=== PATIENT | male | born 1950 | race Caucasian/White ===

== ENCOUNTER 2019-10-11 08:28 | Outpatient (CLI) | payer MEDICARE, OTHER, SELFPAY ==
--- NOTE | 2019-10-11 09:09 | CT_ITS ---
WS: [id number] CT ABDOMEN PELVIS TECHNIQUE: Contrast-enhanced CT of the abdomen and pelvis with coronal and sagittal reformatted image s. CLINICAL INFORMATION: DIVERTICULITIS COMPARISON: 4018 DLP: 853.[address] scans at [facility] use at least one of these dose optimization techniques: automat ed exposure control; mA and/or kV adjustment per patient size (includes targeted exams where dose is matched to clinical indication); or iterative reconstruction. FINDINGS: Diverticulosis. Previously described mild diverticulitis has improved and essentially resolved with m ild residual thickening of the sigmoid colon. Inflammatory stranding has resolved. No abscess.. Howev er, there is a focal area of short segment narrowing involving the proximal sigmoid colon. Recommend further evaluation with colonoscopy. Tortuous sigmoid colon. Sigmoid and left colon constipation. Liver is normal in appearance. Small right hepatic cyst. Normal gallbladder. Small esophageal hiatal hernia. Lung bases are well aerated. Splenic granulomas. Adrenal glands are normal. 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 No hydronephrosis. Aortic calcification. Normal caliber abdominal ao rta. Prostate enlargement. IMPRESSION: 1. Previously described diverticulitis appears improved and essentially resolved. 2. Focal area of narrowing involving the proximal sigmoid colon. This is best seen on the coronal im aging. Recommend further evaluation with colonoscopy to exclude neoplasm. Tortuous sigmoid colon. 3. Mild constipation involving the left colon and sigmoid colon. 4. 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 No hydronephrosis. 5. Enlarged prostate. Recommend correlation PSA.
[2019-10-11] MEDS: iohexol 300 mg/mL 50 mL Btl IV (09:17)
[2019-10-11] MEDS: iohexol 300 mg/mL 100 mL Btl IV (10:55)
== END 2019-10-11 08:29 | disposition home or self-care (01) ==
PROVIDERS: Family Provider Family Medicine; PCP Family Medicine; Visit Provider Family Medicine
DX: K57.92 Diverticulitis of intestine, part unspecified, without perforation or abscess without bleeding (principal); K59.00 Constipation, unspecified; Q63.1 Lobulated, fused and horseshoe kidney; N40.0 Benign prostatic hyperplasia without lower urinary tract symptoms
CPT/HCPCS: 74177

== ENCOUNTER → 2020-07-02 15:50 | Outpatient (BNVA) | payer MEDICARE, OTHER, SELFPAY | PROVIDERS: Family Provider Family Medicine; PCP Family Medicine; Referring Provider Dermatology; Visit Provider Dermatology | DX: Z85.828 Personal history of other malignant neoplasm of skin (principal); L57.0 Actinic keratosis; L82.1 Other seborrheic keratosis; H02.829 Cysts of unspecified eye, unspecified eyelid; L57.8 Other skin changes due to chronic exposure to nonionizing radiation | CPT/HCPCS: 10040; 17004; 99203 ==

== ENCOUNTER 2020-08-14 13:05 | Emergency (ER) | payer MEDICARE, OTHER, SELFPAY ==
[2020-08-14 13:14] VITALS: BP 127/77; PULSE 83; RESP 18; TEMP 36.9; O2SAT 95; BMI 26.7
--- NOTE | 2020-08-14 13:56 | US_ITS ---
WS: [id number] ULTRASOUND ABDOMEN LIMITED CLINICAL INFORMATION: abd pain COMPARISON: None. FINDINGS: Liver Size: Hepatomegaly Craniocaudal length: 16.8 cm. Echogenicity: Coarse echogenicity Surface nodularity: None. Mass (size and location): None. Bile ducts Intrahepatic ducts: Normal. Common bile duct diameter: 0.3 cm. Gallbladder Gallbladder is contracted. Gallstones: None. Gallbladder sludge: None. Gallbladder wall thickening: None. Pericholecystic fluid: None. Sonographic Flowers sign: Absent. Pancreas Not well visualized Right kidney: Horseshoe kidneys Hydronephrosis: None. Size: 10.2 cm x 5.4 cm x 4.0 cm. Abdominal aorta and IVC Visualized portions are normal. Ascites: Moderate abdominal ascites US/US gall bladder [id number] IMPRESSION: 1. Moderate scattered abdominal ascites. 2. Hepatomegaly with diffuse fatty infiltration. 3. Horseshoe kidney. No hydronephrosis. 4. Gallbladder is contracted
--- NOTE | 2020-08-14 13:56 | CTR_ITS ---
PROCEDURE INFORMATION: Exam: CT Abdomen And Pelvis With Contrast Exam date and time: 08/14/2020 3:02 PM Age: 70 years old Clinical indication: Abdominal pain; Additional info: Abd pain TECHNIQUE: Imaging protocol: Computed tomography of the abdomen and pelvis with intravenous contrast. Radiation optimization: All CT scans at this facility use at least one of these dose optimization techniques: automated exposure control; mA and/or kV adjustment per patient size (includes targeted exams where dose is matched to clinical indication); or iterative reconstruction. Contrast material: OMNI 300; Contrast volume: 95 ml; Contrast route: INTRAVENOUS (IV); COMPARISON: CT abdomen pelvis w con* [id number] 10/11/2019 11:11 AM RADIATION DOSE METRICS: Total DLP (mGy-cm): 741.13 FINDINGS: Lungs: Minimal atelectasis at the left lung base. Pleural space: Small left pleural effusion. Liver: Calcified small punctate granulomatous changes in the liver and spleen. Gallbladder and bile ducts: Normal. No calcified stones. No ductal dilation. Pancreas: Normal. No ductal dilation. Spleen: Normal. No splenomegaly. Adrenal glands: Normal. No mass. Kidneys and ureters: Horseshoe kidneys. Stomach and bowel: Diverticulosis of the sigmoid colon. Small portion of the proximal sigmoid colon has colonic wall thickening with no pericolonic fat stranding (series 2, image 68). Appendix: No evidence of appendicitis. Intraperitoneal space: Moderate amount of ascites in the abdomen and pelvis. Vasculature: Unremarkable. No abdominal aortic aneurysm. Lymph nodes: Unremarkable. No enlarged lymph nodes. Urinary bladder: Unremarkable as visualized. Reproductive: Unremarkable as visualized. Bones/joints: Unremarkable. No acute fracture. Soft tissues: Unremarkable. CT/CT abdomen pelvis w con* [id number] IMPRESSION: 1. Interval development of moderate size ascites. 2. Small left pleural effusion with minimal atelectasis at left lung base. 3. 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 4. Diverticulosis of the sigmoid colon with no evidence for acute diverticulitis. 5. Small portion of the proximal sigmoid colon has colonic wall thickening with no pericolonic fat stranding. Nonemergent further evaluation with the colonoscopy is suggested for evaluation of any neoplastic lesion. Radiation Dose CTDIVOL = (mGy): DLP = 741.13 (mGy-cm)
[2020-08-14 14:05] LABS: Basophils # 0.1 10^3/uL (0.0-0.1); Basophils % 0.6 %; Eosinophils # 0.1 10^3/uL (0.0-0.8); Eosinophils % 1.1 %; Hematocrit 46.6 % (42.0-52.0); Hemoglobin 14.7 g/dL (11.7-16.6); Lymphocytes # 1.5 10^3/uL (0.8-4.8); Lymphocytes % 17.1 %; Mean Corpuscular HGB Conc 31.5 g/dL (30.0-36.0); Mean Corpuscular Hemoglobin 28.9 pg (28.0-34.0); Mean Corpuscular Volume 91.7 fL (80-94); Mean Platelet Volume 9.4 fL (7.4-10.4); Monocytes # 0.8 10^3/uL (0.2-0.9); Monocytes % 8.9 %; Neutrophils # 6.33 10^3/uL (1.8-7.7); Neutrophils % 71.4 %; Nucleated Red Blood Cells % 0 %; Platelet Count 467 10^3/cmm (130-400); Red Blood Count 5.08 10^6/uL (4.1-5.3); Red Cell Distribution Width 12.3 % (12.1-15.1); White Blood Count 8.9 10^3/uL (4.0-10.0)
[2020-08-14 14:22] VITALS: BP 128/76; PULSE 78; RESP 18; O2SAT 92
[2020-08-14] MEDS: morphine 4 mg/mL SDV 1 mL IVP (14:22)
[2020-08-14] MEDS: ondansetron 2 mg/ML SDV 2 mL 4 MG IVP (14:22)
[2020-08-14] MEDS: sodium chloride 0.9% 1,000 ML 125 ML IV (14:22)
[2020-08-14 14:24] LABS: Alanine Aminotransferase 15 U/L (0-41); Albumin Level 3.7 g/dL (3.5-5.2); Alkaline Phosphatase 122 IU/L (40-130); Anion Gap 14.8 (5-19); Aspartate Amino Transferase 15 U/L (0-40); Blood Urea Nitrogen 15 mg/dL (8-23); Calcium 9.7 mg/dL (8.5-10.5); Carbon Dioxide 29 mmol/L (22-29); Chloride 97 mmol/L (98-107); Globulin 3.2 g/dL (1.3-4.6); Glomerular Filtration Rate 83.7 mL/min (90-130); Glucose 145 mg/dL (65-115); Lipase 33 U/L (13-60); Osmolality Calculated 285 mOsm/kg (285-295); Potassium 4.8 mmol/L (3.5-5.1); Sodium 136 mmol/L (136-145); Total Bilirubin 0.3 mg/dL (0.15-1.2); Total Protein 6.9 g/dL (6.6-8.7)
[2020-08-14 14:45] LABS: Add Urine Microscopic? NO
[2020-08-14 15:04] LABS: Bilirubin Urine Neg (Negative); Blood Urine Neg (Negative); Glucose Urine UA 4+ (Normal); Ketones Urine Negative (Negative); Leukocyte Esterase Urine Negative (Negative); Nitrate Urine Negative (Negative); Protein Urine Neg (Negative); Urine Appearance Clear (CLEAR); Urine Color Yellow (Yellow); Urobilinogen Urine Norm (Negative)
--- NOTE | 2020-08-14 15:05 | W.ED.ABDPA2 ---
HPI - Abdominal Pain General: Chief Complaint: Abdominal Pain Stated Complaint: SEVERE ABD CRAMPS Time Seen by Provider: 08/14/20 13:51 Source: patient Mode of arrival: ambulatory Limitations: no limitations History of Present Illness: HPI narrative: 70-year-old male states been having abdominal pain over the last 2 months. He states the pain mainly is in his right upper quadrant seems to be worse with eating. States pain is sharp. Denies any vomiting or diarrhea. He states his pain currently is a 4 out of 10 he has had no fevers at home. Associated Symptoms: Reports nausea; Denies chills, dysuria and fever(s) Review of Systems Const: Denies: fever(s), chills, body aches or change in appetite Eyes: Denies: blurry vision or eye discomfort ENMT: Denies: throat pain or dental pain Card: Denies: chest pain Resp: Denies: dyspnea GI: Reports: abdominal pain and nausea : Denies: dysuria Musc: Denies: neck pain or back pain Skin/Breast: Denies: rash Neuro: Denies: headache(s) Psych: Denies: depression [place]/Lymph: Denies: easy bruising All/Imm: Denies: urticaria PFSH ED PFSH: Medical History History of nonmelanoma skin cancer Family History Father Cancer Social History Smoking and tobacco status: never smoked Alcohol intake: current Alcohol intake frequency: few times a week History of recent travel: Yes Physical Exam Const: COMMON NORMALS: no acute distress, patient oriented x3 and healthy appearing HENMT: COMMON NORMALS: normocephalic and atraumatic HEAD & SCALP: normocephalic and atraumatic Eye: COMMON NORMALS: Equal, round and reactive pupils present and EOMs intact bilaterally PUPIL: Yes Equal, round and reactive pupils present Neck/C-Spine: COMMON NORMALS: full ROM and supple Chest: COMMONS NORMALS: normal inspection of the chest and normal palpation of entire chest wall Resp: COMMON NORMALS: normal respiratory effort, No retractions, No use of accessory muscles and clear to auscultation bilaterally AUSCULTATION: clear to auscultation bilaterally Cardio: COMMON NORMALS: regular rate, regular rhythm and No murmurs present (Cardio) RATE: regular rate RHYTHM: regular rhythm GI: COMMON NORMALS: Normal to inspection, nondistended, normoactive bowel sounds present, Soft to palpation and no masses PALPATION: Yes Soft to palpation OTHER: diffuse mild tenderness Extremity: COMMON NORMALS: normal to inspection and full ROM Neuro: COMMON NORMALS: patient oriented x3, moves all extremities and no focal motor deficits Psych: COMMON NORMALS: mental status grossly normal, Normal thought process present and cooperative THOUGHT PROCESS: Normal thought process present Skin: COMMON NORMALS: no rashes or lesions noted and no wounds GENERAL SKIN EXAM: no rashes or lesions noted Course Vital Signs: Vital signs: Vital Signs Temperature 98.4 F 08/14/20 13:14 Pulse Rate 83 08/14/20 13:14 Respiratory Rate 18 08/14/20 14:22 Blood Pressure 127/77 08/14/20 13:14 Pulse Oximetry 95 08/14/20 13:14 MDM - Abdominal Pain MDM Narrative: Medical decision making narrative: Clark presents here with abdominal pain. Patient was found to have ascites. His blood work and work-up was otherwise negative. His pain here is been improved and his exam is benign. Will prescribe him pain meds and he is to follow-up his PCP along with Dr. Khan. Lab Data: Labs: Lab Results 08/14/20 08/14/20 08/14/20 Range/Units 13:37 13:37 13:37 WBC 8.9 (4.0-10.0) 10^3/ uL RBC 5.08 (4.1-5.3) 10^6/u L Hgb 14.7 (11.7-16.6) g/dL Hct 46.6 (42.0-52.0) % MCV 91.7 (80-94) fL MCH 28.9 (28.0-34.0) pg MCHC 31.5 (30.0-36.0) g/dL RDW 12.3 (12.1-15.1) % Plt Count 467 H (130-400) 10^3/c mm MPV 9.4 (7.4-10.4) fL Neut % (Auto) 71.4 % Lymph % (Auto) 17.1 % [place] % (Auto) 8.9 % Eos % (Auto) 1.1 % Baso % (Auto) 0.6 % Neut # (Auto) 6.33 (1.8-7.7) 10^3/u L Lymph # (Auto) 1.5 (0.8-4.8) 10^3/u L [place] # (Auto) 0.8 (0.2-0.9) 10^3/u L Eos # (Auto) 0.1 (0.0-0.8) 10^3/u L Baso # (Auto) 0.1 (0.0-0.1) 10^3/u L Nucleated RBC % (a uto) 0 % Nucleated RBCs # 0.0 /100WBC Sodium 136 (136-145) mmol/L Potassium 4.8 (3.5-5.1) mmol/L Chloride 97 L (98-107) mmol/L Carbon Dioxide 29 (22-29) mmol/L Anion Gap 14.8 (5-19) BUN 15 (8-23) mg/dL Creatinine 0.9 (0.7-1.2) mg/dL GFR Calculation 83.7 L (90-130) mL/min Glucose 145 H (65-115) mg/dL Calculated Osmolal ity 285 (285-295) mOsm/k g Calcium 9.7 (8.5-10.5) mg/dL Total Bilirubin 0.3 (0.15-1.2) mg/dL AST 15 (0-40) U/L ALT 15 (0-41) U/L Alkaline Phosphata se 122 (40-130) IU/L Total Protein 6.9 (6.6-8.7) g/dL Albumin 3.7 (3.5-5.2) g/dL Globulin 3.2 (1.3-4.6) g/dL Lipase 33 (13-60) U/L Urine Color Yellow (Yellow) Urine Appearance Clear (CLEAR) Urine pH 5.0 (5-7) Ur Specific Gravit y 1.010 (1.005-1.030) Urine Protein Neg (Negative) Urine Glucose (UA) 4+ H (Normal) Urine Ketones Negative (Negative) Urine Blood Neg (Negative) Urine Nitrate Negative (Negative) Urine Bilirubin Neg (Negative) Urine Urobilinogen Norm (Negative) mg/dL Ur Leukocyte Elvira ase Negative (Negative) Imaging Data ^: US: Radiologist's impression: [place] [address] Ultrasound Report Signed Patient: Clark Antony Unit #: [id number] : 1950 Age/Sex: 70 / M ADM Date: 08/14/20 Loc: ER Room/Bed: Attending Dr: Ordering Provider/Ordering MD: Cherelle Andrade MD Date of Service: 08/14/20 Procedure(s): US gall bladder [id number] Accession Number(s): [id number] Report Number: [id number] WS: [id number] ULTRASOUND ABDOMEN LIMITED CLINICAL INFORMATION: abd pain COMPARISON: None. FINDINGS: Liver Size: Hepatomegaly Craniocaudal length: 16.8 cm. Echogenicity: Coarse echogenicity Surface nodularity: None. Mass (size and location): None. Bile ducts Intrahepatic ducts: Normal. Common bile duct diameter: 0.3 cm. Gallbladder Gallbladder is contracted. Gallstones: None. Gallbladder sludge: None. Gallbladder wall thickening: None. Pericholecystic fluid: None. Sonographic Flowers sign: Absent. Pancreas Not well visualized Right kidney: Horseshoe kidneys Hydronephrosis: None. Size: 10.2 cm x 5.4 cm x 4.0 cm. Abdominal aorta and IVC Visualized portions are normal. Ascites: Moderate abdominal ascites US/US gall bladder [id number] IMPRESSION: 1. Moderate scattered abdominal ascites. 2. Hepatomegaly with diffuse fatty infiltration. 3. Horseshoe kidney. No hydronephrosis. 4. Gallbladder is contracted CT Abd/Pel: Radiologist's impression: [address] [address] [address] Scan Report Signed Patient: Clark Antony Unit #: [id number] : 1950 Age/Sex: 70 / M ADM Date: 08/14/20 Loc: ER Room/Bed: Attending Dr: Ordering Provider/Ordering MD: Cherelle Andrade MD Date of Service: 11/12/20 Procedure(s): CT abdomen pelvis w con* [id number] Accession Number(s): [id number] Report Number: [id number] PROCEDURE INFORMATION: Exam: CT Abdomen And Pelvis With Contrast Exam date and time: 08/14/2020 3:02 PM Age: 70 years old Clinical indication: Abdominal pain; Additional info: Abd pain TECHNIQUE: Imaging protocol: Computed tomography of the abdomen and pelvis with intravenous contrast. Radiation optimization: All CT scans at this facility use at least one of these dose optimization techniques: automated exposure control; mA and/or kV adjustment per patient size (includes targeted exams where dose is matched to clinical indication); or iterative reconstruction. Contrast material: OMNI 300; Contrast volume: 95 ml; Contrast route: INTRAVENOUS (IV); COMPARISON: CT abdomen pelvis w con* [id number] 10/11/2019 11:11 AM RADIATION DOSE METRICS: Total DLP (mGy-cm): 741.13 FINDINGS: Lungs: Minimal atelectasis at the left lung base. Pleural space: Small left pleural effusion. Liver: Calcified small punctate granulomatous changes in the liver and spleen. Gallbladder and bile ducts: Normal. No calcified stones. No ductal dilation. Pancreas: Normal. No ductal dilation. Spleen: Normal. No splenomegaly. Adrenal glands: Normal. No mass. Kidneys and ureters: Horseshoe kidneys. Stomach and bowel: Diverticulosis of the sigmoid colon. Small portion of the proximal sigmoid colon has colonic wall thickening with no pericolonic fat stranding (series 2, image 68). Appendix: No evidence of appendicitis. Intraperitoneal space: Moderate amount of ascites in the abdomen and pelvis. Vasculature: Unremarkable. No abdominal aortic aneurysm. Lymph nodes: Unremarkable. No enlarged lymph nodes. Urinary bladder: Unremarkable as visualized. Reproductive: Unremarkable as visualized. Bones/joints: Unremarkable. No acute fracture. Soft tissues: Unremarkable. CT/CT abdomen pelvis w con* [id number] IMPRESSION: 1. Interval development of moderate size ascites. 2. Small left pleural effusion with minimal atelectasis at left lung base. 3. 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 4. Diverticulosis of the sigmoid colon with no evidence for acute diverticulitis. 5. Small portion of the proximal sigmoid colon has colonic wall thickening with no pericolonic fat stranding. Nonemergent further evaluation with the colonoscopy is suggested for evaluation of any neoplastic lesion. Discharge Plan Discharge Patient Disposition: Home Clinical Impression: Abdominal pain Qualifiers: Abdominal location: generalized Qualified Code(s): R10.84 - Generalized abdominal pain Ascites Qualifiers: Ascites type: other type Qualified Code(s): R18.8 - Other ascites Condition: Stable Prescriptions: New Mcdonald 5-325 mg tablet 1 tab PO Q6H PRN (Reason: pain) Qty: 14 RF: 0 ondansetron 4 mg tablet,disintegrating 4 mg PO Q6H PRN (Reason: nausea and vomiting) Qty: 14 RF: 0 No Action esomeprazole magnesium [Nexium] 40 mg capsule,delayed release(DR/EC) 40 mg PO DAILY RF: 0 rosuvastatin [Crestor] 20 mg tablet 20 mg PO DAILY RF: 0 montelukast [Singulair] 10 mg tablet 10 mg PO DAILY RF: 0 lisinopril RF: 0 Discharge Orders: Discharge Order (Routine); Ordered 08/14/20 Ordered By: Cherelle Andrade Referrals: Serg Wise MD [Physician] - 1-3 days Felipe Ruth MD [Primary Care Provider] - 1-3 days Discharge Diet: Advance as tolerated Discharge Activity: Resume usual activity Patient Instructions: Abdominal Pain (ED) Coding Level of Care Code ED Chairman President [employer] Chief [employer] for [employer] Fwd Exam Comprehensive
[2020-08-14] MEDS: iohexol 300 mg/mL 100 mL Btl IV (15:13)
[2020-08-14 16:00] VITALS: BP 136/72; PULSE 78; RESP 16; O2SAT 94
[2020-08-14 17:36] VITALS: BP 104/64; PULSE 79; RESP 18; O2SAT 94
--- NOTE | 2020-08-15 09:04 | DCPLANNER ---
manager private had message to schedule a follow up appointment for patient with general surgery. manager private email Ger at [facility], gave patients information. Patients information will be printed and reviewed, clinic will call patient with appointment information.
--- NOTE | 2020-08-19 11:50 | DCPLANNER ---
Patient had a follow up appointment scheduled for 08.15.20 at [facility] - patient did attend appointment.
== END 2020-08-14 17:40 | disposition home or self-care (01) ==
PROVIDERS: Emergency Provider Emergency Medicine; PCP Family Medicine
DX: R10.84 Generalized abdominal pain (principal); R18.8 Other ascites
CPT/HCPCS: 12345; 74177; 76705; 80053; 81003; 83690; 85025; 96361; 96374; 96375; 99282; 99283; J2270; J2405; J7030; Q9967

== ENCOUNTER → 2020-08-18 12:34 | Day surgery (SDC) | payer MEDICARE, OTHER, SELFPAY ==
--- NOTE | 2020-08-18 12:55 | US_ITS ---
WS: [id number] ULTRASOUND-GUIDED THERAPEUTIC AND DIAGNOSTIC PARACENTESIS Procedure, risks, and complications have been explained to the patient. Consent is obtained. Utilizing aseptic technique and 1% buffered lidocaine, a small dermatome was made through which a 5 F rench Yueh catheter was inserted. Approximately 2300 ml of mild yellow peritoneal fluid was obtained without difficulty. No complications encountered. US/US paracentesis abd w [id number] IMPRESSION: Uncomplicated paracentesis yielding 2300 ml of peritoneal fluid. Paracentesis fluid collected and sent for analysis as requested.
[2020-08-18 15:43] LABS: Mononuclear #, Pertinoneal Fl 0.394 10^3/uL; Polynuclear # Cells, Perit 0.032 10^3/uL
[2020-08-18 15:55] LABS: Alkaline Phosphatase 59 IU/L (40-130)
[2020-08-18 15:56] LABS: Amylase Peritoneal Fluid 10 U/L (88-109); Cholesterol Body Fluid 94 mg/dL (0-200); Total Protein Peritoneal Fluid 4.4 g/dL; Triglycerides,Peritoneal Fluid 61 mg/dL; Uric Acid Body Fluid 4 mg/dL
[2020-08-18 17:36] LABS: Appearance, Peritoneal Fluid Hazy (Clear); Color, Peritoneal Fluid Pale Yellow (Pale Yellow)
[2020-08-18 17:41] LABS: WBC Peritoneal Fluid 426 /uL
[2020-08-18 17:42] LABS: RBC Pertioneal Fluid 5 10^3/uL
== END ==
PROVIDERS: PCP Family Medicine; Visit Provider Surgery
DX: R14.0 Abdominal distension (gaseous) (principal)
CPT/HCPCS: 49083; 80500; 82150; 82465; 82945; 83615; 83986; 84075; 84080; 84157; 84315; 84478; 84560; 87015; 87070; 87075; 87116; 87205; 87206; 87801; 88112; 88305; 89050

== ENCOUNTER 2020-08-21 08:16 | Outpatient (CLI) | payer MEDICARE, OTHER, SELFPAY ==
--- NOTE | 2020-08-21 08:22 | NM_ITS ---
WS: [id number] NUCLEAR MEDICINE HIDA SCAN WITH GALLBLADDER EJECTION FRACTION HISTORY: RUQ PAIN COMPARISON: None available. TECHNIQUE: The patient was intravenously injected with 7.2 mCi of TC99m Mebrofenin. Immediate imaging over the right upper quadrant was followed by 5 minute image and additional images for a total of 60 minutes. Normal uptake of radiotracer throughout the liver. Activity identified in the gallbladder at 15 minutes and minimally distended by 60 minutes. Activity in the proximal small bowel was seen by 30 minutes. Good washout of the radiotracer from the liver by 60 minutes. The patient then drank 8 ounces of Ensure Plus. Ejection fraction at 60 minutes was 93%. Normal GB ej ection fraction is 35-75%. Post fatty meal symptoms: None. NM/NM hepatobiliary w phar* [id number] IMPRESSION: 1. Normal HIDA scan. 2. Normal gallbladder ejection fraction.
== END 2020-08-21 08:17 | disposition home or self-care (01) ==
LOC: NM 08:19
PROVIDERS: PCP Family Medicine; Visit Provider Nurse Practitioner Family
DX: R10.11 Right upper quadrant pain (principal)
CPT/HCPCS: 78227; A9537

== ENCOUNTER 2020-08-26 16:06 | Outpatient (CLI) | payer MEDICARE, OTHER, SELFPAY ==
[2020-08-26 16:51] LABS: Basophils # 0.1 10^3/uL (0.0-0.1); Basophils % 0.5 %; Eosinophils # 0.1 10^3/uL (0.0-0.8); Eosinophils % 0.7 %; Hematocrit 45.4 % (42.0-52.0); Lymphocytes # 1.5 10^3/uL (0.8-4.8); Mean Corpuscular HGB Conc 30.8 g/dL (30.0-36.0); Mean Corpuscular Hemoglobin 28.3 pg (28.0-34.0); Mean Corpuscular Volume 91.7 fL (80-94); Mean Platelet Volume 9.5 fL (7.4-10.4); Monocytes # 0.9 10^3/uL (0.2-0.9); Monocytes % 9.1 %; Neutrophils # 7.35 10^3/uL (1.8-7.7); Neutrophils % 74.1 %; Nucleated Red Blood Cells % 0 %; Platelet Count 434 10^3/cmm (130-400); Red Blood Count 4.95 10^6/uL (4.1-5.3); Red Cell Distribution Width 12.8 % (12.1-15.1); White Blood Count 9.9 10^3/uL (4.0-10.0)
[2020-08-26 17:33] LABS: Carcinoembryonic Antigen 1.1 ng/mL (0.0-4.7)
[2020-08-26 17:44] LABS: Alanine Aminotransferase 13 U/L (0-41); Albumin Level 3.8 g/dL (3.5-5.2); Alkaline Phosphatase 114 IU/L (40-130); Anion Gap 17.4 (5-19); Aspartate Amino Transferase 16 U/L (0-40); Blood Urea Nitrogen 14 mg/dL (8-23); Calcium 8.8 mg/dL (8.5-10.5); Carbon Dioxide 24 mmol/L (22-29); Chloride 100 mmol/L (98-107); Globulin 2.9 g/dL (1.3-4.6); Glomerular Filtration Rate 74.1 mL/min (90-130); Glucose 141 mg/dL (65-115); Osmolality Calculated 287 mOsm/kg (285-295); Potassium 4.4 mmol/L (3.5-5.1); Sodium 137 mmol/L (136-145); Total Bilirubin 0.3 mg/dL (0.15-1.2); Total Protein 6.7 g/dL (6.6-8.7)
[2020-08-26 20:02] LABS: Cancer Antigen 19 9 4.85 U/mL (0-35)
== END 2020-08-26 16:07 | disposition home or self-care (01) ==
LOC: LAB 16:13
PROVIDERS: PCP Family Medicine; Visit Provider Surgery
DX: R18.8 Other ascites (principal)
CPT/HCPCS: 36415; 80053; 82378; 85025; 86301

== ENCOUNTER 2020-09-01 07:20 | Outpatient (CLI) | payer MEDICARE, OTHER, SELFPAY ==
--- NOTE | 2020-09-01 07:15 | US_ITS ---
WS: [id number] ULTRASOUND ABDOMEN LIMITED CLINICAL INFORMATION: R18.8 - Other ascites COMPARISON: None. FINDINGS: Liver Normal directional portal venous flow. Hepatic arteries are patent with normal flow. Size: Mild hepatomegaly Craniocaudal length: 17.5 cm. Echogenicity: Normal. Surface nodularity: None. Mass (size and location): None. Bile ducts Intrahepatic ducts: Normal. Common bile duct diameter: 0.4 cm. Gallbladder Normal. Gallstones: None. Gallbladder sludge: None. Gallbladder wall thickening: None. Pericholecystic fluid: None. Sonographic Flowers sign: Absent. Pancreas Not well visualized Right kidney: Horseshoe kidney configuration better seen on the recent CT. Hydronephrosis: None. Size: 12.2 cm x 4.7 cm x 6.0 cm. Abdominal aorta and IVC Visualized portions are normal. Ascites: Mild US/US abdomen limited [id number] IMPRESSION: 1. Mild hepatomegaly. 2. Normal portal vein flow. Normal hepatic arteries. 3. Normal common bile duct. Normal gallbladder. 4. No hydronephrosis in right kidney. 5. Mild ascites.
--- NOTE | 2020-09-01 07:45 | USCV_ITS ---
Enriquelauren Clark Age: 70 Gender: M : 1950 Exam Date: 09/01/2020 08:22 Ordering Phys: Andrew Cole MD Technologist: Karyn Falcon Exam Location: [facility] [place] Indication: ASITES BP: 115 / 70 HR: 78 Rhythm: Sinus Technical Quality: Very poor MEASUREMENTS (Male / Female) Normal Values 2D ECHO LV Diastolic Diameter PLAX 3.3 cm 4.2 - 5.9 / 3.9 - 5.3 cm LV Systolic Diameter PLAX 2.4 cm LV Chamber Size 3.6 cm IVS Diastolic Thickness 1.2 cm 0.6 - 1.0 / 0.6 - 0.9 cm IVS Systolic Thickness 1.6 cm LVPW Diastolic Thickness 1.2 cm 0.6 - 1.0 / 0.6 - 0.9 cm LVPW Systolic Thickness 1.6 cm RV Chamber Size 4.1 cm LVOT Diameter 2.1 cm LV Ejection Fraction 2D Teich 55.9 % LV Ejection Fraction MOD 2C 62.3 % LV Ejection Fraction 2C AL 61.8 % LA Diameter 2.8 cm LA Width 2.7 cm LA Height 3.3 cm RA Width 2.7 cm RA Height 3.1 cm Aorta at Sinotubular Diameter 3.2 cm M-MODE LV Diastolic Diameter MM 4.8 cm 4.2 - 5.9 / 3.9 - 5.3 cm LV Systolic Diameter MM 2.8 cm LV Ejection Fraction MM Teich 73.1 % IVS Diastolic Thickness MM 0.9 cm 0.6 - 1.0 / 0.6 - 0.9 cm IVS Systolic Thickness MM 1.3 cm LVPW Diastolic Thickness MM 1.2 cm 0.6 - 1.0 / 0.6 - 0.9 cm LVPW Systolic Thickness MM 1.7 cm RV Diastolic Diameter MM 1.6 cm Aortic Annulus Diameter 3.7 cm LA Ao Ratio MM 0.9 MV E Point Septal Separation 0.4 cm DOPPLER AV Peak Velocity 110.0 cm/s LVOT Peak Velocity 72.0 cm/s AV Area Cont Eq vti 2.8 cm squared AV Area Cont Eq pk 2.2 cm squared MV Area PHT 2.6 cm squared Mitral E to A Ratio 1.0 MV E' Velocity 35.5 cm/s Mitral E to MV E' Ratio 5.9 Mitral E to LV E' Lateral Ratio 5.4 Mitral E to LV E' Septal Ratio 6.5 TR Peak Velocity 169.1 cm/s TR Peak Gradient 11.4 mmHg TR Mean Velocity 128.1 cm/s TR Mean Gradient 7.4 mmHg TR Velocity Time Integral 38.9 cm TV Peak E Velocity 80.0 cm/s PV Peak Velocity 49.0 cm/s RV Acceleration Time 0.2 s RV Ejection Time 0.3 s RV AcT/ET 0.5 FINDINGS Left Ventricle Possibly normal LV size and ejection fraction. No gross wall motion normalities. Mild concentric left renal hypertrophy. Segmental wall motion analysis difficult because of the poor ultrasonic window Right Ventricle Normal right ventricular size and systolic function. Right Atrium Possibly of normal size possibly of normal size Left Atrium Possibly of normal size Mitral Valve Leaflets could not be visualized well Aortic Valve No gross abnormalities noted Tricuspid Valve No gross Pulmonic Valve Pulmonic valve not well visualized. Pericardium Trivial pericardial effusion. Aorta Normal aortic annulus size. CONCLUSIONS Possibly normal LV size and ejection fraction. No gross wall motion normalities. Mild concentric left renal hypertrophy. Segmental wall motion analysis difficult because of the poor ultrasonic window. Mitral valve leaflets could not visualize well. The study could not exclude any intracardiac masses or vegetations because of the poor ultrasonic window. Consider MYLENE if clinically indicated Trace of pericardial effusion Technically difficult study No previous studies available for comparison Dr Linda Paul MD [facility] (Electronically Signed) Final Date: 01 September 2020 15:49 S
== END 2020-09-01 07:21 | disposition home or self-care (01) ==
LOC: RAD 07:28
PROVIDERS: PCP Family Medicine; Visit Provider Surgery
DX: R18.8 Other ascites (principal); R16.0 Hepatomegaly, not elsewhere classified
CPT/HCPCS: 76705; 93306

== ENCOUNTER 2020-09-04 09:13 | Outpatient (CLI) | payer MEDICARE, OTHER, SELFPAY ==
--- NOTE | 2020-09-04 09:38 | CT_ITS ---
WS: [id number] CT scan of the chest with IV contrast, additional two-dimensional coronal and sagittal reconstruction was performed. 09/04/2020 Clinical Data: ASCITES, PERICARDIAL EFFUSION Comparison: None. DLP: 842.[address] scans at [facility] use at least one of these dose optimization techniques: automat ed exposure control; mA and/or kV adjustment per patient size (includes targeted exams where dose is matched to clinical indication); or iterative reconstruction. Findings: There is a moderate left pleural effusion with atelectasis of the left lower lobe. No right pleural e ffusion is seen. No nodules or masses are seen. No pneumonia or pneumothorax is present The heart size is normal with no pericardial effusion. There is coronary artery calcification. The pulmonary arterial system and t horacic aorta demonstrate no abnormalities or dilatations. There is no axillary or significant medias tinal adenopathy. The upper abdomen shows minimal left upper quadrant ascites. Visualized liver, gallbladder, pancreas and spleen show only splenic granulomas. The adrenal glands are normal. Abdominal aorta is not remark able. The bones of the thorax are normal. CT/CT chest w con* [id number] Impression: 1. Moderate left pleural effusion with atelectasis of the left lower lobe and a n obstructed left lower lobe bronchus could cause this finding. 2. Small amount of ascites in the left upper quadrant of the abdomen.
[2020-09-04] MEDS: iohexol 300 mg/mL 100 mL Btl IV (10:11)
== END 2020-09-04 09:14 | disposition home or self-care (01) ==
LOC: RADWPI 09:16
PROVIDERS: PCP Family Medicine; Visit Provider Family Medicine
DX: R18.8 Other ascites (principal); I31.3 Pericardial effusion (noninflammatory); J90 Pleural effusion, not elsewhere classified; J98.11 Atelectasis
CPT/HCPCS: 71260; Q9967

== ENCOUNTER → 2020-09-24 13:57 | Day surgery (SDC) | payer MEDICARE, OTHER, SELFPAY ==
[2020-09-24 14:09] VITALS: BP 110/70; PULSE 90; RESP 18; TEMP 36.4; O2SAT 94
[2020-09-24 14:14] VITALS: BMI 25.1
[2020-09-24 15:56] VITALS: BP 105/64; PULSE 77; RESP 18; TEMP 36.4; O2SAT 94
--- NOTE | 2020-09-24 15:58 | SUR.PREOP ---
patient instructed to leave gauze bandage on for 24h, not to soak puncture site in water for bathing until completely healed. instructed to place bandaid over site after gauze removed. pt verbalized understanding.
--- NOTE | 2020-09-24 16:39 | PM.PROC ---
Procedure Note: Date of procedure: 09/24/20 Pre-procedure diagnosis: Infection/malignancy Procedure: Pulmonary & Critical Care Medicine Procedure -left chest thoracentesis Procedure: Thoracentesis Indication: Pleural effusion Information Systems Security Developer(s): Angel Singleton MD Consent: Signed and placed in chart Anesthesia: 10 cc 1% lidocaine without epinephrine Description: Left pleural effusion was localized using ultrasound guidance and the site was marked accordingly. After chlorhexidine skin prep, area was draped in a sterile manner. 1% lidocaine was used for local anesthesia. Thoracentesis catheter was then inserted into the pleural space with aspiration of 740 cc of hemorrhagic appearing pleural fluid. Ultrasound guidance used: yes. Image saved to ultrasound machine yes EBL: 5-10 cc Complications: No LEFT PLEURAL EFFUSION POST THORACENTESIS Op report anesthesia: Local Performing Provider: Angel Singleton Estimated blood loss (mL): 10 Complications: None Pathology: other Condition: stable Disposition: same day (discharge) Coding Level of Care Code Acute Soft Metals Hand Engraver for Ama Gallagher
[2020-09-24 16:51] LABS: Body Fluid Polynuclear #Cells 0.059; Monocytes # Body Fluid 3.329
[2020-09-24 17:06] LABS: Apprearance, Body Fluid CLEAR; Body Fluid WBC 3388 /uL; Color, Body Fluid PALE YELLOW; PATH Referral YES
[2020-09-24 18:08] LABS: Albumin Body Fluid 3.4 g/dL; Amylase Body Fluid 13 U/L; Cholesterol Body Fluid 102 mg/dL (0-200); Fluid Alkaline Phos. 45 IU/L; LDH Body Fluid 227 U/L; Total Protein Pleural Fluid 5.1 g/dL; Triglycerides Body Fluid 48 mg/dL (0-150); Uric Acid Body Fluid 4 mg/dL
== END ==
PROVIDERS: PCP Family Medicine; Visit Provider Internal Medicine Pulmonary Disease
DX: J90 Pleural effusion, not elsewhere classified (principal)
CPT/HCPCS: 12345; 32555; 80500; 82042; 82150; 82465; 82945; 83615; 83986; 84075; 84157; 84315; 84478; 84560; 87015; 87070; 87075; 87102; 87116; 87205; 87206; 87801; 89050

== ENCOUNTER 2020-10-07 11:59 | Outpatient (CLI) | payer MEDICARE, OTHER, SELFPAY ==
--- NOTE | 2020-10-07 12:06 | XR_ITS ---
WS: [id number] CHEST 2 VIEWS HISTORY: left pleural effusion COMPARISON: 04/13/[address] 09/04/2020. Lungs: Slight elevation of the LEFT lung base with a small effusion. This effusion was described on a prior CT from 09/04/2020. Fusion appears smaller as compared to the prior CT. No lobar collapse. No p neumonia. Normal vasculature. Cardiac size: Normal. Mediastinum/Aorta: Mild atherosclerosis aorta. Bones: Normal. XR/XR chest 2V* 11550 IMPRESSION: 1. Small persistent LEFT pleural effusion has decreased in size since 0. 2. No pneumonia.
== END 2020-10-07 12:00 | disposition home or self-care (01) ==
PROVIDERS: PCP Family Medicine; Visit Provider Internal Medicine Pulmonary Disease
DX: J90 Pleural effusion, not elsewhere classified (principal)
CPT/HCPCS: 71046

== ENCOUNTER 2020-10-10 15:19 | Outpatient (CLI) | payer MEDICARE, OTHER, SELFPAY ==
[2020-10-10 16:59] LABS: C Reactive Protein 4.7 mg/L (0.0-4.9); Lactate Dehydrogenase 132 U/L (135-225)
[2020-10-13 13:12] LABS: Anti-Double Strand DNA AB 1 IU/mL; Jo-1 Antibody <1.0 NEG AI (<1.0 NEG); SM/RNP Antibodies <1.0 NEG AI (<1.0 NEG); SS-B/LA IGG <1.0 NEG AI (<1.0 NEG); Scleroderma Ab(Scl-70) Ab <1.0 NEG AI (<1.0 NEG); Ss-A/Ro Igg <1.0 NEG AI (<1.0 NEG)
[2020-10-13 15:13] LABS: KAPPA LIGHT CHAIN, FREE, SERUM 16.9 mg/L (3.3-19.4); KAPPA/LAMBDA LIGHT CHAINS FREE 1.31 (0.26-1.65); LAMBDA LIGHT CHAIN, FREE, SERU 12.9 mg/L (5.7-26.3)
== END 2020-10-10 15:20 | disposition home or self-care (01) ==
PROVIDERS: PCP Family Medicine; Visit Provider Internal Medicine Pulmonary Disease
DX: J90 Pleural effusion, not elsewhere classified (principal); R18.8 Other ascites
CPT/HCPCS: 36415; 83615; 83883; 84156; 86140; 86225; 86235; 86335

== ENCOUNTER 2020-10-27 09:54 | Outpatient (CLI) | payer MEDICARE, OTHER, SELFPAY ==
--- NOTE | 2020-10-27 10:15 | MR_ITS ---
WS: [id number] INDICATION: Lower abdominal pain TECHNIQUE: MR of the pelvis without and with gadolinium enhancement. COMPARISON: PET CT 1 16,, CT 08/14/2020 and 10/11/2019. FINDINGS: Some images degraded by motion artifact. No definite perianal or perirectal abnormalities t o correspond to the findings on the PET/CT. Mild circumferential wall thickening involving the distal sigmoid proximal to the rectum eccentric to the left. This is nonspecific and recommend further eval uation with sigmoidoscopy. Perirectal fat appears normal. No pelvic or inguinal lymphadenopathy. Normal bone marrow signal in th e pelvis bony structures and sacrum. Mild disc bulging lower lumbar spine L4-L5 and L5-S1. MR/MR pelvis wo/w con [id number] IMPRESSION: 1. No definite abnormalities corresponding to the right rectal focal uptake se en on the PET/CT. However the PET/CT findings remain suspicious for malignancy 2. Mild diffuse thickening and enhancement involving the distal sigmoid proxim al to the rectum is nonspecific and neoplasm is not excluded. This can be furth er evaluated with sigmoidoscopy. Although this did not demonstrate significant FDG uptake on the PET/CT 3. No pelvic or inguinal lymphadenopathy. 4. No other significant findings.
== END 2020-10-27 09:55 | disposition home or self-care (01) ==
LOC: RADSHAW 09:58
PROVIDERS: PCP Family Medicine; Visit Provider Surgery
DX: K62.89 Other specified diseases of anus and rectum (principal); R10.30 Lower abdominal pain, unspecified
CPT/HCPCS: 72197; A9577

== ENCOUNTER 2021-01-22 10:01 | Outpatient (CLI) | payer MEDICARE, OTHER, SELFPAY ==
--- NOTE | 2021-02-15 22:04 | ONC FU_ITS ---
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 (Diagnosed 01/15/[address] [facility] [address] Rena Gresham). History of Present Illness: Mr. Antony is a 70-year-old gentleman who started having lower abdominal pain in late 2018/early 2019. On October 11, [address] of the abdomen and pelvis with contrast. He was found to have diverticulosis although was improved compared to September 2019. There previously been reported mild residual thickening of the sigmoid colon but that had essentially resolved on the October 2019 result. The overall impression red previously described diverticulitis appears improved and essentially resolved. Focal area of narrowing involving the proximal sigmoid colon. This is best seen on the coronal imaging. Recommended further evaluation with colonoscopy to exclude neoplasm. Tortuous sigmoid colon. He did have enlarged prostate and recommended correlation PSA. 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 He did have EGD and colonoscopy per Dr Pelaez, both of which were unrevealing. Mr. Antony presented to [facility] emergency room in August 2020 with severe abdominal cramps and pain. At that point he was having pain in his right upper quadrant which was worse with eating. He did have ultrasound of the gallbladder which found the gallbladder contracted but no gallstones no sludge and no wall thickening. His bile ducts were normal. He did have hepatomegaly the craniocaudal length is 16.8 cm the pancreas was not well-visualized. The right kidney horseshoe kidneys without hydronephrosis. He did have a moderate amount of abdominal ascites. He had CT of the abdomen pelvis which compared to his previous reported interval development of moderate size ascites. Small left pleural effusion with minimal atelectasis at the left lung base. Diverticulosis of the sigmoid colon with no evidence of acute diverticulitis. Small portion of the proximal sigmoid colon has colonic wall thickening with no pericolonic fat stranding. Nonemergent further evaluation with colonoscopy is suggested for any evaluation of neoplasm. He was given pain medication and antiemetics. He was advised to follow-up with Dr. Ruth and Dr. Wise. Mr. Antony did see Dr. Cole on August 15, 2020. He was scheduled for ultrasound-guided paracentesis and a HIDA scan with ejection fraction. He was advised increase his Nexium to twice a day. He had 2300 mL of yellow peritoneal fluid removed with his paracentesis on 08/18/2020. The cytology was negative for malignancy. On August 21, 2020 he underwent HIDA scan which was reported as normal and reported an ejection fraction of 93%. He had follow-up abdominal ultrasound on September 01, 2020 which is reported mild ascites. He also underwent echocardiogram which was reported as a technically difficult study with a trace of pericardial effusion. Possibly normal LV size and ejection fraction. No gross wall motion abnormalities mild concentric left renal hypertrophy. Segmental wall motion analysis difficult because of the poor ultrasonic window. Mitral valve leaflets could not be visualized well . On 09/04/[address] with contrast which reported a moderate left pleural effusion with atelectasis in the left lower lobe. No right lower lobe pleural effusion was seen. There were no nodules or masses reported. No pneumonia or pneumothorax was present. The heart size was normal with no pericardial effusion. There is coronary artery calcification the pulmonary arterial system and thoracic aorta demonstrate no abnormalities or dilatations. There was no axillary or significant mediastinal adenopathy. The upper abdomen shows left upper quadrant ascites, visualized liver, gallbladder, pancreas and spleen only show splenic granulomas. The adrenal glands were normal and the abdominal aortic was not remarkable. The bones of the thorax were normal. Mr. Antony was evaluated by Dr. Singleton in pulmonology on 09/22/2020. Mr. Antony was having increased shortness of breath with exertion with left-sided chest tightness. Is also noted that time that his appetite had decreased and lost about 30 pounds in a month and was feeling more tired than normal. Dr. Singleton noted that Mr. Antony indicated he was going to see maintenance instructor in [place] on 09/23/2020. His labs including LFTs and tumor markers-CEA and CA 19-9 had all been normal. Bedside ultrasound at Dr. Pan's clinic indicated moderate pleural effusion. He was scheduled for thoracentesis on 09/24/2020 for outpatients. 740 mL of hemorrhagic appearing pleural fluid was noted from the left pleural effusion from 09/24/2020. The cytology was negative for malignancy. Follow-up chest x-ray on October reported small persistent left pleural effusion but had decreased in size since 09/04/2020. At that point a PET CT was ordered and obtained on October 18, 2020. It reported in the right perianal region a roughly 2 cm region of abnormal activity with an SUV of 12.0. Given the clinical history, this is a high probability of malignancy. Tiny scattered perirectal nodes are too small to characterize. Mesenteric edema and small amount of ascites is present; omental stranding is likely related to edema as well. There was no clear evidence for macroscopic metastatic disease . Follow-up pelvic MRI reported no perianal or perirectal abnormalities. Mild circumferential wall thickening involving the distal sigmoid. Mr. Antony presented to [facility] on 12/02/2020. He had follow-up MRI of abdomen pelvis which reported omental fatty stranding and small ascites. Focal signal wall thickening unclear if secondary due to under distention or carcinomatosis or sigmoid primary. On 12/05/2019, he also had a sigmoidoscopy with EUS which was negative for primary tumor. Paracentesis with removal of 1.3 L of fluid cytology positive for rare atypical cells, highly suspicious for adenocarcinoma. He then underwent omental biopsy on 12/24/2020 which reported metastatic moderately to poorly differentiated adenocarcinoma with signet ring cell features with fibrous tissue. He was seen back in [facility] on 01/15/2021 for discussion of the metastatic moderately to poorly differentiated adenocarcinoma with signet ring cell features with peritoneal carcinomatosis and malignant ascites. The provider note indicated they discussed the nature of the disease and palliative intent of treatment along with relative role of chemotherapy and cytoreductive surgery. He was to have further follow-up restaging scans and diagnostic laparoscopic to determine the extent of disease. Molecular profiling was obtained on 01/15/2021 per that note. Mr Antony had telemedicine visit with Dr Rena Gresham/[facility] and per Dr. Lira note, CT scan of the Chest/abdomen/pelvis from 01/15/2021 ([facility]) reported enlarging nonobstructed advanced circumferential mass, distal sigmoid colon and progressive advanced carcinomatosis in the abdomen and pelvis. Mr. Antony was not a candidate for CRS or HIPEC given grade and volume of disease as per GI surgery. It was recommended that he start palliative systemic chemotherapy with 4 cycles FOLFOX. Molecular profiling results were pending. After 4 cycles, we will plan to restage him. It was noted that he was counseled extensively regarding metastatic nature of disease and palliative intent of treatment along with relative role of chemotherapy and cytoreductive surgery . He is due for follow-up at [facility] in 2 months. Mr. nAtony presents today to establish care with [facility]. The current plan of care is 4 cycles of FOLFOX. Each cycle length is 14 days. He has abdominal pain and bloating after he eats. He states is no worse than what it has been. He has had weight loss of 20 to 30 pounds. He is having some intermittent nausea as well. He states otherwise he is doing well. He has had no fever or chills. He denies any night sweats. He denies any headaches, vision changes or episodes of confusion. His appetite is still poor overall but he is trying to eat. He denies any new pain. He denies any mouth sores sore throat or difficulty swallowing. He denies any new shortness of breath orthopnea. He denies any cough or hemoptysis. He has had no symptoms as such that he had with his thoracentesis. He denies any problematic ascites at this time. He states is nothing like it was before he had his paracentesis. He denies any lower extremity edema. He denies any urinary or bladder changes. He denies any bowel changes. He states he has occasional arthritis pain but nothing that is bothersome overall. His ECOG is 0. Past Medical History: Gastroesophageal reflux disease History of diverticulitis Hyperlipidemia Hypertension Type II diabetes Past Surgical History: Excision of skin cancer from the left cheek Hemorrhoidectomy CT directed omental biopsy in 2020 Sigmoidoscopy with EUS in 2020 EGD and colonoscopy in 2019 Allergies: No Known Allergies. Medications: Ativan 0.5 - 1 Tablet (of 1 mg) Oral q 4 hours Centrum Men 1 Tablet Oral daily Crestor 1 (40 mg) Tablet Oral daily Esomeprazole Magnesium 1 (40 mg) Capsule Delayed Release Oral daily Farxiga 1 (10 mg) Tablet Oral daily Lisinopril 1 (10 mg) Tablet Oral daily metFORMIN HCl 1 (1000 mg) Tablet Oral b.i.d. Prochlorperazine Maleate 1 (10 mg) Tablet Oral q 6 hours PRN Family History: Mr. Antony's mother is alive. Mr. Antony's father at age 83: brain cancer, and melanoma. Father with melanoma at age 83. Mother is still living at age 93. She has depression and she is in a intermediate. One brother also has depression. Another brother is in good health. Social History: Mr. Antony is . Mr. Antony quit smoking 34 years ago but had smoked 1.0 pack/day for 11 years. He drinks occasionally. He has history of smoking 1 pack of cigarettes daily for 10 to 12 years. He quit smoking in 1986. He has occasional alcohol use. Review Of Symptoms: <See Above> Vital Signs: Performed on Jan 22, 2021 15:45 Height - 68 in Weight - 168.2 lbs (HIGH) BSA - 1.90 sq.m BMI - 25.57 Temperature - 98.4 F Pulse - 83 /min Respiration - 17 /min BP - 112/67 mm(hg) O2 Sat - 93 % (LOW) Pain - 2,0 - Fully active, able to carry on all predisease activities without restrictions. (ECOG) Physical Examination: Constitutional Alert, oriented, no acute distress. Skin pink, warm and dry. Head Normocephalic; atraumatic. Eyes Conjunctivae and sclerae are clear and without icterus. Pupils are reactive and equal. Extremities No visible deformities, no cyanosis, clubbing or edema. Musculoskeletal No tenderness or swelling, normal range of motion without obvious weakness. Integumentary No rashes or lesions. Neurologic No sensory or motor deficits, normal cerebellar function, normal gait. Psychiatric Alert and oriented times three. Coherent speech. Verbalizes understanding of our discussions today. Impression: 1. 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 2. Type 2 diabetes 3. Diverticulitis 4. GERD 5. Hyperlipidemia 6. Hypertension 7. Squamous cell carcinoma in situ of skin???several places on arms excision on left cheek His last reported colonoscopy was October 2019. He had a MT sigmoidoscopy flex on 12/04/2020 [facility] he also had upper GI on October 2019. Plan/Problems Addressed at this Visit: 1. Metastatic malignant to poorly differentiated adenocarcinoma presumed of the appendix with signet ring cell features with peritoneal carcinomatosis and malignant ascites diagnosed at [facility] January 2021. Mr. Antony has been referred to [facility] for continuation of care initiation of palliative chemotherapy initially with 4 cycles of FOLFOX. He will need a venous access device and will be referred back to Dr. Cole for this. Mr Antony's case was discussed with Dr Hernandez prior to this new patient visit and in agreement with Mr Antony's recommended care from [facility], Mr Antony was seen today to establish care in order to expedite his care. 1. Today's visit included discussion in great details of planned treatment plan with FOLFOX. A. He is scheduled to see DR Cole on 01-23-2021 for discussion of venous access device placement. B. We will plan to see him the day of his port placement if it is early enough that we could start his chemotherapy. They are aware that his chemotherapy will take a minimum of 6 hours given that we give the oxaliplatin over 4 hours. C. He will need baseline labs and we will attempt to get these drawn with his port placement. This should include CBC, CMP, CEA, CA-125 and CA 19-9. It is noted that on his [facility] records from his 01/20/2021, it was reported that his CA-125 was elevated but I cannot find the actual report. His CBC CMP from [facility] on 01/15/2021 were unremarkable. It is noted that his molecular profile is pending as of the 01/20/2021 [facility] note. 2. Pre-existing nausea/nausea potential with chemotherapy: A. We will also make sure he has plenty of antiemetics on hand to include lorazepam and prochlorperazine. We have also discussed using trans-Derm Scopolamine patch for persistent nausea. B. Mr. Mrs. Antony were instructed to make sure and let us know if his nausea is not controlled so that we can adjust his plan of care. 3. Type 2 diabetes mellitus A. He is currently on Farxiga and Metformin which is somewhat concerning given FOLFOX has significant risk of diarrhea as well as does Metformin. He is advised will need to watch this closely. B. His hemoglobin A1c from [facility] on 01/15/2021 was reported at 7.1%. C. We will need to watch his glucose closely as we will plan to use steroid premeds for antiemesis and reaction prophylaxis. 4. Follow-up plan A. we will plan to see Mr. Antony back after his Port-A-Cath placement. B. We will plan to initiate his first cycle of FOLFOX chemotherapy at that time. C. Mr. Antony was instructed to contact us in the interim should questions or problems arise. Total time spent with Mr. Antony's care today included: Review of his records prior to his visit, extensive discussion of his plan of care with FOLFOX chemotherapy, side effect identification and management as well as answering questions and post visit documentation was 120 minutes. Signed By: Lamine Patterson-LELA LESLIE <<Signature on File>>
== END 2021-01-22 10:02 | disposition home or self-care (01) ==
PROVIDERS: PCP Family Medicine; Visit Provider Internal Medicine Hematology & Oncology
DX: C78.6 Secondary malignant neoplasm of retroperitoneum and peritoneum (principal); K21.9 Gastro-esophageal reflux disease without esophagitis; K57.92 Diverticulitis of intestine, part unspecified, without perforation or abscess without bleeding; E78.5 Hyperlipidemia, unspecified; I10 Essential (primary) hypertension; E11.9 Type 2 diabetes mellitus without complications; R18.8 Other ascites; Z79.899 Other long term (current) drug therapy
CPT/HCPCS: 99205

== ENCOUNTER → 2021-01-23 09:28 | Outpatient (BNVA) | payer MEDICARE, OTHER, SELFPAY | PROVIDERS: PCP Family Medicine; Visit Provider Surgery | DX: Z01.812 Encounter for preprocedural laboratory examination (principal); Z20.822 Contact with and (suspected) exposure to COVID-19 | CPT/HCPCS: 87635 ==

== ENCOUNTER 2021-01-28 05:50 | Day surgery (SDC) | payer MEDICARE, OTHER, SELFPAY ==
[2021-01-27 13:37] VITALS: BMI 25.0
--- NOTE | 2021-01-28 | SC_ITS ---
WS: [id number] Exam: C-arm FL for CVA [id number] Date/Time of Exam: 01/28/2021 12:00 AM Reason For Exam: Portacath placement A single AP intraoperative C-arm image of the upper chest is submitted for evaluation. A left subclavian port has been placed and appears to end in the lower one third of the SVC in good p osition. The lungs are clear and fully inflated as visualized. SC/C-arm FL for CVA [id number] IMPRESSION: 1. Left subclavian port placement appearing to end in the lower one third of th e SVC in satisfactory position.
--- NOTE | 2021-01-28 | SCC_ITS ---
Procedure Done: Placement of PowerPort in the left subclavian vein Fluoroscopic guidance and interpretation for placement of catheter 13.3 seconds of fluoroscopic guidance, for a cumulative dose of 3.19 mGy, was provided to Dr. Cole by the radiology department. C-arm images of the chest were saved for the patient's permanent record. [facility]
[2021-01-28 06:13] VITALS: BP 110/70; PULSE 89; RESP 16; TEMP 36.6; O2SAT 97
[2021-01-28 06:26] LABS: Glucose Point of Care 137 mg/dL (70-110)
--- NOTE | 2021-01-28 06:33 | ANES.PREANE2 ---
Pre-Anesthetic Assessment Pre-Anesthetic Assessment: Height/Weight: Height 1.73 m Weight 74.843 kg Temp Pulse Resp BP Pulse Ox 97.8 F 89 16 110/70 97 01/28/21 06:13 01/28/21 06:13 01/28/21 06:13 01/28/21 06:13 01/28/21 06:13 Preop Diagnosis: Metastatic adenocarcinoma Proposed Procedure: Operation Date: 01/28/21 07:10 Proposed Procedures p Portacath Placement 25630 K62.89(Not Applicable) - Andrew Cole MD Familial anesthetic complications: None Was Beta Elbert taken within 24 hours: N/A Was Clonidine taken within 24 hours: N/A Last intake: Intake Last Liquid Date 01/27/21 Last Liquid Time 22:30 Last Solid Date 01/27/21 Last Solid Time 18:00 Social: Social History: No alcohol and No tobacco Exam: Pre-Anes Outpt Exam: alert, oriented x 3, clear to auscultation bilaterally and regular rate & rhythm Airway: Cervical ROM: WNL MP: 3 Dentition: Other (missing teeth) Pulmonary: Comments: L pleural effusion, s/p drainage CV/HEM: Comments: Able to acheive > 4 METS without SOB or chest pain Hepatic: Comments: hx ascites GI: GI: GERD Anesthetic Plan: ASA status: 3 Anesthesia: MAC Risk of > 500 ml blood loss (7ml/kg in children): No PFSH Anesthesia PFSH: Medical History Diabetes GERD (gastroesophageal reflux disease) History of nonmelanoma skin cancer Hyperlipidemia Hypertension Metastatic adenocarcinoma Surgical History H/O circumcision H/O colonoscopy 2020 H/O esophagogastroduodenoscopy 2020 H/O hemorrhoidectomy Family History Father Cancer Grandmother CAD (coronary artery disease) Diabetes Denies family history of Anesthesia complication Bleeding disorder Social History Smoking and tobacco status: former smoker Quit status (tobacco): has quit using tobacco Year quit tobacco: 1986 [id number] Second hand smoke exposure: No Smoking risk assessment/counseling performed?: Yes Alcohol intake: current Alcohol intake frequency: few times a week Lives independently: Yes Household members: spouse Marital status: Current occupational status: retired History of recent travel: No Current gender identity: Male Data Anesthesia Other Labs: Laboratory Results - last 48 hr 01/28/21 06:23 POC Glucose 137 H Cardiac Studies: No Data to Display
[2021-01-28] MEDS: sodium chloride 0.9% 1,000 ML 30 ML IV (06:41)
--- NOTE | 2021-01-28 06:52 | W.PM.OPSUD ---
Surgery/Procedure H&P Update DATE OF PROCEDURE: January 28, 2021 DATE H&P PERFORMED: 01/23/21 H&P UPDATE INFORMATION: I have reviewed H&P completed within last 30 days, I have examined patient prior to procedure and No changes to prior documentation PREOP DIAGNOSIS: Metastatic adenocarcinoma PLANNED PROCEDURE: Operation Date: 01/28/21 07:10 Proposed Procedures p Portacath Placement 03084 K62.89(Not Applicable) - Andrew Cole MD
[2021-01-28 07:36] VITALS: BP 120/79; PULSE 79; RESP 17; TEMP 36.1; O2SAT 94
--- NOTE | 2021-01-28 07:36 | PM.OP ---
Operative Report Date of procedure: January 28, 2021 Pre-op Diagnosis: Metastatic adenocarcinoma Post-op diagnosis: same Procedure Done: Placement of PowerPort in the left subclavian vein Fluoroscopic guidance and interpretation for placement of catheter Pathology: none sent Surgeon: Andrew Cole Anesthesia: MAC and Local Condition: stable Disposition: PACU Procedure: The patient was taken to the Operating Room and the chest and neck bilaterally were prepped and draped in a sterile manner after the antibiotic had been administered and shoulder rolls had been placed. A total of 10 mL of 1% lidocaine with 0.5% Marcaine was infiltrated under the clavicle on the left side at the site of the planned entry into the subclavian vein. An introducer needle was then used to access the subclavian vein under the clavicle and after withdrawing blood syringe was removed and a guidewire passed under fluoroscopy into the superior vena cava. The site of the planned port was then marked on the chest and a 15 blade was used to make a 3 cm skin incision this was extended into the subcutaneous tissue using electrocautery and a subcutaneous pocket over the pectoralis fascia was created 2-0 Vicryl suture was used to suture the port to the pectoral fascia in the pocket on 3 sides. The catheter, after having been flushed with hep saline, was attached to the tunneler and a tunnel created between the port site and the subclavian vein entry site. Under fluoroscopy the dilator sheath was passed over the guidewire into the proximal superior vena cava. The inner dilator was removed and the sheath left behind and~ the catheter was introduced through the peel-away sheath with the tip in the superior vena cava. The peel-away sheath was removed. The proximal end of the catheter was cut to the right size and was attached to the port. Using a Garcia needle the port was accessed, it withdrew blood easily and flushed easily. A final 5cc of heparin was used to flush the PowerPort. The subcutaneous tissue was approximated using interrupted 3-0 Vicryl sutures and the skin at the introducer site and the port site was closed using subcuticular running 4-0 Monocryl sutures. Surgical glue was applied and the patient was stable throughout the procedure. Fluoroscopic guidance and interpretation was performed for introduction of the guidewire in the left subclavian vein, passage of dilator and placement of catheter tip in the distal superior vena cava.
[2021-01-28 07:40] VITALS: BP 124/80; PULSE 79; RESP 16; O2SAT 93
[2021-01-28] MEDS: lidocaine 1% INJ 20 mL SUBCUT (07:41)
[2021-01-28] MEDS: heparin, porcine 1,000 unit/mL INJ 10 mL 10000 UNIT IRRIGATION (07:41)
[2021-01-28 07:45] VITALS: BP 122/79; PULSE 77; RESP 16; TEMP 36.5; O2SAT 94
[2021-01-28 07:52] VITALS: BP 110/71; PULSE 75; RESP 16; TEMP 36.6; O2SAT 95
[2021-01-28 08:07] VITALS: BP 126/74; PULSE 71; RESP 15; TEMP 36.6; O2SAT 95
--- NOTE | 2021-01-28 13:15 | ANE.PACU2 ---
Inpatient post-anesthesia follow up: Airway intact: Yes Vital signs: Temperature 98 F Pulse Rate 71 Respiratory Rate 15 Blood Pressure 126/74 Pulse Oximetry 95 Oxygen Delivery Me thod Room Air Oxygen Flow Rate Fraction of Inspir ed Oxygen Hydration adequate: Yes Nausea and vomiting: No Pain level: 1 Mental status: Baseline
== END 2021-01-28 08:30 | disposition home or self-care (01) ==
PROVIDERS: PCP Family Medicine; Visit Provider Surgery
PROC: (CPT 36561; principal; 2021-01-28 07:00)
PROC: (CPT 36561; 2021-01-28 07:00)
DX: C79.9 Secondary malignant neoplasm of unspecified site (principal); E11.9 Type 2 diabetes mellitus without complications; Z79.84 Long term (current) use of oral hypoglycemic drugs; E78.5 Hyperlipidemia, unspecified; I10 Essential (primary) hypertension; Z87.891 Personal history of nicotine dependence; Z85.828 Personal history of other malignant neoplasm of skin
CPT/HCPCS: 36561; 36416; 77001; 82962; C1788; J0690; J1644; J2250; J3490; J7030

== ENCOUNTER 2021-01-30 05:42 | Outpatient (RCR) | payer MEDICARE, OTHER, SELFPAY ==
[2021-01-28 11:59] LABS: Basophils % 0.4 %; Eosinophils # 0.1 10^3/uL (0.0-0.8); Eosinophils % 0.7 %; Hematocrit 44.2 % (42.0-52.0); Hemoglobin 13.8 g/dL (11.7-16.6); Lymphocytes # 1.3 10^3/uL (0.8-4.8); Lymphocytes % 13.4 %; Mean Corpuscular HGB Conc 31.2 g/dL (30.0-36.0); Mean Corpuscular Hemoglobin 27.7 pg (28.0-34.0); Mean Corpuscular Volume 88.8 fL (80-94); Mean Platelet Volume 10.2 fL (7.4-10.4); Monocytes # 0.7 10^3/uL (0.2-0.9); Monocytes % 7.5 %; Neutrophils # 7.66 10^3/uL (1.8-7.7); Neutrophils % 77.5 %; Nucleated Red Blood Cells % 0 %; Platelet Count 337 10^3/cmm (130-400); Red Blood Count 4.98 10^6/uL (4.1-5.3); Red Cell Distribution Width 14.2 % (12.1-15.1); White Blood Count 9.9 10^3/uL (4.0-10.0)
[2021-01-28 12:25] LABS: Cancer Antigen 19 9 4.55 U/mL (0-35)
[2021-01-28 12:33] LABS: Alanine Aminotransferase 7 U/L (0-41); Albumin Level 3.9 g/dL (3.5-5.2); Alkaline Phosphatase 87 IU/L (40-130); Aspartate Amino Transferase 13 U/L (0-40); Blood Urea Nitrogen 14 mg/dL (8-23); Calcium 8.5 mg/dL (8.5-10.5); Carbon Dioxide 25 mmol/L (22-29); Chloride 98 mmol/L (98-107); Globulin 2.8 g/dL (1.3-4.6); Glomerular Filtration Rate 95.8 mL/min (90-130); Glucose 150 mg/dL (65-115); Osmolality Calculated 283 mOsm/kg (285-295); Sodium 135 mmol/L (136-145); Total Bilirubin 0.4 mg/dL (0.15-1.2); Total Protein 6.7 g/dL (6.6-8.7)
[2021-01-28] MEDS: famotidine 20 mg/2 mL INJ IVP (12:47)
[2021-01-28] MEDS: palonosetron 0.25 mg/5 mL SDV IVP (12:48)
[2021-01-28] MEDS: dextrose 5% 250 ML 300 ML IV (13:05)
--- NOTE | 2021-01-29 07:03 | ONC CON_ITS ---
Dr. Hernandez New Patient Note Patient: Clark Antony Unit #: [id number]: 1950 Dicatated By: Lazaro Hernandez M.D.Date of Visit: Jan 28, 2021 Onc MED New Patient/Consult Referring Physician: Dr. ADELINA BLOOD M.D. Chief Complaint: Peritoneal carcinomatosis. 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 He has been in good general health. He presented with complaints of abdominal pain and postprandial bloating, dating back to at least October 2019. His initial CT abdomen/pelvis, from 10/11/2019, showed a focal area of narrowing involving the proximal sigmoid colon. Findings of diverticulitis described on a previous study from September 2019 were noted to have resolved. EGD and colonoscopy were unrevealing. His symptoms continue to worsen. Repeat CT scans in August 2020 showed interval development of moderate-sized ascites and a small left pleural effusion. Wall thickening was again noted and a small portion of the proximal sigmoid colon. Paracentesis and subsequent left thoracentesis revealed cytology negative fluids. PET/CT on 10/18/2020 showed a 2 cm area of abnormal activity in the right perianal region, SUV 12.0, with high probability of malignancy. Tiny, scattered perirectal nodes were too small to characterize. There was evidence of mesenteric edema, a small amount of ascites, and a small left pleural effusion. Omental stranding was felt to be likely related to edema. Pelvic MRI on 10/27/2020 showed no definite abnormalities to correspond with the uptake in the right rectal area noted on the PET/CT. Mild diffuse thickening and enhancement involving the distal sigmoid colon proximal to the rectum was felt to be nonspecific, neoplasm not excluded. There was no pelvic or inguinal lymphadenopathy or other significant findings noted on that study. He was then seen at the [facility] Suspicion of cancer clinic on 12/02/2020. MRI of the abdomen/pelvis showed omental fatty stranding and small ascites. There was focal sigmoid wall thickening, but unclear whether secondary to under distention and carcinomatosis or sigmoid primary. Sigmoidoscopy with EUS was negative for primary tumor. Peritoneal fluid cytology on repeat paracentesis was positive for rare atypical cells, highly suspicious for adenocarcinoma. 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 Molecular profile analysis was ordered, but with results not reported. He was seen in GI medical oncology by Dr. Rena Gresham on 01/15/2021. 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 He underwent placement of Port-A-Cath venous access device earlier today, and he presents now for his first cycle of chemotherapy. He continues to complain of abdominal pain and postprandial bloating. He has some degree of early satiety, and he has had a weight loss of at least 20 pounds. He has just occasional, mild nausea. He is otherwise feeling fine. He still has pretty good energy/activity tolerance. ECOG score is 0. He does not have fever or night sweats. He has occasional shortness of breath and occasional dry cough. He does not complain of chest pain. Bowel and bladder function remain adequate. He has no significant joint or bone pain. He does not complain of headache. He has no focal neurologic symptoms. Past Medical History: His medical history includes gastroesophageal reflux disease, hyperlipidemia, hypertension, and type II diabetes. He has a history of diverticulitis. Past Surgical History: He underwent EGD and colonoscopy in 2019, sigmoidoscopy with EUS on 12/04/2020, and CT directed omental biopsy on 12/24/2020. His surgical/procedural history includes excision of skin cancer from the left cheek and a previous hemorrhoidectomy. Medications: Ativan 0.5 - 1 Tablet (of 1 mg) Oral q 4 hours, Centrum Men 1 Tablet Oral daily, Crestor 1 (40 mg) Tablet Oral daily, Esomeprazole Magnesium 1 (40 mg) Capsule Delayed Release Oral daily, Farxiga 1 (10 mg) Tablet Oral daily, Lisinopril 1 (10 mg) Tablet Oral daily, metFORMIN HCl 1 (1000 mg) Tablet Oral b.i.d., Prochlorperazine Maleate 1 (10 mg) Tablet Oral q 6 hours PRN Allergies: No Known Allergies. Social History: Mr. Antony is . He has history of smoking 1 pack of cigarettes daily for 10 to 12 years. He quit smoking in 1986. He has occasional alcohol use. Family History: Father with melanoma at age 83. Mother is still living at age 93. She has depression and she is in a mcc. One brother also has depression. Another brother is in good health. Review Of Symptoms: Constitutional - He still has good energy and he has normal activity. His appetite is not good, and he has early satiety. His weight is down at least 20 pounds. He does not have fever or night sweats. ECOG score is 0, Eyes - He has had a slight decline in his far vision, ENMT - No hearing loss or tinnitus. No sinus congestion/drainage. No mouth sores. No sore throat or difficulty swallowing, Hematologic/Lymphatic - He has easy bruising, Respiratory - He has occasional shortness of breath. He has occasional dry cough. No pleuritic pain or hemoptysis, Cardiovascular - No angina pain. No palpitations, Gastrointestinal - He has abdominal pain and postprandial bloating. He has occasional mild nausea. His acid reflux is adequately managed with Nexium. His bowels have been pretty regular. He has occasional diarrhea. He is currently not having blood in the stool or black stools, Genitourinary (M) - No dysuria or hematuria. No urinary frequency. No urgency or incontinence, Musculoskeletal - No significant joint or bone pain, Integumentary - No skin rash or other skin changes, Neurologic - No headache. He sometimes has dizziness with bending over. No numbness or tingling. No other focal neurologic symptoms, Psychiatric - He has some anxiety. No depression. No insomnia. Vital Signs: Performed on Jan 28, 2021 16:34: 0, 25.09, 1.88 sq.m, 68.00 in, 165 lbs, Performed on Jan 28, 2021 14:12: 94 % (LOW), 87 /min, 17 /min, 110/67 mm(hg), and 98.9 F (HIGH). Physical Examination: Constitutional - He looks pretty good generally, Eyes - Sclerae nonicteric. Conjunctivae clear, ENMT - No lesions noted in the oral cavity, Hematologic/Lymphatic - No cervical, clavicular, or axillary adenopathy, Respiratory - Lungs are clear with good air movement bilaterally, Cardiovascular - Heart rhythm is regular. There is no murmur, gallop, or rub noted, Abdomen - Mildly distended and firm. There is some tenderness in the right upper quadrant. Liver and spleen are not enlarged. There is no abdominal mass noted and there is no obvious ascites. There is no inguinal adenopathy, Extremities - No edema. Pedal pulses are palpable bilaterally, Integumentary - No rashes. No suspicious skin lesions noted, Neurologic - No focal neurologic deficits noted. Problem List: 1. 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 This is presumed to be from a primary adenocarcinoma of the appendix, though it does not appear that a primary lesion was actually identified. He has associated malignant ascites. 2. Hypertension. 3. Hyperlipidemia. 4. Type 2 diabetes. 5. GERD. 6. History of diverticulitis. 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 This is presumed to be from a primary adenocarcinoma of the appendix, though it does not appear that a primary lesion was actually identified. He has associated malignant ascites. The diagnosis was confirmed by CT directed biopsy of the omentum. Additional pathologic studies were requested at the time, with results not yet reported. He will now begin cycle 1 of modified FOLFOX chemotherapy. The bolus 5-FU will be omitted. I reviewed anticipated side effects with the chemotherapy which may include nausea/vomiting, alopecia, fatigue, diarrhea, mucositis, low blood counts, and neuropathy, among others. He will be scheduled for a 1-week interval follow-up visit and CBC. In the meantime, I will check on results of the next generation sequencing and other pathologic studies from [facility]. Signed By: Lazaro Hernandez M.D. <<Signature on File>>
[2021-01-30] MEDS: sodium chloride 0.9% 1,000 ML 999 ML IV (08:30)
[2021-01-30] MEDS: famotidine 20 mg/2 mL INJ IVP (08:30)
[2021-01-30] MEDS: LORazepam 2 mg/mL INJ 1 mL IV (08:31)
[2021-01-30] MEDS: fosaprepitant 150 MG in sodium chloride 0.9% 150 ML 300 MG IV (08:56)
== END 2021-01-30 23:59 | disposition home or self-care (01) ==
LOC: ONCMED 05:42
PROVIDERS: PCP Family Medicine; Visit Provider Internal Medicine Medical Oncology
DX: Z51.11 Encounter for antineoplastic chemotherapy (principal); C78.6 Secondary malignant neoplasm of retroperitoneum and peritoneum; K21.9 Gastro-esophageal reflux disease without esophagitis; E78.5 Hyperlipidemia, unspecified; I10 Essential (primary) hypertension; E11.9 Type 2 diabetes mellitus without complications; K57.92 Diverticulitis of intestine, part unspecified, without perforation or abscess without bleeding; R97.8 Other abnormal tumor markers; Z79.899 Other long term (current) drug therapy
CPT/HCPCS: 80053; 82378; 85025; 86301; 96361; 96365; 96367; 96368; 96375; 96413; 96415; 96416; 99215; J0640; J1100; J1453; J2060; J2469; J3490; J7030; J9190; J9263

== ENCOUNTER 2021-02-27 05:35 | Outpatient (RCR) | payer MEDICARE, OTHER, SELFPAY ==
[2021-02-04 09:51] LABS: Basophils % 0.4 %; Eosinophils # 0.2 10^3/uL (0.0-0.8); Eosinophils % 2.4 %; Hematocrit 43.4 % (42.0-52.0); Hemoglobin 13.8 g/dL (11.7-16.6); Lymphocytes # 1.6 10^3/uL (0.8-4.8); Lymphocytes % 20.6 %; Mean Corpuscular HGB Conc 31.8 g/dL (30.0-36.0); Mean Corpuscular Hemoglobin 27.9 pg (28.0-34.0); Mean Corpuscular Volume 87.7 fL (80-94); Mean Platelet Volume 9.6 fL (7.4-10.4); Monocytes # 0.3 10^3/uL (0.2-0.9); Neutrophils # 5.59 10^3/uL (1.8-7.7); Nucleated Red Blood Cells % 0 %; Platelet Count 290 10^3/cmm (130-400); Red Blood Count 4.95 10^6/uL (4.1-5.3); Red Cell Distribution Width 13.6 % (12.1-15.1); White Blood Count 7.8 10^3/uL (4.0-10.0)
[2021-02-11 08:49] LABS: Basophils % 0.3 %; Eosinophils # 0.1 10^3/uL (0.0-0.8); Eosinophils % 1.2 %; Hematocrit 42.8 % (42.0-52.0); Hemoglobin 13.3 g/dL (11.7-16.6); Lymphocytes # 1.6 10^3/uL (0.8-4.8); Mean Corpuscular HGB Conc 31.1 g/dL (30.0-36.0); Mean Corpuscular Hemoglobin 28.1 pg (28.0-34.0); Mean Corpuscular Volume 90.5 fL (80-94); Mean Platelet Volume 9.9 fL (7.4-10.4); Monocytes # 0.7 10^3/uL (0.2-0.9); Monocytes % 8.4 %; Neutrophils # 5.29 10^3/uL (1.8-7.7); Neutrophils % 68.6 %; Nucleated Red Blood Cells % 0 %; Platelet Count 300 10^3/cmm (130-400); Red Blood Count 4.73 10^6/uL (4.1-5.3); White Blood Count 7.7 10^3/uL (4.0-10.0)
[2021-02-11 09:14] LABS: Alanine Aminotransferase 10 U/L (0-41); Albumin Level 3.7 g/dL (3.5-5.2); Alkaline Phosphatase 108 IU/L (40-130); Anion Gap 13.2 (5-19); Aspartate Amino Transferase 15 U/L (0-40); Blood Urea Nitrogen 15 mg/dL (8-23); Calcium 8.6 mg/dL (8.5-10.5); Carbon Dioxide 27 mmol/L (22-29); Chloride 99 mmol/L (98-107); Globulin 2.9 g/dL (1.3-4.6); Glomerular Filtration Rate 83.7 mL/min (90-130); Glucose 175 mg/dL (65-115); Osmolality Calculated 285 mOsm/kg (285-295); Potassium 4.2 mmol/L (3.5-5.1); Sodium 135 mmol/L (136-145); Total Bilirubin 0.4 mg/dL (0.15-1.2); Total Protein 6.6 g/dL (6.6-8.7)
[2021-02-11 09:31] LABS: Slide Review Slide Review Perform
[2021-02-11] MEDS: famotidine 20 mg/2 mL INJ IVP (10:36)
[2021-02-11] MEDS: dextrose 5% 250 ML 45 ML IV (10:36)
[2021-02-11] MEDS: palonosetron 0.25 mg/5 mL SDV IVP (10:38)
[2021-02-11] MEDS: OLANZapine 10 mg TABLET 5 MG PO (10:40)
[2021-02-11] MEDS: fosaprepitant 150 MG in sodium chloride 0.9% 150 ML 300 MG IV (10:57)
[2021-02-13] MEDS: sodium chloride 0.9% 1,000 ML 999 ML IV (11:27)
--- NOTE | 2021-02-16 21:44 | ONC FU_ITS ---
[facility] Patient Note Patient: Clark Antony Unit #: [id number]: 1950 Dictated By: Lamine PattersonDate of Visit: February 04, 2021 Onc MED Follow-Up/Prog Note Chief Complaint: Peritoneal carcinomatosis. 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 He has been in good general health. He presented with complaints of abdominal pain and postprandial bloating, dating back to at least October 2019. His initial CT abdomen/pelvis, from 10/11/2019, showed a focal area of narrowing involving the proximal sigmoid colon. Findings of diverticulitis described on a previous study from September 2019 were noted to have resolved. EGD and colonoscopy were unrevealing. His symptoms continue to worsen. Repeat CT scans in August 2020 showed interval development of moderate-sized ascites and a small left pleural effusion. Wall thickening was again noted and a small portion of the proximal sigmoid colon. Paracentesis and subsequent left thoracentesis revealed cytology negative fluids. PET/CT on 10/18/2020 showed a 2 cm area of abnormal activity in the right perianal region, SUV 12.0, with high probability of malignancy. Tiny, scattered perirectal nodes were too small to characterize. There was evidence of mesenteric edema, a small amount of ascites, and a small left pleural effusion. Omental stranding was felt to be likely related to edema. Pelvic MRI on 10/27/2020 showed no definite abnormalities to correspond with the uptake in the right rectal area noted on the PET/CT. Mild diffuse thickening and enhancement involving the distal sigmoid colon proximal to the rectum was felt to be nonspecific, neoplasm not excluded. There was no pelvic or inguinal lymphadenopathy or other significant findings noted on that study. He was then seen at the [facility] Suspicion of cancer clinic on 12/02/2020. MRI of the abdomen/pelvis showed omental fatty stranding and small ascites. There was focal sigmoid wall thickening, but unclear whether secondary to under distention and carcinomatosis or sigmoid primary. Sigmoidoscopy with EUS was negative for primary tumor. Peritoneal fluid cytology on repeat paracentesis was positive for rare atypical cells, highly suspicious for adenocarcinoma. 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 Molecular profile analysis was ordered, but with results not reported. He was seen in GI medical oncology by Dr. Rena Gresham on 01/15/2021. 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 He underwent placement of Port-A-Cath venous access device and began his first cycle of chemotherapy on 01-28-2021 . Mr. Antony is here today for follow-up. This is day 8 of cycle 1 FOLFOX. He has had significant nausea, generalized weakness, emesis. He required supportive care on January 30, 2021 with antiemetics and hydration. He has continued to have some intermittent nausea over the weekend but states it is getting better. He has been utilizing Ativan for antiemetics and although it does not make him drowsy it is controlling his nausea well currently. His appetite is just generally starting to return although limited. He denies any fever or chills. He has had no mouth sores, sore throat or difficulty swallowing. He denies any diarrhea. Has had no constipation. 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 He did have some in the throat area as well. He states he is still having trouble eating and drinking. He states he did feel some better after the hydration. We have discussed utilizing ondansetron for the nausea now that is 3 to 5 days post chemotherapy. He does get Aloxi as a premed and therefore the ondansetron may be ineffective during the coverage of the Aloxi. We could also try Transderm scopolamine patch to see if this will help with his nausea. I have offered him hydration and he would like to do that tomorrow and Tuesday if needed. We will accommodate that. His current ECOG is 1. Past Medical History: Gastroesophageal reflux disease History of diverticulitis Hyperlipidemia Hypertension Type II diabetes Past Surgical History: Excision of skin cancer from the left cheek Hemorrhoidectomy Left subclavian vein PowerPort placement Dr. Cole in [address] directed omental biopsy in 2020 Sigmoidoscopy with EUS in 2020 EGD and colonoscopy in 2019 Allergies: No Known Allergies. Medications: Ativan 0.5 - 1 Tablet (of 1 mg) Oral q 4 hours Centrum Men 1 Tablet Oral daily Crestor 1 (40 mg) Tablet Oral daily Esomeprazole Magnesium 1 (40 mg) Capsule Delayed Release Oral daily Farxiga 1 (10 mg) Tablet Oral daily Lisinopril 1 (10 mg) Tablet Oral daily metFORMIN HCl 1 (1000 mg) Tablet Oral b.i.d. Prochlorperazine Maleate 1 (10 mg) Tablet Oral q 6 hours PRN Family History: Mr. Antony's mother is alive. Mr. Antony's father at age 83: brain cancer, and melanoma. Father with melanoma at age 83. Mother is still living at age 93. She has depression and she is in a jail. One brother also has depression. Another brother is in good health. Social History: Mr. Antony is . Mr. Antony quit smoking 34 years ago but had smoked 1.0 pack/day for 11 years. He drinks occasionally. He has history of smoking 1 pack of cigarettes daily for 10 to 12 years. He quit smoking in 1986. He has occasional alcohol use. Review Of Symptoms: <See Above> Vital Signs: Performed on February 04, 2021 11:25 Height - 68.00 in Weight - 162.0 lbs (LOW) BSA - 1.87 sq.m BMI - 24.63 Temperature - 97.9 F (LOW) Pulse - 76 /min Respiration - 19 /min BP - 100/65 mm(hg) O2 Sat - 95 % (LOW) Pain - 0,1 - No physically strenuous activity, but ambulatory and able to carry out light or sedentary work (e.g. office work, light house work). (ECOG) Physical Examination: Constitutional Alert, oriented, no acute distress. Skin pink, warm and dry. Head Normocephalic; atraumatic. Eyes Conjunctivae and sclerae are clear and without icterus. Pupils are reactive and equal. Respiratory Lungs are clear to auscultation without rhonchi or wheezing. Cardiovascular Regular rate and rhythm of heart without murmurs,clicks, gallops or rubs. Extremities No visible deformities, no cyanosis, clubbing or edema. Musculoskeletal No tenderness or swelling, normal range of motion without obvious weakness. Integumentary No rashes or lesions. Neurologic No sensory or motor deficits, normal cerebellar function, normal gait. Psychiatric Alert and oriented times three. Coherent speech. Verbalizes understanding of our discussions today. Laboratory:Test performed on February 11, 2021 08:15 Sodium 135 mmol/L Potassium 4.2 mmol/L Chloride 99 mmol/L CO2 27 mmol/L Anion Gap 13.2 BUN 15 mg/dL Creatinine 0.9 mg/dL Cr Clearance (Est) 83.6000 mL/min eGFR 83.7 mL/min Glucose 175 mg/dL Osmolality - Calculated 285 mOsm/kg Calcium 8.6 mg/dL Protein, Total 6.6 g/dL Albumin 3.7 g/dL Globulin 2.9 g/dL Bilirubin, Total 0.4 mg/dL ALT (SGPT) 10 U/L AST (SGOT) 15 U/L Alkaline Phosphatase 108 IU/L WBC 7.7 10 3/uL RBC 4.73 10 6/uL HGB 13.3 g/dL HCT 42.8 % MCV 90.5 fL MCH 28.1 pg MCHC 31.1 g/dL RDW 14.0 % Platelet Count 300 10 3/cmm MPV 9.9 fL Neutrophils 5.29 10 3/uL Lymphocytes 1.6 10 3/uL Monocytes 0.7 10 3/uL Eosinophils 0.1 10 3/uL Basophils 0.0 10 3/uL Neutrophil % 68.6 % Lymphocyte % 21.0 % Monocyte % 8.4 % Eosinophil % 1.2 % Basophils % 0.3 % NRBC % 0 % CBC Slide Review Slide Review Perform SLIDE REVIEW AGREES WITH AUTOMATED RESULTS ST Test performed on Jan 28, 2021 11:15 CA 19-9 4.55 U/mL CEA 1.0 ng/mL Impression: 1. 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 2. Type 2 diabetes 3. Diverticulitis 4. GERD 5. Hyperlipidemia 6. Hypertension 7. Squamous cell carcinoma in situ of skin???several places on arms excision on left cheek His last reported colonoscopy was October 2019. He had a [place] sigmoidoscopy flex on 12/04/[address] [facility] he also had upper GI on October 2019. Plan/Problems Addressed at this Visit: 1. Metastatic malignant to poorly differentiated adenocarcinoma presumed of the appendix with signet ring cell features with peritoneal carcinomatosis and malignant ascites diagnosed at [facility] January 2021. Mr. Antony has been referred to [facility] for continuation of care initiation of palliative chemotherapy initially with 4 cycles of FOLFOX. He had placement of Port-A-Cath per Dr. Cole on 01/28/2021. A. Proceed with current cycle of chemotherapy. This is cycle 1 day 8. He is treated every 2 weeks. He was treated last week. B. He will try ondansetron 4 mg 1 or 2 tablets every 6-8 hours as needed for nausea. He may continue with lorazepam as needed. He is advised he can also try as scopolamine patch which is every 72 hours. C. Today's labs reviewed in detail discussed with . Mrs. Antony and a copy was given to him. WBC 7.8, hemoglobin 13.8 platelets 290,000 ANC is 5590. 2. Type 2 diabetes mellitus A. He is currently on Farxiga and Metformin which is somewhat concerning given FOLFOX has significant risk of diarrhea as well as does Metformin. He is advised will need to watch this closely. B. His hemoglobin A1c from [facility] on 01/15/2021 was reported at 7.1%. C. We will need to watch his glucose closely as we will plan to use steroid premeds for antiemesis and reaction prophylaxis. His random glucose on 01/28/2021 was 150. 3. Follow-up plan A. we will plan to see Mr. Antony back in 1 week for consideration of cycle 2 FOLFOX. B. He will have supportive care with hydration and antiemetics as needed in the interim. C. Mr. Antony instructed to contact us in the interim should questions or problems arise. B. We will plan to initiate his first cycle of FOLFOX chemotherapy at that time. C. Mr. Antony was instructed to contact us in the interim should questions or problems arise. Total time spent with Mr. Antony's care today including answering questions, discussing chemotherapy plan, side effect identification and management as well as formulating plan for supportive care and justification of benefit of supportive care and tentativeplan for cycle 2, and including post visit documentation was 55 minutes. Signed By: Lamine Patterson-, [facility] Lazaro Hernandez MD <<Signature on File>>
[2021-02-18 14:24] LABS: Basophils % 0.6 %; Eosinophils # 0.1 10^3/uL (0.0-0.8); Eosinophils % 1.9 %; Hematocrit 41.3 % (42.0-52.0); Hemoglobin 13.1 g/dL (11.7-16.6); Lymphocytes # 1.9 10^3/uL (0.8-4.8); Mean Corpuscular HGB Conc 31.7 g/dL (30.0-36.0); Mean Corpuscular Hemoglobin 28.6 pg (28.0-34.0); Mean Corpuscular Volume 90.2 fL (80-94); Mean Platelet Volume 9.8 fL (7.4-10.4); Monocytes # 0.7 10^3/uL (0.2-0.9); Neutrophils # 3.39 10^3/uL (1.8-7.7); Nucleated Red Blood Cells % 0 %; Platelet Count 334 10^3/cmm (130-400); Red Blood Count 4.58 10^6/uL (4.1-5.3); Red Cell Distribution Width 14.1 % (12.1-15.1); White Blood Count 6.3 10^3/uL (4.0-10.0)
[2021-02-18 15:14] LABS: Alanine Aminotransferase 15 U/L (0-41); Albumin Level 3.7 g/dL (3.5-5.2); Alkaline Phosphatase 101 IU/L (40-130); Anion Gap 15.2 (5-19); Aspartate Amino Transferase 21 U/L (0-40); Blood Urea Nitrogen 18 mg/dL (8-23); Calcium 8.5 mg/dL (8.5-10.5); Carbon Dioxide 27 mmol/L (22-29); Chloride 99 mmol/L (98-107); Globulin 3.3 g/dL (1.3-4.6); Glomerular Filtration Rate 83.7 mL/min (90-130); Glucose 160 mg/dL (65-115); Osmolality Calculated 289 mOsm/kg (285-295); Potassium 4.2 mmol/L (3.5-5.1); Sodium 137 mmol/L (136-145); Total Bilirubin 0.2 mg/dL (0.15-1.2)
--- NOTE | 2021-02-24 10:12 | ONC FU_ITS ---
[facility] Patient Note Patient: Clark Antony Unit #: [id number]: 1950 Dictated By: Lamine PattersonDate of Visit: February 11, 2021 Onc MED Follow-Up/Prog Note Chief Complaint: Peritoneal carcinomatosis. 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 He has been in good general health. He presented with complaints of abdominal pain and postprandial bloating, dating back to at least October 2019. His initial CT abdomen/pelvis, from 10/11/2019, showed a focal area of narrowing involving the proximal sigmoid colon. Findings of diverticulitis described on a previous study from September 2019 were noted to have resolved. EGD and colonoscopy were unrevealing. His symptoms continue to worsen. Repeat CT scans in August 2020 showed interval development of moderate-sized ascites and a small left pleural effusion. Wall thickening was again noted and a small portion of the proximal sigmoid colon. Paracentesis and subsequent left thoracentesis revealed cytology negative fluids. PET/CT on 10/18/2020 showed a 2 cm area of abnormal activity in the right perianal region, SUV 12.0, with high probability of malignancy. Tiny, scattered perirectal nodes were too small to characterize. There was evidence of mesenteric edema, a small amount of ascites, and a small left pleural effusion. Omental stranding was felt to be likely related to edema. Pelvic MRI on 10/27/2020 showed no definite abnormalities to correspond with the uptake in the right rectal area noted on the PET/CT. Mild diffuse thickening and enhancement involving the distal sigmoid colon proximal to the rectum was felt to be nonspecific, neoplasm not excluded. There was no pelvic or inguinal lymphadenopathy or other significant findings noted on that study. He was then seen at the [facility] Suspicion of cancer clinic on 12/02/2020. MRI of the abdomen/pelvis showed omental fatty stranding and small ascites. There was focal sigmoid wall thickening, but unclear whether secondary to under distention and carcinomatosis or sigmoid primary. Sigmoidoscopy with EUS was negative for primary tumor. Peritoneal fluid cytology on repeat paracentesis was positive for rare atypical cells, highly suspicious for adenocarcinoma. 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 Molecular profile analysis was ordered, but with results not reported. He was seen in GI medical oncology by Dr. Rena Gresham on 01/15/2021. 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 He underwent placement of Port-A-Cath venous access device and began his first cycle of chemotherapy on 01-28-2021 . Mr. Antony is here today for follow-up. He is due for cycle 2-day 1 FOLFOX. He had difficulty tolerating cycle 1 due to significant nausea/vomiting, generalized weakness and poor oral intake. He did receive supportive care here in the clinic and recovered well. He states today he feels good. He has no concerns. He denies any fever or chills. He has had no mouth sores, sore throat or difficulty swallowing. He denies any shortness of breath orthopnea. He is had no chest pain or palpitations. He denies any nausea or vomiting. He states overall he feels good. He has been out doing some golfing and working in the yard some. He states he is eating and drinking well. 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 His ECOG is 0. Past Medical History: Gastroesophageal reflux disease History of diverticulitis Hyperlipidemia Hypertension Type II diabetes Past Surgical History: Excision of skin cancer from the left cheek Hemorrhoidectomy Left subclavian vein PowerPort placement Dr. Cole in [address] directed omental biopsy in 2020 Sigmoidoscopy with EUS in 2020 EGD and colonoscopy in 2019 Allergies: No Known Allergies. Medications: Ativan 0.5 - 1 Tablet (of 1 mg) Oral q 4 hours Centrum Men 1 Tablet Oral daily Crestor 1 (40 mg) Tablet Oral daily Esomeprazole Magnesium 1 (40 mg) Capsule Delayed Release Oral daily Farxiga 1 (10 mg) Tablet Oral daily Lisinopril 1 (10 mg) Tablet Oral daily metFORMIN HCl 1 (1000 mg) Tablet Oral b.i.d. Prochlorperazine Maleate 1 (10 mg) Tablet Oral q 6 hours PRN Family History: Mr. Antony's mother is alive. Mr. Antony's father at age 83: brain cancer, and melanoma. Father with melanoma at age 83. Mother is still living at age 93. She has depression and she is in a longterm. One brother also has depression. Another brother is in good health. Social History: Mr. Antony is . Mr. Antony quit smoking 34 years ago but had smoked 1.0 pack/day for 11 years. He drinks occasionally. He has history of smoking 1 pack of cigarettes daily for 10 to 12 years. He quit smoking in 1986. He has occasional alcohol use. Review Of Symptoms: <See Above> Vital Signs: Performed on February 11, 2021 15:07 Height - 68.00 in Temperature - 98.4 F Pulse - 77 /min Respiration - 18 /min BP - 101/61 mm(hg) O2 Sat - 95 % (LOW) Performed on February 11, 2021 09:15 Height - 68.00 in Weight - 160.2 lbs (LOW) BSA - 1.86 sq.m BMI - 24.36 Temperature - 97.9 F (LOW) Pulse - 98 /min Respiration - 18 /min BP - 107/65 mm(hg) O2 Sat - 96 % Pain - 0,0 - Fully active, able to carry on all predisease activities without restrictions. (ECOG) Physical Examination: Constitutional Alert, oriented, no acute distress. Skin pink, warm and dry. Head Normocephalic; atraumatic. Eyes Conjunctivae and sclerae are clear and without icterus. Pupils are reactive and equal. Respiratory Lungs are clear to auscultation without rhonchi or wheezing. Cardiovascular Regular rate and rhythm of heart without murmurs,clicks, gallops or rubs. Extremities No visible deformities, no cyanosis, clubbing or edema. Musculoskeletal No tenderness or swelling, normal range of motion without obvious weakness. Integumentary No rashes or lesions. Neurologic No sensory or motor deficits, normal cerebellar function, normal gait. Psychiatric Alert and oriented times three. Coherent speech. Verbalizes understanding of our discussions today. Laboratory:Test performed on February 11, 2021 08:15 Sodium 135 mmol/L Potassium 4.2 mmol/L Chloride 99 mmol/L CO2 27 mmol/L Anion Gap 13.2 BUN 15 mg/dL Creatinine 0.9 mg/dL Cr Clearance (Est) 83.6000 mL/min eGFR 83.7 mL/min Glucose 175 mg/dL Osmolality - Calculated 285 mOsm/kg Calcium 8.6 mg/dL Protein, Total 6.6 g/dL Albumin 3.7 g/dL Globulin 2.9 g/dL Bilirubin, Total 0.4 mg/dL ALT (SGPT) 10 U/L AST (SGOT) 15 U/L Alkaline Phosphatase 108 IU/L WBC 7.7 10 3/uL RBC 4.73 10 6/uL HGB 13.3 g/dL HCT 42.8 % MCV 90.5 fL MCH 28.1 pg MCHC 31.1 g/dL RDW 14.0 % Platelet Count 300 10 3/cmm MPV 9.9 fL Neutrophils 5.29 10 3/uL Lymphocytes 1.6 10 3/uL Monocytes 0.7 10 3/uL Eosinophils 0.1 10 3/uL Basophils 0.0 10 3/uL Neutrophil % 68.6 % Lymphocyte % 21.0 % Monocyte % 8.4 % Eosinophil % 1.2 % Basophils % 0.3 % NRBC % 0 % CBC Slide Review Slide Review Perform SLIDE REVIEW AGREES WITH AUTOMATED RESULTS ST Test performed on Jan 28, 2021 11:15 CA 19-9 4.55 U/mL CEA 1.0 ng/mL Impression: 1. 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 2. Type 2 diabetes 3. Diverticulitis 4. GERD 5. Hyperlipidemia 6. Hypertension 7. Squamous cell carcinoma in situ of skin???several places on arms excision on left cheek His last reported colonoscopy was October 2019. He had a [place] sigmoidoscopy flex on 12/04/2020 [facility] he also had upper GI on October 2019. Plan/Problems Addressed at this Visit: 1. Metastatic malignant to poorly differentiated adenocarcinoma presumed of the appendix with signet ring cell features with peritoneal carcinomatosis and malignant ascites diagnosed at [facility] January 2021. Mr. Antony has been referred to [facility] for continuation of care initiation of palliative chemotherapy initially with 4 cycles of FOLFOX. He had placement of Port-A-Cath per Dr. Cole on 01/28/2021. A. Proceed with cycle 2-day 1 FOLFOX. We will dose reduce his oxaliplatin by 20% due to poor tolerance (Significant nausea vomiting and generalized weakness) with cycle 1. B. We will also add Zyprexa 5 mg premed and then he can do 5 mg twice daily. He is advised he can do the Zyprexa for 2 to 3 days after the chemotherapy or he could take it daily if needed and he is not having sedation from it. C. We had discussed Marinol but we will start with the Zyprexa for now. D. He is reminded that he can do the ondansetron 4 mg 1 or 2 tablets every 6-8 hours as needed for nausea however he does get Aloxi on day 1 so the Zofran may not be effective for 3 to 4 days. We did discuss that he may continue with lorazepam as needed and he was also reminded that he may also try the scopolamine patch every 72 hours if needed. He does not have it currently, but that would be an option if he has further nausea vomiting. E. Today's labs reviewed in detail discussed with Mr. Mrs. Antony and a copy was given to him. WBC 7.7, hemoglobin 13.3, platelets 300,000, ANC is 5300. Potassium 4.2 random glucose 175 creatinine 0.9 LFTs are normal. It is noted that his CA 19-9 on January 28, 2021 was 4.5 and his CEA was 1.0. He did have a CA-125 at [facility] on 01/15/2021 that was reported at 94.5. But I did not find a reference range listed. His CA 19-9 on 01/15/2021 at [facility] was reported at 3.6 with reference range less than 35 being normal. His CEA also on 01/15/2021 from [facility] was reported at 0.9 with reference range less than 3.8. 2. Type 2 diabetes mellitus A. He is currently on Farxiga and Metformin which is somewhat concerning given FOLFOX has significant risk of diarrhea as well as does Metformin. He is advised will need to watch this closely. B. His hemoglobin A1c from [facility] on 01/15/2021 was reported at 7.1%. C. We will need to watch his glucose closely as we will plan to use steroid premeds for antiemesis and reaction prophylaxis. 3. Follow-up plan A. we will plan to see Mr. Antony back in 2 weeks for consideration of cycle 3 of 4 modified FOLFOX. B. He will have supportive care with hydration and antiemetics as needed in the interim. C. Mr. Antony instructed to contact us in the interim should questions or problems arise. Signed By: Lamine Patterson-, CNP Lazaro Hernandez MD <<Signature on File>>
[2021-02-25 09:36] LABS: Basophils % 0.5 %; Eosinophils # 0.1 10^3/uL (0.0-0.8); Eosinophils % 1.6 %; Hematocrit 41.3 % (42.0-52.0); Lymphocytes # 1.5 10^3/uL (0.8-4.8); Lymphocytes % 18.7 %; Mean Corpuscular HGB Conc 31.5 g/dL (30.0-36.0); Mean Corpuscular Hemoglobin 28.3 pg (28.0-34.0); Mean Platelet Volume 9.9 fL (7.4-10.4); Monocytes # 0.8 10^3/uL (0.2-0.9); Monocytes % 10.4 %; Neutrophils # 5.47 10^3/uL (1.8-7.7); Neutrophils % 67.6 %; Nucleated Red Blood Cells % 0 %; Platelet Count 204 10^3/cmm (130-400); Red Blood Count 4.59 10^6/uL (4.1-5.3); Red Cell Distribution Width 14.7 % (12.1-15.1); White Blood Count 8.1 10^3/uL (4.0-10.0)
[2021-02-25 10:14] LABS: Alanine Aminotransferase 21 U/L (0-41); Albumin Level 3.7 g/dL (3.5-5.2); Alkaline Phosphatase 94 IU/L (40-130); Aspartate Amino Transferase 26 U/L (0-40); Blood Urea Nitrogen 20 mg/dL (8-23); Calcium 8.7 mg/dL (8.5-10.5); Carbon Dioxide 27 mmol/L (22-29); Chloride 99 mmol/L (98-107); Globulin 3.1 g/dL (1.3-4.6); Glomerular Filtration Rate 95.8 mL/min (90-130); Glucose 145 mg/dL (65-115); Osmolality Calculated 285 mOsm/kg (285-295); Sodium 135 mmol/L (136-145); Total Bilirubin 0.2 mg/dL (0.15-1.2); Total Protein 6.8 g/dL (6.6-8.7)
[2021-02-25] MEDS: famotidine 20 mg/2 mL INJ IVP (12:09)
[2021-02-25] MEDS: dextrose 5% 250 ML 75 ML IV (12:09)
[2021-02-25] MEDS: fosaprepitant 150 MG in sodium chloride 0.9% 150 ML 300 MG IV (12:11)
[2021-02-25] MEDS: OLANZapine 10 mg TABLET 5 MG PO (12:11)
[2021-02-25] MEDS: palonosetron 0.25 mg/5 mL SDV IVP (12:54)
[2021-02-27] MEDS: sodium chloride 0.9% 1,000 ML 999 ML IV (10:43)
== END 2021-03-02 23:59 | disposition home or self-care (01) ==
LOC: ONCMED 05:35
PROVIDERS: Internal Medicine Hematology & Oncology; Nurse Practitioner; PCP Family Medicine; Visit Provider Internal Medicine Medical Oncology
DX: Z51.11 Encounter for antineoplastic chemotherapy (principal); C18.1 Malignant neoplasm of appendix; C78.6 Secondary malignant neoplasm of retroperitoneum and peritoneum; K21.9 Gastro-esophageal reflux disease without esophagitis; K57.92 Diverticulitis of intestine, part unspecified, without perforation or abscess without bleeding; E78.5 Hyperlipidemia, unspecified; I10 Essential (primary) hypertension; E11.9 Type 2 diabetes mellitus without complications; R97.8 Other abnormal tumor markers; Z85.828 Personal history of other malignant neoplasm of skin; Z79.899 Other long term (current) drug therapy
CPT/HCPCS: 36591; 80053; 85025; 86304; 96360; 96367; 96368; 96375; 96411; 96413; 96415; 96416; 96523; 99214; J0640; J1100; J1453; J2469; J3490; J7030; J9190; J9263

== ENCOUNTER 2021-03-25 05:57 | Outpatient (RCR) | payer MEDICARE, OTHER, SELFPAY ==
[2021-03-11 08:53] LABS: Basophils % 0.3 %; Eosinophils # 0.2 10^3/uL (0.0-0.8); Eosinophils % 1.7 %; Hemoglobin 12.9 g/dL (11.7-16.6); Lymphocytes # 1.6 10^3/uL (0.8-4.8); Lymphocytes % 17.9 %; Mean Corpuscular HGB Conc 31.5 g/dL (30.0-36.0); Mean Corpuscular Hemoglobin 28.4 pg (28.0-34.0); Mean Corpuscular Volume 90.1 fL (80-94); Mean Platelet Volume 10.2 fL (7.4-10.4); Monocytes # 0.8 10^3/uL (0.2-0.9); Monocytes % 9.3 %; Neutrophils # 6.25 10^3/uL (1.8-7.7); Neutrophils % 70.1 %; Nucleated Red Blood Cells % 0 %; Platelet Count 159 10^3/cmm (130-400); Red Blood Count 4.55 10^6/uL (4.1-5.3); Red Cell Distribution Width 15.9 % (12.1-15.1); White Blood Count 8.9 10^3/uL (4.0-10.0)
[2021-03-11 09:14] LABS: Alanine Aminotransferase 17 U/L (0-41); Albumin Level 3.8 g/dL (3.5-5.2); Alkaline Phosphatase 87 IU/L (40-130); Anion Gap 14.9 (5-19); Aspartate Amino Transferase 22 U/L (0-40); Blood Urea Nitrogen 20 mg/dL (8-23); Calcium 8.5 mg/dL (8.5-10.5); Carbon Dioxide 25 mmol/L (22-29); Chloride 103 mmol/L (98-107); Globulin 2.8 g/dL (1.3-4.6); Glomerular Filtration Rate 111.8 mL/min (90-130); Glucose 133 mg/dL (65-115); Osmolality Calculated 293 mOsm/kg (285-295); Potassium 3.9 mmol/L (3.5-5.1); Sodium 139 mmol/L (136-145); Total Bilirubin 0.4 mg/dL (0.15-1.2); Total Protein 6.6 g/dL (6.6-8.7)
[2021-03-11] MEDS: famotidine 20 mg/2 mL INJ IVP (11:07)
[2021-03-11] MEDS: dextrose 5% 250 ML 75 ML IV (11:07)
[2021-03-11] MEDS: OLANZapine 10 mg TABLET 5 MG PO (11:07)
[2021-03-11] MEDS: palonosetron 0.25 mg/5 mL SDV IVP (11:09)
[2021-03-11] MEDS: fosaprepitant 150 MG in sodium chloride 0.9% 150 ML 300 MG IV (11:41)
[2021-03-13] MEDS: sodium chloride 0.9% 1,000 ML 999 ML IV (11:20)
[2021-03-25 14:45] LABS: Basophils % 0.4 %; Eosinophils # 0.1 10^3/uL (0.0-0.8); Eosinophils % 1.2 %; Hematocrit 42.3 % (42.0-52.0); Hemoglobin 13.1 g/dL (11.7-16.6); Lymphocytes # 1.4 10^3/uL (0.8-4.8); Lymphocytes % 17.6 %; Mean Corpuscular Hemoglobin 28.4 pg (28.0-34.0); Mean Corpuscular Volume 91.6 fL (80-94); Mean Platelet Volume 10.4 fL (7.4-10.4); Monocytes # 0.7 10^3/uL (0.2-0.9); Monocytes % 8.6 %; Neutrophils # 5.77 10^3/uL (1.8-7.7); Neutrophils % 71.5 %; Nucleated Red Blood Cells % 0 %; Platelet Count 151 10^3/cmm (130-400); Red Blood Count 4.62 10^6/uL (4.1-5.3); Red Cell Distribution Width 16.3 % (12.1-15.1); White Blood Count 8.1 10^3/uL (4.0-10.0)
[2021-03-25 15:25] LABS: Alanine Aminotransferase 15 U/L (0-41); Albumin Level 3.9 g/dL (3.5-5.2); Alkaline Phosphatase 89 IU/L (40-130); Anion Gap 13.9 (5-19); Aspartate Amino Transferase 22 U/L (0-40); Blood Urea Nitrogen 15 mg/dL (8-23); CA 125 34.1 U/mL (0-35); Calcium 8.8 mg/dL (8.5-10.5); Cancer Antigen 19 9 8.11 U/mL (0-35); Carbon Dioxide 27 mmol/L (22-29); Chloride 101 mmol/L (98-107); Globulin 2.6 g/dL (1.3-4.6); Glomerular Filtration Rate 95.6 mL/min (90-130); Glucose 220 mg/dL (65-115); Osmolality Calculated 294 mOsm/kg (285-295); Potassium 3.9 mmol/L (3.5-5.1); Sodium 138 mmol/L (136-145); Total Bilirubin 0.3 mg/dL (0.15-1.2); Total Protein 6.5 g/dL (6.6-8.7)
--- NOTE | 2021-03-28 14:06 | ONC FU_ITS ---
[facility] Patient Note Patient: Clark Antony Unit #: [id number]: [id number] Dictated By: Lamine PattersonDate of Visit: Mar 11, 2021 Onc MED Follow-Up/Prog Note Chief Complaint: Peritoneal carcinomatosis. 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 He has been in good general health. He presented with complaints of abdominal pain and postprandial bloating, dating back to at least October 2019. His initial CT abdomen/pelvis, from 10/11/2019, showed a focal area of narrowing involving the proximal sigmoid colon. Findings of diverticulitis described on a previous study from September 2019 were noted to have resolved. EGD and colonoscopy were unrevealing. His symptoms continue to worsen. Repeat CT scans in August 2020 showed interval development of moderate-sized ascites and a small left pleural effusion. Wall thickening was again noted and a small portion of the proximal sigmoid colon. Paracentesis and subsequent left thoracentesis revealed cytology negative fluids. PET/CT on 10/18/2020 showed a 2 cm area of abnormal activity in the right perianal region, SUV 12.0, with high probability of malignancy. Tiny, scattered perirectal nodes were too small to characterize. There was evidence of mesenteric edema, a small amount of ascites, and a small left pleural effusion. Omental stranding was felt to be likely related to edema. Pelvic MRI on 10/27/2020 showed no definite abnormalities to correspond with the uptake in the right rectal area noted on the PET/CT. Mild diffuse thickening and enhancement involving the distal sigmoid colon proximal to the rectum was felt to be nonspecific, neoplasm not excluded. There was no pelvic or inguinal lymphadenopathy or other significant findings noted on that study. He was then seen at the [facility] cancer clinic on 12/02/2020. MRI of the abdomen/pelvis showed omental fatty stranding and small ascites. There was focal sigmoid wall thickening, but unclear whether secondary to under distention and carcinomatosis or sigmoid primary. Sigmoidoscopy with EUS was negative for primary tumor. Peritoneal fluid cytology on repeat paracentesis was positive for rare atypical cells, highly suspicious for adenocarcinoma. 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 Molecular profile analysis was ordered, but with results not reported. He was seen in GI medical oncology by Dr. Rena Gresham on 01/15/2021. 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 He underwent placement of Port-A-Cath venous access device and began his first cycle of chemotherapy on 01-28-2021 . Mr. Antony's Guardant 360 results from February 25, 2021 reported tumor mutational burden was not evaluable MSI???high was not detected there was not detected alteration of ARID1A [id number] @ 0.1% which was reported as a variant of unknown significance. Mr. Antony is here today for follow-up. He is due for cycle 4-day 1 FOLFOX. He had difficulty tolerating cycle 1 due to significant nausea/vomiting, generalized weakness and poor oral intake. He did receive supportive care here in the clinic and recovered well. With cycle 2 he had dose reduction of the fluorouracil and oxaliplatin plus olanzapine was added to premeds. He received post treatment hydration as well when his pump was removed and since then he states he is felt great . He has had no recurrent side effects such as he did with cycle 1. He states today he feels good. He has no concerns. He denies any fever or chills. He has had no mouth sores, sore throat or difficulty swallowing. He denies any shortness of breath orthopnea. He is had no chest pain or palpitations. He denies any nausea or vomiting. He states overall he feels good. He has been out doing some golfing and working in the yard some. He states he is eating and drinking well. 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 The cold-induced neuropathy is resolved at present. His ECOG is 0. Past Medical History: Gastroesophageal reflux disease History of diverticulitis Hyperlipidemia Hypertension Type II diabetes Past Surgical History: Excision of skin cancer from the left cheek Hemorrhoidectomy Left subclavian vein PowerPort placement Dr. Cole in [address] directed omental biopsy in 2020 Sigmoidoscopy with EUS in 2020 EGD and colonoscopy in 2019 Allergies: No Known Allergies. Medications: Ativan 0.5 - 1 Tablet (of 1 mg) Oral q 4 hours Centrum Men 1 Tablet Oral daily Crestor 1 (40 mg) Tablet Oral daily Esomeprazole Magnesium 1 (40 mg) Capsule Delayed Release Oral daily Farxiga 1 (10 mg) Tablet Oral daily metFORMIN HCl 1 (1000 mg) Tablet Oral b.i.d. Prochlorperazine Maleate 1 (10 mg) Tablet Oral q 6 hours PRN Family History: Mr. Antony's mother is alive. Mr. Antony's father at age 83: brain cancer, and melanoma. Father with melanoma at age 83. Mother is still living at age 93. She has depression and she is in a half-way. One brother also has depression. Another brother is in good health. Social History: Mr. Antony is . Mr. Antony quit smoking 34 years ago but had smoked 1.0 pack/day for 11 years. He drinks occasionally. He has history of smoking 1 pack of cigarettes daily for 10 to 12 years. He quit smoking in 1986. He has occasional alcohol use. Review Of Symptoms: <See Above> Vital Signs: Performed on Mar 11, 2021 09:48 Height - 68.00 in Weight - 166.4 lbs (HIGH) BSA - 1.89 sq.m BMI - 25.30 Temperature - 96.7 F (LOW) Pulse - 91 /min Respiration - 18 /min BP - 146/76 mm(hg) (HIGH) O2 Sat - 96 % Pain - 0,0 - Fully active, able to carry on all predisease activities without restrictions. (ECOG) Physical Examination: Constitutional Alert, oriented, no acute distress. Skin pink, warm and dry. Head Normocephalic; atraumatic. Eyes Conjunctivae and sclerae are clear and without icterus. Pupils are reactive and equal. Respiratory Lungs are clear to auscultation without rhonchi or wheezing. Cardiovascular Regular rate and rhythm of heart without murmurs,clicks, gallops or rubs. Chest Left chest wall venous access device placement site is unremarkable. Extremities No visible deformities, no cyanosis, clubbing or edema. Musculoskeletal No tenderness or swelling, normal range of motion without obvious weakness. Integumentary No rashes or lesions. Neurologic No sensory or motor deficits, normal cerebellar function, normal gait. Psychiatric Alert and oriented times three. Coherent speech. Verbalizes understanding of our discussions today. Laboratory:Test performed on Mar 11, 2021 08:20 Sodium 139 mmol/L Potassium 3.9 mmol/L Chloride 103 mmol/L CO2 25 mmol/L Anion Gap 14.9 BUN 20 mg/dL Creatinine 0.7 mg/dL Cr Clearance (Est) 107.4800 mL/min eGFR 111.8 mL/min Glucose 133 mg/dL Osmolality - Calculated 293 mOsm/kg Calcium 8.5 mg/dL Protein, Total 6.6 g/dL Albumin 3.8 g/dL Globulin 2.8 g/dL Bilirubin, Total 0.4 mg/dL ALT (SGPT) 17 U/L AST (SGOT) 22 U/L Alkaline Phosphatase 87 IU/L WBC 8.9 10 3/uL RBC 4.55 10 6/uL HGB 12.9 g/dL HCT 41.0 % MCV 90.1 fL MCH 28.4 pg MCHC 31.5 g/dL RDW 15.9 % Platelet Count 159 10 3/cmm MPV 10.2 fL Neutrophils 6.25 10 3/uL Lymphocytes 1.6 10 3/uL Monocytes 0.8 10 3/uL Eosinophils 0.2 10 3/uL Basophils 0.0 10 3/uL Neutrophil % 70.1 % Lymphocyte % 17.9 % Monocyte % 9.3 % Eosinophil % 1.7 % Basophils % 0.3 % NRBC % 0 % Test performed on February 11, 2021 08:15 CBC Slide Review Slide Review Perform SLIDE REVIEW AGREES WITH AUTOMATED RESULTS ST Test performed on Jan 28, 2021 11:15 CA 19-9 4.55 U/mL CEA 1.0 ng/mL Impression: 1. 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 2. Type 2 diabetes 3. Diverticulitis 4. GERD 5. Hyperlipidemia 6. Hypertension 7. Squamous cell carcinoma in situ of skin???several places on arms excision on left cheek His last reported colonoscopy was October 2019. He had a [place] sigmoidoscopy flex on 12/04/2020 [facility] he also had upper GI on October 2019. Plan/Problems Addressed at this Visit: 1. Metastatic malignant to poorly differentiated adenocarcinoma presumed of the appendix with signet ring cell features with peritoneal carcinomatosis and malignant ascites diagnosed at [facility] January 2021. Mr. Antony has been referred to [facility] for continuation of care initiation of palliative chemotherapy initially with 4 cycles of FOLFOX. He had placement of Port-A-Cath per Dr. Cole on 01/28/2021. Mr. Antony's Guardant 360 results from February 25, 2021 reported tumor mutational burden was not evaluable MSI???high was not detected there was not detected alteration of ARID1A [id number] @ 0.1% which was reported as a variant of unknown significance. A. Proceed with cycle 4-day 1 FOLFOX. We will dose reduce his oxaliplatin by 20% due to poor tolerance (Significant nausea vomiting and generalized weakness) with cycle 1. B. Wel also added Zyprexa 5 mg premed and then he can do 5 mg twice daily at home. He is advised he can do the Zyprexa for 2 to 3 days after the chemotherapy or he could take it daily if needed and he is not having sedation from it. C. We had discussed Marinol but the Zyprexa is working well for him now.. D. Today's labs reviewed in detail discussed with . Mrs. Antony and a copy was given to him. WBC 8.9, hemoglobin 12.9, platelets 1 59,000 ANC is 6250. Potassium 3.9 creatinine 0.7 LFTs are normal. He did have a CA-125 on February 25, 2021 which was reported at 47.0 with reference range of 0-35. t is noted that his CA 19-9 on January 28, 2021 was 4.5 and his CEA was 1.0. He did have a CA-125 at [facility] on 01/15/2021 that was reported at 94.5. But I did not find a reference range listed. His CA 19-9 on 01/15/2021 at [facility] was reported at 3.6 with reference range less than 35 being normal. His CEA also on 01/15/2021 from [facility] was reported at 0.9 with reference range less than 3.8. 2. Type 2 diabetes mellitus A. He is currently on Farxiga and Metformin which is somewhat concerning given FOLFOX has significant risk of diarrhea as well as does Metformin. He is advised will need to watch this closely. Thus far has not had any problems. B. His hemoglobin A1c from [facility] on 01/15/2021 was reported at 7.1%. C. We will need to watch his glucose closely as we will plan to use steroid premeds for antiemesis and reaction prophylaxis. 3. Follow-up plan A. we will plan to see Mr. Antony back in 2 weeks for CBC, CMP for follow-up cycle 4 FOLFOX. He is due at [facility] for follow-up there in the next couple of weeks and will report to us after that visit. B. He will have supportive care with hydration and antiemetics as needed in the interim. C. Mr. Antony instructed to contact us in the interim should questions or problems arise. Signed By: Lamine Patterson-, AOCNP Lazaro Hernandez MD <<Signature on File>>
== END 2021-04-01 23:59 | disposition home or self-care (01) ==
LOC: ONCMED 05:57
PROVIDERS: Nurse Practitioner; PCP Family Medicine; Visit Provider Internal Medicine Medical Oncology
DX: Z51.11 Encounter for antineoplastic chemotherapy (principal); C78.6 Secondary malignant neoplasm of retroperitoneum and peritoneum; C18.1 Malignant neoplasm of appendix; K21.9 Gastro-esophageal reflux disease without esophagitis; E78.5 Hyperlipidemia, unspecified; I10 Essential (primary) hypertension; E11.9 Type 2 diabetes mellitus without complications; K57.92 Diverticulitis of intestine, part unspecified, without perforation or abscess without bleeding; R97.8 Other abnormal tumor markers; Z85.828 Personal history of other malignant neoplasm of skin; Z79.899 Other long term (current) drug therapy
CPT/HCPCS: 36415; 36591; 80053; 85025; 86301; 86304; 96360; 96367; 96368; 96375; 96413; 96415; 96416; 99214; J0640; J1100; J1453; J2469; J3490; J7030; J9190; J9263

== ENCOUNTER 2021-04-24 05:46 | Outpatient (RCR) | payer MEDICARE, OTHER, SELFPAY ==
[2021-04-08 09:55] LABS: Basophils # 0.1 10^3/uL (0.0-0.1); Basophils % 0.5 %; Eosinophils # 0.1 10^3/uL (0.0-0.8); Eosinophils % 0.7 %; Hematocrit 45.3 % (42.0-52.0); Hemoglobin 13.9 g/dL (11.7-16.6); Lymphocytes # 1.5 10^3/uL (0.8-4.8); Lymphocytes % 13.9 %; Mean Corpuscular HGB Conc 30.7 g/dL (30.0-36.0); Mean Corpuscular Hemoglobin 28.5 pg (28.0-34.0); Mean Corpuscular Volume 92.8 fL (80-94); Mean Platelet Volume 9.9 fL (7.4-10.4); Monocytes # 0.9 10^3/uL (0.2-0.9); Monocytes % 7.7 %; Neutrophils # 8.35 10^3/uL (1.8-7.7); Neutrophils % 76.3 %; Nucleated Red Blood Cells % 0 %; Platelet Count 310 10^3/cmm (130-400); Red Blood Count 4.88 10^6/uL (4.1-5.3); Red Cell Distribution Width 16.4 % (12.1-15.1)
[2021-04-08 10:22] LABS: Alanine Aminotransferase 11 U/L (0-41); Alkaline Phosphatase 101 IU/L (40-130); Anion Gap 17.3 (5-19); Aspartate Amino Transferase 18 U/L (0-40); Blood Urea Nitrogen 16 mg/dL (8-23); Calcium 8.8 mg/dL (8.5-10.5); Carbon Dioxide 27 mmol/L (22-29); Chloride 99 mmol/L (98-107); Globulin 2.9 g/dL (1.3-4.6); Glomerular Filtration Rate 95.6 mL/min (90-130); Glucose 177 mg/dL (65-115); Osmolality Calculated 294 mOsm/kg (285-295); Potassium 4.3 mmol/L (3.5-5.1); Sodium 139 mmol/L (136-145); Total Bilirubin 0.5 mg/dL (0.15-1.2); Total Protein 6.9 g/dL (6.6-8.7)
[2021-04-08] MEDS: famotidine 20 mg/2 mL INJ IVP (11:51)
[2021-04-08] MEDS: dextrose 5% 250 ML 75 ML IV (11:51)
[2021-04-08] MEDS: OLANZapine 5 mg TABLET PO (11:51)
[2021-04-08] MEDS: palonosetron 0.25 mg/5 mL SDV IVP (11:53)
[2021-04-08] MEDS: fosaprepitant 150 MG in sodium chloride 0.9% 150 ML 300 MG IV (12:18)
[2021-04-08 13:55] LABS: Add Urine Microscopic? NO; Urine Appearance Clear (CLEAR); Urine Color Yellow (Yellow); pH Urine 8 (5-7)
[2021-04-08 13:56] LABS: Bilirubin Urine Neg (Negative); Blood Urine Neg (Negative); Glucose Urine UA 4+ (Normal); Ketones Urine Negative (Negative); Leukocyte Esterase Urine Negative (Negative); Nitrate Urine Negative (Negative); Protein Urine Neg (Negative); Sulfosalicylic Acid Urine Negative (Negative); Urobilinogen Urine Norm (Negative)
[2021-04-08 13:57] LABS: Charge for UA Resulting for Rev
--- NOTE | 2021-04-08 19:18 | ONC FU_ITS ---
Dr. Hernandez Patient Follow-Up Note Patient: Clark Antony Unit #: [id number]: 1950 Dicatated By: Lazaro Hernandez M.D.Date of Visit:Apr 08, 2021 Onc Med Follow-up/Prog Note Chief Complaint: Peritoneal carcinomatosis. 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 He has been in good general health. He presented with complaints of abdominal pain and postprandial bloating, dating back to at least October 2019. His initial CT abdomen/pelvis, from 10/11/2019, showed a focal area of narrowing involving the proximal sigmoid colon. Findings of diverticulitis described on a previous study from September 2019 were noted to have resolved. EGD and colonoscopy were unrevealing. His symptoms continue to worsen. Repeat CT scans in August 2020 showed interval development of moderate-sized ascites and a small left pleural effusion. Wall thickening was again noted and a small portion of the proximal sigmoid colon. Paracentesis and subsequent left thoracentesis revealed cytology negative fluids. PET/CT on 10/18/2020 showed a 2 cm area of abnormal activity in the right perianal region, SUV 12.0, with high probability of malignancy. Tiny, scattered perirectal nodes were too small to characterize. There was evidence of mesenteric edema, a small amount of ascites, and a small left pleural effusion. Omental stranding was felt to be likely related to edema. Pelvic MRI on 10/27/2020 showed no definite abnormalities to correspond with the uptake in the right rectal area noted on the PET/CT. Mild diffuse thickening and enhancement involving the distal sigmoid colon proximal to the rectum was felt to be nonspecific, neoplasm not excluded. There was no pelvic or inguinal lymphadenopathy or other significant findings noted on that study. He was then seen at the [facility] Suspicion of cancer clinic on 12/02/2020. MRI of the abdomen/pelvis showed omental fatty stranding and small ascites. There was focal sigmoid wall thickening, but unclear whether secondary to under distention and carcinomatosis or sigmoid primary. Sigmoidoscopy with EUS was negative for primary tumor. Peritoneal fluid cytology on repeat paracentesis was positive for rare atypical cells, highly suspicious for adenocarcinoma. 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 Molecular profile analysis was ordered, but with results not reported. He was seen in GI medical oncology by Dr. Rena Gresham on 01/15/2021. 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 His baseline tumor markers included elevated CA-125 at 94.5 U/mL. CEA and CA 19-9 levels were normal. His other medical illnesses include hypertension, hyperlipidemia, type II diabetes, and GERD. He has a history of diverticulitis. He has a history of smoking 1 pack of cigarettes daily for 10 to 12 years, but he quit smoking in 1986. INTERIM HISTORY: He began cycle 1 of modified FOLFOX chemotherapy on 01/28/2021. It was complicated by severe nausea/vomiting and generalized weakness. He had mild neuropathy. He required IV hydration and IV antiemetics for the nausea/vomiting, and he also had prolonged anorexia. He eventually did recover and he was able to continue with cycle 2 on 02/11/2021. Due to the severity of his side effects, he was given a level 1 dose reduction in oxaliplatin and a 20% reduction in the 5-FU dosage. With the modifications, he tolerated the treatment much better, and he was able to continue with cycle 3 on 02/25/2021 and with cycle 4 on 03/21/2021. As of 03/25/2021 his CA-125 level had decreased to 34.1 U/mL. He then had a follow-up visit with Dr. Gresham at [facility] [place]. As he did to be showing some response to the chemotherapy, it was recommended that he continue treatment, but with an increase in the oxaliplatin to the full dosage and with addition of Avastin to the regimen. He is seen now for a follow-up visit. He has been feeling pretty good generally. He does have some fatigue, he is doing some work around the house. His appetite had been improving, though in the last few days it has again been down a little. He has gained some weight over the past 2 months. He has not had fever or night sweats. He has not had any mouth sores, but he has had some cold sensitivity in the mouth and throat. He has had just a slight cough. He does not complain of shortness of breath or chest pain. He has had some nausea, but not bad. His acid reflux is adequately managed with Nexium. He has had some mild constipation following his chemotherapy treatments. He has had no diarrhea. He has no complaints. He has no significant joint or bone pain. He does not complain of headache or dizziness. His neuropathy is bad right after treatment, but it then gradually resolves. Medications: Ativan 0.5 - 1 Tablet (of 1 mg) Oral q 4 hours, Centrum Men 1 Tablet Oral daily, Crestor 1 (40 mg) Tablet Oral daily, Esomeprazole Magnesium 1 (40 mg) Capsule Delayed Release Oral daily, Farxiga 1 (10 mg) Tablet Oral daily, metFORMIN HCl 1 (1000 mg) Tablet Oral b.i.d., Prochlorperazine Maleate 1 (10 mg) Tablet Oral q 6 hours PRN Allergies: No Known Allergies. Vital Signs: Performed on Apr 08, 2021 11:15 Height - 68.00 in Weight - 168.6 lbs (HIGH) BSA - 1.90 sq.m BMI - 25.64 Temperature - 97.3 F (LOW) Pulse - 94 /min Respiration - 18 /min BP - 139/81 mm(hg) O2 Sat - 94 % (LOW) Pain - 1 Fatigue - 4 Physical Examination: Constitutional - He looks pretty good generally, Eyes - Sclerae nonicteric. Conjunctivae clear, ENMT - No lesions noted in the oral cavity, Hematologic/Lymphatic - No cervical, clavicular, or axillary adenopathy, Respiratory - Lungs are clear with good air movement bilaterally, Cardiovascular - Heart rhythm is regular. There is no murmur, gallop, or rub noted, Abdomen - Slightly distended and still firm. Liver and spleen are not enlarged. There is no abdominal mass noted and there is no obvious ascites. There is no inguinal adenopathy, Extremities - No edema, Neurologic - No focal neurologic deficits noted. Lab/Imaging: Test performed on Apr 08, 2021 09:37 Sodium 139 mmol/L Potassium 4.3 mmol/L Chloride 99 mmol/L CO2 27 mmol/L Anion Gap 17.3 BUN 16 mg/dL Creatinine 0.8 mg/dL Cr Clearance (Est) 92.7200 mL/min eGFR 95.6 mL/min Glucose 177 mg/dL Osmolality - Calculated 294 mOsm/kg Calcium 8.8 mg/dL Protein, Total 6.9 g/dL Albumin 4.0 g/dL Globulin 2.9 g/dL Bilirubin, Total 0.5 mg/dL ALT (SGPT) 11 U/L AST (SGOT) 18 U/L Alkaline Phosphatase 101 IU/L WBC 11.0 10 3/uL RBC 4.88 10 6/uL HGB 13.9 g/dL HCT 45.3 % MCV 92.8 fL MCH 28.5 pg MCHC 30.7 g/dL RDW 16.4 % Platelet Count 310 10 3/cmm MPV 9.9 fL Neutrophils 8.35 10 3/uL Lymphocytes 1.5 10 3/uL Monocytes 0.9 10 3/uL Eosinophils 0.1 10 3/uL Basophils 0.1 10 3/uL Neutrophil % 76.3 % Lymphocyte % 13.9 % Monocyte % 7.7 % Eosinophil % 0.7 % Basophils % 0.5 % NRBC % 0 % Test performed on Mar 25, 2021 14:24 CA 19-9 8.11 U/mL CA-125 34.1 U/mL Problem List: 1. 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 This is presumed to be from a primary adenocarcinoma of the appendix, though it does not appear that a primary lesion was actually identified. He had associated malignant ascites. 2. Hypertension. 3. Hyperlipidemia. 4. Type 2 diabetes. 5. GERD. 6. History of diverticulitis. 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 This was presumed to be from a primary adenocarcinoma of the appendix, though it does not appear that a primary lesion was actually identified. He had associated malignant ascites. The diagnosis was confirmed by CT directed biopsy of the omentum. He was recommended to begin palliative chemotherapy with a modified FOLFOX regimen. He began cycle 1 on 01/28/2021. It was complicated by weakness, severe nausea/vomiting, and prolonged anorexia. He required IV hydration and IV antiemetics, but he did recover. He was able to proceed with cycle 2 on 02/11/2021 at that point he did have a dose reduction in the oxaliplatin and the 5-FU infusion. He has since then been tolerating the chemotherapy well. He has now completed 4 cycles of treatment. He does appear to be showing some evidence of response, including a significant decline in the CA-125 level. He will proceed now with his 5th cycle of chemotherapy with oxaliplatin will escalated back to the full dosage. He also will have Avastin added to the regimen. He will be scheduled for a follow-up visit in 2 weeks. Signed By: Lazaro Hernandez M.D. <<Signature on File>>
[2021-04-10] MEDS: sodium chloride 0.9% 1,000 ML 999 ML IV (11:25)
[2021-04-22 08:38] LABS: Basophils % 0.1 %; Eosinophils # 0.2 10^3/uL (0.0-0.8); Eosinophils % 2.7 %; Hematocrit 41.8 % (42.0-52.0); Hemoglobin 13.2 g/dL (11.7-16.6); Lymphocytes # 1.8 10^3/uL (0.8-4.8); Mean Corpuscular HGB Conc 31.6 g/dL (30.0-36.0); Mean Corpuscular Hemoglobin 28.8 pg (28.0-34.0); Mean Corpuscular Volume 91.1 fL (80-94); Mean Platelet Volume 10.3 fL (7.4-10.4); Monocytes # 0.7 10^3/uL (0.2-0.9); Monocytes % 9.9 %; Neutrophils # 4.11 10^3/uL (1.8-7.7); Neutrophils % 60.9 %; Nucleated Red Blood Cells % 0 %; Platelet Count 190 10^3/cmm (130-400); Red Blood Count 4.59 10^6/uL (4.1-5.3); Red Cell Distribution Width 15.9 % (12.1-15.1); White Blood Count 6.8 10^3/uL (4.0-10.0)
[2021-04-22 09:25] LABS: Alanine Aminotransferase 15 U/L (0-41); Alkaline Phosphatase 93 IU/L (40-130); Anion Gap 16.1 (5-19); Aspartate Amino Transferase 22 U/L (0-40); Blood Urea Nitrogen 19 mg/dL (8-23); CA 125 74.9 U/mL (0-35); Calcium 8.6 mg/dL (8.5-10.5); Carbon Dioxide 26 mmol/L (22-29); Chloride 100 mmol/L (98-107); Globulin 2.6 g/dL (1.3-4.6); Glomerular Filtration Rate 111.5 mL/min (90-130); Glucose 105 mg/dL (65-115); Osmolality Calculated 289 mOsm/kg (285-295); Potassium 4.1 mmol/L (3.5-5.1); Sodium 138 mmol/L (136-145); Total Bilirubin 0.2 mg/dL (0.15-1.2); Total Protein 6.6 g/dL (6.6-8.7)
[2021-04-22 09:51] LABS: Carcinoembryonic Antigen 1.6 ng/mL (0.0-4.7)
[2021-04-22] MEDS: dextrose 5% 250 ML 75 ML IV (10:20)
[2021-04-22] MEDS: OLANZapine 5 mg TABLET PO (10:20)
[2021-04-22] MEDS: famotidine 20 mg/2 mL INJ IVP (10:20)
[2021-04-22] MEDS: palonosetron 0.25 mg/5 mL SDV IV (10:26)
[2021-04-22] MEDS: fosaprepitant 150 MG in sodium chloride 0.9% 150 ML 300 MG IV (10:45)
[2021-04-22 10:46] LABS: Add Urine Microscopic? NO; Charge for UA Resulting for Rev
[2021-04-22 10:53] LABS: Bilirubin Urine Neg (Negative); Blood Urine Neg (Negative); Glucose Urine UA 4+ (Normal); Ketones Urine Negative (Negative); Leukocyte Esterase Urine Negative (Negative); Nitrate Urine Negative (Negative); Protein Urine Neg (Negative); Specific Gravity, Urine 1.015 (1.005-1.030); Urine Appearance Clear (CLEAR); Urine Color Yellow (Yellow); Urobilinogen Urine Norm (Negative); pH Urine 5 (5-7)
--- NOTE | 2021-04-22 18:37 | ONC FU_ITS ---
Dr. Hernandez Patient Follow-Up Note Patient: Clark Antony Unit #: [id number]: 1950 Dicatated By: Lazaro Hernandez M.D.Date of Visit:Apr 22, 2021 Onc Med Follow-up/Prog Note Chief Complaint: Peritoneal carcinomatosis. 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 He has been in good general health. He presented with complaints of abdominal pain and postprandial bloating, dating back to at least October 2019. His initial CT abdomen/pelvis, from 10/11/2019, showed a focal area of narrowing involving the proximal sigmoid colon. Findings of diverticulitis described on a previous study from September 2019 were noted to have resolved. EGD and colonoscopy were unrevealing. His symptoms continue to worsen. Repeat CT scans in August 2020 showed interval development of moderate-sized ascites and a small left pleural effusion. Wall thickening was again noted and a small portion of the proximal sigmoid colon. Paracentesis and subsequent left thoracentesis revealed cytology negative fluids. PET/CT on 10/18/2020 showed a 2 cm area of abnormal activity in the right perianal region, SUV 12.0, with high probability of malignancy. Tiny, scattered perirectal nodes were too small to characterize. There was evidence of mesenteric edema, a small amount of ascites, and a small left pleural effusion. Omental stranding was felt to be likely related to edema. Pelvic MRI on 10/27/2020 showed no definite abnormalities to correspond with the uptake in the right rectal area noted on the PET/CT. Mild diffuse thickening and enhancement involving the distal sigmoid colon proximal to the rectum was felt to be nonspecific, neoplasm not excluded. There was no pelvic or inguinal lymphadenopathy or other significant findings noted on that study. He was then seen at the [facility] on 12/02/2020. MRI of the abdomen/pelvis showed omental fatty stranding and small ascites. There was focal sigmoid wall thickening, but unclear whether secondary to under distention and carcinomatosis or sigmoid primary. Sigmoidoscopy with EUS was negative for primary tumor. Peritoneal fluid cytology on repeat paracentesis was positive for rare atypical cells, highly suspicious for adenocarcinoma. 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 Molecular profile analysis was ordered, but with results not reported. He was seen in GI medical oncology by Dr. Rena Gresham on 01/15/2021. 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 His baseline tumor markers included elevated CA-125 at 94.5 U/mL. CEA and CA 19-9 levels were normal. His other medical illnesses include hypertension, hyperlipidemia, type II diabetes, and GERD. He has a history of diverticulitis. He has a history of smoking 1 pack of cigarettes daily for 10 to 12 years, but he quit smoking in 1986. INTERIM HISTORY: He began cycle 1 of modified FOLFOX chemotherapy on 01/28/2021. It was complicated by severe nausea/vomiting and generalized weakness. He had mild neuropathy. He required IV hydration and IV antiemetics for the nausea/vomiting, and he also had prolonged anorexia. He eventually did recover and he was able to continue with cycle 2 on 02/11/2021. Due to the severity of his side effects, he was given a level 1 dose reduction in oxaliplatin and a 20% reduction in the 5-FU dosage. With the modifications, he tolerated the treatment much better, and he was able to continue with cycle 3 on 02/25/2021 and with cycle 4 on 03/21/2021. As of 03/25/2021 his CA-125 level had decreased to 34.1 U/mL. He then had a follow-up visit with Dr. Gresham at [facility] [place]. As he did to be showing some response to the chemotherapy, it was recommended that he continue treatment. He then returned here on 04/08/2021 and proceeded with his 5th cycle of chemotherapy with the oxaliplatin increased back up to the full dosage and with addition of Avastin to the regimen. He is seen for a follow-up visit. He says he did feel pretty tired for a few days after his treatment, but his energy then bounced back. His ECOG score is 1. His appetite is the same. He has had just mild nausea. He has not had fever or night sweats. He says his neuropathy was really bad for 2 or 3 days, but it then gradually subsided. At this point he still has some cold sensitivity in his hands and feet. He feels that it is very minor. He has sinus drainage, which is chronic. He has not had mouth sores, but he does have a bad taste in his mouth. He has had a hacking cough for 6 weeks. He is not had much benefit using [id number] Flonase and Mucinex. He does not complain of shortness of breath or chest pain. His acid reflux is adequately managed with Nexium. He is prone to having constipation, which he manages with Dulcolax. He occasionally has a little bit of diarrhea. He still has some mild generalized abdominal discomfort. He has no complaints. He has no significant joint or bone pain. He does not complain of headache and he has not been having any dizziness or balance issues. Medications: Ativan 0.5 - 1 Tablet (of 1 mg) Oral q 4 hours, Centrum Men 1 Tablet Oral daily, Crestor 1 (40 mg) Tablet Oral daily, Esomeprazole Magnesium 1 (40 mg) Capsule Delayed Release Oral daily, Farxiga 1 (10 mg) Tablet Oral daily, metFORMIN HCl 1 (1000 mg) Tablet Oral b.i.d., Prochlorperazine Maleate 1 (10 mg) Tablet Oral q 6 hours PRN Allergies: No Known Allergies. Vital Signs: Performed on Apr 22, 2021 09:35 Height - 68.00 in Weight - 164.8 lbs (LOW) BSA - 1.88 sq.m BMI - 25.06 Temperature - 97.7 F (LOW) Pulse - 92 /min Respiration - 18 /min BP - 122/71 mm(hg) O2 Sat - 96 % Pain - 0 Fatigue - 7 Physical Examination: Constitutional - He looks pretty good generally, Eyes - Sclerae nonicteric. Conjunctivae clear, ENMT - No lesions noted in the oral cavity, Hematologic/Lymphatic - No cervical, clavicular, or axillary adenopathy, Respiratory - Lungs are clear with good air movement bilaterally, Cardiovascular - Heart rhythm is regular. There is no murmur, gallop, or rub noted, Abdomen - Abdomen is not distended now and it feels less firm. Liver and spleen are not enlarged. There is no abdominal mass noted and there is no obvious ascites. There is no inguinal adenopathy, Extremities - No edema, Neurologic - No focal neurologic deficits noted. Lab/Imaging: Test performed on Apr 22, 2021 08:18 Sodium 138 mmol/L Potassium 4.1 mmol/L Chloride 100 mmol/L CO2 26 mmol/L Anion Gap 16.1 BUN 19 mg/dL Creatinine 0.7 mg/dL Cr Clearance (Est) 105.9700 mL/min eGFR 111.5 mL/min Glucose 105 mg/dL Osmolality - Calculated 289 mOsm/kg Calcium 8.6 mg/dL Protein, Total 6.6 g/dL Albumin 4.0 g/dL Globulin 2.6 g/dL Bilirubin, Total 0.2 mg/dL ALT (SGPT) 15 U/L AST (SGOT) 22 U/L Alkaline Phosphatase 93 IU/L Ua Color Yellow WBC 6.8 10 3/uL Ua Appearance Clear RBC 4.59 10 6/uL Ua Glucose 4+ HGB 13.2 g/dL Ua Bilirubin Neg HCT 41.8 % Ua Ketones Negative MCV 91.1 fL Ua Specific [place] 1.015 MCH 28.8 pg Ua Blood Neg MCHC 31.6 g/dL Ua pH 5 RDW 15.9 % Ua Protein Neg Platelet Count 190 10 3/cmm MPV 10.3 fL Neutrophils 4.11 10 3/uL Ua Nitrites Negative Lymphocytes 1.8 10 3/uL Ua Leukocyte Esterase Negative Monocytes 0.7 10 3/uL Eosinophils 0.2 10 3/uL Basophils 0.0 10 3/uL Neutrophil % 60.9 % Lymphocyte % 26.0 % Monocyte % 9.9 % Eosinophil % 2.7 % Basophils % 0.1 % NRBC % 0 % CA 19-9 8.60 U/mL CA-125 74.9 U/mL CEA 1.6 ng/mL Problem List: 1. 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 This is presumed to be from a primary adenocarcinoma of the appendix, though it does not appear that a primary lesion was actually identified. He had associated malignant ascites. 2. Hypertension. 3. Hyperlipidemia. 4. Type 2 diabetes. 5. GERD. 6. History of diverticulitis. 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 This was presumed to be from a primary adenocarcinoma of the appendix, though it does not appear that a primary lesion was actually identified. He had associated malignant ascites. The diagnosis was confirmed by CT directed biopsy of the omentum. He was recommended to begin palliative chemotherapy with a modified FOLFOX regimen. He began cycle 1 on 01/28/2021. It was complicated by weakness, severe nausea/vomiting, and prolonged anorexia. He required IV hydration and IV antiemetics, but he did recover. He was able to proceed with cycle 2 on 02/11/2021 at that point he did have a dose reduction in the oxaliplatin and the 5-FU infusion. He had subsequently tolerated the chemotherapy well. He returned to [facility] after completing 4 cycles of treatment. On evaluation there, he did appear to have evidence of response, including a significant decline in his CA-125 level. On 04/08/2021 he continued with his 5th cycle of treatment with the oxaliplatin increase to the full dosage and with addition of Avastin to the regimen. With that treatment, he has had a little more fatigue and there was some increase in his neuropathy. However, thus far he continues to tolerate treatment with acceptable toxicity. There has been an increase in his CA-125 level. As yet, the significance is uncertain. He will proceed now with his 6th cycle of treatment. Dosages will remain the same. There will be a slight delay with his next cycle to accommodate a planned vacation. I will repeat a CA-125 level with that visit. Signed By: Lazaro Hernandez M.D. <<Signature on File>>
[2021-04-24] MEDS: sodium chloride 0.9% 1,000 ML 999 ML IV (10:42)
== END 2021-05-02 23:59 | disposition home or self-care (01) ==
LOC: ONCMED 05:46
PROVIDERS: Internal Medicine Medical Oncology; PCP Family Medicine; Visit Provider Internal Medicine Hematology & Oncology
DX: Z51.11 Encounter for antineoplastic chemotherapy (principal); C18.1 Malignant neoplasm of appendix; C78.6 Secondary malignant neoplasm of retroperitoneum and peritoneum; R18.0 Malignant ascites; I10 Essential (primary) hypertension; E78.5 Hyperlipidemia, unspecified; E11.9 Type 2 diabetes mellitus without complications; K21.9 Gastro-esophageal reflux disease without esophagitis; R97.8 Other abnormal tumor markers; Z87.19 Personal history of other diseases of the digestive system; Z79.899 Other long term (current) drug therapy
CPT/HCPCS: 36415; 80053; 81003; 82378; 85025; 86301; 86304; 96360; 96367; 96368; 96375; 96413; 96415; 96416; 96417; 99214; 99215; J0640; J1100; J1453; J2469; J3490; J7030; J9035; J9190; J9263

== ENCOUNTER 2021-06-01 05:32 | Outpatient (RCR) | payer MEDICARE, OTHER, SELFPAY ==
[2021-05-11 08:56] LABS: Basophils % 0.3 %; Eosinophils # 0.1 10^3/uL (0.0-0.8); Eosinophils % 1.7 %; Hematocrit 43.7 % (42.0-52.0); Hemoglobin 13.9 g/dL (11.7-16.6); Lymphocytes # 1.5 10^3/uL (0.8-4.8); Lymphocytes % 41.9 %; Mean Corpuscular HGB Conc 31.8 g/dL (30.0-36.0); Mean Corpuscular Hemoglobin 28.9 pg (28.0-34.0); Mean Corpuscular Volume 90.9 fL (80-94); Mean Platelet Volume 9.9 fL (7.4-10.4); Monocytes # 1.1 10^3/uL (0.2-0.9); Monocytes % 30.7 %; Neutrophils % 24.8 %; Nucleated Red Blood Cells % 0 %; Platelet Count 222 10^3/cmm (130-400); Red Blood Count 4.81 10^6/uL (4.1-5.3); Red Cell Distribution Width 16.1 % (12.1-15.1); White Blood Count 3.6 10^3/uL (4.0-10.0)
[2021-05-11 09:18] LABS: Neutrophils # 0.89 10^3/uL (1.8-7.7)
[2021-05-11 09:27] LABS: Alanine Aminotransferase 11 U/L (0-41); Alkaline Phosphatase 94 IU/L (40-130); Aspartate Amino Transferase 25 U/L (0-40); Blood Urea Nitrogen 17 mg/dL (8-23); CA 125 50.3 U/mL (0-35); Calcium 8.7 mg/dL (8.5-10.5); Carbon Dioxide 26 mmol/L (22-29); Chloride 99 mmol/L (98-107); Glomerular Filtration Rate 83.4 mL/min (90-130); Glucose 112 mg/dL (65-115); Total Bilirubin 0.5 mg/dL (0.15-1.2)
[2021-05-11 09:46] LABS: Anion Gap 17.2 (5-19); Osmolality Calculated 288 mOsm/kg (285-295); Potassium 4.2 mmol/L (3.5-5.1); Sodium 138 mmol/L (136-145)
--- NOTE | 2021-05-11 19:44 | ONC FU_ITS ---
Dr. Hernandez Patient Follow-Up Note Patient: Clark Antony Unit #: [id number]: [id number] Dicatated By: Lazaro Hernandez M.D.Date of Visit:May 11, 2021 Onc Med Follow-up/Prog Note Chief Complaint: Peritoneal carcinomatosis. 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 He has been in good general health. He presented with complaints of abdominal pain and postprandial bloating, dating back to at least October 2019. His initial CT abdomen/pelvis, from 10/11/2019, showed a focal area of narrowing involving the proximal sigmoid colon. Findings of diverticulitis described on a previous study from September 2019 were noted to have resolved. EGD and colonoscopy were unrevealing. His symptoms continue to worsen. Repeat CT scans in August 2020 showed interval development of moderate-sized ascites and a small left pleural effusion. Wall thickening was again noted and a small portion of the proximal sigmoid colon. Paracentesis and subsequent left thoracentesis revealed cytology negative fluids. PET/CT on 10/18/2020 showed a 2 cm area of abnormal activity in the right perianal region, SUV 12.0, with high probability of malignancy. Tiny, scattered perirectal nodes were too small to characterize. There was evidence of mesenteric edema, a small amount of ascites, and a small left pleural effusion. Omental stranding was felt to be likely related to edema. Pelvic MRI on 10/27/2020 showed no definite abnormalities to correspond with the uptake in the right rectal area noted on the PET/CT. Mild diffuse thickening and enhancement involving the distal sigmoid colon proximal to the rectum was felt to be nonspecific, neoplasm not excluded. There was no pelvic or inguinal lymphadenopathy or other significant findings noted on that study. He was then seen at the [facility] on 12/02/2020. MRI of the abdomen/pelvis showed omental fatty stranding and small ascites. There was focal sigmoid wall thickening, but unclear whether secondary to under distention and carcinomatosis or sigmoid primary. Sigmoidoscopy with EUS was negative for primary tumor. Peritoneal fluid cytology on repeat paracentesis was positive for rare atypical cells, highly suspicious for adenocarcinoma. 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 Molecular profile analysis was ordered, but with results not reported. He was seen in GI medical oncology by Dr. Rena Gresham on 01/15/2021. 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 His baseline tumor markers included elevated CA-125 at 94.5 U/mL. CEA and CA 19-9 levels were normal. His other medical illnesses include hypertension, hyperlipidemia, type II diabetes, and GERD. He has a history of diverticulitis. He has a history of smoking 1 pack of cigarettes daily for 10 to 12 years, but he quit smoking in 1986. INTERIM HISTORY: He began cycle 1 of modified FOLFOX chemotherapy on 01/28/2021. It was complicated by severe nausea/vomiting and generalized weakness. He had mild neuropathy. He required IV hydration and IV antiemetics for the nausea/vomiting, and he also had prolonged anorexia. He eventually did recover and he was able to continue with cycle 2 on 02/11/2021. Due to the severity of his side effects, he was given a level 1 dose reduction in oxaliplatin and a 20% reduction in the 5-FU dosage. With the modifications, he tolerated the treatment much better, and he was able to continue with cycle 3 on 02/25/2021 and with cycle 4 on 03/21/2021. As of 03/25/2021 his CA-125 level had decreased to 34.1 U/mL. He then had a follow-up visit with Dr. Gresham at [facility] [place]. As he did to be showing some response to the chemotherapy, it was recommended that he continue treatment. He then returned here on 04/08/2021 and proceeded with his 5th cycle of chemotherapy with the oxaliplatin increased back up to the full dosage and with addition of Avastin to the regimen. He tolerated it with acceptable toxicity, and he continued with cycle 6 on 04/22/2021. At that time there was a significant increase in the CA-125 level to 74.9 U/mL. He is seen for a follow-up visit. He has been feeling a little more tired, but his energy is not bad. He is still doing light work. His ECOG score is 1. His appetite is not real good. His weight is down a couple of pounds. He does not have fever or night sweats. He has had a little hoarseness, but he has not had sore mouth or throat. He has a little bit of cough. He does not complain of shortness of breath or chest pain. He has had just mild nausea. Bowel function is somewhat variable, but okay. He has no complaints. He has no significant joint or bone pain. He does not complain of headache or dizziness. His neuropathy is pretty bad for 2 or 3 days after treatment, but it gradually subsides thereafter. Medications: Ativan 0.5 - 1 Tablet (of 1 mg) Oral q 4 hours, Centrum Men 1 Tablet Oral daily, Crestor 1 (40 mg) Tablet Oral daily, Esomeprazole Magnesium 1 (40 mg) Capsule Delayed Release Oral daily, Farxiga 1 (10 mg) Tablet Oral daily, metFORMIN HCl 1 (1000 mg) Tablet Oral b.i.d., Prochlorperazine Maleate 1 (10 mg) Tablet Oral q 6 hours PRN Allergies: No Known Allergies. Vital Signs: Performed on May 11, 2021 10:20 Height - 68.00 in Weight - 162.6 lbs (LOW) BSA - 1.87 sq.m BMI - 24.72 Temperature - 97.6 F (LOW) Pulse - 102 /min (HIGH) Respiration - 18 /min BP - 142/91 mm(hg) (HIGH) O2 Sat - 96 % Pain - 0 Fatigue - 5 Physical Examination: Constitutional - He looks pretty good generally, Eyes - Sclerae nonicteric. Conjunctivae clear, ENMT - No lesions noted in the oral cavity, Hematologic/Lymphatic - No cervical, clavicular, or axillary adenopathy, Respiratory - Lungs are clear with good air movement bilaterally, Cardiovascular - Heart rhythm is regular. There is no murmur, gallop, or rub noted, Abdomen - Abdomen still feels somewhat firm, but not overtly distended. Liver and spleen are not enlarged. There is no abdominal mass noted and there is no obvious ascites. There is no inguinal adenopathy, Extremities - No edema, Neurologic - No focal neurologic deficits noted. Lab/Imaging: Test performed on May 11, 2021 08:40 Sodium 138 mmol/L Potassium 4.2 mmol/L Chloride 99 mmol/L CO2 26 mmol/L Anion Gap 17.2 BUN 17 mg/dL Creatinine 0.9 mg/dL Cr Clearance (Est) 82.4200 mL/min eGFR 83.4 mL/min Glucose 112 mg/dL Osmolality - Calculated 288 mOsm/kg Calcium 8.7 mg/dL Protein, Total 7.0 g/dL Albumin 4.0 g/dL Globulin 3.0 g/dL Bilirubin, Total 0.5 mg/dL ALT (SGPT) 11 U/L AST (SGOT) 25 U/L Alkaline Phosphatase 94 IU/L WBC 3.6 10 3/uL RBC 4.81 10 6/uL HGB 13.9 g/dL HCT 43.7 % MCV 90.9 fL MCH 28.9 pg MCHC 31.8 g/dL RDW 16.1 % Platelet Count 222 10 3/cmm MPV 9.9 fL Neutrophils 0.89 10 3/uL Lymphocytes 1.5 10 3/uL Monocytes 1.1 10 3/uL Eosinophils 0.1 10 3/uL Basophils 0.0 10 3/uL Neutrophil % 24.8 % Lymphocyte % 41.9 % Monocyte % 30.7 % Eosinophil % 1.7 % Basophils % 0.3 % NRBC % 0 % CA-125 50.3 U/mL Problem List: 1. 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 This is presumed to be from a primary adenocarcinoma of the appendix, though it does not appear that a primary lesion was actually identified. He had associated malignant ascites. 2. Hypertension. 3. Hyperlipidemia. 4. Type 2 diabetes. 5. GERD. 6. History of diverticulitis. 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 This was presumed to be from a primary adenocarcinoma of the appendix, though it does not appear that a primary lesion was actually identified. He had associated malignant ascites. The diagnosis was confirmed by CT directed biopsy of the omentum. He was recommended to begin palliative chemotherapy with a modified FOLFOX regimen. He began cycle 1 on 01/28/2021. It was complicated by weakness, severe nausea/vomiting, and prolonged anorexia. He required IV hydration and IV antiemetics, but he did recover. He was able to proceed with cycle 2 on 02/11/2021 at that point he did have a dose reduction in the oxaliplatin and the 5-FU infusion. He had subsequently tolerated the chemotherapy well. He returned to [facility] after completing 4 cycles of treatment. On evaluation there, he did appear to have evidence of response, including a significant decline in his CA-125 level. On 04/08/2021 he continued with his 5th cycle of treatment with the oxaliplatin increased to the full dosage and with addition of Avastin to the regimen. With that treatment, he had a little more fatigue and there was some increase in his neuropathy. He continued with cycle 6 on . At this point he continues to complain of fatigue and he has grade 2 neuropathy. Thus far those side effects remain tolerable. He also now has become neutropenic. There has been some fluctuation in the CA-125 levels, but not a consistent increase to suggest disease progression. With the decrease in his neutrophil count, he will be given Neupogen daily for 2 days. If he responds adequately, he will proceed then with his 7th cycle of treatment. He is due for follow-up at [facility] on 06/03/2021. Signed By: Lazaro Hernandez M.D. <<Signature on File>>
[2021-05-13 09:24] LABS: Hematocrit 47.4 % (42.0-52.0); Hemoglobin 14.7 g/dL (11.7-16.6); Mean Corpuscular Hemoglobin 28.9 pg (28.0-34.0); Mean Corpuscular Volume 93.1 fL (80-94); Mean Platelet Volume 10.1 fL (7.4-10.4); Platelet Count 266 10^3/cmm (130-400); Red Blood Count 5.09 10^6/uL (4.1-5.3); Red Cell Distribution Width 17.1 % (12.1-15.1); White Blood Count 16.1 10^3/uL (4.0-10.0)
[2021-05-13 10:44] LABS: Slide Review Slide Review Perform
[2021-05-13 10:45] LABS: Absolute Eosinophils 0.1 10^3/cmm (0.0-0.7); Absolute Segmented Neutrophil 5.5 10/cmm (1.6-7.1); Band Neutrophils Absolute 7.4 10^3/cmm (0.0-1.2); Eosinophils 1 %; Lymphocytes 15 %; Monocytes Absolute 0.6 10^3/cmm (0.1-0.6); Segmented Neutrophils 34 %; Total Cells Counted 100 (0-100)
[2021-05-13 10:46] LABS: Absolute Neutrophil 12.9 10^3/cmm (1.4-6.5); Lymphocytes Absolute 2.4 10^3/cmm (1.2-3.4); Platelet Estimate Normal (Normal)
[2021-05-13] MEDS: palonosetron 0.25 mg/5 mL SDV IVP (11:20)
[2021-05-13] MEDS: dextrose 5% 250 ML 75 ML IV (11:20)
[2021-05-13] MEDS: famotidine 20 mg/2 mL INJ IVP (11:35)
[2021-05-13] MEDS: OLANZapine 5 mg TABLET PO (11:35)
[2021-05-13] MEDS: fosaprepitant 150 MG in sodium chloride 0.9% 150 ML 300 MG IV (11:38)
[2021-05-15] MEDS: sodium chloride 0.9% 1,000 ML 999 ML IV (11:30)
[2021-05-26 13:28] LABS: Basophils # 0.2 10^3/uL (0.0-0.1); Basophils % 0.9 %; Eosinophils # 0.1 10^3/uL (0.0-0.8); Eosinophils % 0.7 %; Hematocrit 44.2 % (42.0-52.0); Lymphocytes % 11.8 %; Mean Corpuscular HGB Conc 31.7 g/dL (30.0-36.0); Mean Corpuscular Hemoglobin 29.2 pg (28.0-34.0); Mean Corpuscular Volume 92.3 fl (80-94); Mean Platelet Volume 10.7 fL (7.4-10.4); Monocytes # 1.5 10^3/uL (0.2-0.9); Monocytes % 8.9 %; Neutrophils # 12.28 10^3/uL (1.8-7.7); Neutrophils % 73.6 %; Nucleated Red Blood Cells % 0 %; Platelet Count 156 10^3/cmm (130-400); Red Blood Count 4.79 10^6/uL (4.1-5.3); Red Cell Distribution Width 16.7 % (12.1-15.1); White Blood Count 16.7 10^3/uL (4.0-10.0)
[2021-05-26 13:57] LABS: Alanine Aminotransferase 19 U/L (0-41); Albumin Level 4.1 g/dL (3.5-5.2); Alkaline Phosphatase 150 IU/L (40-130); Anion Gap 16.3 (5-19); Aspartate Amino Transferase 40 U/L (0-40); Blood Urea Nitrogen 15 mg/dL (8-23); CA 125 68.8 U/mL (0-35); Calcium 8.8 mg/dL (8.5-10.5); Carbon Dioxide 26 mmol/L (22-29); Chloride 97 mmol/L (98-107); Glomerular Filtration Rate 83.4 mL/min (90-130); Glucose 138 mg/dL (65-115); Osmolality Calculated 283 mOsm/kg (285-295); Potassium 4.3 mmol/L (3.5-5.1); Sodium 135 mmol/L (136-145); Total Bilirubin 0.2 mg/dL (0.15-1.2); Total Protein 7.1 g/dL (6.6-8.7)
[2021-05-27] MEDS: sodium chloride 0.9% 250 ML 75 ML IV (09:55)
[2021-05-27] MEDS: famotidine 20 mg/2 mL INJ IVP (09:55)
[2021-05-27] MEDS: dextrose 5% 250 ML 75 ML IV (10:00)
[2021-05-27] MEDS: palonosetron 0.25 mg/5 mL SDV IVP (10:00)
[2021-05-27] MEDS: OLANZapine 5 mg TABLET PO ×2 (10:20→16:57)
[2021-05-27] MEDS: fosaprepitant 150 MG in sodium chloride 0.9% 150 ML 300 MG IV (10:23)
--- NOTE | 2021-05-27 13:43 | ONC FU_ITS ---
Dr. Hernandez Patient Follow-Up Note Patient: Clark Antony Unit #: [id number]: 1950 Dicatated By: Lazaro Hernandez M.D.Date of Visit:May 27, 2021 Onc Med Follow-up/Prog Note Chief Complaint: Peritoneal carcinomatosis. 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 He had presented with complaints of abdominal pain and postprandial bloating, dating back to at least October 2019. His initial CT abdomen/pelvis, from 10/11/2019, showed a focal area of narrowing involving the proximal sigmoid colon. Findings of diverticulitis described on a previous study from September 2019 were noted to have resolved. EGD and colonoscopy were unrevealing. His symptoms continue to worsen. Repeat CT scans in August 2020 showed interval development of moderate-sized ascites and a small left pleural effusion. Wall thickening was again noted and a small portion of the proximal sigmoid colon. Paracentesis and subsequent left thoracentesis revealed cytology negative fluids. PET/CT on 10/18/2020 showed a 2 cm area of abnormal activity in the right perianal region, SUV 12.0, with high probability of malignancy. Tiny, scattered perirectal nodes were too small to characterize. There was evidence of mesenteric edema, a small amount of ascites, and a small left pleural effusion. Omental stranding was felt to be likely related to edema. Pelvic MRI on 10/27/2020 showed no definite abnormalities to correspond with the uptake in the right rectal area noted on the PET/CT. Mild diffuse thickening and enhancement involving the distal sigmoid colon proximal to the rectum was felt to be nonspecific, neoplasm not excluded. There was no pelvic or inguinal lymphadenopathy or other significant findings noted on that study. He was then seen at the [facility] on 12/02/2020. MRI of the abdomen/pelvis showed omental fatty stranding and small ascites. There was focal sigmoid wall thickening, but unclear whether secondary to under distention and carcinomatosis or sigmoid primary. Sigmoidoscopy with EUS was negative for primary tumor. Peritoneal fluid cytology on repeat paracentesis was positive for rare atypical cells, highly suspicious for adenocarcinoma. 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 Molecular profile analysis was ordered, but with results not reported. He was seen in GI medical oncology by Dr. Rena Gresham on 01/15/2021. 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 His baseline tumor markers included elevated CA-125 at 94.5 U/mL. CEA and CA 19-9 levels were normal. His other medical illnesses include hypertension, hyperlipidemia, type II diabetes, and GERD. He has a history of diverticulitis. He has a history of smoking 1 pack of cigarettes daily for 10 to 12 years, but he quit smoking in 1986. INTERIM HISTORY: He began cycle 1 of modified FOLFOX chemotherapy on 01/28/2021. It was complicated by severe nausea/vomiting and generalized weakness. He had mild neuropathy. He required IV hydration and IV antiemetics for the nausea/vomiting, and he also had prolonged anorexia. He eventually did recover and he was able to continue with cycle 2 on 02/11/2021. Due to the severity of his side effects, he was given a level 1 dose reduction in oxaliplatin and a 20% reduction in the 5-FU dosage. With the modifications, he tolerated the treatment much better, and he was able to continue with cycle 3 on 02/25/2021 and with cycle 4 on 03/21/2021. As of 03/25/2021 his CA-125 level had decreased to 34.1 U/mL. He then had a follow-up visit with Dr. Gresham at [facility]. As he did to be showing some response to the chemotherapy, it was recommended that he continue treatment. He then returned here on 04/08/2021 and proceeded with his 5th cycle of chemotherapy with the oxaliplatin increased back up to the full dosage and with addition of Avastin to the regimen. He tolerated it with acceptable toxicity, and he continued with cycle 6 on 04/22/2021. At that time there was a significant increase in the CA-125 level to 74.9 U/mL. However, with this cycle 7 treatment it was back down to 50.3 U/mL. He is seen for a follow-up visit. He has still been feeling pretty decent, though he has been feeling more tired and reports having less energy. He is still doing light work. ECOG score is 1. He says he is not really hungry. He is eating about one half what he used to. He does not have fever or night sweats. He complains that his nose runs. Is not have sore mouth or throat. He has just occasional cough. He does not complain of shortness of breath or chest pain. He does have mild nausea, mainly during the second week of his cycle. He still has some abdominal cramping. His bowel function is variable. He does have some loose stools, and he occasionally has diarrhea. Bladder function has been okay. He has no significant joint or bone pain. He does not complain of headache. Has had some slight dizziness. His neuropathy is not too bad. It does get worse for 4 to 5 days after treatment, particularly in the fingers. It is completely resolved now. Medications: Ativan 0.5 - 1 Tablet (of 1 mg) Oral q 4 hours, Centrum Men 1 Tablet Oral daily, Crestor 1 (40 mg) Tablet Oral daily, Esomeprazole Magnesium 1 (40 mg) Capsule Delayed Release Oral daily, Farxiga 1 (10 mg) Tablet Oral daily, metFORMIN HCl 1 (1000 mg) Tablet Oral b.i.d., Prochlorperazine Maleate 1 (10 mg) Tablet Oral q 6 hours PRN Allergies: No Known Allergies. Vital Signs: Performed on May 27, 2021 09:16 Height - 68.00 in Weight - 159.6 lbs (LOW) BSA - 1.86 sq.m BMI - 24.27 Temperature - 97.8 F (LOW) Pulse - 118 /min (HIGH) Respiration - 17 /min BP - 134/81 mm(hg) O2 Sat - 96 % Pain - 2 Physical Examination: Constitutional - He looks pretty good generally, Eyes - Sclerae nonicteric. Conjunctivae clear, ENMT - No lesions noted in the oral cavity, Hematologic/Lymphatic - No cervical, clavicular, or axillary adenopathy, Respiratory - Lungs are clear with good air movement bilaterally, Cardiovascular - Heart rhythm is regular. There is a mild tachycardia. There is no murmur, gallop, or rub noted, Abdomen - Abdomen is not distended, but it does feel firm. Liver and spleen are not enlarged. There is no abdominal mass noted and there is no obvious ascites. There is no inguinal adenopathy, Extremities - No edema, Neurologic - No focal neurologic deficits noted. Lab/Imaging: Test performed on May 13, 2021 09:04 WBC 16.1 10 3/uL Manual Segs % 34 % Manual Bands % 46.0 % RBC 5.09 10 6/uL HGB 14.7 g/dL Manual Lymphs % 15 % Atypical Lymphs % 0.0 % HCT 47.4 % MCV 93.1 fL Total Cells Counted 100 Manual Monos % 4.0 % MCH 28.9 pg Manual Eos % 1 % MCHC 31.0 g/dL Manual Basos % 0.0 % RDW 17.1 % Platelet Count 266 10 3/cmm MPV 10.1 fL CBC Slide Review Slide Review Perform Platelet Estimate Normal Manual Segs Abs 5.5 10/cmm Manual Bands Abs 7.4 10 3/cmm Manual Neutrophils Abs 12.9 10 3/cmm Manual Lymphocytes Abs 2.4 10 3/cmm Manual Monocytes Abs 0.6 10 3/cmm Manual Eosinophils Abs 0.1 10 3/cmm Manual Basophils Abs 0.0 10 3/cmm Test performed on May 11, 2021 08:40 Sodium 138 mmol/L Potassium 4.2 mmol/L Chloride 99 mmol/L CO2 26 mmol/L Anion Gap 17.2 BUN 17 mg/dL Creatinine 0.9 mg/dL Cr Clearance (Est) 82.4200 mL/min eGFR 83.4 mL/min Glucose 112 mg/dL Osmolality - Calculated 288 mOsm/kg Calcium 8.7 mg/dL Protein, Total 7.0 g/dL Albumin 4.0 g/dL Globulin 3.0 g/dL Bilirubin, Total 0.5 mg/dL ALT (SGPT) 11 U/L AST (SGOT) 25 U/L Alkaline Phosphatase 94 IU/L Neutrophils 0.89 10 3/uL Lymphocytes 1.5 10 3/uL Monocytes 1.1 10 3/uL Eosinophils 0.1 10 3/uL Basophils 0.0 10 3/uL Neutrophil % 24.8 % Lymphocyte % 41.9 % Monocyte % 30.7 % Eosinophil % 1.7 % Basophils % 0.3 % NRBC % 0 % CA-125 50.3 U/mL Problem List: 1. 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 This is presumed to be from a primary adenocarcinoma of the appendix, though it does not appear that a primary lesion was actually identified. He had associated malignant ascites. 2. Hypertension. 3. Hyperlipidemia. 4. Type 2 diabetes. 5. GERD. 6. History of diverticulitis. 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 This was presumed to be from a primary adenocarcinoma of the appendix, though it does not appear that a primary lesion was actually identified. He had associated malignant ascites. The diagnosis was confirmed by CT directed biopsy of the omentum. He was recommended to begin palliative chemotherapy with a modified FOLFOX regimen. He began cycle 1 on 01/28/2021. It was complicated by weakness, severe nausea/vomiting, and prolonged anorexia. He required IV hydration and IV antiemetics, but he did recover. He was able to proceed with cycle 2 on 02/11/2021 at that point he did have a dose reduction in the oxaliplatin and the 5-FU infusion. He had subsequently tolerated the chemotherapy well. He returned to [facility] after completing 4 cycles of treatment. On evaluation there, he did appear to have evidence of response, including a significant decline in his CA-125 level. On 04/08/2021 he continued with his 5th cycle of treatment with the oxaliplatin increased to the full dosage and with addition of Avastin to the regimen. With that treatment, he had a little more fatigue and there was some increase in his neuropathy. He continued with cycle 6 on 04/22/2021 and with cycle 7 on 05/13/2021. During this time there his CA-125 level has fluctuated up and down, but it is staying within the range of 50-70 U/mL. He is having some mild nausea and he is having a little more fatigue. His neuropathy is about the same. Overall, he continues to tolerate treatment with acceptable toxicity. It is unclear to what extent he may be benefiting with the chemotherapy. He will continue now with cycle 8 of modified FOLFOX with Avastin. The dosages will remain the same. I will have him come in on Tuesday for hydration and IV antiemetics. He is due for follow-up at [facility] next week. Signed By: Lazaro Hernandez M.D. <<Signature on File>>
[2021-06-01] MEDS: ondansetron 2 mg/ML SDV 2 mL 8 MG IVP (09:58)
[2021-06-01] MEDS: sodium chloride 0.9% 1,000 ML 999 ML IV (10:00)
== END 2021-06-02 23:59 | disposition home or self-care (01) ==
LOC: ONCMED 05:32
PROVIDERS: PCP Family Medicine; Visit Provider Internal Medicine Medical Oncology
DX: Z51.11 Encounter for antineoplastic chemotherapy (principal); C18.1 Malignant neoplasm of appendix; R18.0 Malignant ascites; I10 Essential (primary) hypertension; E78.5 Hyperlipidemia, unspecified; E11.9 Type 2 diabetes mellitus without complications; K21.9 Gastro-esophageal reflux disease without esophagitis; K57.92 Diverticulitis of intestine, part unspecified, without perforation or abscess without bleeding; R97.8 Other abnormal tumor markers; Z79.899 Other long term (current) drug therapy
CPT/HCPCS: 36591; 80053; 85007; 85025; 86304; 96360; 96361; 96365; 96367; 96368; 96372; 96375; 96413; 96415; 96416; 96417; 96523; 99214; J0640; J1100; J1442; J1453; J2405; J2469; J2505; J3490; J7030; J7050; J9035; J9190; J9263

== ENCOUNTER 2021-07-01 06:33 | Outpatient (RCR) | payer MEDICARE, OTHER, SELFPAY ==
[2021-06-10 11:02] LABS: Basophils % 0.4 %; Eosinophils % 0.3 %; Hematocrit 42.8 % (42.0-52.0); Hemoglobin 13.5 g/dL (11.7-16.6); Lymphocytes # 1.1 10^3/uL (0.8-4.8); Lymphocytes % 10.8 %; Mean Corpuscular HGB Conc 31.5 g/dL (30.0-36.0); Mean Corpuscular Hemoglobin 28.8 pg (28.0-34.0); Mean Corpuscular Volume 91.5 fl (80-94); Mean Platelet Volume 10.6 fL (7.4-10.4); Monocytes % 10.3 %; Neutrophils # 7.72 10^3/uL (1.8-7.7); Neutrophils % 77.5 %; Nucleated Red Blood Cells % 0 %; Platelet Count 175 10^3/cmm (130-400); Red Blood Count 4.68 10^6/uL (4.1-5.3); Red Cell Distribution Width 16.9 % (12.1-15.1)
[2021-06-10 11:09] LABS: Alanine Aminotransferase 14 U/L (0-41); Albumin Level 3.8 g/dL (3.5-5.2); Alkaline Phosphatase 115 IU/L (40-130); Anion Gap 17.7 (5-19); Aspartate Amino Transferase 41 U/L (0-40); Blood Urea Nitrogen 13 mg/dL (8-23); Calcium 8.9 mg/dL (8.5-10.5); Carbon Dioxide 24 mmol/L (22-29); Chloride 98 mmol/L (98-107); Globulin 3.2 g/dL (1.3-4.6); Glomerular Filtration Rate 95.6 mL/min (90-130); Glucose 175 mg/dL (65-115); Osmolality Calculated 286 mOsm/kg (285-295); Potassium 3.7 mmol/L (3.5-5.1); Sodium 136 mmol/L (136-145); Total Bilirubin 0.4 mg/dL (0.15-1.2)
[2021-06-10] MEDS: dextrose 5% 250 ML 75 ML IV (12:05)
[2021-06-10] MEDS: palonosetron 0.25 mg/5 mL SDV IV (12:05)
[2021-06-10] MEDS: OLANZapine 5 mg TABLET PO (13:00)
[2021-06-10 14:01] LABS: CA 125 56.7 U/mL (0-35)
--- NOTE | 2021-06-10 14:10 | ONC FU_ITS ---
Dr. Hernandez Patient Follow-Up Note Patient: Clark Antony Unit #: [id number]: 1950 Dicatated By: Lazaro Hernandez M.D.Date of Visit:Jun 10, 2021 Onc Med Follow-up/Prog Note Chief Complaint: Peritoneal carcinomatosis. 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 He had presented with complaints of abdominal pain and postprandial bloating, dating back to at least October 2019. His initial CT abdomen/pelvis, from 10/11/2019, showed a focal area of narrowing involving the proximal sigmoid colon. Findings of diverticulitis described on a previous study from September 2019 were noted to have resolved. EGD and colonoscopy were unrevealing. His symptoms continue to worsen. Repeat CT scans in August 2020 showed interval development of moderate-sized ascites and a small left pleural effusion. Wall thickening was again noted and a small portion of the proximal sigmoid colon. Paracentesis and subsequent left thoracentesis revealed cytology negative fluids. PET/CT on 10/18/2020 showed a 2 cm area of abnormal activity in the right perianal region, SUV 12.0, with high probability of malignancy. Tiny, scattered perirectal nodes were too small to characterize. There was evidence of mesenteric edema, a small amount of ascites, and a small left pleural effusion. Omental stranding was felt to be likely related to edema. Pelvic MRI on 10/27/2020 showed no definite abnormalities to correspond with the uptake in the right rectal area noted on the PET/CT. Mild diffuse thickening and enhancement involving the distal sigmoid colon proximal to the rectum was felt to be nonspecific, neoplasm not excluded. There was no pelvic or inguinal lymphadenopathy or other significant findings noted on that study. He was then seen at the [facility] on 12/02/2020. MRI of the abdomen/pelvis showed omental fatty stranding and small ascites. There was focal sigmoid wall thickening, but unclear whether secondary to under distention and carcinomatosis or sigmoid primary. Sigmoidoscopy with EUS was negative for primary tumor. Peritoneal fluid cytology on repeat paracentesis was positive for rare atypical cells, highly suspicious for adenocarcinoma. 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 Molecular profile analysis was ordered, but with results not reported. He was seen in GI medical oncology by Dr. Rena Gresham on 01/15/2021. 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 His baseline tumor markers included elevated CA-125 at 94.5 U/mL. CEA and CA 19-9 levels were normal. His other medical illnesses include hypertension, hyperlipidemia, type II diabetes, and GERD. He has a history of diverticulitis. He has a history of smoking 1 pack of cigarettes daily for 10 to 12 years, but he quit smoking in 1986. INTERIM HISTORY: He began cycle 1 of modified FOLFOX chemotherapy on 01/28/2021. It was complicated by severe nausea/vomiting and generalized weakness. He had mild neuropathy. He required IV hydration and IV antiemetics for the nausea/vomiting, and he also had prolonged anorexia. He eventually did recover and he was able to continue with cycle 2 on 02/11/2021. Due to the severity of his side effects, he was given a level 1 dose reduction in oxaliplatin and a 20% reduction in the 5-FU dosage. With the modifications, he tolerated the treatment much better, and he was able to continue with cycle 3 on 02/25/2021 and with cycle 4 on 03/21/2021. As of 03/25/2021 his CA-125 level had decreased to 34.1 U/mL. He then had a follow-up visit with Dr. Gresham at [facility]. As he did to be showing some response to the chemotherapy, it was recommended that he continue treatment. He then returned here on 04/08/2021 and proceeded with his 5th cycle of chemotherapy with the oxaliplatin increased back up to the full dosage and with addition of Avastin to the regimen. He tolerated it with acceptable toxicity, and he then continued treatment at 2-week intervals. He began his 8th cycle on 05/27/2021. Duirng that time there were some fluctations in the CA-125 levels, but overall it had increased. Following cycle 8 he had follow-up again at [facility] with Dr. Gresham. His evaluation there did show evidence of disease progression, and it was recommended that he change treatment to a FOLFIRI chemotherapy regimen with a modified dosages of irinotecan and infusional 5-FU, and with omission of the 5-FU bolus and leucovorin. In addition, as there was very limited specimen available on his initial tissue biopsy, it was recommended that he have next generation sequencing obtained by liquid biopsy. He is seen now for a follow-up visit. He has been feeling pretty good. His energy is about the same. He has fatigue and he does have to rest, but he is doing light work. ECOG score is 1. Appetite is just so-so. He does not have fever or night sweats. He has not had sore mouth or throat. He has no shortness of breath, cough, or chest pain. He had some nausea this morning. His acid reflux is adequately managed with Nexium. His bowels fluctuate between loose stools and constipation, but they are mostly soft. He does have some mild abdominal discomfort, which appears to be associated with her recurring ascites. Bladder function has been okay. He has no significant joint or bone pain. Has just occasional headache. He does not complain of dizziness. He has just mild residual neuropathy in his fingertips. Medications: Ativan 0.5 - 1 Tablet (of 1 mg) Oral q 4 hours, Centrum Men 1 Tablet Oral daily, Crestor 1 (40 mg) Tablet Oral daily, Esomeprazole Magnesium 1 (40 mg) Capsule Delayed Release Oral daily, Farxiga 1 (10 mg) Tablet Oral daily, metFORMIN HCl 1 (1000 mg) Tablet Oral b.i.d., Prochlorperazine Maleate 1 (10 mg) Tablet Oral q 6 hours PRN Allergies: No Known Allergies. Vital Signs: Performed on Jun 10, 2021 11:40 Height - 68.00 in Weight - 161 lbs (HIGH) BSA - 1.86 sq.m BMI - 24.48 Temperature - 97.5 F (LOW) Pulse - 108 /min (HIGH) Respiration - 18 /min BP - 152/79 mm(hg) (HIGH) O2 Sat - 97 % Pain - 0 Fatigue - 5 Physical Examination: Constitutional - He looks pretty good generally, Eyes - Sclerae nonicteric. Conjunctivae clear, ENMT - No lesions noted in the oral cavity, Hematologic/Lymphatic - No cervical, clavicular, or axillary adenopathy, Respiratory - Lungs are clear with good air movement bilaterally, Cardiovascular - Heart rhythm is regular. There is no murmur, gallop, or rub noted, Abdomen - Abdomen is mildly distended and firm. There may be some ascites. Liver and spleen are not enlarged. There is no abdominal mass noted. There is no inguinal adenopathy, Extremities - No edema, Neurologic - No focal neurologic deficits noted. Lab/Imaging: Test performed on Jun 10, 2021 11:50 CA-125 56.7 U/mL Test performed on Jun 10, 2021 10:14 Sodium 136 mmol/L Potassium 3.7 mmol/L Chloride 98 mmol/L CO2 24 mmol/L Anion Gap 17.7 BUN 13 mg/dL Creatinine 0.8 mg/dL Cr Clearance (Est) 88.75 mL/min eGFR 95.6 mL/min Glucose 175 mg/dL Osmolality - Calculated 286 mOsm/kg Calcium 8.9 mg/dL Protein, Total 7.0 g/dL Albumin 3.8 g/dL Globulin 3.2 g/dL Bilirubin, Total 0.4 mg/dL ALT (SGPT) 14 U/L AST (SGOT) 41 U/L Alkaline Phosphatase 115 IU/L WBC 10.0 10 3/uL RBC 4.68 10 6/uL HGB 13.5 g/dL HCT 42.8 % MCV 91.5 fl MCH 28.8 pg MCHC 31.5 g/dL RDW 16.9 % Platelet Count 175 10 3/cmm MPV 10.6 fL Neutrophils 7.72 10 3/uL Lymphocytes 1.1 10 3/uL Monocytes 1.0 10 3/uL Eosinophils 0.0 10 3/uL Basophils 0.0 10 3/uL Neutrophil % 77.5 % Lymphocyte % 10.8 % Monocyte % 10.3 % Eosinophil % 0.3 % Basophils % 0.4 % NRBC % 0 % Problem List: 1. 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 This is presumed to be from a primary adenocarcinoma of the appendix, though it does not appear that a primary lesion was actually identified. He had associated malignant ascites. 2. Hypertension. 3. Hyperlipidemia. 4. Type 2 diabetes. 5. GERD. 6. History of diverticulitis. 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 This was presumed to be from a primary adenocarcinoma of the appendix, though it does not appear that a primary lesion was actually identified. He had associated malignant ascites. The diagnosis was confirmed by CT directed biopsy of the omentum. He was recommended to begin palliative chemotherapy with a modified FOLFOX regimen. He began cycle 1 on 01/28/2021. It was complicated by weakness, severe nausea/vomiting, and prolonged anorexia. He required IV hydration and IV antiemetics, but he did recover. He was able to proceed with cycle 2 on 02/11/2021 at that point he did have a dose reduction in the oxaliplatin and the 5-FU infusion. He had subsequently tolerated the chemotherapy well. He returned to [facility] after completing 4 cycles of treatment. On evaluation there, he did appear to have evidence of response, including a significant decline in his CA-125 level. On 04/08/2021 he continued with his 5th cycle of treatment with the oxaliplatin increased to the full dosage and with addition of Avastin to the regimen. He was unable to continue treatment at 2-week intervals. He began cycle 8 on 05/27/2021. During that time his CA-125 levels had fluctuated somewhat, but overall there was an increase. He had recent follow-up again at [facility] and his evaluation there did show evidence of disease progression. He has been recommended now to proceed to second line treatment with a FOLFIRI chemotherapy regimen. It will be initiated with the irinotecan dosage at 150 mg/m??? and with the 5-FU infusion dosed at 2000 mg. The 5-FU bolus and the leucovorin will be omitted. He will be given plan hydration on Tuesday and again on Tuesday. He will be scheduled for a follow-up visit in 2 weeks. In the meantime, I also will request a next generation sequencing study by liquid biopsy. Signed By: Lazrao Hernandez M.D. <<Signature on File>>
[2021-06-15] MEDS: ondansetron 2 mg/ML SDV 2 mL 8 MG IV (15:15)
[2021-06-15] MEDS: sodium chloride 0.9% 1,000 ML 999 ML IV (15:35)
[2021-06-17 15:41] LABS: Basophils % 0.8 %; Eosinophils # 0.1 10^3/uL (0.0-0.8); Hematocrit 39.6 % (42.0-52.0); Hemoglobin 12.4 g/dL (11.7-16.6); Lymphocytes # 1.1 10^3/uL (0.8-4.8); Lymphocytes % 22.4 %; Mean Corpuscular HGB Conc 31.3 g/dL (30.0-36.0); Mean Corpuscular Hemoglobin 29.2 pg (28.0-34.0); Mean Corpuscular Volume 93.2 fl (80-94); Mean Platelet Volume 10.3 fL (7.4-10.4); Monocytes # 0.3 10^3/uL (0.2-0.9); Monocytes % 5.9 %; Neutrophils # 3.35 10^3/uL (1.8-7.7); Neutrophils % 68.5 %; Nucleated Red Blood Cells % 0 %; Platelet Count 228 10^3/cmm (130-400); Red Blood Count 4.25 10^6/uL (4.1-5.3); Red Cell Distribution Width 16.1 % (12.1-15.1); White Blood Count 4.9 10^3/uL (4.0-10.0)
[2021-06-24 08:40] LABS: Basophils % 0.5 %; Eosinophils # 0.2 10^3/uL (0.0-0.8); Eosinophils % 2.7 %; Hematocrit 39.6 % (42.0-52.0); Hemoglobin 12.6 g/dL (11.7-16.6); Lymphocytes # 1.5 10^3/uL (0.8-4.8); Lymphocytes % 25.2 %; Mean Corpuscular HGB Conc 31.8 g/dL (30.0-36.0); Mean Corpuscular Hemoglobin 29.6 pg (28.0-34.0); Monocytes # 0.7 10^3/uL (0.2-0.9); Monocytes % 11.6 %; Neutrophils # 3.49 10^3/uL (1.8-7.7); Neutrophils % 59.8 %; Nucleated Red Blood Cells % 0 %; Platelet Count 150 10^3/cmm (130-400); Red Blood Count 4.26 10^6/uL (4.1-5.3); Red Cell Distribution Width 16.6 % (12.1-15.1); White Blood Count 5.8 10^3/uL (4.0-10.0)
[2021-06-24 09:20] LABS: Alanine Aminotransferase 17 U/L (0-41); Albumin Level 3.5 g/dL (3.5-5.2); Alkaline Phosphatase 96 IU/L (40-130); Anion Gap 12.7 (5-19); Aspartate Amino Transferase 43 U/L (0-40); Blood Urea Nitrogen 13 mg/dL (8-23); CA 125 69.1 U/mL (0-35); Carbon Dioxide 28 mmol/L (22-29); Chloride 101 mmol/L (98-107); Glomerular Filtration Rate 95.6 mL/min (90-130); Glucose 104 mg/dL (65-115); Osmolality Calculated 286 mOsm/kg (285-295); Potassium 3.7 mmol/L (3.5-5.1); Sodium 138 mmol/L (136-145); Total Bilirubin 0.4 mg/dL (0.15-1.2); Total Protein 6.5 g/dL (6.6-8.7)
[2021-06-24] MEDS: famotidine 20 mg/2 mL INJ IVP (10:48)
[2021-06-24] MEDS: OLANZapine 5 mg TABLET PO (10:48)
[2021-06-24] MEDS: dextrose 5% 250 ML 75 ML IV (10:48)
[2021-06-24] MEDS: palonosetron 0.25 mg/5 mL SDV IV (10:50)
[2021-06-24] MEDS: fosaprepitant 150 MG in sodium chloride 0.9% 150 ML 300 MG IV (11:09)
--- NOTE | 2021-06-24 18:15 | ONC FU_ITS ---
Dr. Hernandez Patient Follow-Up Note Patient: Clark Antony Unit #: [id number]: 1950 Dicatated By: Lazaro Hernandez M.D.Date of Visit:Jun 24, 2021 Onc Med Follow-up/Prog Note Chief Complaint: Peritoneal carcinomatosis. 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 He had presented with complaints of abdominal pain and postprandial bloating, dating back to at least October 2019. His initial CT abdomen/pelvis, from 10/11/2019, showed a focal area of narrowing involving the proximal sigmoid colon. Findings of diverticulitis described on a previous study from September 2019 were noted to have resolved. EGD and colonoscopy were unrevealing. His symptoms continue to worsen. Repeat CT scans in August 2020 showed interval development of moderate-sized ascites and a small left pleural effusion. Wall thickening was again noted and a small portion of the proximal sigmoid colon. Paracentesis and subsequent left thoracentesis revealed cytology negative fluids. PET/CT on 10/18/2020 showed a 2 cm area of abnormal activity in the right perianal region, SUV 12.0, with high probability of malignancy. Tiny, scattered perirectal nodes were too small to characterize. There was evidence of mesenteric edema, a small amount of ascites, and a small left pleural effusion. Omental stranding was felt to be likely related to edema. Pelvic MRI on 10/27/2020 showed no definite abnormalities to correspond with the uptake in the right rectal area noted on the PET/CT. Mild diffuse thickening and enhancement involving the distal sigmoid colon proximal to the rectum was felt to be nonspecific, neoplasm not excluded. There was no pelvic or inguinal lymphadenopathy or other significant findings noted on that study. He was then seen at the [facility] on 12/02/2020. MRI of the abdomen/pelvis showed omental fatty stranding and small ascites. There was focal sigmoid wall thickening, but unclear whether secondary to under distention and carcinomatosis or sigmoid primary. Sigmoidoscopy with EUS was negative for primary tumor. Peritoneal fluid cytology on repeat paracentesis was positive for rare atypical cells, highly suspicious for adenocarcinoma. 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 Molecular profile analysis was ordered, but with results not reported. He was seen in GI medical oncology by Dr. Rena Gresham on 01/15/2021. 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 His baseline tumor markers included elevated CA-125 at 94.5 U/mL. CEA and CA 19-9 levels were normal. His other medical illnesses include hypertension, hyperlipidemia, type II diabetes, and GERD. He has a history of diverticulitis. He has a history of smoking 1 pack of cigarettes daily for 10 to 12 years, but he quit smoking in 1986. INTERIM HISTORY: He began cycle 1 of modified FOLFOX chemotherapy on 01/28/2021. It was complicated by severe nausea/vomiting and generalized weakness. He had mild neuropathy. He required IV hydration and IV antiemetics for the nausea/vomiting, and he also had prolonged anorexia. He eventually did recover and he was able to continue with cycle 2 on 02/11/2021. Due to the severity of his side effects, he was given a level 1 dose reduction in oxaliplatin and a 20% reduction in the 5-FU dosage. With the modifications, he tolerated the treatment much better, and he was able to continue with cycle 3 on 02/25/2021 and with cycle 4 on 03/21/2021. As of 03/25/2021 his CA-125 level had decreased to 34.1 U/mL. He then had a follow-up visit with Dr. Gresham at [facility]. As he did to be showing some response to the chemotherapy, it was recommended that he continue treatment. He then returned here on 04/08/2021 and proceeded with his 5th cycle of chemotherapy with the oxaliplatin increased back up to the full dosage and with addition of Avastin to the regimen. He tolerated it with acceptable toxicity, and he then continued treatment at 2-week intervals. He began his 8th cycle on 05/27/2021. Duirng that time there were some fluctations in the CA-125 levels, but overall it had increased. Following cycle 8 he had follow-up again at [facility] with Dr. Gresham. His evaluation there did show evidence of disease progression, and it was recommended that he change treatment to a FOLFIRI chemotherapy regimen with a modified dosages of irinotecan and infusional 5-FU, and with omission of the 5-FU bolus and leucovorin. In addition, as there was very limited specimen available on his initial tissue biopsy, it was recommended that he have next generation sequencing obtained by liquid biopsy. On 06/10/2021 he began cycle 1 of FOLFIRI chemotherapy. It was administered at reduced dosages of the 5-FU infusion and irinotecan and without a 5-FU bolus. He is seen for a follow-up visit. He tolerated his initial cycle of FOLFIRI with no acute toxicities. His main complaint is that he experienced several bad headaches behind his right eye, but those all occurred within the past week or so. He had only very mild nausea, and he had no diarrhea. His energy is not bad. ECOG score is 1. His appetite is still not real good, but he is eating. He does not have fever or night sweats. He has had no mouth sores. He has just occasional cough. He does not complain of shortness of breath or chest pain. His acid reflux is adequately managed. He continues to have some mild abdominal discomfort, mainly postprandial bloating. He has no complaints. He has no significant joint or bone pain. He has a little bit of numbness in his toes. Medications: Ativan 0.5 - 1 Tablet (of 1 mg) Oral q 4 hours, Centrum Men 1 Tablet Oral daily, cleansing time(supplement) 1 Dose(s) Granules daily, Crestor 1 (40 mg) Tablet Oral daily, Esomeprazole Magnesium 1 (40 mg) Capsule Delayed Release Oral daily, Farxiga 1 (10 mg) Tablet Oral daily, metFORMIN HCl 1 (1000 mg) Tablet Oral b.i.d., Prochlorperazine Maleate 1 (10 mg) Tablet Oral q 6 hours PRN Allergies: No Known Allergies. Vital Signs: Performed on Jun 24, 2021 10:19 Height - 68.00 in Weight - 165.2 lbs (HIGH) BSA - 1.88 sq.m BMI - 25.12 Temperature - 97.6 F (LOW) Pulse - 101 /min (HIGH) Respiration - 18 /min BP - 145/80 mm(hg) (HIGH) O2 Sat - 96 % Pain - 1 Fatigue - 4 Physical Examination: Constitutional - He looks pretty good generally, Eyes - Sclerae nonicteric. Conjunctivae clear, ENMT - No lesions noted in the oral cavity, Hematologic/Lymphatic - No cervical, clavicular, or axillary adenopathy, Respiratory - Lungs are clear with good air movement bilaterally, Cardiovascular - Heart rhythm is regular. There is no murmur, gallop, or rub noted, Abdomen - Firm but not distended. Liver and spleen are not enlarged. There is no abdominal mass noted. There is no inguinal adenopathy, Extremities - No edema, Integumentary - There are couple of actinic lesions on the posterior scalp area, Neurologic - No focal neurologic deficits noted. Lab/Imaging: Test performed on Jun 24, 2021 08:15 Sodium 138 mmol/L Potassium 3.7 mmol/L Chloride 101 mmol/L CO2 28 mmol/L Anion Gap 12.7 BUN 13 mg/dL Creatinine 0.8 mg/dL Cr Clearance (Est) 88.7500 mL/min eGFR 95.6 mL/min Glucose 104 mg/dL Osmolality - Calculated 286 mOsm/kg Calcium 9.0 mg/dL Protein, Total 6.5 g/dL Albumin 3.5 g/dL Globulin 3.0 g/dL Bilirubin, Total 0.4 mg/dL ALT (SGPT) 17 U/L AST (SGOT) 43 U/L Alkaline Phosphatase 96 IU/L WBC 5.8 10 3/uL RBC 4.26 10 6/uL HGB 12.6 g/dL HCT 39.6 % MCV 93.0 fl MCH 29.6 pg MCHC 31.8 g/dL RDW 16.6 % Platelet Count 150 10 3/cmm MPV 10.0 fL Neutrophils 3.49 10 3/uL Lymphocytes 1.5 10 3/uL Monocytes 0.7 10 3/uL Eosinophils 0.2 10 3/uL Basophils 0.0 10 3/uL Neutrophil % 59.8 % Lymphocyte % 25.2 % Monocyte % 11.6 % Eosinophil % 2.7 % Basophils % 0.5 % NRBC % 0 % CA-125 69.1 U/mL Problem List: 1. 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 This is presumed to be from a primary adenocarcinoma of the appendix, though it does not appear that a primary lesion was actually identified. He had associated malignant ascites. 2. Hypertension. 3. Hyperlipidemia. 4. Type 2 diabetes. 5. GERD. 6. History of diverticulitis. 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 This was presumed to be from a primary adenocarcinoma of the appendix, though it does not appear that a primary lesion was actually identified. He had associated malignant ascites. The diagnosis was confirmed by CT directed biopsy of the omentum. He was recommended to begin palliative chemotherapy with a modified FOLFOX regimen. He began cycle 1 on 01/28/2021. It was complicated by weakness, severe nausea/vomiting, and prolonged anorexia. He required IV hydration and IV antiemetics, but he did recover. He was able to proceed with cycle 2 on 02/11/2021 at that point he did have a dose reduction in the oxaliplatin and the 5-FU infusion. He had subsequently tolerated the chemotherapy well. He returned to [facility] after completing 4 cycles of treatment. On evaluation there, he did appear to have evidence of response, including a significant decline in his CA-125 level. On 04/08/2021 he continued with his 5th cycle of treatment with the oxaliplatin increased to the full dosage and with addition of Avastin to the regimen. He was unable to continue treatment at 2-week intervals. He began cycle 8 on 05/27/2021. During that time his CA-125 levels had fluctuated somewhat, but overall there was an increase. He then had follow-up again at [facility] and his evaluation there did show evidence of disease progression. Per recommendations, he then returned here and he began further treatment with a FOLFIRI chemotherapy regimen. His 1st cycle was administered with reduced dosages of the 5-FU infusion and the irinotecan and with no 5-FU bolus. He tolerated it with just very mild side effects. He will proceed now with cycle 2 of FOLFIRI. The irinotecan dosage will be escalated from 150 to 165 mg/m???. He will have a repeat CBC in 1 week and a follow-up visit in 2 weeks. Signed By: Lazaro Hernandez M.D. <<Signature on File>>
[2021-07-01] MEDS: ondansetron 2 mg/ML SDV 2 mL 8 MG IV (14:15)
[2021-07-01] MEDS: sodium chloride 0.9% 1,000 ML 999 ML IV (14:15)
[2021-07-01 14:37] LABS: Basophils % 0.5 %; Eosinophils # 0.1 10^3/uL (0.0-0.8); Eosinophils % 3.3 %; Hematocrit 39.8 % (42.0-52.0); Hemoglobin 12.8 g/dL (11.7-16.6); Lymphocytes # 0.8 10^3/uL (0.8-4.8); Lymphocytes % 21.7 %; Mean Corpuscular HGB Conc 32.2 g/dL (30.0-36.0); Mean Corpuscular Volume 93.2 fl (80-94); Mean Platelet Volume 10.2 fL (7.4-10.4); Monocytes # 0.2 10^3/uL (0.2-0.9); Monocytes % 6.6 %; Neutrophils # 2.45 10^3/uL (1.8-7.7); Neutrophils % 67.4 %; Nucleated Red Blood Cells % 0 %; Platelet Count 118 10^3/cmm (130-400); Red Blood Count 4.27 10^6/uL (4.1-5.3); Red Cell Distribution Width 16.3 % (12.1-15.1); White Blood Count 3.6 10^3/uL (4.0-10.0)
== END 2021-07-02 23:59 | disposition home or self-care (01) ==
LOC: ONCMED 06:33
PROVIDERS: PCP Family Medicine; Visit Provider Internal Medicine Medical Oncology
DX: Z51.11 Encounter for antineoplastic chemotherapy (principal); C48.8 Malignant neoplasm of overlapping sites of retroperitoneum and peritoneum; R18.0 Malignant ascites; I10 Essential (primary) hypertension; E78.5 Hyperlipidemia, unspecified; E11.9 Type 2 diabetes mellitus without complications; K21.9 Gastro-esophageal reflux disease without esophagitis; K57.92 Diverticulitis of intestine, part unspecified, without perforation or abscess without bleeding; Z79.899 Other long term (current) drug therapy
CPT/HCPCS: 36591; 80053; 85025; 86304; 96361; 96365; 96367; 96375; 96413; 96415; 96416; 96523; 99215; J0461; J1100; J1453; J2405; J2469; J3490; J7030; J9190; J9206

== ENCOUNTER 2021-07-29 06:14 | Outpatient (RCR) | payer MEDICARE, OTHER, SELFPAY ==
[2021-07-08 10:45] LABS: Basophils % 0.5 %; Eosinophils # 0.1 10^3/uL (0.0-0.8); Eosinophils % 3.2 %; Hemoglobin 13.3 g/dL (11.7-16.6); Lymphocytes # 1.2 10^3/uL (0.8-4.8); Lymphocytes % 29.8 %; Mean Corpuscular HGB Conc 31.7 g/dL (30.0-36.0); Mean Corpuscular Hemoglobin 29.9 pg (28.0-34.0); Mean Corpuscular Volume 94.4 fl (80-94); Monocytes # 0.5 10^3/uL (0.2-0.9); Neutrophils # 2.23 10^3/uL (1.8-7.7); Neutrophils % 54.3 %; Nucleated Red Blood Cells % 0 %; Platelet Count 199 10^3/cmm (130-400); Red Blood Count 4.45 10^6/uL (4.1-5.3); White Blood Count 4.1 10^3/uL (4.0-10.0)
[2021-07-08 11:16] LABS: Alanine Aminotransferase 15 U/L (0-41); Albumin Level 3.6 g/dL (3.5-5.2); Alkaline Phosphatase 96 IU/L (40-130); Anion Gap 15.6 (5-19); Aspartate Amino Transferase 41 U/L (0-40); Blood Urea Nitrogen 12 mg/dL (8-23); Calcium 8.9 mg/dL (8.5-10.5); Carbon Dioxide 25 mmol/L (22-29); Chloride 101 mmol/L (98-107); Globulin 3.4 g/dL (1.3-4.6); Glomerular Filtration Rate 83.4 mL/min (90-130); Glucose 172 mg/dL (65-115); Osmolality Calculated 290 mOsm/kg (285-295); Potassium 3.6 mmol/L (3.5-5.1); Sodium 138 mmol/L (136-145); Total Bilirubin 0.5 mg/dL (0.15-1.2)
[2021-07-08] MEDS: dextrose 5% 250 ML 75 ML IV (11:45)
[2021-07-08] MEDS: palonosetron 0.25 mg/5 mL SDV IVP (11:45)
[2021-07-08] MEDS: famotidine 20 mg/2 mL INJ IVP (11:46)
[2021-07-08] MEDS: fosaprepitant 150 MG in sodium chloride 0.9% 150 ML 300 MG IV (11:50)
[2021-07-08] MEDS: OLANZapine 5 mg TABLET PO (11:50)
[2021-07-15 08:53] LABS: Basophils % 0.6 %; Eosinophils % 1.2 %; Hematocrit 40.1 % (42.0-52.0); Hemoglobin 12.5 g/dL (11.7-16.6); Lymphocytes # 1.4 10^3/uL (0.8-4.8); Mean Corpuscular HGB Conc 31.2 g/dL (30.0-36.0); Mean Platelet Volume 9.5 fL (7.4-10.4); Monocytes # 0.3 10^3/uL (0.2-0.9); Monocytes % 7.6 %; Neutrophils # 1.54 10^3/uL (1.8-7.7); Nucleated Red Blood Cells % 0 %; Platelet Count 209 10^3/cmm (130-400); Red Blood Count 4.31 10^6/uL (4.1-5.3); Red Cell Distribution Width 16.7 % (12.1-15.1); White Blood Count 3.3 10^3/uL (4.0-10.0)
[2021-07-22 09:21] LABS: Basophils % 0.6 %; Eosinophils # 0.1 10^3/uL (0.0-0.8); Eosinophils % 2.2 %; Hematocrit 41.2 % (42.0-52.0); Hemoglobin 12.8 g/dL (11.7-16.6); Lymphocytes # 1.5 10^3/uL (0.8-4.8); Lymphocytes % 41.9 %; Mean Corpuscular HGB Conc 31.1 g/dL (30.0-36.0); Mean Corpuscular Hemoglobin 29.1 pg (28.0-34.0); Mean Corpuscular Volume 93.6 fl (80-94); Mean Platelet Volume 9.6 fL (7.4-10.4); Monocytes # 0.5 10^3/uL (0.2-0.9); Monocytes % 14.2 %; Neutrophils # 1.46 10^3/uL (1.8-7.7); Neutrophils % 40.8 %; Nucleated Red Blood Cells % 0 %; Platelet Count 192 10^3/cmm (130-400); Red Cell Distribution Width 17.4 % (12.1-15.1); White Blood Count 3.6 10^3/uL (4.0-10.0)
[2021-07-22 10:17] LABS: Alanine Aminotransferase 17 U/L (0-41); Albumin Level 3.7 g/dL (3.5-5.2); Alkaline Phosphatase 99 IU/L (40-130); Anion Gap 13.8 (5-19); Aspartate Amino Transferase 43 U/L (0-40); Blood Urea Nitrogen 11 mg/dL (8-23); Calcium 8.7 mg/dL (8.5-10.5); Carbon Dioxide 27 mmol/L (22-29); Chloride 100 mmol/L (98-107); Glomerular Filtration Rate 111.5 mL/min (90-130); Glucose 109 mg/dL (65-115); Osmolality Calculated 284 mOsm/kg (285-295); Potassium 3.8 mmol/L (3.5-5.1); Sodium 137 mmol/L (136-145); Total Bilirubin 0.4 mg/dL (0.15-1.2); Total Protein 6.7 g/dL (6.6-8.7)
[2021-07-22] MEDS: palonosetron 0.25 mg/5 mL SDV IVP (12:15)
[2021-07-22] MEDS: dextrose 5% 250 ML 75 ML IV (12:15)
[2021-07-22] MEDS: famotidine 20 mg/2 mL INJ IVP (12:16)
[2021-07-22] MEDS: OLANZapine 5 mg TABLET PO (12:21)
[2021-07-22] MEDS: fosaprepitant 150 MG in sodium chloride 0.9% 150 ML 300 MG IV (12:40)
[2021-07-22 12:56] LABS: CA 125 58.4 U/mL (0-35)
[2021-07-29 15:36] LABS: Hematocrit 42.8 % (42.0-52.0); Hemoglobin 13.3 g/dL (11.7-16.6); Mean Corpuscular HGB Conc 31.1 g/dL (30.0-36.0); Mean Corpuscular Hemoglobin 29.6 pg (28.0-34.0); Mean Corpuscular Volume 95.3 fl (80-94); Mean Platelet Volume 10.2 fL (7.4-10.4); Platelet Count 232 10^3/cmm (130-400); Red Blood Count 4.49 10^6/uL (4.1-5.3); Red Cell Distribution Width 17.7 % (12.1-15.1); White Blood Count 21.2 10^3/uL (4.0-10.0)
[2021-07-29 15:46] LABS: Alanine Aminotransferase 20 U/L (0-41); Albumin Level 3.9 g/dL (3.5-5.2); Alkaline Phosphatase 191 IU/L (40-130); Anion Gap 17.9 (5-19); Aspartate Amino Transferase 49 U/L (0-40); Blood Urea Nitrogen 11 mg/dL (8-23); Calcium 9.1 mg/dL (8.5-10.5); Carbon Dioxide 28 mmol/L (22-29); Chloride 98 mmol/L (98-107); Globulin 3.3 g/dL (1.3-4.6); Glomerular Filtration Rate 95.6 mL/min (90-130); Glucose 141 mg/dL (65-115); Osmolality Calculated 292 mOsm/kg (285-295); Potassium 3.9 mmol/L (3.5-5.1); Sodium 140 mmol/L (136-145); Total Bilirubin 0.3 mg/dL (0.15-1.2); Total Protein 7.2 g/dL (6.6-8.7)
[2021-07-29 16:59] LABS: Absolute Segmented Neutrophil 14.4 10/cmm (1.6-7.1); Band Neutrophils Absolute 3.2 10^3/cmm (0.0-1.2); Lymphocytes 11 %; Monocytes Absolute 0.8 10^3/cmm (0.1-0.6); Segmented Neutrophils 68 %; Total Cells Counted 100 (0-100)
[2021-07-29 17:00] LABS: Absolute Neutrophil 17.6 10^3/cmm (1.4-6.5); Giant Platelets Trace; Lymphocytes Absolute 2.5 10^3/cmm (1.2-3.4); Platelet Estimate Normal (Normal)
[2021-07-29 17:01] LABS: Anisocytosis Trace; Ovalocytes Trace; Tear Drop Cells Trace
--- NOTE | 2021-08-06 22:15 | ONC FU_ITS ---
[facility] Patient Note Patient: Clark Antony Unit #: [id number]: 1950 Dictated By: Lamine PattersonDate of Visit: Jul 22, 2021 Onc MED Follow-Up/Prog Note Chief Complaint: Peritoneal carcinomatosis. 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 He had presented with complaints of abdominal pain and postprandial bloating, dating back to at least October 2019. His initial CT abdomen/pelvis, from 10/11/2019, showed a focal area of narrowing involving the proximal sigmoid colon. Findings of diverticulitis described on a previous study from September 2019 were noted to have resolved. EGD and colonoscopy were unrevealing. His symptoms continue to worsen. Repeat CT scans in August 2020 showed interval development of moderate-sized ascites and a small left pleural effusion. Wall thickening was again noted and a small portion of the proximal sigmoid colon. Paracentesis and subsequent left thoracentesis revealed cytology negative fluids. PET/CT on 10/18/2020 showed a 2 cm area of abnormal activity in the right perianal region, SUV 12.0, with high probability of malignancy. Tiny, scattered perirectal nodes were too small to characterize. There was evidence of mesenteric edema, a small amount of ascites, and a small left pleural effusion. Omental stranding was felt to be likely related to edema. Pelvic MRI on 10/27/2020 showed no definite abnormalities to correspond with the uptake in the right rectal area noted on the PET/CT. Mild diffuse thickening and enhancement involving the distal sigmoid colon proximal to the rectum was felt to be nonspecific, neoplasm not excluded. There was no pelvic or inguinal lymphadenopathy or other significant findings noted on that study. He was then seen at the [facility] on 12/02/2020. MRI of the abdomen/pelvis showed omental fatty stranding and small ascites. There was focal sigmoid wall thickening, but unclear whether secondary to under distention and carcinomatosis or sigmoid primary. Sigmoidoscopy with EUS was negative for primary tumor. Peritoneal fluid cytology on repeat paracentesis was positive for rare atypical cells, highly suspicious for adenocarcinoma. 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 Molecular profile analysis was ordered, but with results not reported. He was seen in GI medical oncology by Dr. Rena Gresham on 01/15/2021. 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 His baseline tumor markers included elevated CA-125 at 94.5 U/mL. CEA and CA 19-9 levels were normal. His other medical illnesses include hypertension, hyperlipidemia, type II diabetes, and GERD. He has a history of diverticulitis. He has a history of smoking 1 pack of cigarettes daily for 10 to 12 years, but he quit smoking in 1986. INTERIM HISTORY: He began cycle 1 of modified FOLFOX chemotherapy on 01/28/2021. It was complicated by severe nausea/vomiting and generalized weakness. He had mild neuropathy. He required IV hydration and IV antiemetics for the nausea/vomiting, and he also had prolonged anorexia. He eventually did recover and he was able to continue with cycle 2 on 02/11/2021. Due to the severity of his side effects, he was given a level 1 dose reduction in oxaliplatin and a 20% reduction in the 5-FU dosage. With the modifications, he tolerated the treatment much better, and he was able to continue with cycle 3 on 02/25/2021 and with cycle 4 on 03/21/2021. As of 03/25/2021 his CA-125 level had decreased to 34.1 U/mL. He then had a follow-up visit with Dr. Gresham at [facility]. As he did to be showing some response to the chemotherapy, it was recommended that he continue treatment. He then returned here on 04/08/2021 and proceeded with his 5th cycle of chemotherapy with the oxaliplatin increased back up to the full dosage and with addition of Avastin to the regimen. He tolerated it with acceptable toxicity, and he then continued treatment at 2-week intervals. He began his 8th cycle on 05/27/2021. Duirng that time there were some fluctations in the CA-125 levels, but overall it had increased. Following cycle 8 he had follow-up again at [facility] with Dr. Gresham. His evaluation there did show evidence of disease progression, and it was recommended that he change treatment to a FOLFIRI chemotherapy regimen with a modified dosages of irinotecan and infusional 5-FU, and with omission of the 5-FU bolus and leucovorin. In addition, as there was very limited specimen available on his initial tissue biopsy, it was recommended that he have next generation sequencing obtained by liquid biopsy. On 06/10/2021 he began cycle 1 of FOLFIRI chemotherapy. It was administered at reduced dosages of the 5-FU infusion and irinotecan and without a 5-FU bolus. Mr Antony was seen in followup by Dr Hernandez on June 24, 2021. He was tolerating treatment well at that time. His appetite was not great but he stated that he was eating. He had had some treatment associated diarrhea but nothing that he felt was significant at that time. He was able to pursue his second cycle of treatment on June 24, 2021 and then again on July 08, 2021. He did receive supportive care with hydration and antiemetics on July 01, 2021 but no documentation of supportive care since that time. He did have mild neutropenia with an ANC of 1540 on day 8 after cycle 3. Mr. Antony is here today for follow-up and consideration of cycle 4 chemotherapy. He has no new concerns today. He has had some intermittent constipation with diarrhea but states overall it is manageable. His appetite continues to be somewhat on the poor side but he is eating. His weight is stable for him at 162. It has ranged from 161-165 pounds since June 10, 2021. He denies any nausea or vomiting. He continues to have some slight neuropathy but states it is unchanged and no worse. He denies any nausea or vomiting. He denies any headaches or vision changes. He denies mouth sores, sore throat or difficulty swallowing. He is remaining active. He has been playing golf. He does tire easily but recovers well with rest. His ECOG is 0. Past Medical History: Gastroesophageal reflux disease History of diverticulitis Hyperlipidemia Hypertension Type II diabetes Past Surgical History: Excision of skin cancer from the left cheek Hemorrhoidectomy Left subclavian vein PowerPort placement Dr. Cole in [address] directed omental biopsy in 2020 Sigmoidoscopy with EUS in 2020 Covid vaccine #2 in 2020 Covid vaccine #1 in 2020 EGD and colonoscopy in 2019 Allergies: No Known Allergies. Medications: Ativan 0.5 - 1 Tablet (of 1 mg) Oral q 4 hours Centrum Men 1 Tablet Oral daily cleansing time(supplement) 1 Dose(s) Granules daily Crestor 1 (40 mg) Tablet Oral daily Esomeprazole Magnesium 1 (40 mg) Capsule Delayed Release Oral daily Farxiga 1 (10 mg) Tablet Oral daily metFORMIN HCl 1 (1000 mg) Tablet Oral b.i.d. Prochlorperazine Maleate 1 (10 mg) Tablet Oral q 6 hours PRN Family History: Mr. Antony's mother is alive. Mr. Antony's father at age 83: brain cancer, and melanoma. Father with melanoma at age 83. Mother is still living at age 93. She has depression and she is in a jail. One brother also has depression. Another brother is in good health. Social History: Mr. Antony is . Mr. Antony quit smoking 34 years ago but had smoked 1.0 pack/day for 11 years. He drinks occasionally. He has history of smoking 1 pack of cigarettes daily for 10 to 12 years. He quit smoking in 1986. He has occasional alcohol use. Review Of Symptoms: <See Above> Vital Signs: Performed on Jul 22, 2021 11:30 Height - 68.00 in Weight - 162 lbs (LOW) BSA - 1.87 sq.m BMI - 24.63 Temperature - 98.3 F (LOW) Pulse - 90 /min Respiration - 18 /min BP - 121/73 mm(hg) O2 Sat - 94 % (LOW) Pain - 0 Fatigue - 3,0 - Fully active, able to carry on all predisease activities without restrictions. (ECOG) Physical Examination: Constitutional Alert, oriented, no acute distress. Skin pink, warm and dry. Head Normocephalic; atraumatic. Eyes Conjunctivae and sclerae are clear and without icterus. Pupils are reactive and equal. ENMT No oral exudates, ulcers, masses, thrush or mucositis. Oropharynx clear. Tongue normal. Respiratory Lungs are clear to auscultation without rhonchi or wheezing. Cardiovascular Regular rate and rhythm of heart without murmurs,clicks, gallops or rubs. Chest Left chest wall venous access device placement site is unremarkable. Extremities No visible deformities, no cyanosis, clubbing or edema. Musculoskeletal No tenderness or swelling, normal range of motion without obvious weakness. Integumentary No rashes or lesions. Neurologic No sensory or motor deficits, normal cerebellar function, normal gait. Psychiatric Alert and oriented times three. Coherent speech. Verbalizes understanding of our discussions today. Laboratory:Test performed on Aug 05, 2021 11:15 Sodium 141 mmol/L Potassium 3.8 mmol/L Chloride 104 mmol/L CO2 27 mmol/L Anion Gap 13.8 BUN 13 mg/dL Creatinine 0.7 mg/dL Cr Clearance (Est) 101.4300 mL/min eGFR 111.5 mL/min Glucose 175 mg/dL Osmolality - Calculated 296 mOsm/kg Calcium 8.6 mg/dL Protein, Total 6.7 g/dL Albumin 3.6 g/dL Globulin 3.1 g/dL Bilirubin, Total 0.3 mg/dL ALT (SGPT) 12 U/L AST (SGOT) 39 U/L Alkaline Phosphatase 140 IU/L WBC 13.8 10 3/uL RBC 4.50 10 6/uL HGB 13.3 g/dL HCT 42.8 % MCV 95.1 fl MCH 29.6 pg MCHC 31.1 g/dL RDW 18.0 % Platelet Count 225 10 3/cmm MPV 10.1 fL Neutrophils 11.17 10 3/uL Lymphocytes 1.6 10 3/uL Monocytes 0.7 10 3/uL Eosinophils 0.1 10 3/uL Basophils 0.1 10 3/uL Neutrophil % 80.9 % Lymphocyte % 11.6 % Monocyte % 5.2 % Eosinophil % 0.4 % Basophils % 0.5 % NRBC % 0 % Test performed on Jul 22, 2021 09:10 CA-125 58.4 U/mL Test performed on May 13, 2021 09:04 Manual Segs % 34 % Manual Bands % 46.0 % Manual Lymphs % 15 % Atypical Lymphs % 0.0 % Total Cells Counted 100 Manual Monos % 4.0 % Manual Eos % 1 % Manual Basos % 0.0 % CBC Slide Review Slide Review Perform Platelet Estimate Normal Manual Segs Abs 5.5 10/cmm Manual Bands Abs 7.4 10 3/cmm Manual Neutrophils Abs 12.9 10 3/cmm Manual Lymphocytes Abs 2.4 10 3/cmm Manual Monocytes Abs 0.6 10 3/cmm Manual Eosinophils Abs 0.1 10 3/cmm Manual Basophils Abs 0.0 10 3/cmm Test performed on Apr 22, 2021 08:18 Ua Color Yellow Ua Appearance Clear Ua Glucose 4+ Ua Bilirubin Neg Ua Ketones Negative Ua Specific [place] 1.015 Ua Blood Neg Ua pH 5 Ua Protein Neg Ua Nitrites Negative Ua Leukocyte Esterase Negative CA 19-9 8.60 U/mL CEA 1.6 ng/mL Test performed on Apr 08, 2021 12:40 Ua Protein, Sulfosal Acid Negative Impression: 1. 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 This is presumed to be from a primary adenocarcinoma of the appendix, though it does not appear that a primary lesion was actually identified. He had associated malignant ascites. 2. Hypertension. 3. Hyperlipidemia. 4. Type 2 diabetes. 5. GERD. 6. History of diverticulitis. Plan/Problems Addressed at this Visit: 1. 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 This was presumed to be from a primary adenocarcinoma of the appendix, though it does not appear that a primary lesion was actually identified. He had associated malignant ascites. The diagnosis was confirmed by CT directed biopsy of the omentum. He was recommended to begin palliative chemotherapy with a modified FOLFOX regimen. He began cycle 1 on 01/28/2021. It was complicated by weakness, severe nausea/vomiting, and prolonged anorexia. He required IV hydration and IV antiemetics, but he did recover. He was able to proceed with cycle 2 on 02/11/2021 at that point he did have a dose reduction in the oxaliplatin and the 5-FU infusion. He had subsequently tolerated the chemotherapy well. He returned to [facility] after completing 4 cycles of treatment. On evaluation there, he did appear to have evidence of response, including a significant decline in his CA-125 level. On 04/08/2021 he continued with his 5th cycle of treatment with the oxaliplatin increased to the full dosage and with addition of Avastin to the regimen. He was unable to continue treatment at 2-week intervals. He began cycle 8 on 05/27/2021. During that time his CA-125 levels had fluctuated somewhat, but overall there was an increase. He then had follow-up again at [facility] and his evaluation there did show evidence of disease progression. Per recommendations, he then returned here and he began further treatment with a FOLFIRI chemotherapy regimen. His 1st cycle was administered with reduced dosages of the 5-FU infusion and the irinotecan and with no 5-FU bolus. He tolerated it with just very mild side effects. The irinotecan dosage was escalated from 150 to 165 mg/m??? with cycle 2. A. Proceed with cycle 4 FOLFIRI. His dosing will remain the same as cycle 3. B. He will receive supportive care with growth factors/Neulasta on pro due to chemoinduced neutropenia. His ANC today is 1460. His ANC with cycle 1 day 1 FOLFIRI was 7720. C. Today's labs reviewed in detail discussed with Mr. Mrs. Antony and a copy was given to them. WBC 3.6, hemoglobin 12.8, platelets 192,000, ANC is 1460. Potassium 3.8 random glucose 109 creatinine 0.7 and LFTs are normal with exception of AST which is 43 with a high and being reported at 40. His last CA-125 was 69.1. This was on June 24, 2021. His result from today is pending at the time of visit. D. We will plan for weekly CBC CMP due to the neutropenia. E. We will have him follow-up in 2 weeks with CBC CMP at which time he will repeat his CA-125. F. Mr Antony was instructed to call us in the interim if questions or problems arise. Signed By: Lamine Patterson-, AOCHEYENNEP Lazaro Hernandez MD <<Signature on File>>
== END 2021-08-02 23:59 | disposition home or self-care (01) ==
LOC: ONCMED 06:14
PROVIDERS: Internal Medicine Medical Oncology; Nurse Practitioner; PCP Family Medicine; Visit Provider Internal Medicine Hematology & Oncology
DX: Z51.11 Encounter for antineoplastic chemotherapy (principal); C18.1 Malignant neoplasm of appendix; C78.6 Secondary malignant neoplasm of retroperitoneum and peritoneum; R18.0 Malignant ascites; R97.1 Elevated cancer antigen 125 [CA 125]; Z79.899 Other long term (current) drug therapy
CPT/HCPCS: 36591; 80053; 85007; 85025; 86304; 96367; 96375; 96377; 96413; 96415; 96416; 96523; 99215; J0461; J1100; J1453; J2469; J3490; J9190; J9206

== ENCOUNTER 2021-08-26 06:36 | Outpatient (RCR) | payer MEDICARE, OTHER, SELFPAY ==
[2021-08-05 11:26] LABS: Basophils # 0.1 10^3/uL (0.0-0.1); Basophils % 0.5 %; Eosinophils # 0.1 10^3/uL (0.0-0.8); Eosinophils % 0.4 %; Hematocrit 42.8 % (42.0-52.0); Hemoglobin 13.3 g/dL (11.7-16.6); Lymphocytes # 1.6 10^3/uL (0.8-4.8); Lymphocytes % 11.6 %; Mean Corpuscular HGB Conc 31.1 g/dL (30.0-36.0); Mean Corpuscular Hemoglobin 29.6 pg (28.0-34.0); Mean Corpuscular Volume 95.1 fl (80-94); Mean Platelet Volume 10.1 fL (7.4-10.4); Monocytes # 0.7 10^3/uL (0.2-0.9); Monocytes % 5.2 %; Neutrophils # 11.17 10^3/uL (1.8-7.7); Neutrophils % 80.9 %; Nucleated Red Blood Cells % 0 %; Platelet Count 225 10^3/cmm (130-400); White Blood Count 13.8 10^3/uL (4.0-10.0)
[2021-08-05 11:44] LABS: Alanine Aminotransferase 12 U/L (0-41); Albumin Level 3.6 g/dL (3.5-5.2); Alkaline Phosphatase 140 IU/L (40-130); Anion Gap 13.8 (5-19); Aspartate Amino Transferase 39 U/L (0-40); Blood Urea Nitrogen 13 mg/dL (8-23); Calcium 8.6 mg/dL (8.5-10.5); Carbon Dioxide 27 mmol/L (22-29); Chloride 104 mmol/L (98-107); Globulin 3.1 g/dL (1.3-4.6); Glomerular Filtration Rate 111.5 mL/min (90-130); Glucose 175 mg/dL (65-115); Osmolality Calculated 296 mOsm/kg (285-295); Potassium 3.8 mmol/L (3.5-5.1); Sodium 141 mmol/L (136-145); Total Bilirubin 0.3 mg/dL (0.15-1.2); Total Protein 6.7 g/dL (6.6-8.7)
[2021-08-05] MEDS: OLANZapine 5 mg TABLET PO (12:32)
[2021-08-05] MEDS: dextrose 5% 250 ML 75 ML IV (12:32)
[2021-08-05] MEDS: famotidine 20 mg/2 mL INJ IVP (12:32)
[2021-08-05] MEDS: fosaprepitant 150 MG in sodium chloride 0.9% 150 ML 300 MG IV (12:41)
[2021-08-05] MEDS: palonosetron 0.25 mg/5 mL SDV IVP (13:05)
[2021-08-07] MEDS: pegfilgrastim-bmez 6 mg/0.6 mL SYR SUBCUT (11:50)
[2021-08-19 10:26] LABS: Basophils # 0.1 10^3/uL (0.0-0.1); Basophils % 0.5 %; Eosinophils # 0.3 10^3/uL (0.0-0.8); Eosinophils % 1.6 %; Hematocrit 40.9 % (42.0-52.0); Hemoglobin 12.8 g/dL (11.7-16.6); Lymphocytes # 1.9 10^3/uL (0.8-4.8); Lymphocytes % 10.1 %; Mean Corpuscular HGB Conc 31.3 g/dL (30.0-36.0); Mean Corpuscular Hemoglobin 29.7 pg (28.0-34.0); Mean Corpuscular Volume 94.9 fl (80-94); Mean Platelet Volume 9.7 fL (7.4-10.4); Monocytes # 0.9 10^3/uL (0.2-0.9); Monocytes % 4.4 %; Neutrophils % 81.1 %; Nucleated Red Blood Cells % 0 %; Platelet Count 277 10^3/cmm (130-400); Red Blood Count 4.31 10^6/uL (4.1-5.3); Red Cell Distribution Width 17.9 % (12.1-15.1); White Blood Count 19.1 10^3/uL (4.0-10.0)
[2021-08-19 10:44] LABS: Alanine Aminotransferase 17 U/L (0-41); Albumin Level 3.7 g/dL (3.5-5.2); Alkaline Phosphatase 168 IU/L (40-130); Anion Gap 18.4 (5-19); Aspartate Amino Transferase 48 U/L (0-40); Blood Urea Nitrogen 11 mg/dL (8-23); Calcium 8.2 mg/dL (8.5-10.5); Carbon Dioxide 24 mmol/L (22-29); Chloride 101 mmol/L (98-107); Globulin 2.9 g/dL (1.3-4.6); Glomerular Filtration Rate 111.5 mL/min (90-130); Glucose 187 mg/dL (65-115); Osmolality Calculated 294 mOsm/kg (285-295); Potassium 3.4 mmol/L (3.5-5.1); Sodium 140 mmol/L (136-145); Total Bilirubin 0.4 mg/dL (0.15-1.2); Total Protein 6.6 g/dL (6.6-8.7)
[2021-08-19 11:58] LABS: Chol HDL Ratio 3.61 mg/dL (1.0-5.00); Cholesterol 130 mg/dL (0-200); HDL Cholesterol 36 mg/dL (60-100); Homocysteine 10.18; LDL Cholesterol Calculated 54 mg/dL (50-129); Thyroid Stimulating Hormone 1.94 uIU/mL (0.27-4.20); Triglycerides 200 mg/dL (0-150); Vitamin B12 987 pg/mL (232-1245)
[2021-08-19 15:47] LABS: Estmated Average Glucose 146; Hemoglobin A1C 6.7 % (4.0-6.0)
[2021-08-19 16:02] LABS: Free T4 Free Thyroxine 1.32 ng/dL (0.82-1.77)
[2021-08-20 00:18] LABS: Folate Level > 20.0 ng/mL (4.5-32.2)
[2021-08-21] MEDS: ondansetron 2 mg/ML SDV 2 mL 8 MG IVP (12:07)
[2021-08-21] MEDS: sodium chloride 0.9% 1,000 ML 999 ML IV (12:07)
[2021-08-21 12:45] LABS: Basophils # 0.1 10^3/uL (0.0-0.1); Basophils % 0.5 %; Eosinophils # 0.1 10^3/uL (0.0-0.8); Eosinophils % 0.4 %; Hematocrit 43.2 % (42.0-52.0); Lymphocytes # 1.9 10^3/uL (0.8-4.8); Lymphocytes % 6.4 %; Mean Corpuscular HGB Conc 32.4 g/dL (30.0-36.0); Mean Corpuscular Hemoglobin 30.6 pg (28.0-34.0); Mean Corpuscular Volume 94.3 fl (80-94); Monocytes # 1.3 10^3/uL (0.2-0.9); Monocytes % 4.3 %; Nucleated Red Blood Cells % 0 %; Platelet Count 334 10^3/cmm (130-400); Red Blood Count 4.58 10^6/uL (4.1-5.3); Red Cell Distribution Width 18.3 % (12.1-15.1); White Blood Count 29.9 10^3/uL (4.0-10.0)
[2021-08-21] MEDS: famotidine 20 mg/2 mL INJ IVP (13:00)
[2021-08-21 13:23] LABS: Alanine Aminotransferase 16 U/L (0-41); Albumin Level 3.5 g/dL (3.5-5.2); Alkaline Phosphatase 149 IU/L (40-130); Aspartate Amino Transferase 45 U/L (0-40); Blood Urea Nitrogen 13 mg/dL (8-23); Calcium 8.6 mg/dL (8.5-10.5); Cancer Antigen 19 9 12.58 U/mL (0-35); Carbon Dioxide 23 mmol/L (22-29); Chloride 98 mmol/L (98-107); Globulin 2.9 g/dL (1.3-4.6); Glomerular Filtration Rate 95.6 mL/min (90-130); Glucose 215 mg/dL (65-115); Osmolality Calculated 289 mOsm/kg (285-295); Sodium 136 mmol/L (136-145); Total Bilirubin 0.4 mg/dL (0.15-1.2); Total Protein 6.4 g/dL (6.6-8.7)
[2021-08-21 13:25] LABS: Anion Gap 19.3 (5-19); Potassium 4.3 mmol/L (3.5-5.1)
[2021-08-21 13:34] LABS: Carcinoembryonic Antigen 2.6 ng/mL (0.0-4.7)
--- NOTE | 2021-08-21 14:02 | CT_ITS ---
WS: [id number] Exam: CT abdomen pelvis w con* [id number] Date/Time of Exam: 08/21/2021 2:02 PM Reason For Exam: MALIGNANT NEOPLASM OF THE APPENDIX DLP: 1062.[address] scans at [facility] use at least one of these dose optimization techniques: automated e xposure control; mA and/or kV adjustment per patient size (includes targeted exams where dose is matc hed to clinical indication); or iterative reconstruction. CT scan of the abdomen and pelvis with contrast. Compared to outside exam performed 01/15/2021. Moderate size left basal pleural effusion is noted with compressive atelectasis of the left lower lob e. Visualized lung parenchyma is otherwise clear. Subcentimeter cysts seen in the posterior aspect of the right hepatic lobe. The liver is otherwise unremarkable. Hiatal hernia is noted. The stomach is otherwise unremarkable. The spleen is not enlarged. The spleen contains several calcified granulomas. The pancreas is unremarkable. No calcified stones in the gallbladder. The abdominal aorta is normal in caliber. The portal vein and IVC are patent. Normal adrenal glands. Horseshoe kidney noted. No reymundo al obstruction. Moderate amount of ascites in the lower abdomen showing modest increase since last . There is moderate gaseous dilatation of several small bowel loops in the lower abdomen. Early o r incomplete small bowel obstruction not excluded. Colonic diverticulosis. No sign of acute diverticu litis. No free air seen. Moderate amount of ascites in the pelvis. There is stranding and some nodula rity in the mesentery of the lower abdomen and pelvis which might represent metastatic seeding. Urina ry bladder is intact. Mild prostatomegaly. Moderate amount of stool in the colon. The appendix is dif ficult to localize but no findings that would suggest acute appendicitis. No destructive bone lesions . No significant hernia. CT/CT abdomen pelvis w con* [id number] IMPRESSION: 1. Several moderately dilated small bowel loops in the lower abdomen and pelvis . Early or incomplete small bowel obstruction not excluded. 2. Mildly increased abdominal and pelvic ascites since prior study. 3. Colonic diverticulosis but no sign of acute diverticulitis. 4. Left basal pleural effusion which is a change since prior study. 5. Stranding and nodularity noted within the mesentery which might represent ca rcinomatosis.
[2021-08-21] MEDS: iodixanol 320 mg/mL 100mL Btl IV (15:50)
[2021-08-21] MEDS: iohexol 300 mg/mL 50 mL Btl PO (15:50)
--- NOTE | 2021-08-23 20:52 | ONC FU_ITS ---
[facility] Patient Note Patient: Clark Antony Unit #: [id number]: [id number] Dictated By: Lamine PattersonDate of Visit: Aug 19, 2021 Onc MED Follow-Up/Prog Note Chief Complaint: Peritoneal carcinomatosis. 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 He had presented with complaints of abdominal pain and postprandial bloating, dating back to at least October 2019. His initial CT abdomen/pelvis, from 10/11/2019, showed a focal area of narrowing involving the proximal sigmoid colon. Findings of diverticulitis described on a previous study from September 2019 were noted to have resolved. EGD and colonoscopy were unrevealing. His symptoms continue to worsen. Repeat CT scans in August 2020 showed interval development of moderate-sized ascites and a small left pleural effusion. Wall thickening was again noted and a small portion of the proximal sigmoid colon. Paracentesis and subsequent left thoracentesis revealed cytology negative fluids. PET/CT on 10/18/2020 showed a 2 cm area of abnormal activity in the right perianal region, SUV 12.0, with high probability of malignancy. Tiny, scattered perirectal nodes were too small to characterize. There was evidence of mesenteric edema, a small amount of ascites, and a small left pleural effusion. Omental stranding was felt to be likely related to edema. Pelvic MRI on 10/27/2020 showed no definite abnormalities to correspond with the uptake in the right rectal area noted on the PET/CT. Mild diffuse thickening and enhancement involving the distal sigmoid colon proximal to the rectum was felt to be nonspecific, neoplasm not excluded. There was no pelvic or inguinal lymphadenopathy or other significant findings noted on that study. He was then seen at the [facility] on 12/02/2020. MRI of the abdomen/pelvis showed omental fatty stranding and small ascites. There was focal sigmoid wall thickening, but unclear whether secondary to under distention and carcinomatosis or sigmoid primary. Sigmoidoscopy with EUS was negative for primary tumor. Peritoneal fluid cytology on repeat paracentesis was positive for rare atypical cells, highly suspicious for adenocarcinoma. 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 Molecular profile analysis was ordered, but with results not reported. He was seen in GI medical oncology by Dr. Rena Gresham on 01/15/2021. 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 His baseline tumor markers included elevated CA-125 at 94.5 U/mL. CEA and CA 19-9 levels were normal. His other medical illnesses include hypertension, hyperlipidemia, type II diabetes, and GERD. He has a history of diverticulitis. He has a history of smoking 1 pack of cigarettes daily for 10 to 12 years, but he quit smoking in 1986. INTERIM HISTORY: He began cycle 1 of modified FOLFOX chemotherapy on 01/28/2021. It was complicated by severe nausea/vomiting and generalized weakness. He had mild neuropathy. He required IV hydration and IV antiemetics for the nausea/vomiting, and he also had prolonged anorexia. He eventually did recover and he was able to continue with cycle 2 on 02/11/2021. Due to the severity of his side effects, he was given a level 1 dose reduction in oxaliplatin and a 20% reduction in the 5-FU dosage. With the modifications, he tolerated the treatment much better, and he was able to continue with cycle 3 on 02/25/2021 and with cycle 4 on 03/21/2021. As of 03/25/2021 his CA-125 level had decreased to 34.1 U/mL. He then had a follow-up visit with Dr. Gresham at [facility]. As he did to be showing some response to the chemotherapy, it was recommended that he continue treatment. He then returned here on 04/08/2021 and proceeded with his 5th cycle of chemotherapy with the oxaliplatin increased back up to the full dosage and with addition of Avastin to the regimen. He tolerated it with acceptable toxicity, and he then continued treatment at 2-week intervals. He began his 8th cycle on 05/27/2021. Duirng that time there were some fluctations in the CA-125 levels, but overall it had increased. Following cycle 8 he had follow-up again at [facility] with Dr. Gresham. His evaluation there did show evidence of disease progression, and it was recommended that he change treatment to a FOLFIRI chemotherapy regimen with a modified dosages of irinotecan and infusional 5-FU, and with omission of the 5-FU bolus and leucovorin. In addition, as there was very limited specimen available on his initial tissue biopsy, it was recommended that he have next generation sequencing obtained by liquid biopsy. On 06/10/2021 he began cycle 1 of FOLFIRI chemotherapy. It was administered at reduced dosages of the 5-FU infusion and irinotecan and without a 5-FU bolus. Mr Antony was seen in followup by Dr Hernandez on June 24, 2021. He was tolerating treatment well at that time. His appetite was not great but he stated that he was eating. He had had some treatment associated diarrhea but nothing that he felt was significant at that time. He was able to pursue his second cycle of treatment on June 24, 2021 and then again on July 08, 2021. He did receive supportive care with hydration and antiemetics on July 01, 2021 but no documentation of supportive care since that time. He did have mild neutropenia with an ANC of 1540 on day 8 after cycle 3. Mr. Antony is here today for follow-up and consideration of cycle 6 chemotherapy. His main concern today is that his just tested positive for Covid. He actually states that he got a message from her while he was waiting in the exam room for visit and she reported that she tested positive for COVID-19. He states she is not feeling well and that she has a cough, body aches and this feels rough in general. However he states he feels good. He has had no cough, fever, chills, body aches, shortness of breath, runny nose or any bowel changes. He states that his family is wanting him to quarantine away from his however we discussed that he is already exposed and that she was more contagious over the last few days then today most likely and he was exposed at that time. He of course may quarantine if he wishes away from her but there is no medical reason to pursue that at this time. He has had some intermittent constipation with diarrhea but states overall it is manageable. His appetite continues to be somewhat on the poor side but he is eating. His weight is down some for him today at 157.2. It has ranged from 161-165 pounds since June 10, 2021. He denies any nausea or vomiting. He continues to have some slight neuropathy but states it is unchanged and no worse. He denies any nausea or vomiting. He denies any headaches or vision changes. He denies mouth sores, sore throat or difficulty swallowing. He is remaining active. He has been playing golf. He does tire easily but recovers well with rest. His ECOG is 0. Past Medical History: Gastroesophageal reflux disease History of diverticulitis Hyperlipidemia Hypertension Type II diabetes Past Surgical History: Excision of skin cancer from the left cheek Hemorrhoidectomy Left subclavian vein PowerPort placement Dr. Cole in [address] directed omental biopsy in 2020 Sigmoidoscopy with EUS in 2020 Covid vaccine #2 in 2020 Covid vaccine #1 in 2020 EGD and colonoscopy in 2019 Allergies: No Known Allergies. Medications: Ativan 0.5 - 1 Tablet (of 1 mg) Oral q 4 hours Centrum Men 1 Tablet Oral daily cleansing time(supplement) 1 Dose(s) Granules daily Crestor 1 (40 mg) Tablet Oral daily Esomeprazole Magnesium 1 (40 mg) Capsule Delayed Release Oral daily Farxiga 1 (10 mg) Tablet Oral daily metFORMIN HCl 1 (1000 mg) Tablet Oral b.i.d. Prochlorperazine Maleate 1 (10 mg) Tablet Oral q 6 hours PRN Family History: Mr. Antony's mother is alive. Mr. Antony's father at age 83: brain cancer, and melanoma. Father with melanoma at age 83. Mother is still living at age 93. She has depression and she is in a assisted. One brother also has depression. Another brother is in good health. Social History: Mr. Antony is . Mr. Antony quit smoking 34 years ago but had smoked 1.0 pack/day for 11 years. He drinks occasionally. He has history of smoking 1 pack of cigarettes daily for 10 to 12 years. He quit smoking in 1986. He has occasional alcohol use. Review Of Symptoms: <See Above> Vital Signs: Performed on Aug 19, 2021 11:37 Height - 68.00 in Weight - 157.2 lbs (LOW) BSA - 1.85 sq.m BMI - 23.90 Temperature - 98.5 F Pulse - 89 /min Respiration - 18 /min BP - 117/71 mm(hg) O2 Sat - 98 % Pain - 0 Fatigue - 6,0 - Fully active, able to carry on all predisease activities without restrictions. (ECOG) Physical Examination: Constitutional Alert, oriented, no acute distress. Skin pink, warm and dry. Head Normocephalic; atraumatic. Eyes Conjunctivae and sclerae are clear and without icterus. Pupils are reactive and equal. Chest Left chest wall venous access device placement site is unremarkable. Extremities No visible deformities, no cyanosis, clubbing or edema. Musculoskeletal No tenderness or swelling, normal range of motion without obvious weakness. Integumentary No rashes or lesions. Neurologic No sensory or motor deficits, normal cerebellar function, normal gait. Psychiatric Alert and oriented times three. Coherent speech. Verbalizes understanding of our discussions today. Laboratory:Test performed on Aug 19, 2021 10:15 Sodium 140 mmol/L Potassium 3.4 mmol/L Chloride 101 mmol/L CO2 24 mmol/L Anion Gap 18.4 BUN 11 mg/dL Creatinine 0.7 mg/dL Cr Clearance (Est) 101.4300 mL/min eGFR 111.5 mL/min Glucose 187 mg/dL Osmolality - Calculated 294 mOsm/kg Calcium 8.2 mg/dL Protein, Total 6.6 g/dL Albumin 3.7 g/dL Globulin 2.9 g/dL Bilirubin, Total 0.4 mg/dL ALT (SGPT) 17 U/L AST (SGOT) 48 U/L Alkaline Phosphatase 168 IU/L WBC 19.1 10 3/uL RBC 4.31 10 6/uL HGB 12.8 g/dL HCT 40.9 % MCV 94.9 fl MCH 29.7 pg MCHC 31.3 g/dL RDW 17.9 % Platelet Count 277 10 3/cmm MPV 9.7 fL Neutrophils 15.50 10 3/uL Lymphocytes 1.9 10 3/uL Monocytes 0.9 10 3/uL Eosinophils 0.3 10 3/uL Basophils 0.1 10 3/uL Neutrophil % 81.1 % Lymphocyte % 10.1 % Monocyte % 4.4 % Eosinophil % 1.6 % Basophils % 0.5 % NRBC % 0 % Test performed on Jul 22, 2021 09:10 CA-125 58.4 U/mL Test performed on May 13, 2021 09:04 Manual Segs % 34 % Manual Bands % 46.0 % Manual Lymphs % 15 % Atypical Lymphs % 0.0 % Total Cells Counted 100 Manual Monos % 4.0 % Manual Eos % 1 % Manual Basos % 0.0 % CBC Slide Review Slide Review Perform Platelet Estimate Normal Manual Segs Abs 5.5 10/cmm Manual Bands Abs 7.4 10 3/cmm Manual Neutrophils Abs 12.9 10 3/cmm Manual Lymphocytes Abs 2.4 10 3/cmm Manual Monocytes Abs 0.6 10 3/cmm Manual Eosinophils Abs 0.1 10 3/cmm Manual Basophils Abs 0.0 10 3/cmm Test performed on Apr 22, 2021 08:18 Ua Color Yellow Ua Appearance Clear Ua Glucose 4+ Ua Bilirubin Neg Ua Ketones Negative Ua Specific [place] 1.015 Ua Blood Neg Ua pH 5 Ua Protein Neg Ua Nitrites Negative Ua Leukocyte Esterase Negative CA 19-9 8.60 U/mL CEA 1.6 ng/mL Test performed on Apr 08, 2021 12:40 Ua Protein, Sulfosal Acid Negative Impression: 1. 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 This is presumed to be from a primary adenocarcinoma of the appendix, though it does not appear that a primary lesion was actually identified. He had associated malignant ascites. 2. Hypertension. 3. Hyperlipidemia. 4. Type 2 diabetes. 5. GERD. 6. History of diverticulitis. Plan/Problems Addressed at this Visit: 1. 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 This was presumed to be from a primary adenocarcinoma of the appendix, though it does not appear that a primary lesion was actually identified. He had associated malignant ascites. The diagnosis was confirmed by CT directed biopsy of the omentum. He was recommended to begin palliative chemotherapy with a modified FOLFOX regimen. He began cycle 1 on 01/28/2021. It was complicated by weakness, severe nausea/vomiting, and prolonged anorexia. He required IV hydration and IV antiemetics, but he did recover. He was able to proceed with cycle 2 on 02/11/2021 at that point he did have a dose reduction in the oxaliplatin and the 5-FU infusion. He had subsequently tolerated the chemotherapy well. He returned to [facility] after completing 4 cycles of treatment. On evaluation there, he did appear to have evidence of response, including a significant decline in his CA-125 level. On 04/08/2021 he continued with his 5th cycle of treatment with the oxaliplatin increased to the full dosage and with addition of Avastin to the regimen. He was unable to continue treatment at 2-week intervals. He began cycle 8 on 05/27/2021. During that time his CA-125 levels had fluctuated somewhat, but overall there was an increase. He then had follow-up again at [facility] and his evaluation there did show evidence of disease progression. Per recommendations, he then returned here and he began further treatment with a FOLFIRI chemotherapy regimen. His 1st cycle was administered with reduced dosages of the 5-FU infusion and the irinotecan and with no 5-FU bolus. He tolerated it with just very mild side effects. The irinotecan dosage was escalated from 150 to 165 mg/m??? with cycle 2. A. We will plan to delay cycle 6 FOLFIRI due to his recent exposure to COVID-19 (his tested positive this morning). He is asymptomatic thus far. B. He is advised to contact us or his primary care should he have symptoms and feel that he needs tested in the event that he could pursue Covid antibody administration. C. Today's labs reviewed in detail and discussed with Mr. Antony and a copy was given to him. WBC is 19.1, (he received Neulasta on 08/07/2021) hemoglobin 12.8, platelets 277,000, ANC is 15,500. Potassium 3.4 random glucose 187, creatinine 0.7 his AST is 48 which is within normal range for him his ALT is normal at 17 and his alk phos is 168. D. We will plan to reassess him in 1 week unless he develops symptoms of COVID-19 or test positive in the interim. I have asked for a CBC and CMP at that time as well. E. Mr Antony was instructed to call us in the interim if questions or problems arise. F. He does report that he has had the Covid vaccine as well as the booster. Signed By: Lmaine Patterson-, [facility] Lazaro Hernandez MD <<Signature on File>>
[2021-08-24 08:50] LABS: Basophils # 0.1 10^3/uL (0.0-0.1); Basophils % 0.5 %; Eosinophils # 0.1 10^3/uL (0.0-0.8); Eosinophils % 0.8 %; Hematocrit 40.3 % (42.0-52.0); Hemoglobin 12.9 g/dL (11.7-16.6); Lymphocytes # 2.1 10^3/uL (0.8-4.8); Lymphocytes % 12.4 %; Mean Corpuscular Hemoglobin 29.9 pg (28.0-34.0); Mean Corpuscular Volume 93.5 fl (80-94); Mean Platelet Volume 9.9 fL (7.4-10.4); Monocytes # 1.1 10^3/uL (0.2-0.9); Monocytes % 6.7 %; Neutrophils # 12.92 10^3/uL (1.8-7.7); Neutrophils % 77.6 %; Nucleated Red Blood Cells % 0 %; Platelet Count 290 10^3/cmm (130-400); Red Blood Count 4.31 10^6/uL (4.1-5.3); Red Cell Distribution Width 17.8 % (12.1-15.1); White Blood Count 16.6 10^3/uL (4.0-10.0)
[2021-08-24 09:12] LABS: Alanine Aminotransferase 14 U/L (0-41); Albumin Level 3.7 g/dL (3.5-5.2); Alkaline Phosphatase 131 IU/L (40-130); Anion Gap 15.6 (5-19); Aspartate Amino Transferase 39 U/L (0-40); Blood Urea Nitrogen 12 mg/dL (8-23); Calcium 8.4 mg/dL (8.5-10.5); Carbon Dioxide 27 mmol/L (22-29); Chloride 98 mmol/L (98-107); Globulin 3.2 g/dL (1.3-4.6); Glomerular Filtration Rate 95.6 mL/min (90-130); Glucose 116 mg/dL (65-115); Osmolality Calculated 285 mOsm/kg (285-295); Potassium 3.6 mmol/L (3.5-5.1); Sodium 137 mmol/L (136-145); Total Bilirubin 0.4 mg/dL (0.15-1.2); Total Protein 6.9 g/dL (6.6-8.7)
[2021-08-24] MEDS: dextrose 5% 250 ML 75 ML IV (10:59)
[2021-08-24] MEDS: famotidine 20 mg/2 mL INJ IVP (10:59)
[2021-08-24] MEDS: fosaprepitant 150 MG in sodium chloride 0.9% 150 ML 300 MG IV (11:00)
[2021-08-24] MEDS: OLANZapine 5 mg TABLET PO (11:26)
[2021-08-24] MEDS: palonosetron 0.25 mg/5 mL SDV IV (11:28)
[2021-08-24 12:51] LABS: CA 125 51.1 U/mL (0-35)
--- NOTE | 2021-08-25 06:51 | ONC FU_ITS ---
Dr. Hernandez Patient Follow-Up Note Patient: Clark Antony Unit #: [id number]: 1950 Dicatated By: Lazaro Hernandez M.D.Date of Visit:Aug 24, 2021 Onc Med Follow-up/Prog Note Chief Complaint: Peritoneal carcinomatosis. 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 He had presented with complaints of abdominal pain and postprandial bloating, dating back to at least October 2019. His initial CT abdomen/pelvis, from 10/11/2019, showed a focal area of narrowing involving the proximal sigmoid colon. Findings of diverticulitis described on a previous study from September 2019 were noted to have resolved. EGD and colonoscopy were unrevealing. His symptoms continue to worsen. Repeat CT scans in August 2020 showed interval development of moderate-sized ascites and a small left pleural effusion. Wall thickening was again noted and a small portion of the proximal sigmoid colon. Paracentesis and subsequent left thoracentesis revealed cytology negative fluids. PET/CT on 10/18/2020 showed a 2 cm area of abnormal activity in the right perianal region, SUV 12.0, with high probability of malignancy. Tiny, scattered perirectal nodes were too small to characterize. There was evidence of mesenteric edema, a small amount of ascites, and a small left pleural effusion. Omental stranding was felt to be likely related to edema. Pelvic MRI on 10/27/2020 showed no definite abnormalities to correspond with the uptake in the right rectal area noted on the PET/CT. Mild diffuse thickening and enhancement involving the distal sigmoid colon proximal to the rectum was felt to be nonspecific, neoplasm not excluded. There was no pelvic or inguinal lymphadenopathy or other significant findings noted on that study. He was then seen at the [facility] on 12/02/2020. MRI of the abdomen/pelvis showed omental fatty stranding and small ascites. There was focal sigmoid wall thickening, but unclear whether secondary to under distention and carcinomatosis or sigmoid primary. Sigmoidoscopy with EUS was negative for primary tumor. Peritoneal fluid cytology on repeat paracentesis was positive for rare atypical cells, highly suspicious for adenocarcinoma. 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 Molecular profile analysis was ordered, but with results not reported. He was seen in GI medical oncology by Dr. Rena Gresham on 01/15/2021. 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 His baseline tumor markers included elevated CA-125 at 94.5 U/mL. CEA and CA 19-9 levels were normal. His other medical illnesses include hypertension, hyperlipidemia, type II diabetes, and GERD. He has a history of diverticulitis. He has a history of smoking 1 pack of cigarettes daily for 10 to 12 years, but he quit smoking in 1986. INTERIM HISTORY: He began cycle 1 of modified FOLFOX chemotherapy on 01/28/2021. It was complicated by severe nausea/vomiting and generalized weakness. He had mild neuropathy. He required IV hydration and IV antiemetics for the nausea/vomiting, and he also had prolonged anorexia. He eventually did recover and he was able to continue with cycle 2 on 02/11/2021. Due to the severity of his side effects, he was given a level 1 dose reduction in oxaliplatin and a 20% reduction in the 5-FU dosage. With the modifications, he tolerated the treatment much better, and he was able to continue with cycle 3 on 02/25/2021 and with cycle 4 on 03/21/2021. As of 03/25/2021 his CA-125 level had decreased to 34.1 U/mL. He then had a follow-up visit with Dr. Gresham at [facility]. As he did to be showing some response to the chemotherapy, it was recommended that he continue treatment. He then returned here on 04/08/2021 and proceeded with his 5th cycle of chemotherapy with the oxaliplatin increased back up to the full dosage and with addition of Avastin to the regimen. He tolerated it with acceptable toxicity, and he then continued treatment at 2-week intervals. He began his 8th cycle on 05/27/2021. Duirng that time there were some fluctations in the CA-125 levels, but overall it had increased. Following cycle 8 he had follow-up again at [facility] with Dr. Gresham. His evaluation there did show evidence of disease progression, and it was recommended that he change treatment to a FOLFIRI chemotherapy regimen with a modified dosages of irinotecan and infusional 5-FU, and with omission of the 5-FU bolus and leucovorin. In addition, as there was very limited specimen available on his initial tissue biopsy, it was recommended that he have next generation sequencing obtained by liquid biopsy. On 06/10/2021 he began cycle 1 of FOLFIRI chemotherapy. It was administered at reduced dosages of the 5-FU infusion and irinotecan and without a 5-FU bolus. He tolerated it with minimal toxicity. He continued with cycle 2 on 06/24/2021 with irinotecan dosage increased to 165 mg/m???. With cycle 4 on 07/22/2021 he required addition of Neulasta for neutropenia. He was otherwise tolerating treatment well, and he continued with cycle 5 on 08/05/2021. He had then come in last week with complaints of persistent nausea along with some discomfort in the lower abdominal area. He was given IV hydration and IV antiemetics. By the time he got home he was feeling better. In the meantime, his CT abdomen/pelvis on 08/21/2021 showed several moderately dilated small bowel loops in the lower abdomen and pelvis with early or incomplete small bowel obstruction not excluded. Stranding and nodularity in the mesentery of the lower abdomen and pelvis was felt to possibly reflect carcinomatosis. A moderate size left basal pleural effusion with compressive atelectasis of the left lower lobe was noted to have increased from the prior study. Also noted was mild increase in abdominal and pelvic ascites. He is seen for a scheduled follow-up visit. Since his hydration on Tuesday has been feeling better generally, though he also has increased his ondansetron dosage to 8 mg. He does report that he has been having diarrhea, which can be up to 4-5 stools per day. However, he has not been taking Imodium due to concerns that it may cause constipation. His energy is about the same. He does get around and do things, but he wears out. ECOG score is 1. His appetite is not very good. His weight is down close to 10 pounds. He does not have fever or night sweats. He has not had sore mouth or throat. He has just minor cough. He does not complain of shortness of breath or chest pain. Bladder function remains adequate. He has no significant joint or bone pain. He has just occasional headache and he occasionally has orthostatic lightheadedness. 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 Medications: Ativan 0.5 - 1 Tablet (of 1 mg) Oral q 4 hours, Centrum Men 1 Tablet Oral daily, cleansing time(supplement) 1 Dose(s) Granules daily, Crestor 1 (40 mg) Tablet Oral daily, Esomeprazole Magnesium 1 (40 mg) Capsule Delayed Release Oral daily, Farxiga 1 (10 mg) Tablet Oral daily, metFORMIN HCl 1 (1000 mg) Tablet Oral b.i.d., Prochlorperazine Maleate 1 (10 mg) Tablet Oral q 6 hours PRN Allergies: No Known Allergies. Vital Signs: Performed on Aug 24, 2021 11:28 Height - 68.00 in Weight - 156.4 lbs (LOW) BSA - 1.84 sq.m BMI - 23.78 Temperature - 98.3 F (LOW) Pulse - 99 /min Respiration - 18 /min BP - 105/69 mm(hg) O2 Sat - 93 % (LOW) Pain - 2 Fatigue - 5 Physical Examination: Constitutional - He appears somewhat weak generally, Eyes - Sclerae nonicteric. Conjunctivae clear, ENMT - No lesions noted in the oral cavity, Hematologic/Lymphatic - No cervical, clavicular, or axillary adenopathy, Respiratory - Lungs sound clear, Cardiovascular - Heart rhythm is regular. There is no murmur, gallop, or rub noted, Abdomen - Firm but not distended. Liver and spleen are not enlarged. There is no abdominal mass noted. There is no inguinal adenopathy, Extremities - No edema, Neurologic - No focal neurologic deficits noted. Lab/Imaging: Test performed on Aug 24, 2021 11:00 CA-125 51.1 U/mL Test performed on Aug 24, 2021 08:20 Sodium 137 mmol/L Potassium 3.6 mmol/L Chloride 98 mmol/L CO2 27 mmol/L Anion Gap 15.6 BUN 12 mg/dL Creatinine 0.8 mg/dL Cr Clearance (Est) 88.7500 mL/min eGFR 95.6 mL/min Glucose 116 mg/dL Osmolality - Calculated 285 mOsm/kg Calcium 8.4 mg/dL Protein, Total 6.9 g/dL Albumin 3.7 g/dL Globulin 3.2 g/dL Bilirubin, Total 0.4 mg/dL ALT (SGPT) 14 U/L AST (SGOT) 39 U/L Alkaline Phosphatase 131 IU/L WBC 16.6 10 3/uL RBC 4.31 10 6/uL HGB 12.9 g/dL HCT 40.3 % MCV 93.5 fl MCH 29.9 pg MCHC 32.0 g/dL RDW 17.8 % Platelet Count 290 10 3/cmm MPV 9.9 fL Neutrophils 12.92 10 3/uL Lymphocytes 2.1 10 3/uL Monocytes 1.1 10 3/uL Eosinophils 0.1 10 3/uL Basophils 0.1 10 3/uL Neutrophil % 77.6 % Lymphocyte % 12.4 % Monocyte % 6.7 % Eosinophil % 0.8 % Basophils % 0.5 % NRBC % 0 % Test performed on Aug 21, 2021 12:09 CA 19-9 12.58 U/mL CEA 2.6 ng/mL Problem List: 1. 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 This is presumed to be from a primary adenocarcinoma of the appendix, though it does not appear that a primary lesion was actually identified. He had associated malignant ascites. 2. Hypertension. 3. Hyperlipidemia. 4. Type 2 diabetes. 5. GERD. 6. History of diverticulitis. 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 This was presumed to be from a primary adenocarcinoma of the appendix, though it does not appear that a primary lesion was actually identified. He had associated malignant ascites. The diagnosis was confirmed by CT directed biopsy of the omentum. He was recommended to begin palliative chemotherapy with a modified FOLFOX regimen. He began cycle 1 on 01/28/2021. It was complicated by weakness, severe nausea/vomiting, and prolonged anorexia. He required IV hydration and IV antiemetics, but he did recover. He was able to proceed with cycle 2 on 02/11/2021 at that point he did have a dose reduction in the oxaliplatin and the 5-FU infusion. He had subsequently tolerated the chemotherapy well. He returned to [facility] after completing 4 cycles of treatment. On evaluation there, he did appear to have evidence of response, including a significant decline in his CA-125 level. On 04/08/2021 he continued with his 5th cycle of treatment with the oxaliplatin increased to the full dosage and with addition of Avastin to the regimen. He was unable to continue treatment at 2-week intervals. He began cycle 8 on 05/27/2021. During that time his CA-125 levels had fluctuated somewhat, but overall there was an increase. He then had follow-up again at [facility] and his evaluation there did show evidence of disease progression. Per recommendations, he then returned here and he began further treatment with a FOLFIRI chemotherapy regimen. His 1st cycle was administered with reduced dosages of the 5-FU infusion and the irinotecan and with no 5-FU bolus. He tolerated it with just very mild side effects and with cycle 2 the irinotecan dosage was escalated from 150 to 165 mg/m???. With cycle 4 Neulasta was added for neutropenia. He completed his 5th cycle of treatment on 08/05/2021. He has been having some diarrhea, but he otherwise seems to be tolerating the treatment well. There has been some gradual decline in his clinical status and on his repeat CT abdomen/pelvis last week there were findings suggesting mild disease progression, including an increase in left pleural effusion and mild increased abdominal/pelvic ascites. That study also showed some dilated small bowel loops suggesting possible early or partial small bowel obstruction. At this point he will proceed with cycle 6 of FOLFIRI chemotherapy. The dosages remain the same, and he also will continue Neulasta prophylactically. He is due for follow-up at [facility] in September. Signed By: Lazaro Hernandez M.D. <<Signature on File>>
[2021-08-26] MEDS: sodium chloride 0.9% 1,000 ML 999 ML IV (13:00)
[2021-08-26 15:37] LABS: Methylmalonic Acid 201 nmol/L (87-318)
== END 2021-09-01 23:59 | disposition home or self-care (01) ==
LOC: ONCMED 06:36
PROVIDERS: Internal Medicine Medical Oncology; Nurse Practitioner; PCP Family Medicine; Visit Provider Internal Medicine Hematology & Oncology
DX: Z51.11 Encounter for antineoplastic chemotherapy (principal); C18.1 Malignant neoplasm of appendix; C78.6 Secondary malignant neoplasm of retroperitoneum and peritoneum; R18.0 Malignant ascites; I10 Essential (primary) hypertension; E78.5 Hyperlipidemia, unspecified; E11.9 Type 2 diabetes mellitus without complications; K21.9 Gastro-esophageal reflux disease without esophagitis; R97.8 Other abnormal tumor markers; Z87.19 Personal history of other diseases of the digestive system; Z79.899 Other long term (current) drug therapy
CPT/HCPCS: 36591; 74177; 80053; 80061; 82378; 82607; 82746; 83036; 83090; 83921; 84439; 84443; 85025; 86301; 86304; 96360; 96361; 96365; 96367; 96372; 96375; 96413; 96415; 96416; 96523; 99214; 99215; J0461; J1100; J1453; J2405; J2469; J3490; J7030; J9190; J9206; Q5120; Q9967

== ENCOUNTER 2021-09-24 06:28 | Outpatient (RCR) | payer MEDICARE, OTHER, SELFPAY ==
[2021-09-09] MEDS: palonosetron 0.25 mg/5 mL SDV IV (11:10)
[2021-09-09] MEDS: dextrose 5% 250 ML 75 ML IV (11:10)
[2021-09-09] MEDS: famotidine 20 mg/2 mL INJ IVP (11:11)
[2021-09-09] MEDS: fosaprepitant 150 MG in sodium chloride 0.9% 150 ML 300 MG IV (11:15)
[2021-09-09] MEDS: OLANZapine 5 mg TABLET PO (11:15)
[2021-09-11] MEDS: sodium chloride 0.9% 500 ML 999 ML IV (10:15)
[2021-09-22 11:31] LABS: Basophils % 0.1 %; Eosinophils # 0.1 10^3/uL (0.0-0.8); Eosinophils % 0.8 %; Hematocrit 41.2 % (42.0-52.0); Hemoglobin 13.1 g/dL (11.7-16.6); Lymphocytes # 1.3 10^3/uL (0.8-4.8); Lymphocytes % 17.2 %; Mean Corpuscular HGB Conc 31.8 g/dL (30.0-36.0); Mean Corpuscular Hemoglobin 30.1 pg (28.0-34.0); Mean Corpuscular Volume 94.7 fl (80-94); Mean Platelet Volume 9.7 fL (7.4-10.4); Monocytes # 0.7 10^3/uL (0.2-0.9); Monocytes % 8.8 %; Neutrophils # 5.37 10^3/uL (1.8-7.7); Neutrophils % 72.7 %; Nucleated Red Blood Cells % 0 %; Platelet Count 259 10^3/cmm (130-400); Red Blood Count 4.35 10^6/uL (4.1-5.3); Red Cell Distribution Width 16.4 % (12.1-15.1); White Blood Count 7.4 10^3/uL (4.0-10.0)
[2021-09-22 11:53] LABS: Alanine Aminotransferase 14 U/L (0-41); Alkaline Phosphatase 102 IU/L (40-130); Anion Gap 19.3 (5-19); Aspartate Amino Transferase 41 U/L (0-40); Blood Urea Nitrogen 15 mg/dL (8-23); Calcium 8.8 mg/dL (8.5-10.5); Carbon Dioxide 23 mmol/L (22-29); Chloride 100 mmol/L (98-107); Globulin 2.8 g/dL (1.3-4.6); Glomerular Filtration Rate 95.6 mL/min (90-130); Glucose 199 mg/dL (65-115); Osmolality Calculated 292 mOsm/kg (285-295); Potassium 4.3 mmol/L (3.5-5.1); Sodium 138 mmol/L (136-145); Total Bilirubin 0.4 mg/dL (0.15-1.2); Total Protein 6.8 g/dL (6.6-8.7)
[2021-09-22] MEDS: dextrose 5% 250 ML 75 ML IV (12:05)
[2021-09-22] MEDS: palonosetron 0.25 mg/5 mL SDV IV (12:05)
[2021-09-22] MEDS: famotidine 20 mg/2 mL INJ IVP (12:06)
[2021-09-22] MEDS: OLANZapine 5 mg TABLET PO (12:08)
[2021-09-22] MEDS: fosaprepitant 150 MG in sodium chloride 0.9% 150 ML 300 MG IV (12:25)
[2021-09-24] MEDS: sodium chloride 0.9% 500 ML 999 ML IV (12:46)
[2021-09-24] MEDS: pegfilgrastim-bmez 6 mg/0.6 mL SYR SUBCUT (13:22)
== END 2021-10-02 23:59 | disposition home or self-care (01) ==
LOC: ONCMED 06:28
PROVIDERS: PCP Family Medicine; Visit Provider Internal Medicine Hematology & Oncology
DX: Z51.11 Encounter for antineoplastic chemotherapy (principal); C18.1 Malignant neoplasm of appendix; C78.6 Secondary malignant neoplasm of retroperitoneum and peritoneum; E11.9 Type 2 diabetes mellitus without complications
CPT/HCPCS: 80053; 85025; 96360; 96367; 96368; 96372; 96375; 96413; 96415; 96416; J0461; J1100; J1453; J2469; J3490; J7040; J9190; J9206; Q5120

== ENCOUNTER 2021-10-23 06:38 | Outpatient (RCR) | payer MEDICARE, OTHER, SELFPAY ==
[2021-10-07 09:53] LABS: Basophils # 0.1 10^3/uL (0.0-0.1); Basophils % 0.3 %; Eosinophils # 0.1 10^3/uL (0.0-0.8); Eosinophils % 0.5 %; Hemoglobin 13.1 g/dL (11.7-16.6); Lymphocytes % 11.2 %; Mean Corpuscular HGB Conc 31.2 g/dL (30.0-36.0); Mean Corpuscular Hemoglobin 30.3 pg (28.0-34.0); Mean Corpuscular Volume 97.2 fl (80-94); Mean Platelet Volume 9.8 fL (7.4-10.4); Monocytes # 0.9 10^3/uL (0.2-0.9); Monocytes % 5.1 %; Neutrophils # 14.11 10^3/uL (1.8-7.7); Neutrophils % 81.4 %; Nucleated Red Blood Cells % 0 %; Platelet Count 208 10^3/cmm (130-400); Red Blood Count 4.32 10^6/uL (4.1-5.3); Red Cell Distribution Width 16.8 % (12.1-15.1); White Blood Count 17.3 10^3/uL (4.0-10.0)
[2021-10-07 10:20] LABS: Alanine Aminotransferase 13 U/L (0-41); Albumin Level 3.9 g/dL (3.5-5.2); Alkaline Phosphatase 125 IU/L (40-130); Anion Gap 19.9 (5-19); Aspartate Amino Transferase 38 U/L (0-40); Blood Urea Nitrogen 13 mg/dL (8-23); CA 125 44.8 U/mL (0-35); Calcium 8.6 mg/dL (8.5-10.5); Carbon Dioxide 22 mmol/L (22-29); Chloride 99 mmol/L (98-107); Glomerular Filtration Rate 95.6 mL/min (90-130); Glucose 176 mg/dL (65-115); Osmolality Calculated 288 mOsm/kg (285-295); Potassium 3.9 mmol/L (3.5-5.1); Sodium 137 mmol/L (136-145); Total Bilirubin 0.3 mg/dL (0.15-1.2); Total Protein 6.9 g/dL (6.6-8.7)
[2021-10-07] MEDS: dextrose 5% 250 ML 75 ML IV (12:05)
[2021-10-07] MEDS: palonosetron 0.25 mg/5 mL SDV IV (12:05)
[2021-10-07] MEDS: famotidine 20 mg/2 mL INJ IVP (12:06)
[2021-10-07] MEDS: OLANZapine 5 mg TABLET PO (12:10)
[2021-10-07] MEDS: fosaprepitant 150 MG in sodium chloride 0.9% 150 ML 300 MG IV (12:20)
--- NOTE | 2021-10-07 19:42 | ONC FU_ITS ---
Dr. Hernandez Patient Follow-Up Note Patient: Clark Antony Unit #: [id number]: 1950 Dicatated By: Lazaro Hernandez M.D.Date of Visit:Oct 07, 2021 Onc Med Follow-up/Prog Note Chief Complaint: Peritoneal carcinomatosis. 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 He had presented with complaints of abdominal pain and postprandial bloating, dating back to at least October 2019. His initial CT abdomen/pelvis, from 10/11/2019, showed a focal area of narrowing involving the proximal sigmoid colon. Findings of diverticulitis described on a previous study from September 2019 were noted to have resolved. EGD and colonoscopy were unrevealing. His symptoms continue to worsen. Repeat CT scans in August 2020 showed interval development of moderate-sized ascites and a small left pleural effusion. Wall thickening was again noted and a small portion of the proximal sigmoid colon. Paracentesis and subsequent left thoracentesis revealed cytology negative fluids. PET/CT on 10/18/2020 showed a 2 cm area of abnormal activity in the right perianal region, SUV 12.0, with high probability of malignancy. Tiny, scattered perirectal nodes were too small to characterize. There was evidence of mesenteric edema, a small amount of ascites, and a small left pleural effusion. Omental stranding was felt to be likely related to edema. Pelvic MRI on 10/27/2020 showed no definite abnormalities to correspond with the uptake in the right rectal area noted on the PET/CT. Mild diffuse thickening and enhancement involving the distal sigmoid colon proximal to the rectum was felt to be nonspecific, neoplasm not excluded. There was no pelvic or inguinal lymphadenopathy or other significant findings noted on that study. He was then seen at the [facility] on 12/02/2020. MRI of the abdomen/pelvis showed omental fatty stranding and small ascites. There was focal sigmoid wall thickening, but unclear whether secondary to under distention and carcinomatosis or sigmoid primary. Sigmoidoscopy with EUS was negative for primary tumor. Peritoneal fluid cytology on repeat paracentesis was positive for rare atypical cells, highly suspicious for adenocarcinoma. 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 Molecular profile analysis was ordered, but with results not reported. He was seen in GI medical oncology by Dr. Rena Gresham on 01/15/2021. 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 His baseline tumor markers included elevated CA-125 at 94.5 U/mL. CEA and CA 19-9 levels were normal. His other medical illnesses include hypertension, hyperlipidemia, type II diabetes, and GERD. He has a history of diverticulitis. He has a history of smoking 1 pack of cigarettes daily for 10 to 12 years, but he quit smoking in 1986. INTERIM HISTORY: He began cycle 1 of modified FOLFOX chemotherapy on 01/28/2021. It was complicated by severe nausea/vomiting and generalized weakness. He had mild neuropathy. He required IV hydration and IV antiemetics for the nausea/vomiting, and he also had prolonged anorexia. He eventually did recover and he was able to continue with cycle 2 on 02/11/2021. Due to the severity of his side effects, he was given a level 1 dose reduction in oxaliplatin and a 20% reduction in the 5-FU dosage. With the modifications, he tolerated the treatment much better, and he was able to continue with cycle 3 on 02/25/2021 and with cycle 4 on 03/21/2021. As of 03/25/2021 his CA-125 level had decreased to 34.1 U/mL. He then had a follow-up visit with Dr. Gresham at [facility]. As he did to be showing some response to the chemotherapy, it was recommended that he continue treatment. He then returned here on 04/08/2021 and proceeded with his 5th cycle of chemotherapy with the oxaliplatin increased back up to the full dosage and with addition of Avastin to the regimen. He tolerated it with acceptable toxicity, and he then continued treatment at 2-week intervals. He began his 8th cycle on 05/27/2021. Duirng that time there were some fluctations in the CA-125 levels, but overall it had increased. Following cycle 8 he had follow-up again at [facility] with Dr. Gresham. His evaluation there did show evidence of disease progression, and it was recommended that he change treatment to a FOLFIRI chemotherapy regimen with a modified dosages of irinotecan and infusional 5-FU, and with omission of the 5-FU bolus and leucovorin. In addition, as there was very limited specimen available on his initial tissue biopsy, it was recommended that he have next generation sequencing obtained by liquid biopsy. On 06/10/2021 he began cycle 1 of FOLFIRI chemotherapy. It was administered at reduced dosages of the 5-FU infusion and irinotecan and without a 5-FU bolus. He tolerated it with minimal toxicity. He continued with cycle 2 on 06/24/2021 with irinotecan dosage increased to 165 mg/m???. With cycle 4 on 07/22/2021 he required addition of Neulasta for neutropenia. He was otherwise tolerating treatment well, and he continued with cycle 5 on 08/05/2021. He had then presented with complaints of persistent nausea along with some discomfort in the lower abdominal area. He was given IV hydration and IV antiemetics. By the time he got home he was feeling better. In the meantime, his CT abdomen/pelvis on 08/21/2021 showed several moderately dilated small bowel loops in the lower abdomen and pelvis with early or incomplete small bowel obstruction not excluded. Stranding and nodularity in the mesentery of the lower abdomen and pelvis was felt to possibly reflect carcinomatosis. A moderate size left basal pleural effusion with compressive atelectasis of the left lower lobe was noted to have increased from the prior study. Also noted was mild increase in abdominal and pelvic ascites. He improved with symptomatic management. He then continued with FOLFIRI cycle 6 on 08/24/2021 and with cycle 7 on 09/09/2021. He had follow-up that [facility] on 09/07/2021. His CT abdomen/pelvis showed stable carcinomatosis compared to the 06/03/2021 study. With those findings, he was recommended to continue his same treatment. He began cycle 8 of FOLFIRI chemotherapy on 09/22/2021. He is seen for a scheduled follow-up visit. He has been feeling pretty good generally. He has limited activity, but is energy is not any worse. He is still able to do light work. ECOG score is 1. His appetite is still not good, but it is slightly better now than it had been. His weight is stable. He has no fever or night sweats. He has noticed some mild irritation in his lower lip. He has otherwise not had sore mouth or throat. He does not complain of cough, and he has not been having shortness of breath or chest pain. He has just a little nausea. He continues to have some acid reflux. His bowels are pretty loose, but he is prone to having constipation with Imodium. He has just very minor abdominal discomfort. Bladder function has been okay. He has no significant joint or bone pain. He does not complain of headache. He has occasional orthostatic lightheadedness. 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 Medications: Ativan 0.5 - 1 Tablet (of 1 mg) Oral q 4 hours, Centrum Men 1 Tablet Oral daily, cleansing time(supplement) 1 Dose(s) Granules daily, Crestor 1 (40 mg) Tablet Oral daily, Esomeprazole Magnesium 1 (40 mg) Capsule Delayed Release Oral daily, Farxiga 1 (10 mg) Tablet Oral daily, metFORMIN HCl 1 (1000 mg) Tablet Oral b.i.d., Prochlorperazine Maleate 1 (10 mg) Tablet Oral q 6 hours PRN Allergies: No Known Allergies. Vital Signs: Performed on Oct 07, 2021 11:20 Height - 68.00 in Weight - 156.6 lbs (HIGH) BSA - 1.84 sq.m BMI - 23.81 Temperature - 98.8 F Pulse - 87 /min Respiration - 16 /min BP - 120/77 mm(hg) O2 Sat - 95 % (LOW) Pain - 0 Fatigue - 0 Physical Examination: Constitutional - He appears somewhat frail generally, Eyes - Sclerae nonicteric. Conjunctivae clear, ENMT - No lesions noted in the oral cavity, Hematologic/Lymphatic - No cervical, clavicular, or axillary adenopathy, Respiratory - Lungs sound clear, Cardiovascular - Heart rhythm is regular. There is no murmur, gallop, or rub noted, Abdomen - Abdomen feels a little softer. Liver and spleen are not enlarged. There is no abdominal mass noted and there is no obvious ascites. There is no inguinal adenopathy, Extremities - No edema, Neurologic - No focal neurologic deficits noted. Lab/Imaging: Test performed on Oct 07, 2021 09:45 Sodium 137 mmol/L Potassium 3.9 mmol/L Chloride 99 mmol/L CO2 22 mmol/L Anion Gap 19.9 BUN 13 mg/dL Creatinine 0.8 mg/dL Cr Clearance (Est) 88.7500 mL/min eGFR 95.6 mL/min Glucose 176 mg/dL Osmolality - Calculated 288 mOsm/kg Calcium 8.6 mg/dL Protein, Total 6.9 g/dL Albumin 3.9 g/dL Globulin 3.0 g/dL Bilirubin, Total 0.3 mg/dL ALT (SGPT) 13 U/L AST (SGOT) 38 U/L Alkaline Phosphatase 125 IU/L WBC 17.3 10 3/uL RBC 4.32 10 6/uL HGB 13.1 g/dL HCT 42.0 % MCV 97.2 fl MCH 30.3 pg MCHC 31.2 g/dL RDW 16.8 % Platelet Count 208 10 3/cmm MPV 9.8 fL Neutrophils 14.11 10 3/uL Lymphocytes 2.0 10 3/uL Monocytes 0.9 10 3/uL Eosinophils 0.1 10 3/uL Basophils 0.1 10 3/uL Neutrophil % 81.4 % Lymphocyte % 11.2 % Monocyte % 5.1 % Eosinophil % 0.5 % Basophils % 0.3 % NRBC % 0 % CA-125 44.8 U/mL Problem List: 1. 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 This is presumed to be from a primary adenocarcinoma of the appendix, though it does not appear that a primary lesion was actually identified. He had associated malignant ascites. 2. Hypertension. 3. Hyperlipidemia. 4. Type 2 diabetes. 5. GERD. 6. History of diverticulitis. 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 This was presumed to be from a primary adenocarcinoma of the appendix, though it does not appear that a primary lesion was actually identified. He had associated malignant ascites. The diagnosis was confirmed by CT directed biopsy of the omentum. He was recommended to begin palliative chemotherapy with a modified FOLFOX regimen. He began cycle 1 on 01/28/2021. It was complicated by weakness, severe nausea/vomiting, and prolonged anorexia. He required IV hydration and IV antiemetics, but he did recover. He was able to proceed with cycle 2 on 02/11/2021 at that point he did have a dose reduction in the oxaliplatin and the 5-FU infusion. He had subsequently tolerated the chemotherapy well. He returned to [facility] after completing 4 cycles of treatment. On evaluation there, he did appear to have evidence of response, including a significant decline in his CA-125 level. On 04/08/2021 he continued with his 5th cycle of treatment with the oxaliplatin increased to the full dosage and with addition of Avastin to the regimen. He was unable to continue treatment at 2-week intervals. He began cycle 8 on 05/27/2021. During that time his CA-125 levels had fluctuated somewhat, but overall there was an increase. He then had follow-up again at [facility] and his evaluation there did show evidence of disease progression. Per recommendations, he then returned here and he began further treatment with a FOLFIRI chemotherapy regimen. His 1st cycle was administered with reduced dosages of the 5-FU infusion and the irinotecan and with no 5-FU bolus. He tolerated it with just very mild side effects and with cycle 2 the irinotecan dosage was escalated from 150 to 165 mg/m???. With cycle 4 Neulasta was added for neutropenia. He completed his 5th cycle of treatment on 08/05/2021. He has been having some diarrhea, but he otherwise seems to be tolerating the treatment well. There has been some gradual decline in his clinical status and on his repeat CT abdomen/pelvis last week there were findings suggesting mild disease progression, including an increase in left pleural effusion and mild increased abdominal/pelvic ascites. That study also showed some dilated small bowel loops suggesting possible early or partial small bowel obstruction. However, he improved with symptomatic management and was able to continue chemotherapy at 2-week intervals. He had follow-up at [facility] on 09/07/2021. His CT scans there showed stable findings compared to the June 2021 study, and he was recommended to continue his same treatment. He proceeded with cycle 8 of FOLFIRI chemotherapy on 09/22/2021. Overall, he continues to tolerate the chemotherapy with acceptable toxicity. He does appear to be showing some clinical benefit, and he will proceed now with his ninth cycle of treatment. The dosages will remain the same. He returns in 2 weeks. Signed By: Lazaro Hernandez M.D. <<Signature on File>>
[2021-10-21 11:30] LABS: Basophils % 0.2 %; Eosinophils # 0.1 10^3/uL (0.0-0.8); Eosinophils % 0.8 %; Hemoglobin 12.6 g/dL (11.7-16.6); Lymphocytes # 1.2 10^3/uL (0.8-4.8); Mean Corpuscular HGB Conc 31.5 g/dL (30.0-36.0); Mean Corpuscular Hemoglobin 30.2 pg (28.0-34.0); Mean Corpuscular Volume 95.9 fl (80-94); Mean Platelet Volume 9.7 fL (7.4-10.4); Monocytes # 0.6 10^3/uL (0.2-0.9); Monocytes % 6.6 %; Nucleated Red Blood Cells % 0 %; Platelet Count 302 10^3/cmm (130-400); Red Blood Count 4.17 10^6/uL (4.1-5.3); Red Cell Distribution Width 16.3 % (12.1-15.1); White Blood Count 8.3 10^3/uL (4.0-10.0)
[2021-10-21 11:57] LABS: Alanine Aminotransferase 13 U/L (0-41); Albumin Level 4.1 g/dL (3.5-5.2); Alkaline Phosphatase 99 IU/L (40-130); Aspartate Amino Transferase 33 U/L (0-40); Blood Urea Nitrogen 19 mg/dL (8-23); Calcium 8.7 mg/dL (8.5-10.5); Carbon Dioxide 24 mmol/L (22-29); Chloride 98 mmol/L (98-107); Globulin 2.4 g/dL (1.3-4.6); Glomerular Filtration Rate 95.6 mL/min (90-130); Glucose 191 mg/dL (65-115); Osmolality Calculated 287 mOsm/kg (285-295); Sodium 135 mmol/L (136-145); Total Bilirubin 0.4 mg/dL (0.15-1.2); Total Protein 6.5 g/dL (6.6-8.7)
[2021-10-21] MEDS: famotidine 20 mg/2 mL INJ IVP (13:24)
[2021-10-21] MEDS: palonosetron 0.25 mg/5 mL SDV IV (13:25)
[2021-10-21] MEDS: dextrose 5% 250 ML 75 ML IV (13:25)
[2021-10-21] MEDS: fosaprepitant 150 MG in sodium chloride 0.9% 150 ML 300 MG IV (13:26)
[2021-10-21] MEDS: OLANZapine 5 mg TABLET PO (14:25)
[2021-10-23] MEDS: sodium chloride 0.9% 500 ML 999 ML IV (11:20)
[2021-10-23] MEDS: pegfilgrastim-bmez 6 mg/0.6 mL SYR SUBCUT (11:36)
== END 2021-11-02 23:59 | disposition home or self-care (01) ==
LOC: ONCMED 06:38
PROVIDERS: Internal Medicine Medical Oncology; Nurse Practitioner Family; PCP Family Medicine; Visit Provider Internal Medicine Hematology & Oncology
DX: Z51.11 Encounter for antineoplastic chemotherapy (principal); C18.1 Malignant neoplasm of appendix; C78.6 Secondary malignant neoplasm of retroperitoneum and peritoneum; R18.0 Malignant ascites; E11.9 Type 2 diabetes mellitus without complications; I10 Essential (primary) hypertension; E78.5 Hyperlipidemia, unspecified; K21.9 Gastro-esophageal reflux disease without esophagitis; Z87.19 Personal history of other diseases of the digestive system; Z79.899 Other long term (current) drug therapy; Z79.4 Long term (current) use of insulin
CPT/HCPCS: 80053; 85025; 86304; 96360; 96367; 96372; 96375; 96413; 96415; 96416; 96523; 99215; J0461; J1100; J1453; J2469; J3490; J7040; J9190; J9206; Q5120

== ENCOUNTER 2021-11-20 06:46 | Outpatient (RCR) | payer MEDICARE, OTHER, SELFPAY ==
[2021-11-04 07:48] LABS: Basophils # 0.1 10^3/uL (0.0-0.1); Basophils % 0.6 %; Eosinophils # 0.1 10^3/uL (0.0-0.8); Eosinophils % 0.7 %; Hemoglobin 13.2 g/dL (11.7-16.6); Lymphocytes # 2.7 10^3/uL (0.8-4.8); Lymphocytes % 13.5 %; Mean Corpuscular HGB Conc 31.4 g/dL (30.0-36.0); Mean Corpuscular Hemoglobin 30.1 pg (28.0-34.0); Mean Corpuscular Volume 95.9 fl (80-94); Mean Platelet Volume 9.7 fL (7.4-10.4); Monocytes # 1.1 10^3/uL (0.2-0.9); Monocytes % 5.4 %; Neutrophils % 76.3 %; Nucleated Red Blood Cells % 0 %; Platelet Count 241 10^3/cmm (130-400); Red Blood Count 4.38 10^6/uL (4.1-5.3); Red Cell Distribution Width 16.5 % (12.1-15.1); White Blood Count 19.8 10^3/uL (4.0-10.0)
[2021-11-04 08:18] LABS: Alanine Aminotransferase 14 U/L (0-41); Albumin Level 4.1 g/dL (3.5-5.2); Alkaline Phosphatase 234 IU/L (40-130); Anion Gap 18.1 (5-19); Aspartate Amino Transferase 40 U/L (0-40); Blood Urea Nitrogen 12 mg/dL (8-23); Calcium 9.4 mg/dL (8.5-10.5); Carbon Dioxide 23 mmol/L (22-29); Chloride 101 mmol/L (98-107); Glomerular Filtration Rate 111.5 mL/min (90-130); Glucose 133 mg/dL (65-115); Osmolality Calculated 288 mOsm/kg (285-295); Potassium 4.1 mmol/L (3.5-5.1); Sodium 138 mmol/L (136-145); Total Bilirubin 0.3 mg/dL (0.15-1.2); Total Protein 7.1 g/dL (6.6-8.7)
--- NOTE | 2021-11-04 09:03 | ONC FU_ITS ---
Dr. Hernandez Patient Follow-Up Note Patient: Clark Antony Unit #: [id number]: 1950 Dicatated By: Lazaro Hernandez M.D.Date of Visit:Nov 04, 2021 Onc Med Follow-up/Prog Note Chief Complaint: Peritoneal carcinomatosis. 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 He had presented with complaints of abdominal pain and postprandial bloating, dating back to at least October 2019. His initial CT abdomen/pelvis, from 10/11/2019, showed a focal area of narrowing involving the proximal sigmoid colon. Findings of diverticulitis described on a previous study from September 2019 were noted to have resolved. EGD and colonoscopy were unrevealing. His symptoms continue to worsen. Repeat CT scans in August 2020 showed interval development of moderate-sized ascites and a small left pleural effusion. Wall thickening was again noted and a small portion of the proximal sigmoid colon. Paracentesis and subsequent left thoracentesis revealed cytology negative fluids. PET/CT on 10/18/2020 showed a 2 cm area of abnormal activity in the right perianal region, SUV 12.0, with high probability of malignancy. Tiny, scattered perirectal nodes were too small to characterize. There was evidence of mesenteric edema, a small amount of ascites, and a small left pleural effusion. Omental stranding was felt to be likely related to edema. Pelvic MRI on 10/27/2020 showed no definite abnormalities to correspond with the uptake in the right rectal area noted on the PET/CT. Mild diffuse thickening and enhancement involving the distal sigmoid colon proximal to the rectum was felt to be nonspecific, neoplasm not excluded. There was no pelvic or inguinal lymphadenopathy or other significant findings noted on that study. He was then seen at the [facility] on 12/02/2020. MRI of the abdomen/pelvis showed omental fatty stranding and small ascites. There was focal sigmoid wall thickening, but unclear whether secondary to under distention and carcinomatosis or sigmoid primary. Sigmoidoscopy with EUS was negative for primary tumor. Peritoneal fluid cytology on repeat paracentesis was positive for rare atypical cells, highly suspicious for adenocarcinoma. 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 Molecular profile analysis was ordered, but with results not reported. He was seen in GI medical oncology by Dr. Rena Gresham on 01/15/2021. 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 His baseline tumor markers included elevated CA-125 at 94.5 U/mL. CEA and CA 19-9 levels were normal. His other medical illnesses include hypertension, hyperlipidemia, type II diabetes, and GERD. He has a history of diverticulitis. He has a history of smoking 1 pack of cigarettes daily for 10 to 12 years, but he quit smoking in 1986. INTERIM HISTORY: He began cycle 1 of modified FOLFOX chemotherapy on 01/28/2021. It was complicated by severe nausea/vomiting and generalized weakness. He had mild neuropathy. He required IV hydration and IV antiemetics for the nausea/vomiting, and he also had prolonged anorexia. He eventually did recover and he was able to continue with cycle 2 on 02/11/2021. Due to the severity of his side effects, he was given a level 1 dose reduction in oxaliplatin and a 20% reduction in the 5-FU dosage. With the modifications, he tolerated the treatment much better, and he was able to continue with cycle 3 on 02/25/2021 and with cycle 4 on 03/21/2021. As of 03/25/2021 his CA-125 level had decreased to 34.1 U/mL. He then had a follow-up visit with Dr. Gresham at [facility] [place]. As he did to be showing some response to the chemotherapy, it was recommended that he continue treatment. He then returned here on 04/08/2021 and proceeded with his 5th cycle of chemotherapy with the oxaliplatin increased back up to the full dosage and with addition of Avastin to the regimen. He tolerated it with acceptable toxicity, and he then continued treatment at 2-week intervals. He began his 8th cycle on 05/27/2021. Duirng that time there were some fluctations in the CA-125 levels, but overall it had increased. Following cycle 8 he had follow-up again at [facility] with Dr. Gresham. His evaluation there did show evidence of disease progression, and it was recommended that he change treatment to a FOLFIRI chemotherapy regimen with a modified dosages of irinotecan and infusional 5-FU, and with omission of the 5-FU bolus and leucovorin. In addition, as there was very limited specimen available on his initial tissue biopsy, it was recommended that he have next generation sequencing obtained by liquid biopsy. On 06/10/2021 he began cycle 1 of FOLFIRI chemotherapy. It was administered at reduced dosages of the 5-FU infusion and irinotecan and without a 5-FU bolus. He tolerated it with minimal toxicity. He continued with cycle 2 on 06/24/2021 with irinotecan dosage increased to 165 mg/m???. With cycle 4 on 07/22/2021 he required addition of Neulasta for neutropenia. He was otherwise tolerating treatment well, and he continued with cycle 5 on 08/05/2021. He had then presented with complaints of persistent nausea along with some discomfort in the lower abdominal area. He was given IV hydration and IV antiemetics. By the time he got home he was feeling better. In the meantime, his CT abdomen/pelvis on 08/21/2021 showed several moderately dilated small bowel loops in the lower abdomen and pelvis with early or incomplete small bowel obstruction not excluded. Stranding and nodularity in the mesentery of the lower abdomen and pelvis was felt to possibly reflect carcinomatosis. A moderate size left basal pleural effusion with compressive atelectasis of the left lower lobe was noted to have increased from the prior study. Also noted was mild increase in abdominal and pelvic ascites. He improved with symptomatic management. He then continued with FOLFIRI cycle 6 on 08/24/2021 and with cycle 7 on 09/09/2021. He had follow-up that [facility] on 09/07/2021. His CT abdomen/pelvis showed stable carcinomatosis compared to the 06/03/2021 study. With those findings, he was recommended to continue his same treatment. He continued with cycle 8 of FOLFIRI chemotherapy on 09/22/2021, with cycle 9115 2021, and with cycle 10 on 10/21/2021. He is seen for a scheduled visit. He has been feeling pretty good generally. He continues to have some generalized abdominal discomfort, but no real abdominal pain. His energy has been pretty good. ECOG score is 1. His appetite is about the same. He tries to eat as much as he can. His weight is stable. He has no fever or night sweats. He has not had sore mouth or throat. He does not complain of cough, and he has not been having shortness of breath or chest pain. Lately he has not had much nausea. He has bowels tend to be pretty loose, and he occasionally does have diarrhea. He is managing it adequately with medication. Bladder function has been okay. He has no significant joint or bone pain. He occasionally has headache. He has not been dizzy or lightheaded. 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 Medications: Ativan 0.5 - 1 Tablet (of 1 mg) Oral q 4 hours, Centrum Men 1 Tablet Oral daily, cleansing time(supplement) 1 Dose(s) Granules daily, Crestor 1 (40 mg) Tablet Oral daily, Esomeprazole Magnesium 1 (40 mg) Capsule Delayed Release Oral daily, Farxiga 1 (10 mg) Tablet Oral daily, metFORMIN HCl 1 (1000 mg) Tablet Oral b.i.d., Prochlorperazine Maleate 1 (10 mg) Tablet Oral q 6 hours PRN Allergies: No Known Allergies. Vital Signs: Performed on Nov 04, 2021 08:30 Height - 68.00 in Weight - 157.8 lbs (HIGH) BSA - 1.85 sq.m BMI - 23.99 Temperature - 98.4 F Pulse - 92 /min Respiration - 17 /min BP - 123/71 mm(hg) O2 Sat - 99 % Pain - 0 Fatigue - 0 Physical Examination: Constitutional - He looks pretty good generally, Eyes - Sclerae nonicteric. Conjunctivae clear, ENMT - No lesions noted in the oral cavity, Hematologic/Lymphatic - No cervical, clavicular, or axillary adenopathy, Respiratory - Lungs sound clear, Cardiovascular - Heart rhythm is regular. There is no murmur, gallop, or rub noted, Abdomen - Abdomen is generally firm but with no discrete mass palpable. Liver and spleen are not enlarged. There is no obvious ascites. There is no inguinal adenopathy, Extremities - No edema, Neurologic - No focal neurologic deficits noted. Lab/Imaging: Test performed on Nov 04, 2021 07:35 Sodium 138 mmol/L Potassium 4.1 mmol/L Chloride 101 mmol/L CO2 23 mmol/L Anion Gap 18.1 BUN 12 mg/dL Creatinine 0.7 mg/dL Cr Clearance (Est) 101.4300 mL/min eGFR 111.5 mL/min Glucose 133 mg/dL Osmolality - Calculated 288 mOsm/kg Calcium 9.4 mg/dL Protein, Total 7.1 g/dL Albumin 4.1 g/dL Globulin 3.0 g/dL Bilirubin, Total 0.3 mg/dL ALT (SGPT) 14 U/L AST (SGOT) 40 U/L Alkaline Phosphatase 234 IU/L WBC 19.8 10 3/uL RBC 4.38 10 6/uL HGB 13.2 g/dL HCT 42.0 % MCV 95.9 fl MCH 30.1 pg MCHC 31.4 g/dL RDW 16.5 % Platelet Count 241 10 3/cmm MPV 9.7 fL Neutrophils 15.10 10 3/uL Lymphocytes 2.7 10 3/uL Monocytes 1.1 10 3/uL Eosinophils 0.1 10 3/uL Basophils 0.1 10 3/uL Neutrophil % 76.3 % Lymphocyte % 13.5 % Monocyte % 5.4 % Eosinophil % 0.7 % Basophils % 0.6 % NRBC % 0 % Problem List: 1. 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 This is presumed to be from a primary adenocarcinoma of the appendix, though it does not appear that a primary lesion was actually identified. He had associated malignant ascites. 2. Hypertension. 3. Hyperlipidemia. 4. Type 2 diabetes. 5. GERD. 6. History of diverticulitis. 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 This was presumed to be from a primary adenocarcinoma of the appendix, though it does not appear that a primary lesion was actually identified. He had associated malignant ascites. The diagnosis was confirmed by CT directed biopsy of the omentum. He was recommended to begin palliative chemotherapy with a modified FOLFOX regimen. He began cycle 1 on 01/28/2021. It was complicated by weakness, severe nausea/vomiting, and prolonged anorexia. He required IV hydration and IV antiemetics, but he did recover. He was able to proceed with cycle 2 on 02/11/2021 at that point he did have a dose reduction in the oxaliplatin and the 5-FU infusion. He had subsequently tolerated the chemotherapy well. He returned to [facility] after completing 4 cycles of treatment. On evaluation there, he did appear to have evidence of response, including a significant decline in his CA-125 level. On 04/08/2021 he continued with his 5th cycle of treatment with the oxaliplatin increased to the full dosage and with addition of Avastin to the regimen. He was unable to continue treatment at 2-week intervals. He began cycle 8 on 05/27/2021. During that time his CA-125 levels had fluctuated somewhat, but overall there was an increase. He then had follow-up again at [facility] and his evaluation there did show evidence of disease progression. Per recommendations, he then returned here and he began further treatment with a FOLFIRI chemotherapy regimen. His 1st cycle was administered with reduced dosages of the 5-FU infusion and the irinotecan and with no 5-FU bolus. He tolerated it with just very mild side effects and with cycle 2 the irinotecan dosage was escalated from 150 to 165 mg/m???. With cycle 4 Neulasta was added for neutropenia. He completed his 5th cycle of treatment on 08/05/2021. He has been having some diarrhea, but he otherwise seems to be tolerating the treatment well. There has been some gradual decline in his clinical status and on his repeat CT abdomen/pelvis last week there were findings suggesting mild disease progression, including an increase in left pleural effusion and mild increased abdominal/pelvic ascites. That study also showed some dilated small bowel loops suggesting possible early or partial small bowel obstruction. However, he improved with symptomatic management and was able to continue chemotherapy at 2-week intervals. He had follow-up at [facility] on 09/07/2021. His CT scans there showed stable findings compared to the June 2021 study, and he was recommended to continue his same treatment. He has now completed 10 cycles. He continues to tolerate it well, thus far with no obvious disease progression. He will proceed with cycle 11 of FOLFIRI chemotherapy. The dosages will remain the same. As his white blood cell count is elevated, Neulasta will be omitted with this cycle. He returns in 2 weeks. Signed By: Lazaro Hernandez M.D. <<Signature on File>>
[2021-11-04] MEDS: dextrose 5% 250 ML 75 ML IV (09:10)
[2021-11-04] MEDS: palonosetron 0.25 mg/5 mL SDV IV (09:10)
[2021-11-04] MEDS: famotidine 20 mg/2 mL INJ IVP (09:11)
[2021-11-04] MEDS: fosaprepitant 150 MG in sodium chloride 0.9% 150 ML 300 MG IV (09:15)
[2021-11-04] MEDS: OLANZapine 5 mg TABLET PO (09:16)
[2021-11-18 09:27] LABS: Basophils % 0.3 %; Eosinophils # 0.1 10^3/uL (0.0-0.8); Hematocrit 39.5 % (42.0-52.0); Hemoglobin 12.4 g/dL (11.7-16.6); Lymphocytes # 1.8 10^3/uL (0.8-4.8); Lymphocytes % 18.8 %; Mean Corpuscular HGB Conc 31.4 g/dL (30.0-36.0); Mean Corpuscular Hemoglobin 30.2 pg (28.0-34.0); Mean Corpuscular Volume 96.3 fl (80-94); Mean Platelet Volume 9.3 fL (7.4-10.4); Monocytes # 0.8 10^3/uL (0.2-0.9); Monocytes % 8.2 %; Nucleated Red Blood Cells % 0 %; Platelet Count 354 10^3/cmm (130-400); Red Cell Distribution Width 16.1 % (12.1-15.1); White Blood Count 9.7 10^3/uL (4.0-10.0)
[2021-11-18 09:44] LABS: Alanine Aminotransferase 12 U/L (0-41); Albumin Level 4.3 g/dL (3.5-5.2); Alkaline Phosphatase 100 IU/L (40-130); Aspartate Amino Transferase 34 U/L (0-40); Blood Urea Nitrogen 14 mg/dL (8-23); Calcium 9.1 mg/dL (8.5-10.5); Carbon Dioxide 27 mmol/L (22-29); Chloride 100 mmol/L (98-107); Globulin 2.5 g/dL (1.3-4.6); Glomerular Filtration Rate 95.6 mL/min (90-130); Glucose 154 mg/dL (65-115); Osmolality Calculated 288 mOsm/kg (285-295); Sodium 137 mmol/L (136-145); Total Bilirubin 0.3 mg/dL (0.15-1.2); Total Protein 6.8 g/dL (6.6-8.7)
--- NOTE | 2021-11-18 11:11 | ONC FU_ITS ---
Lissette Fonseca Progress Note Patient: Clark Antony Unit #: [id number]: 1950 Dicatated By: Lissette Fonseca N.P.Date of Visit:Nov 18, 2021 Onc MED Follow-up/Prog Note Chief Complaint: Peritoneal carcinomatosis. 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 He had presented with complaints of abdominal pain and postprandial bloating, dating back to at least October 2019. His initial CT abdomen/pelvis, from 10/11/2019, showed a focal area of narrowing involving the proximal sigmoid colon. Findings of diverticulitis described on a previous study from September 2019 were noted to have resolved. EGD and colonoscopy were unrevealing. His symptoms continue to worsen. Repeat CT scans in August 2020 showed interval development of moderate-sized ascites and a small left pleural effusion. Wall thickening was again noted and a small portion of the proximal sigmoid colon. Paracentesis and subsequent left thoracentesis revealed cytology negative fluids. PET/CT on 10/18/2020 showed a 2 cm area of abnormal activity in the right perianal region, SUV 12.0, with high probability of malignancy. Tiny, scattered perirectal nodes were too small to characterize. There was evidence of mesenteric edema, a small amount of ascites, and a small left pleural effusion. Omental stranding was felt to be likely related to edema. Pelvic MRI on 10/27/2020 showed no definite abnormalities to correspond with the uptake in the right rectal area noted on the PET/CT. Mild diffuse thickening and enhancement involving the distal sigmoid colon proximal to the rectum was felt to be nonspecific, neoplasm not excluded. There was no pelvic or inguinal lymphadenopathy or other significant findings noted on that study. He was then seen at the [facility] on 12/02/2020. MRI of the abdomen/pelvis showed omental fatty stranding and small ascites. There was focal sigmoid wall thickening, but unclear whether secondary to under distention and carcinomatosis or sigmoid primary. Sigmoidoscopy with EUS was negative for primary tumor. Peritoneal fluid cytology on repeat paracentesis was positive for rare atypical cells, highly suspicious for adenocarcinoma. 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 Molecular profile analysis was ordered, but with results not reported. He was seen in GI medical oncology by Dr. Rena Gresham on 01/15/2021. 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 His baseline tumor markers included elevated CA-125 at 94.5 U/mL. CEA and CA 19-9 levels were normal. His other medical illnesses include hypertension, hyperlipidemia, type II diabetes, and GERD. He has a history of diverticulitis. He has a history of smoking 1 pack of cigarettes daily for 10 to 12 years, but he quit smoking in 1986. INTERIM HISTORY: He began cycle 1 of modified FOLFOX chemotherapy on 01/28/2021. It was complicated by severe nausea/vomiting and generalized weakness. He had mild neuropathy. He required IV hydration and IV antiemetics for the nausea/vomiting, and he also had prolonged anorexia. He eventually did recover and he was able to continue with cycle 2 on 02/11/2021. Due to the severity of his side effects, he was given a level 1 dose reduction in oxaliplatin and a 20% reduction in the 5-FU dosage. With the modifications, he tolerated the treatment much better, and he was able to continue with cycle 3 on 02/25/2021 and with cycle 4 on 03/21/2021. As of 03/25/2021 his CA-125 level had decreased to 34.1 U/mL. He then had a follow-up visit with Dr. Gresham at [facility]. As he did to be showing some response to the chemotherapy, it was recommended that he continue treatment. He then returned here on 04/08/2021 and proceeded with his 5th cycle of chemotherapy with the oxaliplatin increased back up to the full dosage and with addition of Avastin to the regimen. He tolerated it with acceptable toxicity, and he then continued treatment at 2-week intervals. He began his 8th cycle on 05/27/2021. Duirng that time there were some fluctations in the CA-125 levels, but overall it had increased. Following cycle 8 he had follow-up again at [facility] with Dr. Gresham. His evaluation there did show evidence of disease progression, and it was recommended that he change treatment to a FOLFIRI chemotherapy regimen with a modified dosages of irinotecan and infusional 5-FU, and with omission of the 5-FU bolus and leucovorin. In addition, as there was very limited specimen available on his initial tissue biopsy, it was recommended that he have next generation sequencing obtained by liquid biopsy. On 06/10/2021 he began cycle 1 of FOLFIRI chemotherapy. It was administered at reduced dosages of the 5-FU infusion and irinotecan and without a 5-FU bolus. He tolerated it with minimal toxicity. He continued with cycle 2 on 06/24/2021 with irinotecan dosage increased to 165 mg/m???. With cycle 4 on 07/22/2021 he required addition of Neulasta for neutropenia. He was otherwise tolerating treatment well, and he continued with cycle 5 on 08/05/2021. He had then presented with complaints of persistent nausea along with some discomfort in the lower abdominal area. He was given IV hydration and IV antiemetics. By the time he got home he was feeling better. In the meantime, his CT abdomen/pelvis on 08/21/2021 showed several moderately dilated small bowel loops in the lower abdomen and pelvis with early or incomplete small bowel obstruction not excluded. Stranding and nodularity in the mesentery of the lower abdomen and pelvis was felt to possibly reflect carcinomatosis. A moderate size left basal pleural effusion with compressive atelectasis of the left lower lobe was noted to have increased from the prior study. Also noted was mild increase in abdominal and pelvic ascites. He improved with symptomatic management. He then continued with FOLFIRI cycle 6 on 08/24/2021 and with cycle 7 on 09/09/2021. He had follow-up that [facility] on 09/07/2021. His CT abdomen/pelvis showed stable carcinomatosis compared to the 06/03/2021 study. With those findings, he was recommended to continue his same treatment. He continued with cycle 8 of FOLFIRI chemotherapy on 09/22/2021, with cycle 9115 2021, and with cycle 10 on 10/21/2021. Presents today for follow-up. He states he has some mild fatigue but otherwise feeling well. He denies problems with his appetite. No fever, chills, or night sweats. No shortness of breath, cough, chest pain. He experiences nausea right after treatment but is well controlled with medication. He also experiences constipation right after treatment but then it returned to loose stools. No urinary symptoms. No joint or muscle pain. He continues to have some numbness and tingling in his fingers and toes but it is worse in his toes. Review Of Symptoms:See above. Past Medical History: Gastroesophageal reflux disease History of diverticulitis Hyperlipidemia Hypertension Type II diabetes Past Surgical History: Excision of skin cancer from the left cheek Hemorrhoidectomy Covid vaccine #3 in 2020 Left subclavian vein PowerPort placement Dr. Cole in [address] directed omental biopsy in 2020 Sigmoidoscopy with EUS in 2020 Covid vaccine #2 in 2020 Covid vaccine #1 in 2020 EGD and colonoscopy in 2019 Allergies: No Known Allergies. Medications: Ativan 0.5 - 1 Tablet (of 1 mg) Oral q 4 hours Centrum Men 1 Tablet Oral daily cleansing time(supplement) 1 Dose(s) Granules daily Crestor 1 (40 mg) Tablet Oral daily Esomeprazole Magnesium 1 (40 mg) Capsule Delayed Release Oral daily Farxiga 1 (10 mg) Tablet Oral daily metFORMIN HCl 1 (1000 mg) Tablet Oral b.i.d. Prochlorperazine Maleate 1 (10 mg) Tablet Oral q 6 hours PRN Family History: Mr. Antony's mother is alive. Mr. Antony's father at age 83: brain cancer, and melanoma. Father with melanoma at age 83. Mother is still living at age 93. She has depression and she is in a long term. One brother also has depression. Another brother is in good health. Social History: Mr. Antony is . Mr. Antony quit smoking 35 years ago but had smoked 1.0 pack/day for 11 years. He drinks occasionally. He has history of smoking 1 pack of cigarettes daily for 10 to 12 years. He quit smoking in 1986. He has occasional alcohol use. Physical Examination: Performed on Nov 18, 2021 10:34: Height - 68.00 in, Weight - 159.0 lbs (HIGH), BSA - 1.85 sq.m, BMI - 24.18, Temperature - 98.3 F (LOW), Pulse - 100 /min, Respiration - 18 /min, BP - 124/77 mm(hg), O2 Sat - 95 % (LOW), Pain - 0, and Fatigue - 3. Performance Status: 1 - No physically strenuous activity, but ambulatory and able to carry out light or sedentary work (e.g. office work, light house work). (ECOG) Constitutional Alert, cooperative, oriented. Mood and affect appropriate. Appears close to chronological age. Well nourished. Well developed. Respiratory Course breath sounds left lower lobe; No shortness of breath. Cardiovascular Regular rate and rhythm of heart without murmurs, gallops or rubs. Abdomen Non-tender, non-distended, no masses, ascites or hepatosplenomegaly. Good bowel sounds. No guarding or rebound tenderness. Extremities No visible deformities, no cyanosis, clubbing or edema. Pulses 3+ and equal bilaterally. Psychiatric Alert and oriented times three. Coherent speech. Verbalizes understanding of our discussions today. Laboratory: Test performed on Nov 18, 2021 09:15 Sodium 137 mmol/L Potassium 4.0 mmol/L Chloride 100 mmol/L CO2 27 mmol/L Anion Gap 14.0 BUN 14 mg/dL Creatinine 0.8 mg/dL Cr Clearance (Est) 88.7500 mL/min eGFR 95.6 mL/min Glucose 154 mg/dL Osmolality - Calculated 288 mOsm/kg Calcium 9.1 mg/dL Protein, Total 6.8 g/dL Albumin 4.3 g/dL Globulin 2.5 g/dL Bilirubin, Total 0.3 mg/dL ALT (SGPT) 12 U/L AST (SGOT) 34 U/L Alkaline Phosphatase 100 IU/L WBC 9.7 10 3/uL RBC 4.10 10 6/uL HGB 12.4 g/dL HCT 39.5 % MCV 96.3 fl MCH 30.2 pg MCHC 31.4 g/dL RDW 16.1 % Platelet Count 354 10 3/cmm MPV 9.3 fL Neutrophils 6.90 10 3/uL Lymphocytes 1.8 10 3/uL Monocytes 0.8 10 3/uL Eosinophils 0.1 10 3/uL Basophils 0.0 10 3/uL Neutrophil % 71.0 % Lymphocyte % 18.8 % Monocyte % 8.2 % Eosinophil % 1.0 % Basophils % 0.3 % NRBC % 0 % Test performed on Nov 04, 2021 07:35 CA-125 43.0 U/mL Test performed on Aug 21, 2021 12:09 CA 19-9 12.58 U/mL CEA 2.6 ng/mL Impression: 1. 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 This is presumed to be from a primary adenocarcinoma of the appendix, though it does not appear that a primary lesion was actually identified. He had associated malignant ascites. 2. Hypertension. 3. Hyperlipidemia. 4. Type 2 diabetes. 5. GERD. 6. History of diverticulitis. 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 This was presumed to be from a primary adenocarcinoma of the appendix, though it does not appear that a primary lesion was actually identified. He had associated malignant ascites. The diagnosis was confirmed by CT directed biopsy of the omentum. He was recommended to begin palliative chemotherapy with a modified FOLFOX regimen. He began cycle 1 on 01/28/2021. It was complicated by weakness, severe nausea/vomiting, and prolonged anorexia. He required IV hydration and IV antiemetics, but he did recover. He was able to proceed with cycle 2 on 02/11/2021 at that point he did have a dose reduction in the oxaliplatin and the 5-FU infusion. He had subsequently tolerated the chemotherapy well. He returned to [facility] after completing 4 cycles of treatment. On evaluation there, he did appear to have evidence of response, including a significant decline in his CA-125 level. On 04/08/2021 he continued with his 5th cycle of treatment with the oxaliplatin increased to the full dosage and with addition of Avastin to the regimen. He was unable to continue treatment at 2-week intervals. He began cycle 8 on 05/27/2021. During that time his CA-125 levels had fluctuated somewhat, but overall there was an increase. He then had follow-up again at [facility] and his evaluation there did show evidence of disease progression. Per recommendations, he then returned here and he began further treatment with a FOLFIRI chemotherapy regimen. His 1st cycle was administered with reduced dosages of the 5-FU infusion and the irinotecan and with no 5-FU bolus. He tolerated it with just very mild side effects and with cycle 2 the irinotecan dosage was escalated from 150 to 165 mg/m???. With cycle 4 Neulasta was added for neutropenia. He completed his 5th cycle of treatment on 08/05/2021. He has been having some diarrhea, but he otherwise seems to be tolerating the treatment well. There has been some gradual decline in his clinical status and on his repeat CT abdomen/pelvis last week there were findings suggesting mild disease progression, including an increase in left pleural effusion and mild increased abdominal/pelvic ascites. That study also showed some dilated small bowel loops suggesting possible early or partial small bowel obstruction. However, he improved with symptomatic management and was able to continue chemotherapy at 2-week intervals. He had follow-up at [facility] on 09/07/2021. His CT scans there showed stable findings compared to the June 2021 study, and he was recommended to continue his same treatment. He has now completed 11 cycles. He is tolerating his treatment well with FOLFIRI every 2 weeks. We will continue today with cycle 12 and he will return in 2 weeks with CBC and CMP. Signed By: Lissette Fonseca N.P. <<Signature on File>>
[2021-11-18] MEDS: palonosetron 0.25 mg/5 mL SDV IV (11:20)
[2021-11-18] MEDS: dextrose 5% 250 ML 75 ML IV (11:20)
[2021-11-18] MEDS: famotidine 20 mg/2 mL INJ IVP (11:22)
[2021-11-18] MEDS: fosaprepitant 150 MG in sodium chloride 0.9% 150 ML 300 MG IV (11:35)
[2021-11-18] MEDS: OLANZapine 5 mg TABLET PO (11:35)
[2021-11-18 13:45] VITALS: BP 97/56; PULSE 73; RESP 16; TEMP 36.4; O2SAT 94
[2021-11-18 14:00] VITALS: BP 102/63; PULSE 89; RESP 16; TEMP 36.2; O2SAT 98
== END 2021-11-30 23:59 | disposition home or self-care (01) ==
LOC: ONCMED 06:46
PROVIDERS: Internal Medicine Medical Oncology; Nurse Practitioner Family; PCP Family Medicine; Visit Provider Internal Medicine Hematology & Oncology
DX: Z51.11 Encounter for antineoplastic chemotherapy (principal); C18.1 Malignant neoplasm of appendix; C78.5 Secondary malignant neoplasm of large intestine and rectum; R18.0 Malignant ascites; I10 Essential (primary) hypertension; E78.5 Hyperlipidemia, unspecified; E11.9 Type 2 diabetes mellitus without complications; K21.9 Gastro-esophageal reflux disease without esophagitis; Z87.19 Personal history of other diseases of the digestive system; Z79.899 Other long term (current) drug therapy
CPT/HCPCS: 80053; 85025; 86304; 96367; 96372; 96375; 96413; 96415; 96416; 96523; 99215; J0461; J1100; J1453; J2469; J3490; J9190; J9206

== ENCOUNTER 2021-12-22 10:50 | Day surgery (SDC) | payer MEDICARE, OTHER, SELFPAY ==
[2021-12-17 11:58] VITALS: BMI 24.0
[2021-12-22 11:25] VITALS: BP 126/81; PULSE 94; RESP 18; TEMP 36.7; O2SAT 94
--- NOTE | 2021-12-22 12:31 | US_ITS ---
WS: [id number] ULTRASOUND-GUIDED THORACENTESIS, therapeutic and diagnostic. HISTORY: peritoneal carcinomatosis Procedure, risks, and complications were explained to the patient. With the patient in an upright pos ition, the skin over the LEFT posterior thorax was cleansed with ChloraPrep and anesthetized with 1% buffered lidocaine. A 5 Turkish Yueh needle is inserted into the pleural fluid without complication. A pproximately 700 cc of gio pleural fluid is removed without difficulty. Pleural fluid is collected for analysis as requested. / thoracentesis [id number] IMPRESSION: 1. LEFT thoracentesis yielding 700 cc of fluid. 2. Chest radiograph to follow to evaluate for pneumothorax. 3. Pleural fluid specimen collected for analysis as requested.
[2021-12-22 13:15] LABS: INR 0.96 (0.8-1.2)
--- NOTE | 2021-12-22 13:47 | XR_ITS ---
WS: [id number] PORTABLE CHEST HISTORY: Post pneumothorax. COMPARISON: 12/16/2021 CT. No pneumothorax status post LEFT thoracentesis. There is a small residual LEFT pleural effusion and pleural thickening at the lung bases. RIGHT lung is clear. Cardiac size: Normal. Mediastinum/Aorta: Mild atherosclerosis aorta. No osseous abnormality seen. LEFT subclavian Port-A-Cath with tip in the distal SVC. XR/XR chest 1V portable [id number] IMPRESSION: 1. No pneumothorax status post LEFT thoracentesis. 2. Small residual LEFT pleural effusion and pleural thickening.
[2021-12-22 14:15] LABS: Mononuclear %, Pleural Fluid 98 %; Polynuclear Cells, Pleural % 2 %
[2021-12-22 14:32] LABS: Appearance, Pleural Fluid CLEAR (CLEAR); Color, Pleural Fluid Pale Yellow (Pale Yellow); PATH Referal YES
[2021-12-22 14:40] LABS: Total Protein Pleural Fluid 4.4 g/dL
== END 2021-12-22 14:21 | disposition home or self-care (01) ==
PROVIDERS: Radiology Diagnostic Radiology; PCP Family Medicine; Visit Provider Internal Medicine Medical Oncology
PROC: (CPT 32554; principal; 2021-12-22 12:00)
DX: C78.6 Secondary malignant neoplasm of retroperitoneum and peritoneum (principal)
CPT/HCPCS: 32555; 71045; 80500; 82945; 84157; 85610; 87070; 87075; 87205; 88108; 88305; 89050

== ENCOUNTER 2021-12-23 10:16 | Outpatient (CLI) | payer MEDICARE, OTHER, SELFPAY ==
--- NOTE | 2021-12-23 10:33 | XRR_ITS ---
PROCEDURE INFORMATION: Exam: XR Chest Exam date and time: 12/23/2021 10:43 AM Age: 71 years old Clinical indication: Device placement; Other: Post thoracenticis yesterday; Prior surgery; Surgery date: Post-operative (0-2 days); Patient HX: HX of appendix cancer; Additional info: Post thoracentesis yesterday TECHNIQUE: Imaging protocol: XR of the chest. Views: 2 views. COMPARISON: CR XR chest 1V portable [id number] 12/22/2021 1:52 PM FINDINGS: Tubes, catheters and devices: A left subclavian MediPort catheter is present with the tip projecting in the SVC. Lungs: There is stable left basilar opacity consistent with left pleural effusion and left basilar lung mass. The right lung is grossly clear. Pleural spaces: No pneumothorax. Heart/Mediastinum: Unremarkable. No cardiomegaly. Bones/joints: Unremarkable. XR/XR chest 2V* [id number] IMPRESSION: No significant change in the left basilar opacification consistent with left pleural effusion and lung mass.
== END 2021-12-23 10:17 | disposition home or self-care (01) ==
LOC: RAD 10:19
PROVIDERS: PCP Family Medicine; Visit Provider Nurse Practitioner Family
DX: Z98.890 Other specified postprocedural states (principal)
CPT/HCPCS: 71046

== ENCOUNTER 2021-12-25 06:50 | Outpatient (RCR) | payer MEDICARE, OTHER, SELFPAY ==
[2021-12-02 09:43] LABS: Basophils % 0.3 %; Eosinophils # 0.1 10^3/uL (0.0-0.8); Hematocrit 40.6 % (42.0-52.0); Hemoglobin 12.6 g/dL (11.7-16.6); Lymphocytes # 1.6 10^3/uL (0.8-4.8); Lymphocytes % 17.5 %; Mean Corpuscular Hemoglobin 30.1 pg (28.0-34.0); Mean Corpuscular Volume 97.1 fl (80-94); Mean Platelet Volume 9.4 fL (7.4-10.4); Monocytes # 0.8 10^3/uL (0.2-0.9); Monocytes % 8.2 %; Neutrophils # 6.78 10^3/uL (1.8-7.7); Neutrophils % 72.6 %; Nucleated Red Blood Cells % 0 %; Platelet Count 270 10^3/cmm (130-400); Red Blood Count 4.18 10^6/uL (4.1-5.3); Red Cell Distribution Width 15.9 % (12.1-15.1); White Blood Count 9.3 10^3/uL (4.0-10.0)
[2021-12-02 10:07] LABS: Alanine Aminotransferase 10 U/L (0-41); Albumin Level 4.2 g/dL (3.5-5.2); Alkaline Phosphatase 84 IU/L (40-130); Anion Gap 16.9 (5-19); Aspartate Amino Transferase 31 U/L (0-40); Blood Urea Nitrogen 20 mg/dL (8-23); Calcium 8.3 mg/dL (8.5-10.5); Carbon Dioxide 25 mmol/L (22-29); Chloride 100 mmol/L (98-107); Globulin 2.6 g/dL (1.3-4.6); Glomerular Filtration Rate 95.6 mL/min (90-130); Glucose 137 mg/dL (65-115); Osmolality Calculated 291 mOsm/kg (285-295); Potassium 3.9 mmol/L (3.5-5.1); Sodium 138 mmol/L (136-145); Total Bilirubin 0.5 mg/dL (0.15-1.2); Total Protein 6.8 g/dL (6.6-8.7)
--- NOTE | 2021-12-02 12:10 | PC.PHAR ---
PER FDA NEW GUIDANCE SURROUNDING [facility]. WILL GIVE PATIENT ANOTHER 3 MLS TODAY CATCH UP DOSE. COUNSELED PATIENT ON FDA'S NEW RECOMMENDATIONS AND PROVIDED HANDOUT.
[2021-12-02] MEDS: dextrose 5% 250 ML 75 ML IV (12:25)
[2021-12-02] MEDS: palonosetron 0.25 mg/5 mL SDV IV (12:25)
[2021-12-02] MEDS: famotidine 20 mg/2 mL INJ IVP (12:26)
[2021-12-02] MEDS: OLANZapine 5 mg TABLET PO (12:30)
[2021-12-02] MEDS: fosaprepitant 150 MG in sodium chloride 0.9% 150 ML 300 MG IV (12:58)
--- NOTE | 2021-12-04 19:09 | ONC FU_ITS ---
Dr. Hernandez Patient Follow-Up Note Patient: Clark Antnoy Unit #: [id number]: 1950 Dicatated By: Lazaro Hernandez M.D.Date of Visit:Dec 02, 2021 Onc Med Follow-up/Prog Note Chief Complaint: Peritoneal carcinomatosis. 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 He had presented with complaints of abdominal pain and postprandial bloating, dating back to at least October 2019. His initial CT abdomen/pelvis, from 10/11/2019, showed a focal area of narrowing involving the proximal sigmoid colon. Findings of diverticulitis described on a previous study from September 2019 were noted to have resolved. EGD and colonoscopy were unrevealing. His symptoms continue to worsen. Repeat CT scans in August 2020 showed interval development of moderate-sized ascites and a small left pleural effusion. Wall thickening was again noted and a small portion of the proximal sigmoid colon. Paracentesis and subsequent left thoracentesis revealed cytology negative fluids. PET/CT on 10/18/2020 showed a 2 cm area of abnormal activity in the right perianal region, SUV 12.0, with high probability of malignancy. Tiny, scattered perirectal nodes were too small to characterize. There was evidence of mesenteric edema, a small amount of ascites, and a small left pleural effusion. Omental stranding was felt to be likely related to edema. Pelvic MRI on 10/27/2020 showed no definite abnormalities to correspond with the uptake in the right rectal area noted on the PET/CT. Mild diffuse thickening and enhancement involving the distal sigmoid colon proximal to the rectum was felt to be nonspecific, neoplasm not excluded. There was no pelvic or inguinal lymphadenopathy or other significant findings noted on that study. He was then seen at the [facility] on 12/02/2020. MRI of the abdomen/pelvis showed omental fatty stranding and small ascites. There was focal sigmoid wall thickening, but unclear whether secondary to under distention and carcinomatosis or sigmoid primary. Sigmoidoscopy with EUS was negative for primary tumor. Peritoneal fluid cytology on repeat paracentesis was positive for rare atypical cells, highly suspicious for adenocarcinoma. 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 Molecular profile analysis was ordered, but with results not reported. He was seen in GI medical oncology by Dr. Rena Gresham on 01/15/2021. 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 His baseline tumor markers included elevated CA-125 at 94.5 U/mL. CEA and CA 19-9 levels were normal. His other medical illnesses include hypertension, hyperlipidemia, type II diabetes, and GERD. He has a history of diverticulitis. He has a history of smoking 1 pack of cigarettes daily for 10 to 12 years, but he quit smoking in 1986. INTERIM HISTORY: He began cycle 1 of modified FOLFOX chemotherapy on 01/28/2021. It was complicated by severe nausea/vomiting and generalized weakness. He had mild neuropathy. He required IV hydration and IV antiemetics for the nausea/vomiting, and he also had prolonged anorexia. He eventually did recover and he was able to continue with cycle 2 on 02/11/2021. Due to the severity of his side effects, he was given a level 1 dose reduction in oxaliplatin and a 20% reduction in the 5-FU dosage. With the modifications, he tolerated the treatment much better, and he was able to continue with cycle 3 on 02/25/2021 and with cycle 4 on 03/21/2021. As of 03/25/2021 his CA-125 level had decreased to 34.1 U/mL. He then had a follow-up visit with Dr. Gresham at [facility]. As he did to be showing some response to the chemotherapy, it was recommended that he continue treatment. He then returned here on 04/08/2021 and proceeded with his 5th cycle of chemotherapy with the oxaliplatin increased back up to the full dosage and with addition of Avastin to the regimen. He tolerated it with acceptable toxicity, and he then continued treatment at 2-week intervals. He began his 8th cycle on 05/27/2021. Duirng that time there were some fluctations in the CA-125 levels, but overall it had increased. Following cycle 8 he had follow-up again at [facility] with Dr. Gresham. His evaluation there did show evidence of disease progression, and it was recommended that he change treatment to a FOLFIRI chemotherapy regimen with a modified dosages of irinotecan and infusional 5-FU, and with omission of the 5-FU bolus and leucovorin. In addition, as there was very limited specimen available on his initial tissue biopsy, it was recommended that he have next generation sequencing obtained by liquid biopsy. On 06/10/2021 he began cycle 1 of FOLFIRI chemotherapy. It was administered at reduced dosages of the 5-FU infusion and irinotecan and without a 5-FU bolus. He tolerated it with minimal toxicity. He continued with cycle 2 on 06/24/2021 with irinotecan dosage increased to 165 mg/m???. With cycle 4 on 07/22/2021 he required addition of Neulasta for neutropenia. He was otherwise tolerating treatment well, and he continued with cycle 5 on 08/05/2021. He had then presented with complaints of persistent nausea along with some discomfort in the lower abdominal area. He was given IV hydration and IV antiemetics. By the time he got home he was feeling better. In the meantime, his CT abdomen/pelvis on 08/21/2021 showed several moderately dilated small bowel loops in the lower abdomen and pelvis with early or incomplete small bowel obstruction not excluded. Stranding and nodularity in the mesentery of the lower abdomen and pelvis was felt to possibly reflect carcinomatosis. A moderate size left basal pleural effusion with compressive atelectasis of the left lower lobe was noted to have increased from the prior study. Also noted was mild increase in abdominal and pelvic ascites. He improved with symptomatic management. He then continued with FOLFIRI cycle 6 on 08/24/2021 and with cycle 7 on 09/09/2021. He had follow-up that [facility] on 09/07/2021. His CT abdomen/pelvis showed stable carcinomatosis compared to the 06/03/2021 study. With those findings, he continued FOLFIRI chemotherapy a 2-week intervals. As of 11/18/2021 he began his 12th cycle of treatment. He is seen for scheduled visit. He has been feeling pretty good generally. His energy is about the same. His ECOG score is 1. He still does not have good appetite, but he is trying to eat more. His weight is stable. He does not have fever or night sweats. He has some nasal drainage. He has not had sore mouth or throat, and he does not complain of cough. He has not been having shortness of breath or chest pain. He still has nausea occasionally, but not bad. His acid reflux is adequately managed with Nexium. His bowels tend to fluctuate between loose stools and constipation. He just occasionally has diarrhea. He has no complaints. He has no significant joint or bone pain. He occasionally has headache, but he thinks that it is from his neck. He still has numbness in his toes and a little bit in his fingers. Medications: Ativan 0.5 - 1 Tablet (of 1 mg) Oral q 4 hours, Centrum Men 1 Tablet Oral daily, cleansing time(supplement) 1 Dose(s) Granules daily, Crestor 1 (40 mg) Tablet Oral daily, Esomeprazole Magnesium 1 (40 mg) Capsule Delayed Release Oral daily, Farxiga 1 (10 mg) Tablet Oral daily, metFORMIN HCl 1 (1000 mg) Tablet Oral b.i.d., Prochlorperazine Maleate 1 (10 mg) Tablet Oral q 6 hours PRN Allergies: No Known Allergies. Vital Signs: Performed on Dec 02, 2021 12:06 Height - 68.00 in Weight - 158.4 lbs (LOW) BSA - 1.85 sq.m BMI - 24.08 Temperature - 99.2 F (HIGH) Pulse - 100 /min Respiration - 18 /min BP - 119/70 mm(hg) O2 Sat - 94 % (LOW) Pain - 0 Fatigue - 5 Physical Examination: Constitutional - He looks pretty good generally, Eyes - Sclerae nonicteric. Conjunctivae clear, ENMT - No lesions noted in the oral cavity, Hematologic/Lymphatic - No cervical, clavicular, or axillary adenopathy, Respiratory - Lungs sound clear, Cardiovascular - Heart rhythm is regular. There is no murmur, gallop, or rub noted, Abdomen - Abdomen is slightly distended. It is still firm, but overall feels a little bit softer. Liver and spleen are not enlarged. There is no discrete mass palpable and there is no obvious ascites. There is no inguinal adenopathy noted, Extremities - No edema, Neurologic - No focal neurologic deficits noted. Lab/Imaging: Test performed on Dec 02, 2021 09:25 Sodium 138 mmol/L Potassium 3.9 mmol/L Chloride 100 mmol/L CO2 25 mmol/L Anion Gap 16.9 BUN 20 mg/dL Creatinine 0.8 mg/dL Cr Clearance (Est) 88.7500 mL/min eGFR 95.6 mL/min Glucose 137 mg/dL Osmolality - Calculated 291 mOsm/kg Calcium 8.3 mg/dL Protein, Total 6.8 g/dL Albumin 4.2 g/dL Globulin 2.6 g/dL Bilirubin, Total 0.5 mg/dL ALT (SGPT) 10 U/L AST (SGOT) 31 U/L Alkaline Phosphatase 84 IU/L WBC 9.3 10 3/uL RBC 4.18 10 6/uL HGB 12.6 g/dL HCT 40.6 % MCV 97.1 fl MCH 30.1 pg MCHC 31.0 g/dL RDW 15.9 % Platelet Count 270 10 3/cmm MPV 9.4 fL Neutrophils 6.78 10 3/uL Lymphocytes 1.6 10 3/uL Monocytes 0.8 10 3/uL Eosinophils 0.1 10 3/uL Basophils 0.0 10 3/uL Neutrophil % 72.6 % Lymphocyte % 17.5 % Monocyte % 8.2 % Eosinophil % 1.0 % Basophils % 0.3 % NRBC % 0 % Problem List: 1. 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 This is presumed to be from a primary adenocarcinoma of the appendix, though it does not appear that a primary lesion was actually identified. He had associated malignant ascites. 2. Hypertension. 3. Hyperlipidemia. 4. Type 2 diabetes. 5. GERD. 6. History of diverticulitis. 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 This was presumed to be from a primary adenocarcinoma of the appendix, though it does not appear that a primary lesion was actually identified. He had associated malignant ascites. The diagnosis was confirmed by CT directed biopsy of the omentum. He was recommended to begin palliative chemotherapy with a modified FOLFOX regimen. He began cycle 1 on 01/28/2021. It was complicated by weakness, severe nausea/vomiting, and prolonged anorexia. He required IV hydration and IV antiemetics, but he did recover. He was able to proceed with cycle 2 on 02/11/2021 at that point he did have a dose reduction in the oxaliplatin and the 5-FU infusion. He had subsequently tolerated the chemotherapy well. He returned to [facility] after completing 4 cycles of treatment. On evaluation there, he did appear to have evidence of response, including a significant decline in his CA-125 level. On 04/08/2021 he continued with his 5th cycle of treatment with the oxaliplatin increased to the full dosage and with addition of Avastin to the regimen. He was unable to continue treatment at 2-week intervals. He began cycle 8 on 05/27/2021. During that time his CA-125 levels had fluctuated somewhat, but overall there was an increase. He then had follow-up again at [facility] and his evaluation there did show evidence of disease progression. Per recommendations, he then returned here and he began further treatment with a FOLFIRI chemotherapy regimen. His 1st cycle was administered with reduced dosages of the 5-FU infusion and the irinotecan and with no 5-FU bolus. He tolerated it with just very mild side effects and with cycle 2 the irinotecan dosage was escalated from 150 to 165 mg/m???. With cycle 4 Neulasta was added for neutropenia. He completed his 5th cycle of treatment on 08/05/2021. He has been having some diarrhea, but he otherwise seems to be tolerating the treatment well. There has been some gradual decline in his clinical status and on his repeat CT abdomen/pelvis last week there were findings suggesting mild disease progression, including an increase in left pleural effusion and mild increased abdominal/pelvic ascites. That study also showed some dilated small bowel loops suggesting possible early or partial small bowel obstruction. However, he improved with symptomatic management and was able to continue chemotherapy at 2-week intervals. He had follow-up at [facility] on 09/07/2021. His CT scans there showed stable findings compared to the June 2021 study. He then continued FOLFIRI chemotherapy a 2-week intervals. As of 11/18/2021 he began his 12th cycle. Since then he has remained stable clinically. He continues to have some fatigue. He has just mild nausea now and has just very occasional diarrhea. Overall, he appears to be tolerating treatment well, and thus far there is no obvious disease progression. He will continue with cycle 13 of FOLFIRI chemotherapy. The dosages remain the same. He is due for follow-up at [facility] in 2 weeks. I will plan to see him here again in 3 weeks. Signed By: Lazaro Hernandez M.D. <<Signature on File>>
[2021-12-23 08:34] LABS: Basophils # 0.1 10^3/uL (0.0-0.1); Basophils % 0.7 %; Eosinophils # 0.1 10^3/uL (0.0-0.8); Eosinophils % 1.5 %; Hematocrit 42.2 % (42.0-52.0); Hemoglobin 13.3 g/dL (11.7-16.6); Lymphocytes # 1.5 10^3/uL (0.8-4.8); Lymphocytes % 20.8 %; Mean Corpuscular HGB Conc 31.5 g/dL (30.0-36.0); Mean Platelet Volume 9.2 fL (7.4-10.4); Monocytes # 1.1 10^3/uL (0.2-0.9); Monocytes % 14.9 %; Neutrophils # 4.51 10^3/uL (1.8-7.7); Neutrophils % 61.4 %; Nucleated Red Blood Cells % 0 %; Platelet Count 370 10^3/cmm (130-400); Red Blood Count 4.44 10^6/uL (4.1-5.3); Red Cell Distribution Width 15.4 % (12.1-15.1); White Blood Count 7.3 10^3/uL (4.0-10.0)
[2021-12-23 08:55] LABS: Alanine Aminotransferase 6 U/L (0-41); Albumin Level 3.9 g/dL (3.5-5.2); Alkaline Phosphatase 101 IU/L (40-130); Anion Gap 15.1 (5-19); Aspartate Amino Transferase 25 U/L (0-40); Blood Urea Nitrogen 16 mg/dL (8-23); Calcium 9.2 mg/dL (8.5-10.5); Carbon Dioxide 23 mmol/L (22-29); Chloride 100 mmol/L (98-107); Globulin 3.2 g/dL (1.3-4.6); Glomerular Filtration Rate 111.5 mL/min (90-130); Glucose 135 mg/dL (65-115); Osmolality Calculated 281 mOsm/kg (285-295); Potassium 4.1 mmol/L (3.5-5.1); Sodium 134 mmol/L (136-145); Total Bilirubin 0.4 mg/dL (0.15-1.2); Total Protein 7.1 g/dL (6.6-8.7)
[2021-12-23] MEDS: dextrose 5% 250 ML 75 ML IV (11:13)
[2021-12-23] MEDS: famotidine 20 mg/2 mL INJ IVP (11:13)
[2021-12-23] MEDS: palonosetron 0.25 mg/5 mL SDV IVP (11:15)
[2021-12-23] MEDS: OLANZapine 5 mg TABLET PO (11:15)
[2021-12-23] MEDS: fosaprepitant 150 MG in sodium chloride 0.9% 150 ML 300 MG IV (11:38)
--- NOTE | 2021-12-30 20:59 | ONC FU_ITS ---
Lissette Fonseca Progress Note Patient: Clark Antony Unit #: [id number]: 1950 Dicatated By: Lissette Fonseca N.P.Date of Visit:Dec 23, 2021 Onc MED Follow-up/Prog Note Chief Complaint: Peritoneal carcinomatosis. 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 He had presented with complaints of abdominal pain and postprandial bloating, dating back to at least October 2019. His initial CT abdomen/pelvis, from 10/11/2019, showed a focal area of narrowing involving the proximal sigmoid colon. Findings of diverticulitis described on a previous study from September 2019 were noted to have resolved. EGD and colonoscopy were unrevealing. His symptoms continue to worsen. Repeat CT scans in August 2020 showed interval development of moderate-sized ascites and a small left pleural effusion. Wall thickening was again noted and a small portion of the proximal sigmoid colon. Paracentesis and subsequent left thoracentesis revealed cytology negative fluids. PET/CT on 10/18/2020 showed a 2 cm area of abnormal activity in the right perianal region, SUV 12.0, with high probability of malignancy. Tiny, scattered perirectal nodes were too small to characterize. There was evidence of mesenteric edema, a small amount of ascites, and a small left pleural effusion. Omental stranding was felt to be likely related to edema. Pelvic MRI on 10/27/2020 showed no definite abnormalities to correspond with the uptake in the right rectal area noted on the PET/CT. Mild diffuse thickening and enhancement involving the distal sigmoid colon proximal to the rectum was felt to be nonspecific, neoplasm not excluded. There was no pelvic or inguinal lymphadenopathy or other significant findings noted on that study. He was then seen at the [facility] on 12/02/2020. MRI of the abdomen/pelvis showed omental fatty stranding and small ascites. There was focal sigmoid wall thickening, but unclear whether secondary to under distention and carcinomatosis or sigmoid primary. Sigmoidoscopy with EUS was negative for primary tumor. Peritoneal fluid cytology on repeat paracentesis was positive for rare atypical cells, highly suspicious for adenocarcinoma. 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 Molecular profile analysis was ordered, but with results not reported. He was seen in GI medical oncology by Dr. Rena Gresham on 01/15/2021. 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 His baseline tumor markers included elevated CA-125 at 94.5 U/mL. CEA and CA 19-9 levels were normal. His other medical illnesses include hypertension, hyperlipidemia, type II diabetes, and GERD. He has a history of diverticulitis. He has a history of smoking 1 pack of cigarettes daily for 10 to 12 years, but he quit smoking in 1986. INTERIM HISTORY: He began cycle 1 of modified FOLFOX chemotherapy on 01/28/2021. It was complicated by severe nausea/vomiting and generalized weakness. He had mild neuropathy. He required IV hydration and IV antiemetics for the nausea/vomiting, and he also had prolonged anorexia. He eventually did recover and he was able to continue with cycle 2 on 02/11/2021. Due to the severity of his side effects, he was given a level 1 dose reduction in oxaliplatin and a 20% reduction in the 5-FU dosage. With the modifications, he tolerated the treatment much better, and he was able to continue with cycle 3 on 02/25/2021 and with cycle 4 on 03/21/2021. As of 03/25/2021 his CA-125 level had decreased to 34.1 U/mL. He then had a follow-up visit with Dr. Gresham at [facility]. As he did to be showing some response to the chemotherapy, it was recommended that he continue treatment. He then returned here on 04/08/2021 and proceeded with his 5th cycle of chemotherapy with the oxaliplatin increased back up to the full dosage and with addition of Avastin to the regimen. He tolerated it with acceptable toxicity, and he then continued treatment at 2-week intervals. He began his 8th cycle on 05/27/2021. Duirng that time there were some fluctations in the CA-125 levels, but overall it had increased. Following cycle 8 he had follow-up again at [facility] with Dr. Gresham. His evaluation there did show evidence of disease progression, and it was recommended that he change treatment to a FOLFIRI chemotherapy regimen with a modified dosages of irinotecan and infusional 5-FU, and with omission of the 5-FU bolus and leucovorin. In addition, as there was very limited specimen available on his initial tissue biopsy, it was recommended that he have next generation sequencing obtained by liquid biopsy. On 06/10/2021 he began cycle 1 of FOLFIRI chemotherapy. It was administered at reduced dosages of the 5-FU infusion and irinotecan and without a 5-FU bolus. He tolerated it with minimal toxicity. He continued with cycle 2 on 06/24/2021 with irinotecan dosage increased to 165 mg/m???. With cycle 4 on 07/22/2021 he required addition of Neulasta for neutropenia. He was otherwise tolerating treatment well, and he continued with cycle 5 on 08/05/2021. He had then presented with complaints of persistent nausea along with some discomfort in the lower abdominal area. He was given IV hydration and IV antiemetics. By the time he got home he was feeling better. In the meantime, his CT abdomen/pelvis on 08/21/2021 showed several moderately dilated small bowel loops in the lower abdomen and pelvis with early or incomplete small bowel obstruction not excluded. Stranding and nodularity in the mesentery of the lower abdomen and pelvis was felt to possibly reflect carcinomatosis. A moderate size left basal pleural effusion with compressive atelectasis of the left lower lobe was noted to have increased from the prior study. Also noted was mild increase in abdominal and pelvic ascites. He improved with symptomatic management. He then continued with FOLFIRI cycle 6 on 08/24/2021 and with cycle 7 on 09/09/2021. He had follow-up that [facility] on 09/07/2021. His CT abdomen/pelvis showed stable carcinomatosis compared to the 06/03/2021 study. With those findings, he continued FOLFIRI chemotherapy a 2-week intervals. As of 11/18/2021 he began his 12th cycle of treatment. Patient presents today for follow-up. He has some mild fatigue but otherwise feeling okay. His appetite has been good. No fever, chills, night sweats. No sinus drainage or mouth sores. He was having some shortness of breath related to the pleural effusion in the left lung field. A thoracentesis was performed yesterday. He denies any GI or problems. No joint pain or muscle pain. No headaches or dizziness. He continues to have mild numbness and tingling in his fingers and toes. Review Of Symptoms: see above. Past Medical History: Gastroesophageal reflux disease History of diverticulitis Hyperlipidemia Hypertension Type II diabetes Past Surgical History: Excision of skin cancer from the left cheek Hemorrhoidectomy Covid vaccine #3 in 2020 Left subclavian vein PowerPort placement Dr. Cole in [address] directed omental biopsy in 2020 Sigmoidoscopy with EUS in 2020 Covid vaccine #2 in 2020 Covid vaccine #1 in 2020 EGD and colonoscopy in 2019 Allergies: No Known Allergies. Medications: Ativan 0.5 - 1 Tablet (of 1 mg) Oral q 4 hours PRN Centrum Men 1 Tablet Oral daily Crestor 1 (40 mg) Tablet Oral daily Esomeprazole Magnesium 1 (40 mg) Capsule Delayed Release Oral daily Farxiga 1 (10 mg) Tablet Oral daily metFORMIN HCl 1 (1000 mg) Tablet Oral b.i.d. Family History: Mr. Antony's mother is alive. Mr. Antony's father at age 83: brain cancer, and melanoma. Father with melanoma at age 83. Mother is still living at age 93. She has depression and she is in a half-way. One brother also has depression. Another brother is in good health. Social History: Mr. Antony is . Mr. Antony quit smoking 35 years ago but had smoked 1.0 pack/day for 11 years. He drinks occasionally. He has history of smoking 1 pack of cigarettes daily for 10 to 12 years. He quit smoking in 1986. He has occasional alcohol use. Physical Examination: Performed on Dec 23, 2021 09:33: Height - 68.00 in, Weight - 155.6 lbs (LOW), BSA - 1.84 sq.m, BMI - 23.66, Temperature - 97.5 F (LOW), Pulse - 107 /min (HIGH), Respiration - 16 /min, BP - 135/82 mm(hg), O2 Sat - 95 % (LOW), Pain - 0, and Fatigue - 3. Performance Status: 1 - No physically strenuous activity, but ambulatory and able to carry out light or sedentary work (e.g. office work, light house work). (ECOG) Constitutional Alert, cooperative, oriented. Mood and affect appropriate. Appears close to chronological age. Well nourished. Well developed. Head Normocephalic; no scars. Respiratory Minimal air movement noted in left lung field Cardiovascular Regular rate and rhythm of heart without murmurs, gallops or rubs. Abdomen Non-tender, non-distended, no masses, ascites or hepatosplenomegaly. Good bowel sounds. No guarding or rebound tenderness. Musculoskeletal No tenderness or swelling, normal range of motion without obvious weakness. Psychiatric Alert and oriented times three. Coherent speech. Verbalizes understanding of our discussions today. Laboratory: Test performed on Dec 23, 2021 08:22 Sodium 134 mmol/L Potassium 4.1 mmol/L Chloride 100 mmol/L CO2 23 mmol/L Anion Gap 15.1 BUN 16 mg/dL Creatinine 0.7 mg/dL Cr Clearance (Est) 101.4300 mL/min eGFR 111.5 mL/min Glucose 135 mg/dL Osmolality - Calculated 281 mOsm/kg Calcium 9.2 mg/dL Protein, Total 7.1 g/dL Albumin 3.9 g/dL Globulin 3.2 g/dL Bilirubin, Total 0.4 mg/dL ALT (SGPT) 6 U/L AST (SGOT) 25 U/L Alkaline Phosphatase 101 IU/L WBC 7.3 10 3/uL RBC 4.44 10 6/uL HGB 13.3 g/dL HCT 42.2 % MCV 95.0 fl MCH 30.0 pg MCHC 31.5 g/dL RDW 15.4 % Platelet Count 370 10 3/cmm MPV 9.2 fL Neutrophils 4.51 10 3/uL Lymphocytes 1.5 10 3/uL Monocytes 1.1 10 3/uL Eosinophils 0.1 10 3/uL Basophils 0.1 10 3/uL Neutrophil % 61.4 % Lymphocyte % 20.8 % Monocyte % 14.9 % Eosinophil % 1.5 % Basophils % 0.7 % NRBC % 0 % Test performed on Nov 04, 2021 07:35 CA-125 43.0 U/mL Test performed on Aug 21, 2021 12:09 CA 19-9 12.58 U/mL CEA 2.6 ng/mL Impression: 1. 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 This is presumed to be from a primary adenocarcinoma of the appendix, though it does not appear that a primary lesion was actually identified. He had associated malignant ascites. 2. Hypertension. 3. Hyperlipidemia. 4. Type 2 diabetes. 5. GERD. 6. History of diverticulitis. 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 This was presumed to be from a primary adenocarcinoma of the appendix, though it does not appear that a primary lesion was actually identified. He had associated malignant ascites. The diagnosis was confirmed by CT directed biopsy of the omentum. He was recommended to begin palliative chemotherapy with a modified FOLFOX regimen. He began cycle 1 on 01/28/2021. It was complicated by weakness, severe nausea/vomiting, and prolonged anorexia. He required IV hydration and IV antiemetics, but he did recover. He was able to proceed with cycle 2 on 02/11/2021 at that point he did have a dose reduction in the oxaliplatin and the 5-FU infusion. He had subsequently tolerated the chemotherapy well. He returned to [facility] after completing 4 cycles of treatment. On evaluation there, he did appear to have evidence of response, including a significant decline in his CA-125 level. On 04/08/2021 he continued with his 5th cycle of treatment with the oxaliplatin increased to the full dosage and with addition of Avastin to the regimen. He was unable to continue treatment at 2-week intervals. He began cycle 8 on 05/27/2021. During that time his CA-125 levels had fluctuated somewhat, but overall there was an increase. He then had follow-up again at [facility] and his evaluation there did show evidence of disease progression. Per recommendations, he then returned here and he began further treatment with a FOLFIRI chemotherapy regimen. His 1st cycle was administered with reduced dosages of the 5-FU infusion and the irinotecan and with no 5-FU bolus. He tolerated it with just very mild side effects and with cycle 2 the irinotecan dosage was escalated from 150 to 165 mg/m???. With cycle 4 Neulasta was added for neutropenia. He completed his 5th cycle of treatment on 08/05/2021. He has been having some diarrhea, but he otherwise seems to be tolerating the treatment well. There has been some gradual decline in his clinical status and on his repeat CT abdomen/pelvis last week there were findings suggesting mild disease progression, including an increase in left pleural effusion and mild increased abdominal/pelvic ascites. That study also showed some dilated small bowel loops suggesting possible early or partial small bowel obstruction. However, he improved with symptomatic management and was able to continue chemotherapy at 2-week intervals. He had follow-up at [facility] on 09/07/2021. His CT scans there showed stable findings compared to the June 2021 study. He then continued FOLFIRI chemotherapy a 2-week intervals. As of 11/18/2021 he began his 12th cycle. He presents today for follow-up. He received a thoracentesis yesterday for pleural effusion on the left lung field. Due to inability to auscultate breath sounds in the left lung field and x-ray was performed prior to his chemotherapy today and there was no pneumothorax noted. So we will proceed with FOLFIRI chemotherapy at 2-week intervals. He will receive his 14th cycle today. He will return to the clinic in 2 weeks with CBC and CMP. Signed By: Lissette Fonseca N.P. <<Signature on File>>
== END 2021-12-31 23:59 | disposition home or self-care (01) ==
LOC: ONCMED 06:50
PROVIDERS: Internal Medicine Medical Oncology; Nurse Practitioner Family; PCP Family Medicine; Visit Provider Internal Medicine Hematology & Oncology
DX: Z51.11 Encounter for antineoplastic chemotherapy (principal); C18.1 Malignant neoplasm of appendix; C78.6 Secondary malignant neoplasm of retroperitoneum and peritoneum; I10 Essential (primary) hypertension; E78.5 Hyperlipidemia, unspecified; E11.9 Type 2 diabetes mellitus without complications; K21.9 Gastro-esophageal reflux disease without esophagitis; Z87.19 Personal history of other diseases of the digestive system; Z79.899 Other long term (current) drug therapy
CPT/HCPCS: 80053; 85025; 96360; 96367; 96375; 96413; 96415; 96416; 96523; 99215; J0461; J1100; J1453; J2469; J3490; J9190; J9206

== ENCOUNTER 2022-01-13 06:50 | Outpatient (RCR) | payer MEDICARE, OTHER, SELFPAY ==
[2022-01-06 10:41] LABS: Basophils % 0.5 %; Eosinophils # 0.1 10^3/uL (0.0-0.8); Eosinophils % 2.1 %; Hematocrit 38.8 % (42.0-52.0); Hemoglobin 12.6 g/dL (11.7-16.6); Lymphocytes # 1.3 10^3/uL (0.8-4.8); Lymphocytes % 20.7 %; Mean Corpuscular HGB Conc 32.5 g/dL (30.0-36.0); Mean Corpuscular Volume 92.4 fl (80-94); Mean Platelet Volume 9.3 fL (7.4-10.4); Monocytes # 0.6 10^3/uL (0.2-0.9); Neutrophils # 4.28 10^3/uL (1.8-7.7); Neutrophils % 67.4 %; Nucleated Red Blood Cells % 0 %; Platelet Count 350 10^3/cmm (130-400); Red Cell Distribution Width 14.7 % (12.1-15.1); White Blood Count 6.3 10^3/uL (4.0-10.0)
[2022-01-06 11:05] LABS: Alanine Aminotransferase 11 U/L (0-41); Albumin Level 3.7 g/dL (3.5-5.2); Alkaline Phosphatase 105 IU/L (40-130); Anion Gap 15.8 (5-19); Aspartate Amino Transferase 28 U/L (0-40); Blood Urea Nitrogen 18 mg/dL (8-23); Calcium 9.1 mg/dL (8.5-10.5); Carbon Dioxide 25 mmol/L (22-29); Chloride 99 mmol/L (98-107); Globulin 3.3 g/dL (1.3-4.6); Glomerular Filtration Rate 95.6 mL/min (90-130); Glucose 132 mg/dL (65-115); Osmolality Calculated 286 mOsm/kg (285-295); Potassium 3.8 mmol/L (3.5-5.1); Sodium 136 mmol/L (136-145); Total Bilirubin 0.4 mg/dL (0.15-1.2)
[2022-01-11 09:58] LABS: Basophils % 0.4 %; Eosinophils # 0.1 10^3/uL (0.0-0.8); Eosinophils % 1.8 %; Hematocrit 39.8 % (42.0-52.0); Hemoglobin 12.6 g/dL (11.7-16.6); Lymphocytes # 1.6 10^3/uL (0.8-4.8); Lymphocytes % 31.5 %; Mean Corpuscular HGB Conc 31.7 g/dL (30.0-36.0); Mean Corpuscular Hemoglobin 30.1 pg (28.0-34.0); Mean Corpuscular Volume 95.2 fl (80-94); Mean Platelet Volume 8.9 fL (7.4-10.4); Monocytes # 0.8 10^3/uL (0.2-0.9); Monocytes % 16.5 %; Neutrophils # 2.45 10^3/uL (1.8-7.7); Neutrophils % 49.2 %; Nucleated Red Blood Cells % 0 %; Platelet Count 421 10^3/cmm (130-400); Red Blood Count 4.18 10^6/uL (4.1-5.3); Red Cell Distribution Width 14.9 % (12.1-15.1)
[2022-01-11 10:19] LABS: Alanine Aminotransferase 9 U/L (0-41); Albumin Level 3.8 g/dL (3.5-5.2); Alkaline Phosphatase 105 IU/L (40-130); Anion Gap 14.1 (5-19); Aspartate Amino Transferase 24 U/L (0-40); Blood Urea Nitrogen 14 mg/dL (8-23); Calcium 9.3 mg/dL (8.5-10.5); Carbon Dioxide 27 mmol/L (22-29); Chloride 98 mmol/L (98-107); Globulin 2.8 g/dL (1.3-4.6); Glomerular Filtration Rate 95.6 mL/min (90-130); Glucose 142 mg/dL (65-115); Osmolality Calculated 283 mOsm/kg (285-295); Potassium 4.1 mmol/L (3.5-5.1); Sodium 135 mmol/L (136-145); Total Bilirubin 0.4 mg/dL (0.15-1.2); Total Protein 6.6 g/dL (6.6-8.7)
[2022-01-11] MEDS: dextrose 5% 250 ML 75 ML IV (11:40)
[2022-01-11] MEDS: palonosetron 0.25 mg/5 mL SDV IV (11:40)
[2022-01-11] MEDS: famotidine 20 mg/2 mL INJ IVP (11:41)
[2022-01-11] MEDS: OLANZapine 5 mg TABLET PO (11:45)
[2022-01-11] MEDS: fosaprepitant 150 MG in sodium chloride 0.9% 150 ML 300 MG IV (11:56)
--- NOTE | 2022-01-11 15:40 | ONC FU_ITS ---
Lissette Fonseca Progress Note Patient: Clark Antony Unit #: [id number]: 1950 Dicatated By: Lissette Fonseca N.P.Date of Visit:Jan 11, 2022 Onc MED Follow-up/Prog Note Chief Complaint: Peritoneal carcinomatosis. 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 He had presented with complaints of abdominal pain and postprandial bloating, dating back to at least October 2019. His initial CT abdomen/pelvis, from 10/11/2019, showed a focal area of narrowing involving the proximal sigmoid colon. Findings of diverticulitis described on a previous study from September 2019 were noted to have resolved. EGD and colonoscopy were unrevealing. His symptoms continue to worsen. Repeat CT scans in August 2020 showed interval development of moderate-sized ascites and a small left pleural effusion. Wall thickening was again noted and a small portion of the proximal sigmoid colon. Paracentesis and subsequent left thoracentesis revealed cytology negative fluids. PET/CT on 10/18/2020 showed a 2 cm area of abnormal activity in the right perianal region, SUV 12.0, with high probability of malignancy. Tiny, scattered perirectal nodes were too small to characterize. There was evidence of mesenteric edema, a small amount of ascites, and a small left pleural effusion. Omental stranding was felt to be likely related to edema. Pelvic MRI on 10/27/2020 showed no definite abnormalities to correspond with the uptake in the right rectal area noted on the PET/CT. Mild diffuse thickening and enhancement involving the distal sigmoid colon proximal to the rectum was felt to be nonspecific, neoplasm not excluded. There was no pelvic or inguinal lymphadenopathy or other significant findings noted on that study. He was then seen at the [facility] on 12/02/2020. MRI of the abdomen/pelvis showed omental fatty stranding and small ascites. There was focal sigmoid wall thickening, but unclear whether secondary to under distention and carcinomatosis or sigmoid primary. Sigmoidoscopy with EUS was negative for primary tumor. Peritoneal fluid cytology on repeat paracentesis was positive for rare atypical cells, highly suspicious for adenocarcinoma. 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 Molecular profile analysis was ordered, but with results not reported. He was seen in GI medical oncology by Dr. Rena Gresham on 01/15/2021. 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 His baseline tumor markers included elevated CA-125 at 94.5 U/mL. CEA and CA 19-9 levels were normal. His other medical illnesses include hypertension, hyperlipidemia, type II diabetes, and GERD. He has a history of diverticulitis. He has a history of smoking 1 pack of cigarettes daily for 10 to 12 years, but he quit smoking in 1986. INTERIM HISTORY: He began cycle 1 of modified FOLFOX chemotherapy on 01/28/2021. It was complicated by severe nausea/vomiting and generalized weakness. He had mild neuropathy. He required IV hydration and IV antiemetics for the nausea/vomiting, and he also had prolonged anorexia. He eventually did recover and he was able to continue with cycle 2 on 02/11/2021. Due to the severity of his side effects, he was given a level 1 dose reduction in oxaliplatin and a 20% reduction in the 5-FU dosage. With the modifications, he tolerated the treatment much better, and he was able to continue with cycle 3 on 02/25/2021 and with cycle 4 on 03/21/2021. As of 03/25/2021 his CA-125 level had decreased to 34.1 U/mL. He then had a follow-up visit with Dr. Gresham at [facility]. As he did to be showing some response to the chemotherapy, it was recommended that he continue treatment. He then returned here on 04/08/2021 and proceeded with his 5th cycle of chemotherapy with the oxaliplatin increased back up to the full dosage and with addition of Avastin to the regimen. He tolerated it with acceptable toxicity, and he then continued treatment at 2-week intervals. He began his 8th cycle on 05/27/2021. Duirng that time there were some fluctations in the CA-125 levels, but overall it had increased. Following cycle 8 he had follow-up again at [facility] with Dr. Gresham. His evaluation there did show evidence of disease progression, and it was recommended that he change treatment to a FOLFIRI chemotherapy regimen with a modified dosages of irinotecan and infusional 5-FU, and with omission of the 5-FU bolus and leucovorin. In addition, as there was very limited specimen available on his initial tissue biopsy, it was recommended that he have next generation sequencing obtained by liquid biopsy. On 06/10/2021 he began cycle 1 of FOLFIRI chemotherapy. It was administered at reduced dosages of the 5-FU infusion and irinotecan and without a 5-FU bolus. He tolerated it with minimal toxicity. He continued with cycle 2 on 06/24/2021 with irinotecan dosage increased to 165 mg/m???. With cycle 4 on 07/22/2021 he required addition of Neulasta for neutropenia. He was otherwise tolerating treatment well, and he continued with cycle 5 on 08/05/2021. He had then presented with complaints of persistent nausea along with some discomfort in the lower abdominal area. He was given IV hydration and IV antiemetics. By the time he got home he was feeling better. In the meantime, his CT abdomen/pelvis on 08/21/2021 showed several moderately dilated small bowel loops in the lower abdomen and pelvis with early or incomplete small bowel obstruction not excluded. Stranding and nodularity in the mesentery of the lower abdomen and pelvis was felt to possibly reflect carcinomatosis. A moderate size left basal pleural effusion with compressive atelectasis of the left lower lobe was noted to have increased from the prior study. Also noted was mild increase in abdominal and pelvic ascites. He improved with symptomatic management. He then continued with FOLFIRI cycle 6 on 08/24/2021 and with cycle 7 on 09/09/2021. He had follow-up that [facility] on 09/07/2021. His CT abdomen/pelvis showed stable carcinomatosis compared to the 06/03/2021 study. With those findings, he continued FOLFIRI chemotherapy a 2-week intervals. As of 11/18/2021 he began his 12th cycle of treatment. Patient presents today for follow-up. He states he has been feeling okay but he does have increased fatigue and weakness. His appetite has been good. He denies fever, chills, night sweats. No sinus drainage or sore throat. He has shortness of breath with exertion. No cough or chest pain. No GI or problems. No joint pain or bone pain. No headaches or dizziness. He will receive FOLFIRI today. Patient is requesting evaluation by physical therapy to help him regain his strength. Review Of Symptoms: See above. Past Medical History: Gastroesophageal reflux disease History of diverticulitis Hyperlipidemia Hypertension Type II diabetes Past Surgical History: Excision of skin cancer from the left cheek Hemorrhoidectomy Covid vaccine #3 in 2020 Left subclavian vein PowerPort placement Dr. Cole in [address] directed omental biopsy in 2020 Sigmoidoscopy with EUS in 2020 Covid vaccine #2 in 2020 Covid vaccine #1 in 2020 EGD and colonoscopy in 2019 Allergies: No Known Allergies. Medications: Ativan 0.5 - 1 Tablet (of 1 mg) Oral q 4 hours PRN Centrum Men 1 Tablet Oral daily Crestor 1 (40 mg) Tablet Oral daily Esomeprazole Magnesium 1 (40 mg) Capsule Delayed Release Oral daily Farxiga 1 (10 mg) Tablet Oral daily metFORMIN HCl 1 (1000 mg) Tablet Oral b.i.d. Family History: Mr. Antony's mother is alive. Mr. Antony's father at age 83: brain cancer, and melanoma. Father with melanoma at age 83. Mother is still living at age 93. She has depression and she is in a correction. One brother also has depression. Another brother is in good health. Social History: Mr. Antony is . Mr. Antony quit smoking 35 years ago but had smoked 1.0 pack/day for 11 years. He drinks occasionally. He has history of smoking 1 pack of cigarettes daily for 10 to 12 years. He quit smoking in 1986. He has occasional alcohol use. Physical Examination: Performed on Jan 11, 2022 11:07: Height - 68.00 in, Weight - 154.2 lbs (LOW), BSA - 1.83 sq.m, BMI - 23.45, Temperature - 98.4 F, Pulse - 102 /min (HIGH), Respiration - 16 /min, BP - 124/77 mm(hg), O2 Sat - 95 % (LOW), Pain - 0, and Fatigue - 5. Performance Status: 1 - No physically strenuous activity, but ambulatory and able to carry out light or sedentary work (e.g. office work, light house work). (ECOG) Constitutional Alert, cooperative, oriented. Mood and affect appropriate. Appears close to chronological age. Well nourished. Well developed. Head Normocephalic; no scars. Respiratory Lungs are clear to auscultation without rhonchi or wheezing. Cardiovascular Regular rate and rhythm of heart without murmurs, gallops or rubs. Abdomen Non-tender, non-distended, no masses, ascites or hepatosplenomegaly. Good bowel sounds. No guarding or rebound tenderness. Musculoskeletal No tenderness or swelling, normal range of motion without obvious weakness. Psychiatric Alert and oriented times three. Coherent speech. Verbalizes understanding of our discussions today. Laboratory: Test performed on Jan 11, 2022 09:45 Sodium 135 mmol/L Potassium 4.1 mmol/L Chloride 98 mmol/L CO2 27 mmol/L Anion Gap 14.1 BUN 14 mg/dL Creatinine 0.8 mg/dL Cr Clearance (Est) 88.7500 mL/min eGFR 95.6 mL/min Glucose 142 mg/dL Osmolality - Calculated 283 mOsm/kg Calcium 9.3 mg/dL Protein, Total 6.6 g/dL Albumin 3.8 g/dL Globulin 2.8 g/dL Bilirubin, Total 0.4 mg/dL ALT (SGPT) 9 U/L AST (SGOT) 24 U/L Alkaline Phosphatase 105 IU/L WBC 5.0 10 3/uL RBC 4.18 10 6/uL HGB 12.6 g/dL HCT 39.8 % MCV 95.2 fl MCH 30.1 pg MCHC 31.7 g/dL RDW 14.9 % Platelet Count 421 10 3/cmm MPV 8.9 fL Neutrophils 2.45 10 3/uL Lymphocytes 1.6 10 3/uL Monocytes 0.8 10 3/uL Eosinophils 0.1 10 3/uL Basophils 0.0 10 3/uL Neutrophil % 49.2 % Lymphocyte % 31.5 % Monocyte % 16.5 % Eosinophil % 1.8 % Basophils % 0.4 % NRBC % 0 % Test performed on Nov 04, 2021 07:35 CA-125 43.0 U/mL Test performed on Aug 21, 2021 12:09 CA 19-9 12.58 U/mL CEA 2.6 ng/mL Impression: 1. 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 This is presumed to be from a primary adenocarcinoma of the appendix, though it does not appear that a primary lesion was actually identified. He had associated malignant ascites. 2. Hypertension. 3. Hyperlipidemia. 4. Type 2 diabetes. 5. GERD. 6. History of diverticulitis. 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 This was presumed to be from a primary adenocarcinoma of the appendix, though it does not appear that a primary lesion was actually identified. He had associated malignant ascites. The diagnosis was confirmed by CT directed biopsy of the omentum. He was recommended to begin palliative chemotherapy with a modified FOLFOX regimen. He began cycle 1 on 01/28/2021. It was complicated by weakness, severe nausea/vomiting, and prolonged anorexia. He required IV hydration and IV antiemetics, but he did recover. He was able to proceed with cycle 2 on 02/11/2021 at that point he did have a dose reduction in the oxaliplatin and the 5-FU infusion. He had subsequently tolerated the chemotherapy well. He returned to [facility] after completing 4 cycles of treatment. On evaluation there, he did appear to have evidence of response, including a significant decline in his CA-125 level. On 04/08/2021 he continued with his 5th cycle of treatment with the oxaliplatin increased to the full dosage and with addition of Avastin to the regimen. He was unable to continue treatment at 2-week intervals. He began cycle 8 on 05/27/2021. During that time his CA-125 levels had fluctuated somewhat, but overall there was an increase. He then had follow-up again at [facility] and his evaluation there did show evidence of disease progression. Per recommendations, he then returned here and he began further treatment with a FOLFIRI chemotherapy regimen. His 1st cycle was administered with reduced dosages of the 5-FU infusion and the irinotecan and with no 5-FU bolus. He tolerated it with just very mild side effects and with cycle 2 the irinotecan dosage was escalated from 150 to 165 mg/m???. With cycle 4 Neulasta was added for neutropenia. He completed his 5th cycle of treatment on 08/05/2021. He has been having some diarrhea, but he otherwise seems to be tolerating the treatment well. There has been some gradual decline in his clinical status and on his repeat CT abdomen/pelvis last week there were findings suggesting mild disease progression, including an increase in left pleural effusion and mild increased abdominal/pelvic ascites. That study also showed some dilated small bowel loops suggesting possible early or partial small bowel obstruction. However, he improved with symptomatic management and was able to continue chemotherapy at 2-week intervals. He had follow-up at [facility] on 09/07/2021. His CT scans there showed stable findings compared to the June 2021 study. He then continued FOLFIRI chemotherapy a 2-week intervals. As of 11/18/2021 he began his 12th cycle. Patient presents today for follow-up. He will receive cycle 15 of FOLFIRI treatment today and every 2 weeks as tolerated. His shortness of breath only occurs with exertion. At this point is pleural effusion in the left lung is stable. A referral will be placed to physical therapy for evaluation and treatment of fatigue. He will return in 2 weeks with CBC, CMP. Signed By: Lissette Fonseca N.P. <<Signature on File>>
== END 2022-01-30 23:59 | disposition home or self-care (01) ==
LOC: ONCMED 06:50
PROVIDERS: Nurse Practitioner Family; PCP Family Medicine; Visit Provider Internal Medicine Hematology & Oncology
DX: Z51.11 Encounter for antineoplastic chemotherapy (principal); C18.1 Malignant neoplasm of appendix; C78.6 Secondary malignant neoplasm of retroperitoneum and peritoneum; R18.0 Malignant ascites; I10 Essential (primary) hypertension; E78.5 Hyperlipidemia, unspecified; E11.9 Type 2 diabetes mellitus without complications; K21.9 Gastro-esophageal reflux disease without esophagitis; Z87.19 Personal history of other diseases of the digestive system; R63.0 Anorexia; Z79.4 Long term (current) use of insulin; Z79.899 Other long term (current) drug therapy; Z92.21 Personal history of antineoplastic chemotherapy; Z92.3 Personal history of irradiation
CPT/HCPCS: 36591; 80053; 85025; 96367; 96375; 96413; 96415; 96416; 96523; 99215; J0461; J1100; J1453; J2469; J3490; J9190; J9206

== ENCOUNTER 2022-01-22 07:43 | Inpatient (IN) | payer MEDICARE, OTHER, SELFPAY ==
[2022-01-22] VITALS (11 sets, daily range): BP systolic 93–131; BP diastolic 50–74; PULSE 78–105; RESP 10–18; TEMP 36.8–37.1; O2SAT 90–93; BMI 22.2
--- NOTE | 2022-01-22 07:58 | CTR_ITS ---
PROCEDURE INFORMATION: Exam: CT Abdomen And Pelvis With Contrast Exam date and time: 01/22/2022 9:29 AM Age: 71 years old Clinical indication: Abdominal pain; Generalized; Patient HX: Abd pain, bloating, burning, fullness x 4 days; Additional info: Abd pain/hx CA abdominal wall TECHNIQUE: Imaging protocol: Computed tomography of the abdomen and pelvis with contrast. Radiation optimization: All CT scans at this facility use at least one of these dose optimization techniques: automated exposure control; mA and/or kV adjustment per patient size (includes targeted exams where dose is matched to clinical indication); or iterative reconstruction. Contrast material: OMNI 300; Contrast volume: 95 ml; Contrast route: INTRAVENOUS (IV); COMPARISON: CT chest abd pel w con* 12/16/2021 12:32 PM RADIATION DOSE METRICS: Total DLP (mGy-cm): 1243.64 FINDINGS: Lungs: There are pulmonary parenchymal calcifications consistent with remote granulomatous organism exposure. Pleural spaces: Peripherally enhancing loculated left pleural effusion is similar to the prior study. There is nodular enhancement along the posterior pleura of the left hemithorax. The largest nodular density measures 2.4 cm in the transverse dimension. This was not seen on the prior CT scan and is consistent with metastatic disease. Consolidation at the left lung bases consistent with atelectasis and or pneumonia. Diaphragm: Small hiatal hernia. Liver: Normal. No mass. Gallbladder and bile ducts: Normal. No calcified stones. No ductal dilation. Pancreas: Normal. No ductal dilation. Spleen: Normal. No splenomegaly. Adrenal glands: Normal. No mass. 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 Stomach and bowel: There is mucosal thickening of the stomach and gastroesophageal junction. There are air-fluid levels in the distal colon suggesting mild nonspecific colitis versus other diarrheal illness. There is mucosal thickening of the proximal sigmoid colon. Minimal diffuse mesenteric stranding. There are air-fluid levels in dilated small bowel loops and fecal appearing content in the distal small bowel. Findings are consistent with a chronic partial small bowel obstruction. This has worsened when compared to the prior study. There is diverticulosis of the colon without evidence of diverticulitis. Appendix: No evidence of appendicitis. Intraperitoneal space: There is peripherally enhancing intraperitoneal fluid. There is nodular enhancement of the peritoneal pleura. Arteries: Unremarkable. No abdominal aortic aneurysm. Lymph nodes: Multiple subcentimeter mesenteric and retroperitoneal lymph nodes. Urinary bladder: Unremarkable as visualized. Reproductive: Unremarkable as visualized. Bones/joints: There are degenerative changes in the visualized spine. Soft tissues: Unremarkable. CT/CT abdomen pelvis w con* [id number] IMPRESSION: 1. Peripherally enhancing loculated left pleural effusion with adjacent compressive atelectasis and or pneumonia is similar to the prior study. There is nodular enhancement along the posterior pleura of the left hemithorax consistent with metastatic disease which was not present on the prior study, consistent with metastatic progression. 2. Peripherally enhancing intraperitoneal fluid with nodular enhancement of the peritoneal pleura consistent with peritoneal carcinomatosis. 3. Findings as stated above are consistent with a chronic partial small bowel obstruction, worsened when compared to the prior CT scan. 4. There are air-fluid levels in the distal colon suggesting mild nonspecific colitis versus other diarrheal illness. 5. Horseshoe kidney. There is mild hydronephrosis of the bilateral renal poles.
--- NOTE | 2022-01-22 08:02 | XR_ITS ---
WS: [id number] PORTABLE CHEST HISTORY: dyspnea COMPARISON: 12/23/2021 Moderate LEFT pleural effusion has increased in size since 12/23/2021. Compressive atelectasis in the central RIGHT lung. RIGHT lung is clear. No pneumothorax. Cardiac size: Obscured by the LEFT pleural effusion. Mediastinum/Aorta: Mild atherosclerosis aorta. LEFT subclavian Mediport with tip in the distal SVC. No osseous abnormality seen. XR/XR chest 1V portable [id number] IMPRESSION: 1. Moderate LEFT pleural effusion is increased in size since 12/23/2021. 2. No pneumothorax. 3. LEFT subclavian Mediport.
--- NOTE | 2022-01-22 08:03 | W.ED.ABDPA2 ---
HPI - Abdominal Pain General: Chief Complaint: Abdominal Pain Stated Complaint: nausea/severe stomach cramps/difficulty eating Time Seen by Provider: 01/22/22 07:49 Source: patient Mode of arrival: ambulatory Limitations: no limitations History of Present Illness: 71-year-old male presents emergency room planing abdominal pain cramping nausea difficulty eating. 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 He has been receiving chemotherapy for it is on a 2-week cycle he his last treatment was 2 weeks ago. He also has a left pleural effusion that has previously been drained he is somewhat short of breath today but states it is about his normal does not suddenly increased. Is not any hematochezia melena hematemesis or coffee-ground emesis. He denies any fever sweats or chills or any chest pain. His abdomen is exquisitely tender and he feels somewhat bloated. MD elicited complaint: abdominal pain Pertinent past history: other (Peritoneal CA) Onset (ago): hour(s) Pain Consistency: constant Location: Diffuse Severity: severe Quality: cramping Radiation: none Migration to: no migration Exacerbating factors: eating Relieving factors: nothing Associated Symptoms: Reports anorexia, bloating, GI cramping, nausea and poor appetite; Denies belching, change in bowel habits, change in stool character, chills, coffee ground emesis, constipation, diarrhea, dyspepsia, dysuria, excessive flatus, fever(s), heartburn, hematochezia, hematuria, hematemesis, fecal incontinence, loose stools, melena, syncope and vomiting Review of Systems Const: Denies: fever(s) or chills Card: Denies: syncope GI: Reports: nausea, bloating and GI cramping; Denies: vomiting, hematemesis, coffee ground emesis, heartburn, diarrhea, constipation, belching, excessive flatus, fecal incontinence, change in bowel habits, change in stool character, hematochezia or melena : Denies: dysuria or hematuria PFSH ED PFSH: Medical History Ascites Carcinomatosis peritonei Diabetes GERD (gastroesophageal reflux disease) History of nonmelanoma skin cancer Hyperlipidemia Hypertension Metastatic adenocarcinoma Pleural effusion exudative Surgical History H/O circumcision H/O colonoscopy 2019 H/O esophagogastroduodenoscopy 2019 H/O hemorrhoidectomy Port-A-Cath in place (01/28/21) Family History Father Cancer Grandmother CAD (coronary artery disease) Diabetes Denies family history of Anesthesia complication Bleeding disorder Social History Smoking and tobacco status: former smoker Quit status (tobacco): has quit using tobacco Year quit tobacco: 1986 [id number] Second hand smoke exposure: No Smoking risk assessment/counseling performed?: Yes Alcohol intake: current Alcohol intake frequency: few times a week Lives independently: Yes Household members: spouse Marital status: Current occupational status: retired History of recent travel: No Current gender identity: Male Physical Exam Const: GENERAL APPEARANCE: cooperative and comfortable ORIENTATION/CONSCIOUSNESS: Yes awake, Yes oriented to person, Yes oriented to place and Yes oriented to time HENMT: COMMON NORMALS: normocephalic, atraumatic and hearing grossly normal bilaterally HEAD & SCALP: normocephalic and atraumatic Neck/C-Spine: COMMON NORMALS: no JVD Resp: COMMON NORMALS: normal respiratory effort, No retractions, No use of accessory muscles and clear to auscultation bilaterally AUSCULTATION: clear to auscultation bilaterally Cardio: COMMON NORMALS: no JVD, regular rate, regular rhythm and No murmurs present (Cardio) RATE: regular rate RHYTHM: regular rhythm GI: COMMON NORMALS: Soft to palpation and No hepatosplenomegaly present AUSCULTATION: Yes Absent bowel sounds PALPATION: Yes Soft to palpation, Yes Tenderness to palpation present (GI) (Diffuse), No Guarding due to palpation present (GI) and Yes No hepatosplenomegaly present Extremity: COMMON NORMALS: normal to inspection, capillary refill normal, no clubbing, cyanosis or edema, no calf tenderness and no pedal edema Neuro: SENSORIUM/ORIENTATION: Yes oriented to person, Yes oriented to place and Yes oriented to time Skin: COMMON NORMALS: no rashes or lesions noted GENERAL SKIN EXAM: no rashes or lesions noted Course Vital Signs: Vital signs: Vital Signs Temperature 98.2 F 01/25/22 13:39 Pulse Rate 86 01/25/22 13:39 Respiratory Rate 18 01/25/22 13:39 Blood Pressure 107/51 01/25/22 13:39 Pulse Oximetry 94 01/25/22 13:39 MDM - Abdominal Pain Medical Decision Making Peritoneal carcinomatosis has increased. There is also bowel obstruction. There is also enhancing areas in the lungs. At this point we will go ahead and admit placing NG conservative therapy initially consult surgery. prognosis poor. Medical Records I reviewed the patient's medical records. Lab Data I reviewed the patient's lab results. : 01/25/22 02:35 01/25/22 02:35 Labs/Radiology: Radiology Impressions Abdomen/Pelvis CT 01/22/22 07:58 IMPRESSION: 1. Peripherally enhancing loculated left pleural effusion with adjacent compressive atelectasis and or pneumonia is similar to the prior study. There is nodular enhancement along the posterior pleura of the left hemithorax consistent with metastatic disease which was not present on the prior study, consistent with metastatic progression. 2. Peripherally enhancing intraperitoneal fluid with nodular enhancement of the peritoneal pleura consistent with peritoneal carcinomatosis. 3. Findings as stated above are consistent with a chronic partial small bowel obstruction, worsened when compared to the prior CT scan. 4. There are air-fluid levels in the distal colon suggesting mild nonspecific colitis versus other diarrheal illness. 5. Horseshoe kidney. There is mild hydronephrosis of the bilateral renal poles. ADDENDUM: 01/22/22 1225 CRITICAL RESULT: The study was personally discussed on the telephone with JACQUELINE Philip on 01/22/2022 12:23 PM CDT. The results were understood and acknowledged. Chest X-Ray 01/22/22 08:02 IMPRESSION: 1. Moderate LEFT pleural effusion is increased in size since 12/23/2021. 2. No pneumothorax. 3. LEFT subclavian Mediport. KUB X-Ray 01/23/22 09:42 IMPRESSION: Similar mild distention of small-bowel loops in the left hemiabdomen. Abdomen X-Ray 01/24/22 06:00 IMPRESSION: 1. The tip of the nasogastric tube projects just below the diaphragm at the gastric cardia. 2. Opacified left lung base consistent with effusion and basilar consolidation/atelectasis. 3. No significant bowel dilatation. Laboratory Results WBC 8.5 10^3/uL (4.0-10.0) 01/22/22 08:36 RBC 3.71 10^6/uL (4.1-5.3) L 01/22/22 08:36 Hgb 10.9 g/dL (11.7-16.6) L 01/22/22 08:36 Hct 34.6 % (42.0-52.0) L 01/22/22 08:36 MCV 93.3 fl (80-94) 01/22/22 08:36 MCH 29.4 pg (28.0-34.0) 01/22/22 08:36 MCHC 31.5 g/dL (30.0-36.0) 01/22/22 08:36 RDW 14.8 % (12.1-15.1) 01/22/22 08:36 Plt Count 304 10^3/cmm (130-400) 01/22/22 08:36 MPV 8.9 fL (7.4-10.4) 01/22/22 08:36 Neut % (Auto) 80.1 % 01/22/22 08:36 Lymph % (Auto) 10.6 % 01/22/22 08:36 [place] % (Auto) 8.0 % 01/22/22 08:36 Eos % (Auto) 0.4 % 01/22/22 08:36 Baso % (Auto) 0.4 % 01/22/22 08:36 Neut # (Auto) 6.80 10^3/uL (1.8-7.7) 01/22/22 08:36 Lymph # (Auto) 0.9 10^3/uL (0.8-4.8) 01/22/22 08:36 [place] # (Auto) 0.7 10^3/uL (0.2-0.9) 01/22/22 08:36 Eos # (Auto) 0.0 10^3/uL (0.0-0.8) 01/22/22 08:36 Baso # (Auto) 0.0 10^3/uL (0.0-0.1) 01/22/22 08:36 Nucleated RBC % (auto) 0 % 01/22/22 08:36 Nucleated RBCs # 0.0 /100WBC 01/22/22 08:36 Sodium 136 mmol/L (136-145) 01/22/22 08:36 Potassium 4.1 mmol/L (3.5-5.1) 01/22/22 08:36 Chloride 98 mmol/L (98-107) 01/22/22 08:36 Carbon Dioxide 27 mmol/L (22-29) 01/22/22 08:36 Anion Gap 15.1 (5-19) 01/22/22 08:36 BUN 16 mg/dL (8-23) 01/22/22 08:36 Creatinine 0.9 mg/dL (0.7-1.2) 01/22/22 08:36 GFR Calculation 83.4 mL/min (90-130) L 01/22/22 08:36 Glucose 165 mg/dL (65-115) H 01/22/22 08:36 Calculated Osmolality 287 mOsm/kg (285-295) 01/22/22 08:36 Lactic Acid 0.9 mmol/L (0.5-2.2) 01/22/22 08:36 Calcium 9.5 mg/dL (8.5-10.5) 01/22/22 08:36 Iron 40 ug/dL (59-158) L 01/22/22 08:36 TIBC 247 mcg/dl 01/22/22 08:36 % Saturation 16.1 % (20-50) L 01/22/22 08:36 Unsat Iron Binding 207 ug/dL (112-347) 01/22/22 08:36 Total Bilirubin 0.4 mg/dL (0.15-1.2) 01/22/22 08:36 AST 21 U/L (0-40) 01/22/22 08:36 ALT 11 U/L (0-41) 01/22/22 08:36 Alkaline Phosphatase 100 IU/L (40-130) 01/22/22 08:36 Total Protein 6.6 g/dL (6.6-8.7) 01/22/22 08:36 Albumin 3.8 g/dL (3.5-5.2) 01/22/22 08:36 Globulin 2.8 g/dL (1.3-4.6) 01/22/22 08:36 Lipase 24 U/L (13-60) 01/22/22 08:36 TSH 2.36 uIU/mL (0.27-4.20) 01/22/22 08:36 Urine Color Yellow (Yellow) 01/22/22 12:30 Urine Appearance Clear (CLEAR) 01/22/22 12:30 Urine pH 5 (5-7) 01/22/22 12:30 Ur Specific [place] 1.005 (1.005-1.030) 01/22/22 12:30 Urine Protein Trace (Negative) 01/22/22 12:30 Urine Glucose (UA) 4+ (Normal) H 01/22/22 12:30 Urine Ketones Negative (Negative) 01/22/22 12:30 Urine Blood Neg (Negative) 01/22/22 12:30 Urine Nitrate Negative (Negative) 01/22/22 12:30 Urine Bilirubin Neg (Negative) 01/22/22 12:30 Urine Urobilinogen Norm mg/dL (Negative) 01/22/22 12:30 Ur Leukocyte Esterase Negative (Negative) 01/22/22 12:30 Urine RBC 0-4 /hpf (0-2) H 01/22/22 12:30 Urine WBC 0-4 /hpf (0-5) H 01/22/22 12:30 Ur Squamous Epith Cells 0-4 /hpf (0-5) H 01/22/22 12:30 Amorphous Sediment Not Reportable 01/22/22 12:30 Urine Bacteria Trace /hpf (NONE) 01/22/22 12:30 Urine Mucus Trace /hpf 01/22/22 12:30 Discharge Plan Discharge Patient Disposition: Admitted As Inpatient Admit Provider: Mp Gutierrez Clinical Impression: SBO (small bowel obstruction), Metastatic adenocarcinoma, Carcinomatosis peritonei, Pleural effusion, left, GERD (gastroesophageal reflux disease) Condition: Stable Discharge Orders: Discharge Order (Routine); Ordered 01/25/22 Ordered By: Dameon Parada Discharge Activity: Resume usual activity Coding Level of Care Code ED Metal Grader for Ama Gallagher
[2022-01-22 08:48] LABS: Basophils % 0.4 %; Eosinophils % 0.4 %; Hematocrit 34.6 % (42.0-52.0); Hemoglobin 10.9 g/dL (11.7-16.6); Lymphocytes # 0.9 10^3/uL (0.8-4.8); Lymphocytes % 10.6 %; Mean Corpuscular HGB Conc 31.5 g/dL (30.0-36.0); Mean Corpuscular Hemoglobin 29.4 pg (28.0-34.0); Mean Corpuscular Volume 93.3 fl (80-94); Mean Platelet Volume 8.9 fL (7.4-10.4); Monocytes # 0.7 10^3/uL (0.2-0.9); Neutrophils % 80.1 %; Nucleated Red Blood Cells % 0 %; Platelet Count 304 10^3/cmm (130-400); Red Blood Count 3.71 10^6/uL (4.1-5.3); Red Cell Distribution Width 14.8 % (12.1-15.1); White Blood Count 8.5 10^3/uL (4.0-10.0)
[2022-01-22] MEDS: lactated ringers 1,000 ML 999 ML IV (08:50)
[2022-01-22 09:04] LABS: Alanine Aminotransferase 11 U/L (0-41); Albumin Level 3.8 g/dL (3.5-5.2); Alkaline Phosphatase 100 IU/L (40-130); Anion Gap 15.1 (5-19); Aspartate Amino Transferase 21 U/L (0-40); Blood Urea Nitrogen 16 mg/dL (8-23); Calcium 9.5 mg/dL (8.5-10.5); Carbon Dioxide 27 mmol/L (22-29); Chloride 98 mmol/L (98-107); Globulin 2.8 g/dL (1.3-4.6); Glomerular Filtration Rate 83.4 mL/min (90-130); Glucose 165 mg/dL (65-115); Lipase 24 U/L (13-60); Osmolality Calculated 287 mOsm/kg (285-295); Potassium 4.1 mmol/L (3.5-5.1); Sodium 136 mmol/L (136-145); Total Bilirubin 0.4 mg/dL (0.15-1.2); Total Protein 6.6 g/dL (6.6-8.7)
[2022-01-22] MEDS: iohexol 300 mg/mL 100 mL Btl IV (09:31)
--- NOTE | 2022-01-22 10:12 | PC.NURSE ---
Reminded patient that we needed urine sample, patient requested ice chips. provider okay with ice chips.
[2022-01-22 13:47] LABS: Add Urine Culture? No; Add Urine Microscopic? YES; Bacteria Urine TRACE /hpf; Bilirubin Urine Neg (Negative); Blood Urine Neg (Negative); Glucose Urine UA 4+ (Normal); Ketones Urine Negative (Negative); Leukocyte Esterase Urine Negative (Negative); Mucus Urine TRACE /hpf; Nitrate Urine Negative (Negative); Protein Urine Trace (Negative); RBC Urine 0-4 /hpf (0-2); Specific Gravity, Urine 1.005 (1.005-1.030); Squamous Epithelial Cell Urine 0-4 /hpf (0-5); Urine Appearance Clear (CLEAR); Urine Color Yellow (Yellow); Urobilinogen Urine Norm (Negative); WBC Urine 0-4 /hpf (0-5); pH Urine 5 (5-7)
[2022-01-22 14:02] LABS: Lactic Sepsis W/Reflex 0.9 mmol/L (0.5-2.2)
[2022-01-22] MEDS: cetacaine Spray 5 gm Can 1 SPRAY TOPICAL ×2 (15:00→22:26)
[2022-01-22] MEDS: LORazepam 2 mg/mL INJ 1 mL IVP (15:00)
[2022-01-22] MEDS: morphine 4 mg/mL SDV 1 mL 2 MG IVP (15:00)
--- NOTE | 2022-01-22 15:17 | P.HP_ITS ---
Providers/Chief Complaint Admitting Physician: Mp Gutierrez MD Primary Care Provider: Felipe Ruth MD Chief Complaint: nausea/severe stomach cramps/difficulty eating History of Present Illness Clark Antony is a 71 year old male with past medical history of metastatic adenocarcinoma, carcinomatosis peritonei on expectant chemotherapy at [facility]. Last treatment 2 weeks ago. Next treatment due coming Tuesday(today is Tuesday). He presented to the ER today because of worsening nausea and vomiting for last 3 days. He states the symptoms first started 5 days ago on Tuesday when he started having mild nausea along with abdominal pain. His abdominal pain and nausea continue to worsen. Abdominal pain is generalized. He started having vomiting today morning so he presented to the ER. In the ER he was found to have worsening of a small bowel obstruction. Last bowel movement was yesterday which was diarrhea. As per the patient he is been having alternating diarrhea and constipation. Blood work in the ER showed a white count of 8.5, hemoglobin of 10.9, creatinine of 0.9, sodium of 136, potassium of 4.1, lactate of 0.9, AST/ALT of 21/[address] abdomen pelvis as below. Review of Systems General: Reports: 10 or more systems reviewed and unremarkable except in HPI and below Const: Denies: fever(s), chills, body aches, change in appetite, change in weight, malaise, night sweats, diaphoresis, change in sleep pattern, daytime sleepiness or snoring Eyes: Denies: change in vision, blurry vision, photophobia, eye discomfort or eye discharge ENMT: Denies: throat pain, enlarged tonsils, hoarseness, mouth pain, oral sores, dry mouth, tinnitus, nasal congestion or post nasal drip Card: Denies: chest pain, palpitations, irregular heart rhythm, edema, swelling of feet/ankles, lightheadedness, syncope, pre-syncope, dyspnea on exertion, orthopnea, leg pain with exertion or acrocyanosis Resp: Denies: dyspnea, productive cough, non-productive cough, wheezing, stridor, pain on inspiration, change in phlegm color, hemoptysis or chest congestion GI: Denies: abdominal pain, nausea, vomiting, hematemesis, coffee ground emesis, dysphagia, heartburn, diarrhea, constipation, bloating, GI cramping, change in bowel habits, pain on defecation, hematochezia or melena : Denies: flank pain, difficulty urinating, dysuria, urinary frequency, urinary urgency, urinary hesitancy, urinary dribbling, difficulty starting urination, change in urine stream, nocturia or hematuria Musc: Denies: neck pain, back pain, extremity pain, joint pain, joint swe lling, joint redness, joint stiffness or limited range of motion Neuro: Denies: headache(s), numbness in extremities, weakness in extremities, sensory changes, lack of coordination, difficulty walking, frequent falls, dizziness, vertigo, confusion, Slurred speech present, difficulty communicating thoughts or seizure-like activity Psych: Denies: anxiety, depression, mood swings, panic attacks, hopelessness or irritability Endo: Denies: polyuria, polydipsia, tired all the time, cold intolerance, excessive sweating, flushing or heat intolerance [place]/Lymph: Denies: easy bruising or easy bleeding All/Imm: Denies: tongue swelling, facial swelling or acute wheezing Medications/Allergies Home Medications Medication Instructions Recorded Confirmed Last Taken Type esomeprazole magnesium 40 mg 40 mg PO DAILY 07/02/20 01/22/22 01/21/22 History capsule,delayed release (Nexium) rosuvastatin 20 mg tablet (Crestor) 20 mg PO DAILY 07/02/20 01/22/22 01/21/22 History dapagliflozin 10 mg tablet 10 mg PO DAILY 08/14/20 01/22/22 01/21/22 History (Farxiga) metformin 1,000 mg tablet 1,000 mg PO BID 08/14/20 01/22/22 01/21/22 History lisinopril 20 mg tablet 20 mg PO DAILY 01/27/21 01/22/22 01/21/22 History [id number]-zze-HH 0.4 mg-calcium 162 1 tab PO DAILY 01/22/22 01/22/22 01/21/22 History mg-iron 18 [id number] tablet ondansetron 4 mg disintegrating 4 mg PO DAILY 01/22/22 01/22/22 01/21/22 History tablet Allergies Allergy/AdvReac Type Severity Reaction Status Date / Time No Known Allergies Allergy Verified 01/22/22 13:05 PFSH Acute PFSH: Medical History (Updated 01/22/22 @ 15:19 by Mp Gutierrez MD) Ascites Carcinomatosis peritonei Diabetes GERD (gastroesophageal reflux disease) History of nonmelanoma skin cancer Hyperlipidemia Hypertension Metastatic adenocarcinoma Pleural effusion exudative Surgical History H/O circumcision H/O colonoscopy 2019 H/O esophagogastroduodenoscopy 2019 H/O hemorrhoidectomy Port-A-Cath in place (01/28/21) Family History Father Cancer Grandmother CAD (coronary artery disease) Diabetes Denies family history of Anesthesia complication Bleeding disorder Social History Smoking and tobacco status: former smoker Quit status (tobacco): has quit using tobacco Year quit tobacco: 1986 [id number] Second hand smoke exposure: No Smoking risk assessment/counseling performed?: Yes Alcohol intake: current Alcohol intake frequency: few times a week Lives independently: Yes Household members: spouse Marital status: Current occupational status: retired History of recent travel: No Current gender identity: Male Vitals/I&O/Wt Last Vital Signs Temp 98.2 F 01/22/22 08:00 Pulse 95 01/22/22 11:47 Resp 14 01/22/22 11:47 BP 118/73 01/22/22 11:47 Pulse Ox 93 01/22/22 11:47 Physical Exam Narrative: General: No acute distress, AO x3 HEENT: PERRLA, pupils bilaterally equal and reactive Chest: Normal vesicular breath sounds, no added sounds, equal good air entry bilaterally CVS: S1-S2 regular, no murmurs, no tachycardia, no gallops, no rubs Abdomen: Soft, mild generalized tenderness, NG tube in place, no organomegaly, bowel sounds present Neuro: No focal deficits, no facial deformity, AO x3, power 5/5 in all limbs Data : 01/22/22 08:36 01/22/22 08:36 Other Labs: Radiology Impressions Abdomen/Pelvis CT 01/22/22 07:58 IMPRESSION: 1. Peripherally enhancing loculated left pleural effusion with adjacent compressive atelectasis and or pneumonia is similar to the prior study. There is nodular enhancement along the posterior pleura of the left hemithorax consistent with metastatic disease which was not present on the prior study, consistent with metastatic progression. 2. Peripherally enhancing intraperitoneal fluid with nodular enhancement of the peritoneal pleura consistent with peritoneal carcinomatosis. 3. Findings as stated above are consistent with a chronic partial small bowel obstruction, worsened when compared to the prior CT scan. 4. There are air-fluid levels in the distal colon suggesting mild nonspecific colitis versus other diarrheal illness. 5. Horseshoe kidney. There is mild hydronephrosis of the bilateral renal poles. ADDENDUM: 01/22/22 1225 CRITICAL RESULT: The study was personally discussed on the telephone with JACQUELINE Philip on 01/22/2022 12:23 PM CDT. The results were understood and ackn owledged. Chest X-Ray 01/22/22 08:02 IMPRESSION: 1. Moderate LEFT pleural effusion is increased in size since 12/23/2021. 2. No pneumothorax. 3. LEFT subclavian Mediport. Laboratory Results WBC 8.5 10^3/uL (4.0-10.0) 01/22/22 08:36 RBC 3.71 10^6/uL (4.1-5.3) L 01/22/22 08:36 Hgb 10.9 g/dL (11.7-16.6) L 01/22/22 08:36 Hct 34.6 % (42.0-52.0) L 01/22/22 08:36 MCV 93.3 fl (80-94) 01/22/22 08:36 MCH 29.4 pg (28.0-34.0) 01/22/22 08:36 MCHC 31.5 g/dL (30.0-36.0) 01/22/22 08:36 RDW 14.8 % (12.1-15.1) 01/22/22 08:36 Plt Count 304 10^3/cmm (130-400) 01/22/22 08:36 MPV 8.9 fL (7.4-10.4) 01/22/22 08:36 Neut % (Auto) 80.1 % 01/22/22 08:36 Lymph % (Auto) 10.6 % 01/22/22 08:36 [place] % (Auto) 8.0 % 01/22/22 08:36 Eos % (Auto) 0.4 % 01/22/22 08:36 Baso % (Auto) 0.4 % 01/22/22 08:36 Neut # (Auto) 6.80 10^3/uL (1.8-7.7) 01/22/22 08:36 Lymph # (Auto) 0.9 10^3/uL (0.8-4.8) 01/22/22 08:36 [place] # (Auto) 0.7 10^3/uL (0.2-0.9) 01/22/22 08:36 Eos # (Auto) 0.0 10^3/uL (0.0-0.8) 01/22/22 08:36 Baso # (Auto) 0.0 10^3/uL (0.0-0.1) 01/22/22 08:36 Nucleated RBC % (auto) 0 % 01/22/22 08:36 Nucleated RBCs # 0.0 /100WBC 01/22/22 08:36 Sodium 136 mmol/L (136-145) 01/22/22 08:36 Potassium 4.1 mmol/L (3.5-5.1) 01/22/22 08:36 Chloride 98 mmol/L (98-107) 01/22/22 08:36 Carbon Dioxide 27 mmol/L (22-29) 01/22/22 08:36 Anion Gap 15.1 (5-19) 01/22/22 08:36 BUN 16 mg/dL (8-23) 01/22/22 08:36 Creatinine 0.9 mg/dL (0.7-1.2) 01/22/22 08:36 GFR Calculation 83.4 mL/min (90-130) L 01/22/22 08:36 Glucose 165 mg/dL (65-115) H 01/22/22 08:36 Calculated Osmolality 287 mOsm/kg (285-295) 01/22/22 08:36 Lactic Acid 0.9 mmol/L (0.5-2.2) 01/22/22 08:36 Calcium 9.5 mg/dL (8.5-10.5) 01/22/22 08:36 Total Bilirubin 0.4 mg/dL (0.15-1.2) 01/22/22 08:36 AST 21 U/L (0-40) 01/22/22 08:36 ALT 11 U/L (0-41) 01/22/22 08:36 Alkaline Phosphatase 100 IU/L (40-130) 01/22/22 08:36 Total Protein 6.6 g/dL (6.6-8.7) 01/22/22 08:36 Albumin 3.8 g/dL (3.5-5.2) 01/22/22 08:36 Globulin 2.8 g/dL (1.3-4.6) 01/22/22 08:36 Lipase 24 U/L (13-60) 01/22/22 08:36 Urine Color Yellow (Yellow) 01/22/22 12:30 Urine Appearance Clear (CLEAR) 01/22/22 12:30 Urine pH 5 (5-7) 01/22/22 12:30 Ur Specific [place] 1.005 (1.005-1.030) 01/22/22 12:30 Urine Protein Trace (Negative) 01/22/22 12:30 Urine Glucose (UA) 4+ (Normal) H 01/22/22 12:30 Urine Ketones Negative (Negative) 01/22/22 12:30 Urine Blood Neg (Negative) 01/22/22 12:30 Urine Nitrate Negative (Negative) 01/22/22 12:30 Urine Bilirubin Neg (Negative) 01/22/22 12:30 Urine Urobilinogen Norm mg/dL (Negative) 01/22/22 12:30 Ur Leukocyte Esterase Negative (Negative) 01/22/22 12:30 Urine RBC 0-4 /hpf (0-2) H 01/22/22 12:30 Urine WBC 0-4 /hpf (0-5) H 01/22/22 12:30 Ur Squamous Epith Cells 0-4 /hpf (0-5) H 01/22/22 12:30 Amorphous Sediment Not Reportable 01/22/22 12:30 Urine Bacteria Trace /hpf (NONE) 01/22/22 12:30 Urine Mucus Trace /hpf 01/22/22 12:30 A&P Assessment and plan (1) SBO (small bowel obstruction): Status: Acute (2) Metastatic adenocarcinoma: Status: Acute (3) Carcinomatosis peritonei: Status: Acute Plan 71-year-old male with past medical history of carcinomatosis, recurrent bowel obstruction, currently chronic bowel obstruction presented to the symptoms consistent of nausea and vomiting found to have worsening small bowel obstruction on CT scan Plan: Surgery has been consulted from the ER. Conservative treatment, NPO. NG tube placement. Hydration with D5 NS at 75 cc/h. Zofran as needed Protonix daily. Ambulation, out of bed to chair. Will try to switch oral to IV medication when necessary and possible. Hypertension: Goal blood pressure less than 140/90 mmHg. Takes lisinopril 20 mg daily at home. Blood pressure normal right now. We will hold off on any treatment for now. If needed will start on IV treatment accordingly. Full code. Lovenox for DVT prophylaxis. Protonix for PUD prophylaxis. Attestations Medical Necessity Statement*: Admission for more than 2 midnights for management of small bowel obstruction in setting of metastatic adenocarcinoma, carcinomatosis peritonei Time Spent in Patient Care: Greater than 35 minutes Coding Level of Care Code Acute Refrigeration Mechanic for [facility] Diagnoses SBO (small bowel obstruction) K56.609 Metastatic adenocarcinoma C79.9 Carcinomatosis peritonei C78.6
--- NOTE | 2022-01-22 15:33 | PC.NURSE ---
Patient tolerated NG placement, 16 in left nostril.
--- NOTE | 2022-01-22 15:39 | PC.NURSE ---
Patient report called, spoke with Marcelina.
[2022-01-22 16:00] LABS: Thyroid Stimulating Hormone 2.36 uIU/mL (0.27-4.20)
[2022-01-22 16:39] LABS: Iron 40 ug/dL (59-158); Percent Saturation 16.1 % (20-50); Total Iron Binding Capacity 247 mcg/dl; Unsaturated Iron Binding 207 ug/dL (112-347)
[2022-01-22] MEDS: enoxaparin 40 mg/0.4 mL Syringe SUBCUT (16:41)
[2022-01-22] MEDS: pantoprazole 40 mg SDV IVP (16:41)
[2022-01-22] MEDS: D5-NS 0.45% + KCL 20 mEq 20 MEQ/1,000 ML BAG 75 MEQ IV (16:41)
[2022-01-22] MEDS: diphenhydrAMINE 50 mg/mL SDV 1mL 25 MG IVP (22:14)
[2022-01-22] MEDS: morphine 4 mg/mL SDV 1 mL 1 MG IVP (22:19)
[2022-01-23] VITALS (7 sets, daily range): BP systolic 104–123; BP diastolic 47–72; PULSE 84–94; RESP 12–17; TEMP 36.8–37.1; O2SAT 91–93
[2022-01-23] MEDS: D5-NS 0.45% + KCL 20 mEq 20 MEQ/1,000 ML BAG 75 MEQ IV ×2 (05:32→23:26)
[2022-01-23 06:05] LABS: Basophils % 0.3 %; Eosinophils # 0.1 10^3/uL (0.0-0.8); Eosinophils % 1.2 %; Hematocrit 36.9 % (42.0-52.0); Hemoglobin 11.4 g/dL (11.7-16.6); Lymphocytes # 1.2 10^3/uL (0.8-4.8); Lymphocytes % 17.8 %; Mean Corpuscular HGB Conc 30.9 g/dL (30.0-36.0); Mean Corpuscular Hemoglobin 29.4 pg (28.0-34.0); Mean Corpuscular Volume 95.1 fl (80-94); Mean Platelet Volume 9.2 fL (7.4-10.4); Monocytes # 0.7 10^3/uL (0.2-0.9); Monocytes % 10.6 %; Neutrophils # 4.74 10^3/uL (1.8-7.7); Neutrophils % 69.5 %; Nucleated Red Blood Cells % 0 %; Platelet Count 321 10^3/cmm (130-400); Red Blood Count 3.88 10^6/uL (4.1-5.3); Red Cell Distribution Width 15.2 % (12.1-15.1); White Blood Count 6.8 10^3/uL (4.0-10.0)
[2022-01-23 06:29] LABS: Estmated Average Glucose 154
[2022-01-23 06:31] LABS: Alanine Aminotransferase 8 U/L (0-41); Albumin Level 3.1 g/dL (3.5-5.2); Alkaline Phosphatase 87 IU/L (40-130); Anion Gap 12.9 (5-19); Aspartate Amino Transferase 18 U/L (0-40); Blood Urea Nitrogen 15 mg/dL (8-23); Calcium 8.1 mg/dL (8.5-10.5); Carbon Dioxide 27 mmol/L (22-29); Chloride 99 mmol/L (98-107); Chol HDL Ratio 3.94 mg/dL (1.0-5.00); Cholesterol 126 mg/dL (0-200); Globulin 2.6 g/dL (1.3-4.6); Glomerular Filtration Rate 95.6 mL/min (90-130); Glucose 139 mg/dL (65-115); HDL Cholesterol 32 mg/dL (60-100); LDL Cholesterol Calculated 61 mg/dL (50-129); Magnesium 1.9 mg/dL (1.7-2.3); Osmolality Calculated 283 mOsm/kg (285-295); Phosphorus 3.6 mg/dL (2.5-4.5); Potassium 3.9 mmol/L (3.5-5.1); Sodium 135 mmol/L (136-145); Total Bilirubin 0.4 mg/dL (0.15-1.2); Total Protein 5.7 g/dL (6.6-8.7); Triglycerides 167 mg/dL (0-150); VLDL Cholestrol Calculation 33 mg/dL (0-30)
--- NOTE | 2022-01-23 09:32 | PC.NUTR ---
Recommend consideration of PPN to maximize Pt's nutritional status. If medically appropriate, begin PPN at 13 ml/hr and increase by 10 ml/hr Q8H until infusing at rate of 83 mls/hr, to include standard electrolytes, multivitamins 10 mls/day and Fat Emulsion of 50 grams/250 mls.
--- NOTE | 2022-01-23 09:42 | XRR_ITS ---
PROCEDURE INFORMATION: Exam: XR Abdomen Exam date and time: 01/23/2022 10:26 AM Age: 71 years old Clinical indication: Abdominal pain; Additional info: Sbo TECHNIQUE: Imaging protocol: XR of the abdomen. Views: Frontal supine view of the abdomen. 1 View. COMPARISON: CT abdomen pelvis w con* [id number] 01/22/2022 9:29 AM FINDINGS: Tubes, catheters and devices: The tip of an NG tube is seen in the region of the gastric cardia. Gastrointestinal tract: Similar mild distention of small-bowel loops in the left hemiabdomen. Bones/joints: Unremarkable. XR/XR KUB [id number] IMPRESSION: Similar mild distention of small-bowel loops in the left hemiabdomen.
--- NOTE | 2022-01-23 11:24 | PM.CONSULT ---
Providers/Reason For Consult Consulting Physician/Specialty*: Hospitalist service Reason for Consult*: Bowel obstruction Attending Physician: Mp Gutierrez MD Primary Care Provider: Felipe Ruth MD History of Present Illness History of Present Illness Clark Antony is a 71 year old male who presented to the ER yesterday with abdominal pain, nausea and vomiting for the last couple of days. Patient has known metastatic adenocarcinoma with peritoneal carcinomatosis and is currently undergoing chemotherapy. He states the pain was generalized, had a bowel movement yesterday and has been having loose stools. CT in the ER showed chronic bowel obstruction with ascites and peritoneal carcinomatosis and he was admitted for bowel rest and NG tube placement. Today he denies significant pain and mainly complains of headache, passing flatus, no BM Review of Systems General: Reports: 10 or more systems reviewed and unremarkable except in HPI and below Medications/Allergies Home Medications Medication Instructions Recorded Confirmed Last Taken Type esomeprazole magnesium 40 mg 40 mg PO DAILY 07/02/20 01/22/22 01/21/22 History capsule,delayed release (Nexium) rosuvastatin 20 mg tablet (Crestor) 20 mg PO DAILY 07/02/20 01/22/22 01/21/22 History dapagliflozin 10 mg tablet 10 mg PO DAILY 08/14/20 01/22/22 01/21/22 History (Farxiga) metformin 1,000 mg tablet 1,000 mg PO BID 08/14/20 01/22/22 01/21/22 History lisinopril 20 mg tablet 20 mg PO DAILY 01/27/21 01/22/22 01/21/22 History [id number]-[id number]-QJ 0.4 mg-calcium 162 1 tab PO DAILY 01/22/22 01/22/22 01/21/22 History mg-iron 18 [id number]-[id number] tablet ondansetron 4 mg disintegrating 4 mg PO DAILY 01/22/22 01/22/22 01/21/22 History tablet Allergies Allergy/AdvReac Type Severity Reaction Status Date / Time No Known Allergies Allergy Verified 01/22/22 13:05 Current Medications Generic Name Dose Route Start Last Admin Trade Name Freq PRN Reason Stop Dose Admin Enoxaparin Sodium 40 mg 01/22/22 16:11 01/22/22 16:41 Enoxaparin 40 Mg/0.4 Ml Syringe SUBCUT 40 mg Q24H POLO Administration Potassium Chloride/Dextrose/Sod Cl 20 meq in 1,000 mls @ 75 mls/hr 01/22/22 16:11 01/23/22 05:32 D5-Ns 0.45% + Kcl 20 Meq IV 75 mls/hr .[id number] POLO Administration Morphine Sulfate 1 mg 01/22/22 15:20 01/22/22 22:19 Morphine 4 Mg/Ml Sdv 1 Ml IVP 1 mg Q4H PRN Administration SEVERE PAIN Pantoprazole Sodium 40 mg 01/22/22 16:11 01/22/22 16:41 Pantoprazole 40 Mg Sdv IVP 40 mg Q24H POLO Administration PFSH Acute PFSH: Medical History Ascites Carcinomatosis peritonei Diabetes GERD (gastroesophageal reflux disease) History of nonmelanoma skin cancer Hyperlipidemia Hypertension Metastatic adenocarcinoma Pleural effusion exudative Surgical History H/O circumcision H/O colonoscopy 2019 H/O esophagogastroduodenoscopy 2019 H/O hemorrhoidectomy Port-A-Cath in place (01/28/21) Family History Father Cancer Grandmother CAD (coronary artery disease) Diabetes Denies family history of Anesthesia complication Bleeding disorder Social History Smoking and tobacco status: former smoker Quit status (tobacco): has quit using tobacco Year quit tobacco: 1986 [id number] Second hand smoke exposure: No Smoking risk assessment/counseling performed?: Yes Alcohol intake: current Alcohol intake frequency: few times a week Lives independently: Yes Household members: spouse Marital status: Current occupational status: retired History of recent travel: No Current gender identity: Male Vitals/I&O/Wt Last Vital Signs Temp 98.4 F 01/23/22 04:00 Pulse 92 01/23/22 07:44 Resp 13 01/23/22 07:44 BP 123/72 01/23/22 07:44 Pulse Ox 91 01/23/22 07:44 01/22/22 01/23/22 01/23/22 22:59 06:59 14:59 Intake Total 1000 / 1963.75 963.75 Output Total 70 / 70 Balance 999 963.75 -70 / -70 Weight last 48 hrs Weight 150 lb 8 oz Physical Exam Narrative: HEENT: Normocephalic, NG to LIS Eye: Sclera /conjunctiva normal Abdomen: Soft to palpation, mildly distended, minimally tender Neurological: Oriented to place person and time Skin: Intact, no lesions appreciated on gross exam Data : 01/23/22 05:10 01/23/22 05:10 A&P Assessment and plan (1) SBO (small bowel obstruction): 71-year-old male with peritoneal carcinomatosis currently undergoing chemotherapy who presents with chronic bowel obstruction likely secondary to metastatic implants. At this point patient is hemodynamically stable without evidence of peritonitis Continue NG to LIS Abdominal series tomorrow a.m. Daily labs 1 bottle magnesium citrate today Discussed with the patient that for chronic bowel obstruction options are bowel rest and surgery and given his comorbidities, stage IV disease, the fact that he is currently on chemotherapy, he is at high risk from surgery which would further delay his chemotherapy. We will therefore continue with expectant therapy and hopefully he has return of bowel function in the next 24 to 48 hours Status: Acute Coding Level of Care Code Acute Surgical Resident for [facility] Diagnoses SBO (small bowel obstruction) K56.609
--- NOTE | 2022-01-23 13:12 | P.PN_ITS ---
Subjective Subjective: No acute overnight. Seen and examined at bedside. Denies any abdominal pain. Awake and alert. Denies any nausea. States he is passing gas breath has not had any flatus. Continues to have NG tube. Vitals/I&O/Wt Last Vital Signs Temp 98.4 F 01/23/22 04:00 Pulse 90 01/23/22 12:00 Resp 15 01/23/22 12:00 BP 104/62 01/23/22 12:00 Pulse Ox 92 01/23/22 12:00 01/22/22 01/23/22 01/23/22 22:59 06:59 14:59 Intake Total 1000 / 1000 963.75 / 1963.75 Output Total 70 / 70 Balance 1000 / 1000 963.75 / 1963.75 -70 / -70 Weight last 48 hrs Weight 68.266 kg Physical Exam Narrative: General: No acute distress, AO x3 HEENT: PERRLA, pupils bilaterally equal and reactive Chest: Normal vesicular breath sounds, no added sounds, equal good air entry bilaterally CVS: S1-S2 regular, no murmurs, no tachycardia, no gallops, no rubs Abdomen: Soft, mild generalized tenderness, NG tube in place, no organomegaly, bowel sounds present Neuro: No focal deficits, no facial deformity, AO x3, power 5/5 in all limbs Data : 01/23/22 05:10 01/23/22 05:10 A&P Assessment and plan (1) SBO (small bowel obstruction): Status: Acute (2) Metastatic adenocarcinoma: Status: Acute (3) Carcinomatosis peritonei: Status: Acute Plan 71-year-old male with past medical history of carcinomatosis, recurrent bowel obstruction, currently chronic bowel obstruction presented to the symptoms consistent of nausea and vomiting found to have worsening small bowel obstruction on CT scan Plan: Appreciate surgical recommendations. Conservative treatment, NPO. NG tube. Continue to LIS. Hydration with D5 NS at 75 cc/h. Zofran as needed Protonix daily. Ambulation, out of bed to chair. Abdominal series, KUB. Laxative as per surgical recommendations. If patient does not improve with conservative treatment he is at a high risk of recurrent SBO, high risk surgical patient given being on active chemotherapy, active carcinomatosis peritonei. Will try to switch oral to IV medication when necessary and possible. Hypertension: Goal blood pressure less than 140/90 mmHg. Takes lisinopril 20 mg daily at home. Blood pressure normal right now. We will hold off on any treatment for now. If needed will start on IV treatment accordingly. Full code. Lovenox for DVT prophylaxis. Protonix for PUD prophylaxis. Attestations Medical Necessity Statement*: Requires further hospitalization for conservative treatment of SBO in setting of carcinomatosis. Time Spent in Patient Care: Greater than 35 minutes Coding Level of Care Code Acute Sr. Unix System Administrator for [facility] Diagnoses SBO (small bowel obstruction) K56.609 Metastatic adenocarcinoma C79.9 Carcinomatosis peritonei C78.6
[2022-01-23] MEDS: enoxaparin 40 mg/0.4 mL Syringe SUBCUT (18:00)
[2022-01-23] MEDS: pantoprazole 40 mg SDV IVP (18:00)
[2022-01-23] MEDS: cetacaine Spray 5 gm Can 1 SPRAY TOPICAL (20:31)
[2022-01-24 04:00] VITALS: BP 119/72; PULSE 86; RESP 16; TEMP 36.6; O2SAT 94
--- NOTE | 2022-01-24 06:00 | XRR_ITS ---
PROCEDURE INFORMATION: Exam: XR Abdomen Exam date and time: 01/24/2022 9:28 AM Age: 71 years old Clinical indication: Abdominal tenderness; Prior surgery; Additional info: Sbo TECHNIQUE: Imaging protocol: XR of the abdomen. Views: 2 Views. Upright and supine views. COMPARISON: CR (ABDOMEN, ) 01/23/2022 10:26 AM FINDINGS: Tubes, catheters and devices: A nasogastric tube is present with the tip projecting at the gastric cardia and unchanged. Lungs: The left lung base is opacified consistent with left pleural effusion and left basilar consolidation and atelectasis. Gastrointestinal tract: Normal. No bowel dilation. Intraperitoneal space: Normal. No free air. Bones/joints: Unremarkable for age. XR/XR abdomen min 2V [id number] IMPRESSION: 1. The tip of the nasogastric tube projects just below the diaphragm at the gastric cardia. 2. Opacified left lung base consistent with effusion and basilar consolidation/atelectasis. 3. No significant bowel dilatation.
--- NOTE | 2022-01-24 06:19 | PC.NURSE ---
SHIFT SUMMARY Has done well tonight. Has denied any pain except for nasal pain last evening. Pain was relieved with Cetacaine [place] to nares. NG tube in place to LIS with minimal drainage. Abd is soft with some tenderness across lower abdomen. BS are present. Is passing gas and had X1 BM tonight. Has been refusing Lactulose. Ambulated in [place] X1 this shift and did well. Daughter stayed with pt tonight.
[2022-01-24 07:20] VITALS: BP 122/66; PULSE 85; RESP 16; TEMP 36.4; O2SAT 92
[2022-01-24] MEDS: D5-NS 0.45% + KCL 20 mEq 20 MEQ/1,000 ML BAG 75 MEQ IV ×2 (08:40→20:44)
[2022-01-24] MEDS: lactulose oral liq 20 gm/30 mL UDC 10 GM PO (10:33)
[2022-01-24 11:07] VITALS: BP 129/78; PULSE 88; RESP 18; TEMP 36.6; O2SAT 93
--- NOTE | 2022-01-24 12:10 | P.PN_ITS ---
Subjective Subjective: Had couple bowel movements yesterday as well as today morning, has mild abdominal pain, no nausea or vomiting, NG output was 50 cc Vitals/I&O/Wt Last Vital Signs Temp 97.8 F 01/24/22 11:07 Pulse 88 01/24/22 11:07 Resp 18 01/24/22 11:07 BP 129/78 01/24/22 11:07 Pulse Ox 93 01/24/22 11:07 01/23/22 01/24/22 01/24/22 22:59 06:59 14:59 Intake Total 1530 / 1530 1052.5 / 1052.5 Output Total 300 / 370 Balance 1530 / 1160 -300 / 1160 1052.5 / 1052.5 Weight last 48 hrs Weight 150 lb 8 oz Physical Exam Narrative: Abdomen: Soft, nondistended, mildly tender, NG to LIS Data : 01/23/22 05:10 01/23/22 05:10 A&P Assessment and plan (1) SBO (small bowel obstruction): 71-year-old male with peritoneal carcinomatosis currently undergoing chemotherapy who presents with chronic bowel obstruction likely secondary to metastatic implants. Patient had multiple bowel movements. At this point patient is hemodynamically stable without evidence of peritonitis Clear liquid diet Clamp NG tube, if patient tolerates clear liquid diet, plan to DC NG tube this evening Daily labs Lactulose 15 cc p.o. twice daily Discussed with the patient that for chronic bowel obstruction options are bowel rest and surgery and given his comorbidities, stage IV disease, the fact that he is currently on chemotherapy, he is at high risk from surgery which would further delay his chemotherapy. We will therefore continue with expectant therapy and hopefully he has return of bowel function in the next 24 to 48 hours Status: Acute Attestations Medical Necessity Statement*: As per primary Coding Level of Care Code Acute Braiding Operator for [facility] Diagnoses SBO (small bowel obstruction) K56.609
--- NOTE | 2022-01-24 12:24 | P.PN_ITS ---
Subjective Subjective: No acute vents overnight. Patient did have 2 bowel movements yesterday. Passing flatus. Started on clear liquid diet as per surgery. NG tube clamped. Vitals/I&O/Wt Last Vital Signs Temp 97.8 F 01/24/22 11:07 Pulse 88 01/24/22 11:07 Resp 18 01/24/22 11:07 BP 129/78 01/24/22 11:07 Pulse Ox 93 01/24/22 11:07 01/23/22 01/24/22 01/24/22 22:59 06:59 14:59 Intake Total 1530 / 1530 1052.5 / 1052.5 Output Total 300 / 370 Balance 1530 / 1460 -300 / 1160 1052.5 / 1052.5 Weight last 48 hrs Weight 68.266 kg Physical Exam Narrative: General: No acute distress, AO x3 HEENT: PERRLA, pupils bilaterally equal and reactive Chest: Normal vesicular breath sounds, no added sounds, equal good air entry chris aterally CVS: S1-S2 regular, no murmurs, no tachycardia, no gallops, no rubs Abdomen: Soft, mild generalized tenderness, NG tube in place, no organomegaly, bowel sounds present Neuro: No focal deficits, no facial deformity, AO x3, power 5/5 in all limbs Data : 01/23/22 05:10 01/23/22 05:10 A&P Assessment and plan (1) SBO (small bowel obstruction): Status: Acute (2) Metastatic adenocarcinoma: Status: Acute (3) Carcinomatosis peritonei: Status: Acute Plan 71-year-old male with past medical history of carcinomatosis, recurrent bowel obstruction, currently chronic bowel obstruction presented to the symptoms consistent of nausea and vomiting found to have worsening small bowel obstruction on CT scan Plan: Appreciate surgical recommendations. Conservative treatment, NPO. NG tube. Continue to LIS. Hydration with D5 NS at 75 cc/h. Zofran as needed Protonix daily. Ambulation, out of bed to chair. Abdominal series, KUB. Laxative as per surgical recommendations. If patient does not improve with conservative treatment he is at a high risk of recurrent SBO, high risk surgical patient given being on active chemotherapy, active carcinomatosis peritonei. Will try to switch oral to IV medication when necessary and possible. Hypertension: Goal blood pressure less than 140/90 mmHg. Takes lisinopril 20 mg daily at home. Blood pressure normal right now. We will hold off on any treatment for now. If needed will start on IV treatment accordingly. Full code. Lovenox for DVT prophylaxis. Protonix for PUD prophylaxis. Plan for day: Started on clear liquid diet. Advance gradually. NG tube clamped. We will revisit in afternoon and if tolerating clear liquid diet can remove. Continue conservative treatment otherwise. Blood pressure well controlled. Hold off on antihypertensives. Attestations Medical Necessity Statement*: Requires further hospitalization for conservative treatment of small bowel obstruction in a patient with ca rcinomatosis peritonei Time Spent in Patient Care: Greater than 35 minutes Coding Level of Care Code Acute Pharmacy Stock Clerk for [facility] Diagnoses SBO (small bowel obstruction) K56.609 Metastatic adenocarcinoma C79.9 Carcinomatosis peritonei C78.6
[2022-01-24 15:09] VITALS: BP 123/69; PULSE 79; RESP 18; TEMP 36.4; O2SAT 94
[2022-01-24] MEDS: enoxaparin 40 mg/0.4 mL Syringe SUBCUT (16:17)
[2022-01-24] MEDS: pantoprazole 40 mg SDV IVP (16:17)
[2022-01-24 20:00] VITALS: BP 106/62; PULSE 76; RESP 18; TEMP 36.9; O2SAT 93
[2022-01-25] VITALS: BP 94/55; PULSE 73; RESP 16; TEMP 36.9; O2SAT 94
[2022-01-25 03:25] LABS: Basophils % 0.3 %; Eosinophils # 0.1 10^3/uL (0.0-0.8); Eosinophils % 1.7 %; Hematocrit 36.9 % (42.0-52.0); Hemoglobin 11.7 g/dL (11.7-16.6); Lymphocytes # 1.1 10^3/uL (0.8-4.8); Lymphocytes % 14.7 %; Mean Corpuscular HGB Conc 31.7 g/dL (30.0-36.0); Mean Corpuscular Hemoglobin 29.3 pg (28.0-34.0); Mean Corpuscular Volume 92.5 fl (80-94); Mean Platelet Volume 9.2 fL (7.4-10.4); Monocytes # 0.8 10^3/uL (0.2-0.9); Monocytes % 10.8 %; Neutrophils # 5.17 10^3/uL (1.8-7.7); Neutrophils % 72.1 %; Nucleated Red Blood Cells % 0 %; Platelet Count 329 10^3/cmm (130-400); Red Blood Count 3.99 10^6/uL (4.1-5.3); Red Cell Distribution Width 14.6 % (12.1-15.1); White Blood Count 7.2 10^3/uL (4.0-10.0)
[2022-01-25 03:50] LABS: Alanine Aminotransferase 7 U/L (0-41); Albumin Level 3.2 g/dL (3.5-5.2); Alkaline Phosphatase 95 IU/L (40-130); Anion Gap 13.6 (5-19); Aspartate Amino Transferase 21 U/L (0-40); Blood Urea Nitrogen 8 mg/dL (8-23); Calcium 8.1 mg/dL (8.5-10.5); Carbon Dioxide 27 mmol/L (22-29); Chloride 100 mmol/L (98-107); Glomerular Filtration Rate 133.2 mL/min (90-130); Glucose 134 mg/dL (65-115); Osmolality Calculated 284 mOsm/kg (285-295); Potassium 3.6 mmol/L (3.5-5.1); Sodium 137 mmol/L (136-145); Total Bilirubin 0.4 mg/dL (0.15-1.2); Total Protein 6.2 g/dL (6.6-8.7)
[2022-01-25 04:00] VITALS: BP 100/67; PULSE 77; RESP 16; TEMP 36.8; O2SAT 99
--- NOTE | 2022-01-25 05:31 | PC.NURSE ---
SHIFT SUMMARY Has rested well tonight. Had visitors in the evening. Is very pleasant. Is hoping to go home today. Says is feeling much better and was very happy to get NG tube removed yesterday. Has denied any nausea or abd pain with liquids. Good bowel sounds tonight and abd with minimal tenderness across lower abd. Reports loose BM's and did not want to take the Lactulose that was scheduled for 2329 but stated would take it this am. Daughter at bedside
[2022-01-25] MEDS: lactulose oral liq 20 gm/30 mL UDC 10 GM PO (06:34)
[2022-01-25 07:18] VITALS: BP 107/71; PULSE 76; RESP 18; TEMP 36.6; O2SAT 92
--- NOTE | 2022-01-25 09:20 | PC.SOCIAL ---
IMM Update Pg. 2 of IMM updated and reviewed with patient, who verbalized understanding. Copy provided.
[2022-01-25] MEDS: D5-NS 0.45% + KCL 20 mEq 20 MEQ/1,000 ML BAG 75 MEQ IV (09:46)
--- NOTE | 2022-01-25 10:45 | P.PN_ITS ---
Subjective Subjective: Patient had bowel movements, tolerating full liquid diet, abdominal pain is minimal Vitals/I&O/Wt Last Vital Signs Temp 97.8 F 01/25/22 07:18 Pulse 76 01/25/22 07:18 Resp 18 01/25/22 07:18 BP 107/71 01/25/22 07:18 Pulse Ox 92 01/25/22 07:18 01/24/22 01/25/22 01/25/22 22:59 06:59 14:59 Intake Total 1385 / 2797.5 120 / 2797.5 1190 / 1190 Output Total 300 / 300 600 / 600 Balance 1085 / 2497.5 120 / 2497.5 590 / 590 Physical Exam Narrative: Abdomen: Soft, nondistended, mildly tender Data : 01/25/22 02:35 01/25/22 02:35 A&P Assessment and plan (1) SBO (small bowel obstruction): 71-year-old male with peritoneal carcinomatosis currently undergoing chemotherapy who presents with chronic bowel obstruction likely secondary to metastatic implants. Patient had multiple bowel movements. At this point patient is hemodynamically stable without evidence of peritonitis DC home today Follow-up as needed I have advised the patient to increase his Nexium to twice daily since he had some dark stool and to maintain a bowel regimen with stool softeners Status: Acute Attestations Medical Necessity Statement*: As per primary Coding Level of Care Code Acute Senior Java Programmer Analyst for [facility] Diagnoses SBO (small bowel obstruction) K56.609
--- NOTE | 2022-01-25 11:11 | P.DS_ITS ---
Discharge Providers Date of Admission: 01/22/22 13:34 Date of Discharge: January 25, 2022 Attending Provider at Admission: Mp Gutierrez MD Attending Provider at Discharge: Dameon Parada MD Primary Care Provider: Felipe Ruth MD Diagnoses at Discharge Discharge Diagnosis (1) SBO (small bowel obstruction): Status: Acute Reason for Visit Reason for Visit: nausea/severe stomach cramps/difficulty eating Hospital Course Hospital Course HPI: Dr. 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 Last treatment 2 weeks ago.? Next treatment due coming Tuesday(today is Tuesday).? He presented to the ER today because of worsening nausea and vomiting for last 3 days.? He states the symptoms first started 5 days ago on Tuesday when he started having mild nausea along with abdominal pain.? His abdominal pain and nausea continue to worsen.? Abdominal pain is generalized.? He started having vomiting today morning so he presented to the ER.? In the ER he was found to have worsening of a small bowel obstruction.? Last bowel movement was yesterday which was diarrhea.? As per the patient he is been having alternating diarrhea and constipation. Blood work in the ER showed a white count of 8.5, hemoglobin of 10.9, creatinine of 0.9, sodium of 136, potassium of 4.1, lactate of 0.9, AST/ALT of 21/11 CT abdomen pelvis: Consistent with chronic partial small bowel obstruction, worsened when compared to the prior CT scan. Hospital course: Patient was admitted for management of small bowel obstruction: Was managed conservatively with NG tube IV hydration and Zofran, pain control, serial abdominal x-ray, ambulation Patient responded well to above medical and surgical management. At the time of discharge he was tolerating clear liquid diet well, he was passing, flatus as well as stool, had no abdominal pain nausea vomiting. Patient was discharged in hemodynamically stable condition to home, will continue to follow his primary care physician as well as surgery as outpatient.. Physical Exam Const: COMMON NORMALS: patient oriented x3 HENMT: COMMON NORMALS: normocephalic and atraumatic HEAD & SCALP: normocephalic and atraumatic Chest: CHEST: Yes Symmetrical chest wall rise Resp: COMMON NORMALS: normal respiratory effort and clear to auscultation bilaterally EFFORT & INSPECTION: Yes symmetric chest movement AUSCULTATION: clear to auscultation bilaterally Cardio: COMMON NORMALS: regular rate, regular rhythm, S1 normal heart sound present, S2 normal heart sound present, No gallops present (Cardio), No murmurs present (Cardio), No rub (Cardio) and Peripheral pulses 2+ throughout RATE: regular rate RHYTHM: regular rhythm HEART SOUNDS: S1 normal heart sound present and S2 normal heart sound present PERIPHERAL PULSES: Peripheral pulses 2+ throughout GI: COMMON NORMALS: Normal to inspection, nondistended, normoactive bowel sounds present, Soft to palpation, non-tender, No hepatosplenomegaly present and no masses AUSCULTATION: Yes normoactive bowel sounds PALPATION: Yes Soft to palpation and Yes No hepatosplenomegaly present RECTAL EXAM: Yes deferred Extremity: COMMON NORMALS: no clubbing, cyanosis or edema and no pedal edema Neuro: COMMON NORMALS: patient oriented x3 Discharge Data Studies Completed and Pending Completed Studies During Hospitalization Category Date Time Status CT abdomen pelvis w con* [id number] Stat Cat Scan 01/22/22 07:58 Completed XR KUB [id number] Routine Exams 01/23/22 09:42 Completed XR abdomen min 2V [id number] Routine Exams 01/24/22 06:00 Completed XR chest 1V portable [id number] Stat Exams 01/22/22 08:02 Completed Radiology Impressions Abdomen/Pelvis CT 01/22/22 07:58 IMPRESSION: 1. Peripherally enhancing loculated left pleural effusion with adjacent compressive atelectasis and or pneumonia is similar to the prior study. There is nodular enhancement along the posterior pleura of the left hemithorax consistent with metastatic disease which was not present on the prior study, consistent with metastatic progression. 2. Peripherally enhancing intraperitoneal fluid with nodular enhancement of the peritoneal pleura consistent with peritoneal carcinomatosis. 3. Findings as stated above are consistent with a chronic partial small bowel obstruction, worsened when compared to the prior CT scan. 4. There are air-fluid levels in the distal colon suggesting mild nonspecific colitis versus other diarrheal illness. 5. Horseshoe kidney. There is mild hydronephrosis of the bilateral renal poles. ADDENDUM: 01/22/22 1225 CRITICAL RESULT: The study was personally discussed on the telephone with JACQUELINE Philip on 01/22/2022 12:23 PM CDT. The results were understood and acknowledged. Chest X-Ray 01/22/22 08:02 IMPRESSION: 1. Moderate LEFT pleural effusion is increased in size since 12/23/2021. 2. No pneumothorax. 3. LEFT subclavian Mediport. KUB X-Ray 01/23/22 09:42 IMPRESSION: Similar mild distention of small-bowel loops in the left hemiabdomen. Abdomen X-Ray 01/24/22 06:00 IMPRESSION: 1. The tip of the nasogastric tube projects just below the diaphragm at the gastric cardia. 2. Opacified left lung base consistent with effusion and basilar consolidation/atelectasis. 3. No significant bowel dilatation. Laboratory Results WBC 7.2 10^3/uL (4.0-10.0) 01/25/22 02:35 RBC 3.99 10^6/uL (4.1-5.3) L 01/25/22 02:35 Hgb 11.7 g/dL (11.7-16.6) 01/25/22 02:35 Hct 36.9 % (42.0-52.0) L 01/25/22 02:35 MCV 92.5 fl (80-94) 01/25/22 02:35 MCH 29.3 pg (28.0-34.0) 01/25/22 02:35 MCHC 31.7 g/dL (30.0-36.0) 01/25/22 02:35 RDW 14.6 % (12.1-15.1) 01/25/22 02:35 Plt Count 329 10^3/cmm (130-400) 01/25/22 02:35 MPV 9.2 fL (7.4-10.4) 01/25/22 02:35 Neut % (Auto) 72.1 % 01/25/22 02:35 Lymph % (Auto) 14.7 % 01/25/22 02:35 [place] % (Auto) 10.8 % 01/25/22 02:35 Eos % (Auto) 1.7 % 01/25/22 02:35 Baso % (Auto) 0.3 % 01/25/22 02:35 Neut # (Auto) 5.17 10^3/uL (1.8-7.7) 01/25/22 02:35 Lymph # (Auto) 1.1 10^3/uL (0.8-4.8) 01/25/22 02:35 [place] # (Auto) 0.8 10^3/uL (0.2-0.9) 01/25/22 02:35 Eos # (Auto) 0.1 10^3/uL (0.0-0.8) 01/25/22 02:35 Baso # (Auto) 0.0 10^3/uL (0.0-0.1) 01/25/22 02:35 Nucleated RBC % (auto) 0 % 01/25/22 02:35 Nucleated RBCs # 0.0 /100WBC 01/25/22 02:35 Sodium 137 mmol/L (136-145) 01/25/22 02:35 Potassium 3.6 mmol/L (3.5-5.1) 01/25/22 02:35 Chloride 100 mmol/L (98-107) 01/25/22 02:35 Carbon Dioxide 27 mmol/L (22-29) 01/25/22 02:35 Anion Gap 13.6 (5-19) 01/25/22 02:35 BUN 8 mg/dL (8-23) 01/25/22 02:35 Creatinine 0.6 mg/dL (0.7-1.2) L 01/25/22 02:35 GFR Calculation 133.2 mL/min (90-130) H 01/25/22 02:35 Glucose 134 mg/dL (65-115) H 01/25/22 02:35 Estimat Average Glucose 154 01/23/22 05:10 Hemoglobin A1c 7.0 % (4.0-6.0) H 01/23/22 05:10 Calculated Osmolality 284 mOsm/kg (285-295) L 01/25/22 02:35 Lactic Acid 0.9 mmol/L (0.5-2.2) 01/22/22 08:36 Calcium 8.1 mg/dL (8.5-10.5) L 01/25/22 02:35 Phosphorus 3.6 mg/dL (2.5-4.5) 01/23/22 05:10 Magnesium 1.9 mg/dL (1.7-2.3) 01/23/22 05:10 Iron 40 ug/dL (59-158) L 01/22/22 08:36 TIBC 247 mcg/dl 01/22/22 08:36 % Saturation 16.1 % (20-50) L 01/22/22 08:36 Unsat Iron Binding 207 ug/dL (112-347) 01/22/22 08:36 Total Bilirubin 0.4 mg/dL (0.15-1.2) 01/25/22 02:35 AST 21 U/L (0-40) 01/25/22 02:35 ALT 7 U/L (0-41) 01/25/22 02:35 Alkaline Phosphatase 95 IU/L (40-130) 01/25/22 02:35 Total Protein 6.2 g/dL (6.6-8.7) L 01/25/22 02:35 Albumin 3.2 g/dL (3.5-5.2) L 01/25/22 02:35 Globulin 3.0 g/dL (1.3-4.6) 01/25/22 02:35 Triglycerides 167 mg/dL (0-150) H 01/23/22 05:10 Cholesterol 126 mg/dL (0-200) 01/23/22 05:10 LDL Cholesterol, Calc 61 mg/dL (50-129) 01/23/22 05:10 Total VLDL Cholesterol 33 mg/dL (0-30) H 01/23/22 05:10 HDL Cholesterol 32 mg/dL (60-100) L 01/23/22 05:10 Cholesterol/HDL Ratio 3.94 mg/dL (1.0-5.00) 01/23/22 05:10 Lipase 24 U/L (13-60) 01/22/22 08:36 TSH 2.36 uIU/mL (0.27-4.20) 01/22/22 08:36 Urine Color Yellow (Yellow) 01/22/22 12:30 Urine Appearance Clear (CLEAR) 01/22/22 12:30 Urine pH 5 (5-7) 01/22/22 12:30 Ur Specific [place] 1.005 (1.005-1.030) 01/22/22 12:30 Urine Protein Trace (Negative) 01/22/22 12:30 Urine Glucose (UA) 4+ (Normal) H 01/22/22 12:30 Urine Ketones Negative (Negative) 01/22/22 12:30 Urine Blood Neg (Negative) 01/22/22 12:30 Urine Nitrate Negative (Negative) 01/22/22 12:30 Urine Bilirubin Neg (Negative) 01/22/22 12:30 Urine Urobilinogen Norm mg/dL (Negative) 01/22/22 12:30 Ur Leukocyte Esterase Negative (Negative) 01/22/22 12:30 Urine RBC 0-4 /hpf (0-2) H 01/22/22 12:30 Urine WBC 0-4 /hpf (0-5) H 01/22/22 12:30 Ur Squamous Epith Cells 0-4 /hpf (0-5) H 01/22/22 12:30 Amorphous Sediment Not Reportable 01/22/22 12:30 Urine Bacteria Trace /hpf (NONE) 01/22/22 12:30 Urine Mucus Trace /hpf 01/22/22 12:30 Vitals Last Vital Signs Temp 97.8 F 01/25/22 07:18 Pulse 76 01/25/22 07:18 Resp 18 01/25/22 07:18 BP 107/71 01/25/22 07:18 Pulse Ox 92 01/25/22 07:18 Discharge Plan Discharge Patient Disposition: Home Condition: Stable Prescriptions: Continued esomeprazole magnesium [Nexium] 40 mg capsule,delayed release(DR/EC) 40 mg PO DAILY 0RF rosuvastatin [Crestor] 20 mg tablet 20 mg PO DAILY 0RF metformin 1,000 mg tablet 1,000 mg PO BID 0RF Farxiga 10 mg tablet 10 mg PO DAILY 0RF ondansetron 4 mg tablet,disintegrating 4 mg PO DAILY 0RF pq-naa-HH-Pr-Jz-pkitjqt-lutein 0.4-162-18 mg Tablet 1 tab PO DAILY 0RF Held lisinopril 20 mg Tablet 20 mg PO DAILY 0RF Hold Instructions: Resume on 01/30/22. Discharge Orders: Discharge Order (Routine); Ordered 01/25/22 Ordered By: Dameon Parada Referrals: Andrew Cole MD [Physician] - (As needed) Felipe Ruth MD [Primary Care Provider] - 02/01/22 10:45 am Discharge Activity: Resume usual activity Patient Instructions: Bowel Obstruction (GEN), Opioid Safety Discharge Attestations Time Spent in Discharge Care*: less than 30 min Quality Metrics Clinical Quality Measures [ No reported AMI, CVA or VTE this stay] Coding Level of Care Code Acute Chg FW DC note Diagnoses SBO (small bowel obstruction) K56.609
[2022-01-25 11:20] VITALS: BP 107/51; PULSE 86; RESP 18; TEMP 36.8; O2SAT 94
[2022-01-25 13:39] VITALS: BP 107/51; PULSE 86; RESP 18; TEMP 36.8; O2SAT 94
== END 2022-01-25 13:42 | disposition home or self-care (01) | DRG 389 ==
LOC: ER 08:21 → MEDSURG 14:21
PROVIDERS: Admitting Provider Student in an Organized Health Care Education/Training Program; Emergency Provider Family Medicine; PCP Family Medicine; Visit Provider Internal Medicine
DX: K56.600 Partial intestinal obstruction, unspecified as to cause (principal); C78.6 Secondary malignant neoplasm of retroperitoneum and peritoneum; J90 Pleural effusion, not elsewhere classified; C79.9 Secondary malignant neoplasm of unspecified site; R18.8 Other ascites; K21.9 Gastro-esophageal reflux disease without esophagitis; Z87.891 Personal history of nicotine dependence; Z92.21 Personal history of antineoplastic chemotherapy; I10 Essential (primary) hypertension; E11.9 Type 2 diabetes mellitus without complications; Z79.84 Long term (current) use of oral hypoglycemic drugs
CPT/HCPCS: 36415; 71045; 74018; 74019; 74177; 80053; 80061; 81001; 83036; 83540; 83550; 83605; 83690; 83735; 84100; 84443; 85025; 94664; 96361; 96372; 96374; 96375; 99285; C9113; J1200; J1650; J2060; J2270; Q9967

== ENCOUNTER 2022-01-28 10:30 | Outpatient (RCR) | payer MEDICARE, OTHER, SELFPAY | END 2022-01-30 23:59 | disposition home or self-care (01) | LOC: SPT 10:30 | PROVIDERS: PCP Family Medicine; Referring Provider Nurse Practitioner Family; Visit Provider Nurse Practitioner Family | DX: R53.1 Weakness (principal); R53.83 Other fatigue | CPT/HCPCS: 97162 ==

== ENCOUNTER 2022-01-31 | Outpatient (RCR) | payer MEDICARE, OTHER, SELFPAY | END 2022-03-02 23:59 | disposition home or self-care (01) | LOC: SPT | PROVIDERS: PCP Family Medicine; Referring Provider Nurse Practitioner Family; Visit Provider Nurse Practitioner Family | DX: R53.1 Weakness (principal); R53.83 Other fatigue | CPT/HCPCS: 97110 ==

== ENCOUNTER 2022-02-24 13:00 | Oncology outpatient (recurring) (ONCR) | payer MEDICARE, OTHER, SELFPAY ==
[2022-02-02 08:27] LABS: Basophils # 0.1 10^3/uL (0.0-0.1); Basophils % 0.7 %; Eosinophils # 0.1 10^3/uL (0.0-0.8); Eosinophils % 1.3 %; Hematocrit 38.9 % (42.0-52.0); Hemoglobin 12.1 g/dL (11.7-16.6); Lymphocytes # 1.4 10^3/uL (0.8-4.8); Lymphocytes % 20.9 %; Mean Corpuscular HGB Conc 31.1 g/dL (30.0-36.0); Mean Corpuscular Hemoglobin 29.6 pg (28.0-34.0); Mean Corpuscular Volume 95.1 fl (80-94); Mean Platelet Volume 8.7 fL (7.4-10.4); Monocytes # 1.3 10^3/uL (0.2-0.9); Neutrophils # 3.86 10^3/uL (1.8-7.7); Neutrophils % 56.6 %; Nucleated Red Blood Cells % 0 %; Platelet Count 483 10^3/cmm (130-400); Red Blood Count 4.09 10^6/uL (4.1-5.3); Red Cell Distribution Width 14.9 % (12.1-15.1); White Blood Count 6.8 10^3/uL (4.0-10.0)
[2022-02-02 08:52] LABS: Alkaline Phosphatase 120 IU/L (40-130); Potassium 3.7 mmol/L (3.5-5.1); Sodium 137 mmol/L (136-145)
[2022-02-02 09:30] LABS: Albumin Level 3.4 g/dL (3.5-5.2); Anion Gap 15.7 (5-19); Blood Urea Nitrogen 13 mg/dL (8-23); CA 125 12.9 U/mL (0-35); Calcium 9.2 mg/dL (8.5-10.5); Carbon Dioxide 26 mmol/L (22-29); Globulin 3.5 g/dL (1.3-4.6); Glomerular Filtration Rate 83.4 mL/min (90-130); Glucose 173 mg/dL (65-115); Osmolality Calculated 288 mOsm/kg (285-295); Total Bilirubin 0.3 mg/dL (0.15-1.2); Total Protein 6.9 g/dL (6.6-8.7)
[2022-02-02 09:31] LABS: Alanine Aminotransferase 7 U/L (0-41); Aspartate Amino Transferase 19 U/L (0-40); Chloride 99 mmol/L (98-107)
[2022-02-02] MEDS: dextrose 5% 250 ML 75 ML IV (11:10)
[2022-02-02] MEDS: famotidine 20 mg/2 mL INJ IVP (11:10)
[2022-02-02] MEDS: palonosetron 0.25 mg/5 mL SDV IVP (11:13)
[2022-02-02] MEDS: fosaprepitant 150 MG in sodium chloride 0.9% 50 ML, sodium chloride 0.9% (100 ml) 100 ML 300 MG IV (11:14)
[2022-02-02] MEDS: OLANZapine 5 mg TABLET PO (11:16)
[2022-02-02] MEDS: atropine 1 mg/mL SDV 1 mL 0.4 MG IV (11:41)
[2022-02-02] MEDS: irinotecan 300 MG in dextrose 5% 250 ML 176.67 MG IV (12:23)
[2022-02-02] MEDS: fluorouraciL 3,650 MG, elastomeric pump 1 PUMP in sodium chloride 0.9% (100 ml) 19 ML IV (13:52)
[2022-02-02 13:55] VITALS: BP 109/70; PULSE 77; RESP 16; TEMP 36.6; O2SAT 95
[2022-02-17] MEDS: alteplase 1 mg/mL SDV 2 mL 2 MG INTRACATH (09:38)
[2022-02-17 09:55] LABS: Basophils % 0.4 %; Eosinophils # 0.1 10^3/uL (0.0-0.8); Eosinophils % 1.2 %; Hematocrit 36.9 % (42.0-52.0); Hemoglobin 11.3 g/dL (11.7-16.6); Lymphocytes % 13.4 %; Mean Corpuscular HGB Conc 30.6 g/dL (30.0-36.0); Mean Corpuscular Hemoglobin 28.7 pg (28.0-34.0); Mean Corpuscular Volume 93.7 fl (80-94); Mean Platelet Volume 9.3 fL (7.4-10.4); Monocytes # 0.8 10^3/uL (0.2-0.9); Monocytes % 9.9 %; Neutrophils # 5.72 10^3/uL (1.8-7.7); Neutrophils % 74.7 %; Nucleated Red Blood Cells % 0 %; Platelet Count 414 10^3/cmm (130-400); Red Blood Count 3.94 10^6/uL (4.1-5.3); Red Cell Distribution Width 14.7 % (12.1-15.1); White Blood Count 7.7 10^3/uL (4.0-10.0)
[2022-02-17 10:17] LABS: Alanine Aminotransferase 7 U/L (0-41); Albumin Level 3.4 g/dL (3.5-5.2); Alkaline Phosphatase 100 IU/L (40-130); Anion Gap 14.5 (5-19); Aspartate Amino Transferase 18 U/L (0-40); Blood Urea Nitrogen 14 mg/dL (8-23); Calcium 8.1 mg/dL (8.5-10.5); Carbon Dioxide 27 mmol/L (22-29); Chloride 97 mmol/L (98-107); Globulin 2.6 g/dL (1.3-4.6); Glomerular Filtration Rate 111.5 mL/min (90-130); Glucose 149 mg/dL (65-115); Osmolality Calculated 283 mOsm/kg (285-295); Potassium 3.5 mmol/L (3.5-5.1); Sodium 135 mmol/L (136-145); Total Bilirubin 0.3 mg/dL (0.15-1.2)
[2022-02-17] MEDS: dextrose 5% 250 ML 75 ML IV (11:29)
[2022-02-17] MEDS: palonosetron 0.25 mg/5 mL SDV IVP (11:30)
[2022-02-17] MEDS: famotidine 20 mg/2 mL INJ IVP (11:31)
[2022-02-17] MEDS: atropine 1 mg/mL SDV 1 mL 0.4 MG IV (11:32)
[2022-02-17] MEDS: OLANZapine 5 mg TABLET PO (11:38)
[2022-02-17] MEDS: fosaprepitant 150 MG in sodium chloride 0.9% 50 ML, sodium chloride 0.9% (100 ml) 100 ML 300 MG IV (11:55)
[2022-02-17] MEDS: irinotecan 300 MG in dextrose 5% 250 ML 176.67 MG IV (12:22)
[2022-02-17] MEDS: fluorouraciL 3,650 MG, elastomeric pump 1 PUMP in sodium chloride 0.9% (100 ml) 19 ML IV (14:06)
[2022-02-19 11:42] VITALS: BP 105/70; PULSE 95; RESP 18; TEMP 36.4; O2SAT 99
[2022-02-24 13:07] VITALS: BP 121/77; PULSE 90; RESP 16; TEMP 36.4; O2SAT 95
[2022-02-24] MEDS: sodium chloride 0.9% 1,000 ML 999 ML IV (13:13)
== END 2022-03-02 23:59 | disposition home or self-care (01) ==
PROVIDERS: PCP Family Medicine; Visit Provider Nurse Practitioner Family
DX: C18.1 Malignant neoplasm of appendix (principal); C78.6 Secondary malignant neoplasm of retroperitoneum and peritoneum; D64.9 Anemia, unspecified; Z79.899 Other long term (current) drug therapy
CPT/HCPCS: 36591; 36593; 80053; 85025; 86304; 96360; 96366; 96367; 96375; 96413; 96415; 96416; 96523; 99215; 99999; J0461; J1100; J1453; J2469; J2997; J3490; J7030; J9190; J9206

== ENCOUNTER 2022-03-03 09:00 | Outpatient (RCR) | payer MEDICARE, OTHER, SELFPAY | END 2022-04-01 23:59 | disposition home or self-care (01) | LOC: SPT 09:00 | PROVIDERS: PCP Family Medicine; Referring Provider Nurse Practitioner Family; Visit Provider Nurse Practitioner Family | DX: R53.1 Weakness (principal); C48.2 Malignant neoplasm of peritoneum, unspecified | CPT/HCPCS: 97110 ==

== ENCOUNTER 2022-03-31 08:00 | Oncology outpatient (recurring) (ONCR) | payer MEDICARE, OTHER, SELFPAY ==
[2022-03-03] MEDS: alteplase 1 mg/mL SDV 2 mL 2 MG INTRACATH ×2 (09:22→10:35)
[2022-03-03 10:11] LABS: Basophils % 0.2 %; Eosinophils # 0.1 10^3/uL (0.0-0.8); Eosinophils % 1.1 %; Hematocrit 37.1 % (42.0-52.0); Hemoglobin 11.4 g/dL (11.7-16.6); Lymphocytes # 1.3 10^3/uL (0.8-4.8); Lymphocytes % 15.6 %; Mean Corpuscular HGB Conc 30.7 g/dL (30.0-36.0); Mean Corpuscular Hemoglobin 28.1 pg (28.0-34.0); Mean Corpuscular Volume 91.6 fl (80-94); Mean Platelet Volume 9.4 fL (7.4-10.4); Monocytes # 0.7 10^3/uL (0.2-0.9); Monocytes % 8.1 %; Neutrophils # 6.31 10^3/uL (1.8-7.7); Neutrophils % 74.4 %; Nucleated Red Blood Cells % 0 %; Platelet Count 414 10^3/cmm (130-400); Red Blood Count 4.05 10^6/uL (4.1-5.3); Red Cell Distribution Width 15.6 % (12.1-15.1); White Blood Count 8.5 10^3/uL (4.0-10.0)
[2022-03-03 10:36] LABS: Alanine Aminotransferase 6 U/L (0-41); Albumin Level 3.5 g/dL (3.5-5.2); Alkaline Phosphatase 105 IU/L (40-130); Anion Gap 13.7 (5-19); Aspartate Amino Transferase 17 U/L (0-40); Blood Urea Nitrogen 12 mg/dL (8-23); Calcium 8.6 mg/dL (8.5-10.5); Cancer Antigen 19 9 10.32 U/mL (0-35); Carbon Dioxide 28 mmol/L (22-29); Chloride 102 mmol/L (98-107); Glomerular Filtration Rate 95.6 mL/min (90-130); Glucose 129 mg/dL (65-115); Osmolality Calculated 291 mOsm/kg (285-295); Potassium 3.7 mmol/L (3.5-5.1); Sodium 140 mmol/L (136-145); Total Bilirubin 0.3 mg/dL (0.15-1.2); Total Protein 6.5 g/dL (6.6-8.7)
[2022-03-03] MEDS: dextrose 5% 250 ML 75 ML IV (11:46)
[2022-03-03] MEDS: palonosetron 0.25 mg/5 mL SDV IVP (11:46)
[2022-03-03] MEDS: atropine 1 mg/mL SDV 1 mL 0.4 MG IV (11:49)
[2022-03-03] MEDS: fosaprepitant 150 MG in sodium chloride 0.9% 50 ML, sodium chloride 0.9% (100 ml) 100 ML 300 MG IV (11:51)
[2022-03-03] MEDS: OLANZapine 5 mg TABLET PO (11:55)
[2022-03-03] MEDS: irinotecan 300 MG in dextrose 5% 250 ML 176.67 MG IV (12:48)
[2022-03-03] MEDS: fluorouraciL 3,650 MG, elastomeric pump 1 PUMP in sodium chloride 0.9% (100 ml) 19 ML IV (14:28)
[2022-03-03 14:30] VITALS: BP 110/67; PULSE 82; RESP 16; TEMP 36.3; O2SAT 97
[2022-03-24 08:46] LABS: Basophils % 0.3 %; Hematocrit 38.3 % (42.0-52.0); Hemoglobin 11.9 g/dL (11.7-16.6); Lymphocytes # 0.8 10^3/uL (0.8-4.8); Lymphocytes % 11.4 %; Mean Corpuscular HGB Conc 31.1 g/dL (30.0-36.0); Mean Corpuscular Hemoglobin 28.1 pg (28.0-34.0); Mean Corpuscular Volume 90.5 fl (80-94); Mean Platelet Volume 9.5 fL (7.4-10.4); Monocytes # 0.1 10^3/uL (0.2-0.9); Monocytes % 1.3 %; Neutrophils # 6.13 10^3/uL (1.8-7.7); Neutrophils % 85.2 %; Nucleated Red Blood Cells % 0 %; Platelet Count 567 10^3/cmm (130-400); Red Blood Count 4.23 10^6/uL (4.1-5.3); Red Cell Distribution Width 16.4 % (12.1-15.1); White Blood Count 7.2 10^3/uL (4.0-10.0)
[2022-03-24 09:21] LABS: Slide Review Slide Review Perform
[2022-03-24 09:23] LABS: Alanine Aminotransferase 7 U/L (0-41); Albumin Level 3.6 g/dL (3.5-5.2); Alkaline Phosphatase 111 IU/L (40-130); Anion Gap 21.2 (5-19); Aspartate Amino Transferase 22 U/L (0-40); Blood Urea Nitrogen 20 mg/dL (8-23); Calcium 8.8 mg/dL (8.5-10.5); Carbon Dioxide 22 mmol/L (22-29); Chloride 93 mmol/L (98-107); Globulin 3.5 g/dL (1.3-4.6); Glucose 161 mg/dL (65-115); Osmolality Calculated 280 mOsm/kg (285-295); Potassium 4.2 mmol/L (3.5-5.1); Sodium 132 mmol/L (136-145); Total Bilirubin 0.5 mg/dL (0.15-1.2); Total Protein 7.1 g/dL (6.6-8.7)
[2022-03-24] MEDS: sodium chloride 0.9% 250 ML 75 ML IV (09:48)
[2022-03-24] MEDS: ondansetron 2 mg/ML SDV 2 mL 8 MG IVP (09:49)
[2022-03-24] MEDS: famotidine 20 mg/2 mL INJ IVP (09:51)
[2022-03-24] MEDS: diphenhydrAMINE 50 mg/mL SDV 1mL 25 MG IVP (09:53)
[2022-03-24] MEDS: dexamethasone 20 MG in sodium chloride 0.9% 50 ML 188 MG IV (09:57)
[2022-03-24 11:35] VITALS: BP 125/81; PULSE 88; RESP 16; TEMP 36; O2SAT 93
[2022-03-24 13:10] LABS: Carcinoembryonic Antigen 2.9 ng/mL (0.0-4.7)
[2022-03-24 14:13] LABS: CA 125 10.2 U/mL (0-35)
[2022-03-31 08:29] LABS: Basophils # 0.1 10^3/uL (0.0-0.1); Basophils % 0.6 %; Eosinophils # 0.1 10^3/uL (0.0-0.8); Eosinophils % 1.6 %; Hematocrit 36.3 % (42.0-52.0); Hemoglobin 11.8 g/dL (11.7-16.6); Lymphocytes # 1.4 10^3/uL (0.8-4.8); Lymphocytes % 17.2 %; Mean Corpuscular HGB Conc 32.5 g/dL (30.0-36.0); Mean Corpuscular Hemoglobin 28.6 pg (28.0-34.0); Mean Corpuscular Volume 87.9 fl (80-94); Mean Platelet Volume 9.3 fL (7.4-10.4); Monocytes # 0.8 10^3/uL (0.2-0.9); Monocytes % 9.3 %; Neutrophils # 5.63 10^3/uL (1.8-7.7); Neutrophils % 69.9 %; Nucleated Red Blood Cells % 0 %; Platelet Count 459 10^3/cmm (130-400); Red Blood Count 4.13 10^6/uL (4.1-5.3); Red Cell Distribution Width 16.5 % (12.1-15.1); White Blood Count 8.1 10^3/uL (4.0-10.0)
[2022-03-31 08:51] LABS: Alanine Aminotransferase 8 U/L (0-41); Albumin Level 3.5 g/dL (3.5-5.2); Alkaline Phosphatase 95 IU/L (40-130); Anion Gap 14.7 (5-19); Aspartate Amino Transferase 25 U/L (0-40); Blood Urea Nitrogen 16 mg/dL (8-23); Calcium 8.4 mg/dL (8.5-10.5); Carbon Dioxide 27 mmol/L (22-29); Chloride 98 mmol/L (98-107); Glucose 139 mg/dL (65-115); Osmolality Calculated 285 mOsm/kg (285-295); Potassium 3.7 mmol/L (3.5-5.1); Sodium 136 mmol/L (136-145); Total Bilirubin 0.5 mg/dL (0.15-1.2); Total Protein 6.5 g/dL (6.6-8.7)
[2022-03-31] MEDS: ondansetron 2 mg/ML SDV 2 mL 8 MG IVP (10:56)
[2022-03-31] MEDS: sodium chloride 0.9% 250 ML 75 ML IV (10:58)
[2022-03-31] MEDS: famotidine 20 mg/2 mL INJ IVP (11:00)
[2022-03-31] MEDS: diphenhydrAMINE 50 mg/mL SDV 1mL 25 MG IVP (11:01)
[2022-03-31] MEDS: dexamethasone 20 MG in sodium chloride 0.9% 50 ML 188 MG IV (11:03)
[2022-03-31 12:54] VITALS: BP 127/83; PULSE 78; RESP 16; TEMP 36.3; O2SAT 95
== END 2022-04-01 23:59 | disposition home or self-care (01) ==
PROVIDERS: Internal Medicine Medical Oncology; PCP Family Medicine; Visit Provider Nurse Practitioner Family
DX: Z51.11 Encounter for antineoplastic chemotherapy (principal); C18.1 Malignant neoplasm of appendix; C78.6 Secondary malignant neoplasm of retroperitoneum and peritoneum; R97.8 Other abnormal tumor markers; R11.2 Nausea with vomiting, unspecified
CPT/HCPCS: 36593; 80053; 82378; 85025; 86301; 86304; 96367; 96375; 96413; 96415; 96416; 96523; 99214; 99215; J0461; J1100; J1200; J1453; J2405; J2469; J2997; J3490; J7030; J7050; J9190; J9206; J9267

== ENCOUNTER 2022-04-02 06:00 | Outpatient (RCR) | payer MEDICARE, OTHER, SELFPAY | END 2022-04-17 23:59 | disposition home or self-care (01) | LOC: SPT 06:00 | PROVIDERS: PCP Family Medicine; Referring Provider Nurse Practitioner Family; Visit Provider Nurse Practitioner Family | DX: M62.81 Muscle weakness (generalized) (principal); C48.2 Malignant neoplasm of peritoneum, unspecified | CPT/HCPCS: 97110 ==

== ENCOUNTER 2022-04-14 13:00 | Oncology outpatient (recurring) (ONCR) | payer MEDICARE, OTHER, SELFPAY ==
[2022-04-07 08:26] VITALS: BP 111/73; PULSE 98; RESP 16; TEMP 36.4; O2SAT 94
[2022-04-07 08:48] LABS: Basophils # 0.1 10^3/uL (0.0-0.1); Basophils % 0.7 %; Eosinophils # 0.1 10^3/uL (0.0-0.8); Eosinophils % 1.4 %; Hematocrit 38.1 % (42.0-52.0); Lymphocytes # 1.4 10^3/uL (0.8-4.8); Lymphocytes % 17.4 %; Mean Corpuscular HGB Conc 31.5 g/dL (30.0-36.0); Mean Corpuscular Hemoglobin 28.4 pg (28.0-34.0); Mean Corpuscular Volume 90.3 fl (80-94); Mean Platelet Volume 9.6 fL (7.4-10.4); Monocytes # 0.7 10^3/uL (0.2-0.9); Monocytes % 8.4 %; Neutrophils # 5.75 10^3/uL (1.8-7.7); Neutrophils % 71.4 %; Nucleated Red Blood Cells % 0 %; Platelet Count 435 10^3/cmm (130-400); Red Blood Count 4.22 10^6/uL (4.1-5.3); Red Cell Distribution Width 17.3 % (12.1-15.1); White Blood Count 8.1 10^3/uL (4.0-10.0)
[2022-04-07 09:17] LABS: Alanine Aminotransferase 9 U/L (0-41); Albumin Level 3.5 g/dL (3.5-5.2); Alkaline Phosphatase 93 IU/L (40-130); Anion Gap 15.8 (5-19); Aspartate Amino Transferase 21 U/L (0-40); Blood Urea Nitrogen 17 mg/dL (8-23); Calcium 8.7 mg/dL (8.5-10.5); Carbon Dioxide 26 mmol/L (22-29); Chloride 95 mmol/L (98-107); Globulin 3.1 g/dL (1.3-4.6); Glucose 132 mg/dL (65-115); Osmolality Calculated 279 mOsm/kg (285-295); Potassium 3.8 mmol/L (3.5-5.1); Sodium 133 mmol/L (136-145); Total Bilirubin 0.4 mg/dL (0.15-1.2); Total Protein 6.6 g/dL (6.6-8.7)
[2022-04-07] MEDS: sodium chloride 0.9% 250 ML 75 ML IV (09:43)
[2022-04-07] MEDS: famotidine 20 mg/2 mL INJ IVP (09:47)
[2022-04-07] MEDS: ondansetron 2 mg/ML SDV 2 mL 8 MG IVP (09:49)
[2022-04-07] MEDS: diphenhydrAMINE 50 mg/mL SDV 1mL 25 MG IVP (09:51)
[2022-04-07] MEDS: dexamethasone 20 MG in sodium chloride 0.9% 50 ML 188 MG IV (09:55)
[2022-04-07 11:36] VITALS: BP 113/73; PULSE 82; RESP 16; TEMP 36.5; O2SAT 97
[2022-04-12 08:49] VITALS: BP 104/72; PULSE 107; RESP 16; TEMP 36.4; O2SAT 95
[2022-04-12] MEDS: sodium chloride 0.9% 1,000 ML 999 ML IV (09:02)
[2022-04-12 09:07] LABS: Basophils % 0.3 %; Eosinophils # 0.1 10^3/uL (0.0-0.8); Eosinophils % 0.9 %; Hematocrit 37.7 % (42.0-52.0); Hemoglobin 12.2 g/dL (11.7-16.6); Lymphocytes # 0.8 10^3/uL (0.8-4.8); Lymphocytes % 7.9 %; Mean Corpuscular HGB Conc 32.4 g/dL (30.0-36.0); Mean Corpuscular Hemoglobin 28.4 pg (28.0-34.0); Mean Corpuscular Volume 87.7 fl (80-94); Mean Platelet Volume 9.7 fL (7.4-10.4); Monocytes # 0.6 10^3/uL (0.2-0.9); Neutrophils # 8.18 10^3/uL (1.8-7.7); Neutrophils % 84.5 %; Nucleated Red Blood Cells % 0 %; Platelet Count 460 10^3/cmm (130-400); Red Cell Distribution Width 17.2 % (12.1-15.1); White Blood Count 9.7 10^3/uL (4.0-10.0)
[2022-04-12 09:22] LABS: Alanine Aminotransferase 10 U/L (0-41); Albumin Level 3.9 g/dL (3.5-5.2); Alkaline Phosphatase 136 IU/L (40-130); Anion Gap 21.9 (5-19); Aspartate Amino Transferase 24 U/L (0-40); Blood Urea Nitrogen 27 mg/dL (8-23); Calcium 8.9 mg/dL (8.5-10.5); Carbon Dioxide 23 mmol/L (22-29); Chloride 95 mmol/L (98-107); Glucose 136 mg/dL (65-115); Osmolality Calculated 289 mOsm/kg (285-295); Potassium 3.9 mmol/L (3.5-5.1); Sodium 136 mmol/L (136-145); Total Bilirubin 0.6 mg/dL (0.15-1.2); Total Protein 6.9 g/dL (6.6-8.7)
[2022-04-12 10:13] VITALS: BP 123/71; PULSE 94; RESP 16; TEMP 36.2; O2SAT 95
[2022-04-13 13:17] VITALS: BP 122/86; PULSE 106; RESP 16; TEMP 36.4; O2SAT 96
[2022-04-13] MEDS: sodium chloride 0.9% 500 ML 999 ML IV (13:27)
--- NOTE | 2022-04-14 12:00 | CT_ITS ---
WS: [id number] CT ABDOMEN AND PELVIS WITH CONTRAST HISTORY: abdominal distention, nausea/vomiting TECHNIQUE: Imaging performed of the abdomen and pelvis with IV contrast. Single phase imaging of the abdomen. Coronal and sagittal reformats are submitted. All CT scans at [facility] use at [address] one of these dose optimization techniques: automated exposure control; mA and/or kV adjustment per patient size (includes targeted exams where dose is matched to clinical indication); or iterative re construction. IV CONTRAST: Omnipaque 350; 95 mL IV. Oral contrast: No DLP: 1021.58 mGy.cm COMPARISON: 01/22/2022, 12/16/2021 Lower thorax: No pulmonary nodules at the RIGHT lung base. There is a loculated LEFT pleural effusion which has slightly increased in size since the prior examination. There is pleural mildly nodular en hancement. There is a foci of air within the effusion. Very mild nodularity involving the pleural angeline face with a few septations within the fluid. There is atelectatic lung in compressed at the LEFT lung base. There is fluid distending the esophagus from the level of the justin distally. Heart is normal size. Liver/biliary system: Scattered granulomata within the liver. No change in the low-attenuation nodule in the RIGHT lobe of the liver. No bile duct dilatation. Gallbladder: Normal. No gallstones or wall thickening. No pericholecystic fluid. Pancreas: Normal size pancreas and pancreatic duct. No adjacent inflammation. Spleen: Normal size with granulomata. Adrenal glands: Normal. Right kidney: Horseshoe kidneys. Mild posterior displacement of the kidneys due to the intraperitonea l disease. Very mild dilatation of the renal pelves. Similar to the prior study. Left kidney: Horseshoe kidney with mild dilatation of the renal pelvis versus pelvic cysts. Aorta: Extensive atherosclerosis aorta. Peritoneal enhancement with fluid similar to the prior study although increasing in amount. There is mild nodularity which has progressed involving the peritoneum. There is displacement of small bowel l oops with mucosal thickening and enhancement. There is extensive dilatation of small bowel loops and also the colon. There is marked dilatation of the colon with fluid. Small bowel loops within the RIGH T abdomen are collapsed and being compressed and partially obstructed. There is mild tethering of sev eral loops. There are a few pockets of air that are indeterminate in position. These were also presen t on the prior study and unchanged therefore these are probably contained within the lumen of the GI tract. Abdominal wall: Unremarkable abdominal wall. No hernia. Pelvis: Marked fluid distention of the rectum. Prostate gland is being displaced anteriorly. Bones: Unremarkable. CT/CT abdomen pelvis w con* [id number] IMPRESSION: 1. Progression of peritoneal fluid and colonic fluid distention since the prio r study. 2. Fluid distending the distal 50% of the esophagus and stomach. Suspect oment al implants along the greater curvature of the stomach versus gastritis. Some o f the small bowel loops are distended with fluid while others are compressed wi th wall thickening. There is tethering and nondilated loops of small bowel in t he RIGHT abdomen. Colon is distended with fluid most likely due to ileus. 3. Increasing size of the LEFT loculated effusion with pleural enhancement. Pl eural implants are suspected. Compressive atelectasis of the adjacent lung. 4. Nodular peritoneal enhancement consistent with carcinomatosis. Progression since the prior study. Increasing amount of enhancement within the small bowel suspect mesenteric implants. 5. No free air. There are several small foci of air which are indeterminate in location but in similar position to the prior examination therefore thought to be contained within the GI tract.
[2022-04-14] MEDS: OLANZapine 5 mg ODT PO (13:17)
[2022-04-14] MEDS: sodium chloride 0.9% 1,000 ML 999 ML IV (13:18)
[2022-04-14 13:19] VITALS: BP 114/77; PULSE 104; RESP 16; TEMP 36.7; O2SAT 94
[2022-04-14] MEDS: dexamethasone 10 mg/mL INJ 12 MG IVP (13:38)
[2022-04-14] MEDS: sodium chloride 0.9% 50 ML 300 ML IV (13:38)
[2022-04-14] MEDS: iohexol 350 mg/mL 100 mL Btl IV (15:07)
--- NOTE | 2022-04-14 16:30 | PC.NURSE ---
Dr. Hernandez came to infusion suite to review CT scan with pt/. Pt is to be admitted when bed available per Dr. Hernandez order/lc
== END 2022-04-17 23:59 | disposition home or self-care (01) ==
LOC: ONCMED 13:14
PROVIDERS: Internal Medicine Medical Oncology; PCP Family Medicine; Visit Provider Nurse Practitioner Family
DX: Z53.9 Procedure and treatment not carried out, unspecified reason (principal); C18.1 Malignant neoplasm of appendix
CPT/HCPCS: 74177; 80053; 85025; 96365; 96366; 96367; 96375; 96413; J1100; J1200; J2405; J3490; J7030; J7040; J7050; J9267; Q9967

== ENCOUNTER 2022-04-14 18:14 | Inpatient (IN) | payer MEDICARE, OTHER, SELFPAY ==
--- NOTE | 2022-04-14 18:55 | P.HP_ITS ---
Providers/Chief Complaint Admitting Physician: Miryam Blount MD Primary Care Provider: Felipe Ruth MD Chief Complaint: bowel obstruction History of Present Illness Clark Antony is a 72 year old male sent from Dr. Hernandez's office for intractable vomiting today and CT imaging showing evidence of bowel obstruction. There are dilated loops from esophagus through to the large bowel. In the oncology clinic where he presented he received some IV fluids, Zofran and Ativan. Vomiting persisted up until about the time he had CT completed. Short time later he had large bowel movement that was loose. This is not unusual for him after chemotherapy but the vomiting was much more pronounced. 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 Counts yesterday were good. Given intractable and progressively worsening GI symptoms he was sent for direct admission. Upon arrival here patient has not had further episodes of vomiting though has remained nauseated. He does feel that his abdomen is getting larger and he is uncomfortable but does not have pain. He has continued to lose weight about 8 pounds in the last month. Denies any blood in his vomitus. He has followed at [facility] with most recent visit there mid March. He follows with Dr. Hernandez locally for treatment. He is on third line chemotherapy without much more that can be offered. He has had progressive increase in imaging studies over time although most recent PET scan did not show significant FDG uptake in lymph nodes. Bowel intake was diffuse but felt to be inflammatory in nature. He has had progressive bowel wall edema. He had previous hospitalization with small bowel obstruction in January of this year. He has required 1 prior paracentesis back in 2019 and had a thoracentesis in December of this year. Has never had positive cytology identified though strongly suspected currently. He is on chronic anticoagulation with Xarelto for history of PE. From a respiratory standpoint as long as he is not moving around much his breathing is okay. Not requiring oxygen. He does complain of his right ear bothering him. Frequently cold but no reported fevers. Review of Systems General: Reports: 10 or more systems reviewed and unremarkable except in HPI and below Const: Reports: change in appetite and change in weight; Denies: fever(s) ENMT: Reports: nasal congestion ( After eating) and other (Right ear discomfort and altered sensation in the ear that transmits); Denies: throat pain or oral sores Card: Reports: dyspnea on exertion; Denies: chest pain Resp: Denies: productive cough or hemoptysis GI: Reports: abdominal pain, nausea, vomiting and diarrhea (After chemo); Denies: hematochezia : Denies: difficulty urinating Musc: Reports: other (No lower extremity edema) Neuro: Reports: sensory changes (Of the feet) [place]/Lymph: Denies: easy bleeding Medications/Allergies Home Medications Medication Instructions Recorded Confirmed Last Taken Type esomeprazole magnesium 40 mg 40 mg PO DAILY 07/02/20 03/31/22 01/21/22 History capsule,delayed release (Nexium) rosuvastatin 20 mg tablet (Crestor) 20 mg PO DAILY 07/02/20 03/31/22 01/21/22 History dapagliflozin 10 mg tablet 10 mg PO DAILY 08/14/20 03/31/22 01/21/22 History (Farxiga) metformin 1,000 mg tablet 1,000 mg PO BID 08/14/20 03/31/22 01/21/22 History lisinopril 20 mg tablet 20 mg PO DAILY 01/27/21 03/31/22 01/21/22 History eiafwwaq-xoo-DQ 0.4 mg-calcium 162 1 tab PO DAILY 01/22/22 03/31/22 01/21/22 History mg-iron 18 kg-mdqcykv-mogwql tablet dexamethasone 4 mg tablet 20 mg PO .COMPLEX #10 tab 03/19/22 03/31/22 Unknown Rx rivaroxaban 15 mg tablet (Xarelto) 15 mg PO BID tab 03/24/22 03/31/22 Unknown History lorazepam 1 mg tablet 0.5 - 1 mg PO Q6H PRN #30 tab 03/25/22 03/31/22 Unknown Rx ondansetron 4 mg disintegrating 4 mg PO Q4H PRN #60 tab 03/31/22 03/31/22 Unknown Rx tablet dronabinol 5 mg capsule 5 mg PO BID #60 cap 04/13/22 Unknown Rx Allergies Allergy/AdvReac Type Severity Reaction Status Date / Time No Known Allergies Allergy Verified 03/31/22 10:10 PFSH Acute PFSH: Medical History (Updated 04/14/22 @ 20:39 by Miryam Blount MD) Diabetes GERD (gastroesophageal reflux disease) History of diverticulitis History of nonmelanoma skin cancer Horseshoe kidney Hyperlipidemia Hypertension 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 Adams for squamous cell skin cancers on the dorsum of the left hand and on the central forehead. Surgical History H/O circumcision H/O colonoscopy 2019 H/O esophagogastroduodenoscopy 2019 H/O hemorrhoidectomy Port-A-Cath in place (01/28/21) Family History Father Cancer Grandmother CAD (coronary artery disease) Diabetes Mother Dementia Denies family history of Clotting disorder Hyperlipidemia Psychiatric illness Chronic kidney disease (CKD) Suicide Anesthesia complication Bleeding disorder Lung disease Hypertension Stroke Social History (Updated 04/14/22 @ 19:48 by Miryam Blount MD) Smoking and tobacco status: former smoker Quit status (tobacco): has quit using tobacco Year quit tobacco: 1986 [id number] Second hand smoke exposure: No Alcohol intake: current Alcohol intake frequency: other Lives independently: Yes Household members: spouse Marital status: Current occupational status: retired Current gender identity: Male Physical Exam Narrative: Constitutional: Awake and alert, thin build, able to provide history HEENT: Not currently able to visualize the right ear canal, not visibly obstructed and what I can see, external ear not red, dry mucous membranes, cachectic Neck: Supple Respiratory: Decreased breath sounds left compared to right Cardiovascular: Regular rhythm Abdomen: Soft, full, positive bowel sounds, doughy Extremities: No pitting edema or calf tenderness Skin: Dry, Port-A-Cath intact and accessed in the left upper chest Neuro: Speech clear, face symmetric, generally weak Psych: Normal affect Data Other Labs: CT ABDOMEN AND PELVIS TODAY in OUTPATIENT Lower thorax: No pulmonary nodules at the RIGHT lung base. There is a loculated LEFT pleural effusion which has slightly increased in size since the prior examination. There is pleural mildly nodular enhancement. There is a foci of air within the effusion. Very mild nodularity involving the pleural surface with a few septations within the fluid. There is atelectatic lung in compressed at the LEFT lung base. There is fluid distending the esophagus from the level of the justin distally. Heart is normal size. Liver/biliary system: Scattered granulomata within the liver. No change in the low-attenuation nodule in the RIGHT lobe of the liver. No bile duct dilatation. Gallbladder: Normal. No gallstones or wall thickening. No pericholecystic fluid.? Pancreas: Normal size pancreas and pancreatic duct. No adjacent inflammation. Spleen: Normal size with granulomata. Adrenal glands: Normal. Right kidney: Horseshoe kidneys. Mild posterior displacement of the kidneys due to the intraperitoneal disease. Very mild dilatation of the renal pelves. Similar to the prior study. Left kidney: Horseshoe kidney with mild dilatation of the renal pelvis versus pelvic cysts. Aorta: Extensive atherosclerosis aorta. Peritoneal enhancement with fluid similar to the prior study although increasing in amount. There is mild nodularity which has progressed involving the peritoneum. There is displacement of small bowel loops with mucosal thickening and enhancement. There is extensive dilatation of small bowel loops and also the colon. There is marked dilatation of the colon with fluid. Small bowel loops within the RIGHT abdomen are collapsed and being compressed and partially obstructed. There is mild tethering of several loops. There are a few pockets of air that are indeterminate in position. These were also present on the prior study and unchanged therefore these are probably contained within the lumen of the GI tract. Abdominal wall: Unremarkable abdominal wall. No hernia. Pelvis: Marked fluid distention of the rectum. Prostate gland is being displaced anteriorly. Bones: Unremarkable. CT/CT abdomen pelvis w con* [id number] IMPRESSION: ? 1.? Progression of peritoneal fluid and colonic fluid distention since the prior study. 2.? Fluid distending the distal 50% of the esophagus and stomach. Suspect omental implants along the greater curvature of the stomach versus gastritis. Some of the small bowel loops are distended with fluid while others are compressed with wall thickening. There is tethering and nondilated loops of small bowel in the RIGHT abdomen. Colon is distended with fluid most likely due to ileus. 3.? Increasing size of the LEFT loculated effusion with pleural enhancement. Pleural implants are suspected. Compressive atelectasis of the adjacent lung. 4.? Nodular peritoneal enhancement consistent with carcinomatosis. Progression since the prior study. Increasing amount of enhancement within the small bowel suspect mesenteric implants. 5.? No free air. There are several small foci of air which are indeterminate in location but in similar position to the prior examination therefore thought to be contained within the GI tract. A&P Assessment and plan (1) Vomiting: Intractable today until just prior to arrival to hospital, received antiemetics, fluids in oncology clinic Status: Acute (2) Bowel obstruction: With dialted esophagus, stomach, small bowel and large bowel Had large bowel movement for him after the cat scan was completed, no vomiting since then Status: Acute Qualifiers: Intestinal obstruction type: other intestinal obstruction Intestinal obstruction extent: partial Qualified Code(s): K56.690 - Other partial intestinal obstruction (3) Ascites: Increasing ascites and associated bowel edema Last paracentesis was in 2019 and did not reveal evidence of malignancy PET scan findings from January of this year showed diffuse bowel uptake likely inflammatory Status: Acute Qualifiers: Ascites type: other type Qualified Code(s): R18.8 - Other ascites (4) Pleural effusion, left: Increasing in size with enhancement suggestive or pleural implants Last thoracentesis was in December 2021 and did not show definitive findings of malignant effusion PET scan imaging January did not show FDG uptake in the mediastinal lymph nodes Status: Chronic (5) On antineoplastic chemotherapy: Last dose of Taxol on 03/31 Status: Acute (6) Secondary malignant neoplasm of retroperitoneum and peritoneum: Suspected to be appendiceal related but primary not found Progressive nodular peritoneal enhancement consistent with carcinomatosis Progressive mesenteric edema On 3rd line chemotherapy agent per recommendations from MD Foy Has not yet started marinol, has applied for a THC card Status: Acute (7) Pulmonary embolism: Chronic, specific location not known Status: Chronic Qualifiers: Chronicity: chronic (8) Chronic anticoagulation: Xarelto, secondary to history of PE Status: Chronic (9) Diabetes: Chronically on Farxiga and metformin 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 Status: Chronic Qualifiers: Diabetes mellitus type: type 2 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 Since he has felt a little better overall since having bowel movement post CT scan today we will hold off on NG tube placement currently with low threshold to proceed. N.p.o. except for sips and chips and medications as ordered Patient aware that if he has recurrent intractable vomiting NG tube will need to be considered Surgical consultation to discuss options for peritoneal drain is a possibility t his stay versus in the future Alternatively will consider ultrasound-guided paracentesis via radiology Respiratory status stable, no current indication for thoracentesis Hold Xarelto in anticipation of a procedure PPI IV Sliding scale insulin currently Hold oral home medications for now monitoring need for IV alternatives to allow bowel rest Antiemetic with Zofran, Ativan and other adjunctive's as needed SCDs for DVT prophylaxis Supportive care otherwise Anticipate discharge home with outpatient follow-up to oncology, possibly with some additional support depending on clinical course Discussion regarding goals of care ongoing Attestations Medical Necessity Statement*: Anticipated stay greater than 2 midnights in a gentleman with secondary peritoneal/retroperitoneal malignancy, poorly differentiated adenocarcinoma without defined primary presenting with intractable vomiting today. CT imaging shows extensive fluid-filled bowel from large colon to the esophagus along with increasing ascites and left pleural effusion. Patient has not had malignant cytology identified but most likely these findings are related to cancer. Last time he required paracentesis was ago and thoracentesis 4 months ago. Admitting for management of obstructive process, hydration and fluid drainage as deemed appropriate. 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 [employer] Diagnoses Vomiting R11.10 Bowel obstruction K56.690 Intestinal obstruction type: other intestinal obstruction Intestinal obstruction extent: partial Secondary malignant neoplasm of retroperitoneum and peritoneum C78.6 On antineoplastic chemotherapy Z79.899 Pulmonary embolism I26.99 Chronicity: chronic Chronic anticoagulation Z79.01 Ascites R18.8 Ascites type: other type GERD (gastroesophageal reflux disease) K21.9 Diabetes E11.65 Diabetes mellitus type: type 2 Diabetes mellitus alf insulin use: without watcher automat long goods use Diabetes mellitus complication status: with hyperglycemia Pleural effusion, left J90
[2022-04-14 20:00] VITALS: BP 135/75; PULSE 102; RESP 16; TEMP 36.6; O2SAT 94
[2022-04-14] MEDS: pantoprazole 40 mg SDV IVP (20:04)
[2022-04-14] MEDS: sodium chlor 0.45% +KCl 20 mEq 20 MEQ/1,000 ML BAG 75 MEQ IV (20:30)
[2022-04-14 21:20] LABS: Basophils % 0.2 %; Hematocrit 37.8 % (42.0-52.0); Hemoglobin 12.3 g/dL (11.7-16.6); Lymphocytes # 0.4 10^3/uL (0.8-4.8); Mean Corpuscular HGB Conc 32.5 g/dL (30.0-36.0); Mean Corpuscular Hemoglobin 28.8 pg (28.0-34.0); Mean Corpuscular Volume 88.5 fl (80-94); Mean Platelet Volume 9.8 fL (7.4-10.4); Monocytes # 0.3 10^3/uL (0.2-0.9); Monocytes % 3.2 %; Neutrophils # 9.34 10^3/uL (1.8-7.7); Neutrophils % 91.9 %; Nucleated Red Blood Cells % 0 %; Platelet Count 520 10^3/cmm (130-400); Red Blood Count 4.27 10^6/uL (4.1-5.3); White Blood Count 10.2 10^3/uL (4.0-10.0)
[2022-04-14 21:27] LABS: Glucose Point of Care 153 mg/dL (70-110)
[2022-04-14 21:29] LABS: Add Urine Culture? No; Add Urine Microscopic? YES; Bacteria Urine TRACE /hpf; Bilirubin Urine Neg (Negative); Blood Urine Neg (Negative); Glucose Urine UA 4+ (Normal); Ketones Urine 3+ (Negative); Leukocyte Esterase Urine Negative (Negative); Nitrate Urine Negative (Negative); Protein Urine Trace (Negative); RBC Urine 0-4 /hpf (0-2); Squamous Epithelial Cell Urine 0-4 /hpf (0-5); Urine Appearance Clear (CLEAR); Urine Color Yellow (Yellow); Urobilinogen Urine Norm (Negative); WBC Urine 0-4 /hpf (0-5); pH Urine 5 (5-7)
[2022-04-14 21:33] LABS: INR 1.05 (0.8-1.2)
[2022-04-14 21:34] LABS: Partial Thromboplastin Time 31.7 SECONDS (23.9-36.7)
[2022-04-14 21:48] LABS: Alanine Aminotransferase 9 U/L (0-41); Albumin Level 3.7 g/dL (3.5-5.2); Alkaline Phosphatase 110 IU/L (40-130); Aspartate Amino Transferase 18 U/L (0-40); Blood Urea Nitrogen 23 mg/dL (8-23); Calcium 8.8 mg/dL (8.5-10.5); Carbon Dioxide 15 mmol/L (22-29); Chloride 95 mmol/L (98-107); Globulin 2.9 g/dL (1.3-4.6); Glucose 162 mg/dL (65-115); Magnesium 1.7 mg/dL (1.7-2.3); Osmolality Calculated 291 mOsm/kg (285-295); Phosphorus 2.9 mg/dL (2.5-4.5); Sodium 137 mmol/L (136-145); Total Bilirubin 0.4 mg/dL (0.15-1.2); Total Protein 6.6 g/dL (6.6-8.7)
[2022-04-14 21:50] VITALS: PULSE 100; O2SAT 95
[2022-04-14 22:27] LABS: Lactic Sepsis W/Reflex 0.7 mmol/L (0.5-2.2)
[2022-04-15] VITALS (7 sets, daily range): BP systolic 112–120; BP diastolic 71–77; PULSE 94–123; RESP 12–24; TEMP 35.7–36.8; O2SAT 85–97
[2022-04-15] MEDS: FUROsemide 10 mg/mL SDV 4mL 40 MG IVP (01:50)
--- NOTE | 2022-04-15 02:28 | PC.NURSE ---
Spoke with Jose Alejandro, stated to hold off on NG tube insertion at this time. If pt was to start vomiting that i was to place NG. Pt aware and included in plan. Currently pt without nausea and has not vomited. Has tolerated minimal clear liquids at this time as well. If no above mentioned events are to take place tonight before shiftchange i was instructed to cancel NG tube order by Jose Alejandro.
[2022-04-15 05:05] LABS: Basophils % 0.3 %; Eosinophils # 0.1 10^3/uL (0.0-0.8); Eosinophils % 0.8 %; Hematocrit 36.3 % (42.0-52.0); Hemoglobin 11.5 g/dL (11.7-16.6); Lymphocytes # 0.7 10^3/uL (0.8-4.8); Lymphocytes % 7.4 %; Mean Corpuscular HGB Conc 31.7 g/dL (30.0-36.0); Mean Corpuscular Hemoglobin 28.6 pg (28.0-34.0); Mean Corpuscular Volume 90.3 fl (80-94); Mean Platelet Volume 9.3 fL (7.4-10.4); Monocytes # 1.2 10^3/uL (0.2-0.9); Monocytes % 12.2 %; Neutrophils % 78.7 %; Nucleated Red Blood Cells % 0 %; Platelet Count 494 10^3/cmm (130-400); Red Blood Count 4.02 10^6/uL (4.1-5.3); Red Cell Distribution Width 17.1 % (12.1-15.1); White Blood Count 9.5 10^3/uL (4.0-10.0)
--- NOTE | 2022-04-15 05:31 | PC.NURSE ---
Pt stated that he had one episode of vomiting tonight around 0300. Pt also stated this was the only time he threw up and it was approximately 200mls. When i became aware of this episode i discussed with the patient possible insertion of NG tube. He stated he did not want the NG tube and would rather wait it out for now as it only happened once and wasnt like last time . So far patient has not had anymore episodes and is currently not nauseous. No bowel movement. No abd pain. Pt understands if this happens more frequently we will have to insert NG tube per doctors order.
[2022-04-15 05:37] LABS: Anion Gap 25.3 (5-19); Blood Urea Nitrogen 24 mg/dL (8-23); Calcium 8.6 mg/dL (8.5-10.5); Carbon Dioxide 19 mmol/L (22-29); Chloride 97 mmol/L (98-107); Glucose 126 mg/dL (65-115); Osmolality Calculated 292 mOsm/kg (285-295); Potassium 3.3 mmol/L (3.5-5.1); Sodium 138 mmol/L (136-145)
[2022-04-15 06:41] LABS: Glucose Point of Care 135 mg/dL (70-110)
[2022-04-15] MEDS: sodium chlor 0.45% +KCl 20 mEq 20 MEQ/1,000 ML BAG 75 MEQ IV (08:45)
[2022-04-15] MEDS: potassium chloride premix 40 MEQ/100 ML PREMIX 25 MEQ IV (08:48)
[2022-04-15] MEDS: ciprofloxacin-dexameth Otic Susp 7.5 mL Btl 4 DROP EAR-RIGHT ×2 (08:53→18:23)
[2022-04-15 12:00] LABS: Glucose Point of Care 110 mg/dL (70-110)
[2022-04-15] MEDS: ondansetron 2 mg/ML SDV 2 mL 4 MG IVP ×3 (13:23→22:44)
[2022-04-15 13:43] LABS: Total Protein Body Fluid 4.8 g/dL
[2022-04-15 13:52] LABS: LDH Body Fluid 1005 U/L
[2022-04-15 14:07] LABS: Apprearance, Body Fluid TURBID; Color, Body Fluid AMBER
[2022-04-15 14:11] LABS: Body Fluid Polynuclear #Cells 0.243; Body Fluid WBC 519 /uL; Monocytes # Body Fluid 0.276
[2022-04-15 14:27] LABS: PATH Referral YES
[2022-04-15 14:28] LABS: Cyto Order Verification Order Verified
--- NOTE | 2022-04-15 14:29 | PM.CONSULT ---
Providers/Reason For Consult Consulting Physician/Specialty*: Dr. 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 He presented with signs of small bowel obstruction. He is going today for his second paracentesis. General surgery was consulted to discuss possible tunneled peritoneal drainage catheter placement. Patient denies any new pain. Denies diarrhea, constipation, hematochezia and/or melena. Review of Systems General: Reports: 10 or more systems reviewed and unremarkable except in HPI and below Medications/Allergies Home Medications Medication Instructions Recorded Confirmed Last Taken Type esomeprazole magnesium 40 mg 40 mg PO DAILY 07/02/20 04/15/22 01/21/22 History capsule,delayed release (Nexium) dapagliflozin 10 mg tablet 10 mg PO DAILY 08/14/20 04/15/22 01/21/22 History (Farxiga) metformin 1,000 mg tablet 1,000 mg PO BID 08/14/20 04/15/22 01/21/22 History lisinopril 20 mg tablet 20 mg PO DAILY 01/27/21 04/15/22 01/21/22 History mzpgheqx-ujy-VB 0.4 mg-calcium 162 1 tab PO DAILY 01/22/22 04/15/22 01/21/22 History mg-iron 18 ag-kugyasg-nxfrom tablet dexamethasone 4 mg tablet 20 mg PO .COMPLEX #10 tab 03/19/22 04/15/22 Unknown Rx rivaroxaban 15 mg tablet (Xarelto) 15 mg PO BID tab 03/24/22 04/15/22 Unknown History lorazepam 1 mg tablet 0.5 - 1 mg PO Q6H PRN #30 tab 03/25/22 04/15/22 Unknown Rx ondansetron 4 mg disintegrating 4 mg PO Q4H PRN #60 tab 03/31/22 04/15/22 Unknown Rx tablet dronabinol 5 mg capsule 5 mg PO BID #60 cap 04/13/22 04/15/22 Unknown Rx rosuvastatin 40 mg tablet 40 mg PO DAILY 04/15/22 04/15/22 Unknown History Allergies Allergy/AdvReac Type Severity Reaction Status Date / Time No Known Allergies Allergy Verified 03/31/22 10:10 Current Medications Generic Name Dose Route Start Last Admin Trade Name Freq PRN Reason Stop Dose Admin Ciprofloxacin/Dexamethasone 4 drop 04/15/22 09:00 04/15/22 08:53 Ciprofloxacin-Dexameth Otic Susp 7.5 Ml Btl EAR-RIGHT 4 drop BID POLO Administration Protocol Potassium Chloride/Sodium Chloride 20 meq in 1,000 mls @ 75 mls/hr 04/15/22 08:15 04/15/22 08:45 Sodium Chlor 0.45% +Kcl 20 Meq IV 75 mls/hr .[id number] POLO Administration Insulin Human Lispro 0 unit 04/14/22 21:00 04/14/22 21:41 Insulin Lispro 100 Unit/1 Ml SUBCUT Not Given BEDTIME POLO Protocol Insulin Human Lispro 0 unit 04/15/22 08:00 04/15/22 12:11 Insulin Lispro 100 Unit/1 Ml SUBCUT Not Given TIDWM POLO Protocol Ondansetron HCl 4 mg 04/14/22 18:41 04/15/22 13:23 Ondansetron 2 Mg/Ml Sdv 2 Ml IVP 4 mg Q4H PRN Administration vomiting, or N/V if npo Pantoprazole Sodium 40 mg 04/14/22 18:45 04/14/22 20:04 Pantoprazole 40 Mg Sdv IVP 40 mg Q24H POLO Administration PFSH Acute PFSH: Medical History Diabetes GERD (gastroesophageal reflux disease) History of diverticulitis History of nonmelanoma skin cancer Horseshoe kidney Hyperlipidemia Hypertension 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 Adams for squamous cell skin cancers on the dorsum of the left hand and on the central forehead. Surgical History H/O circumcision H/O colonoscopy 2020 H/O esophagogastroduodenoscopy 2020 H/O hemorrhoidectomy Port-A-Cath in place (01/28/21) Family History Father Cancer Grandmother CAD (coronary artery disease) Diabetes Mother Dementia Denies family history of Clotting disorder Hyperlipidemia Psychiatric illness Chronic kidney disease (CKD) Suicide Anesthesia complication Bleeding disorder Lung disease Hypertension Stroke Social History Smoking and tobacco status: former smoker Quit status (tobacco): has quit using tobacco Year quit tobacco: 1986 [id number] Second hand smoke exposure: No Alcohol intake: current Alcohol intake frequency: other Lives independently: Yes Household members: spouse Marital status: Current occupational status: retired Current gender identity: Male Vitals/I&O/Wt Last Vital Signs Temp 98.0 F 04/15/22 04:00 Pulse 98 04/15/22 11:46 Resp 16 04/15/22 11:46 BP 117/77 04/15/22 11:46 Pulse Ox 97 04/15/22 11:46 04/14/22 04/15/22 04/15/22 22:59 06:59 14:59 Intake Total 0 / 0 120 / 120 Output Total 225 / 225 0 / 225 Balance -225 / -225 120 / -105 Weight last 48 hrs Weight 136 lb Physical Exam Narrative: General : Patient is well developed , no acute distress, oriented x3 Head : Normal cephalic, a-traumatic. Ears : Pinnae and external canal are normal. Hearing is normal. Eyes : PERRLA, Sclera and injection are normal. No conjunctival discharge. Nose : Mucous membranes are without erythema. Throat : buccal mucosa is normal, gums are without significant recession or hypertrophy. Lungs : Equal chest rise bilaterally, no use of accessory muscles, trachea is midline. Cor : Rate and rhythm are normal. Abdomen : Soft, mildly distended, NT, no g/r/m Extremities : No edema, no cyanosis or clubbing, dorsalis pedis pulses are present bilaterally, non-tender to palpation of calves. Upper extremities are normal bilaterally. Back : non-tender to palpation, no CVA tenderness. Neuro : CN II - XII intact, Upper and lower extremities have equal and full strength Data : 04/15/22 04:52 04/15/22 04:52 Micro: Microbiology 04/14/22 20:58 Blood Culture - Preliminary Blood SPECIMEN COLLECTED A&P Assessment and plan (1) Malignant neoplasm of appendix: Status: Acute (2) Secondary malignant neoplasm of retroperitoneum and peritoneum: Status: Acute Plan Patient is not opting for a peritoneal catheter at this time. I did explain to him what 1 is and that it is an option. General surgery is available for placement if and when needed. 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
[2022-04-15 17:08] LABS: Glucose Point of Care 96 mg/dL (70-110)
[2022-04-15] MEDS: pantoprazole 40 mg SDV IVP (18:16)
[2022-04-15] MEDS: LORazepam 2 mg/mL INJ 1 mL 0.5 MG IVP (18:44)
--- NOTE | 2022-04-15 19:30 | XRR_ITS ---
PROCEDURE INFORMATION: Exam: XR Abdomen Exam date and time: 04/15/2022 7:47 PM Age: 72 years old Clinical indication: Vomiting; Additional info: Repeated vomting, known cancer with dialted gi system TECHNIQUE: Imaging protocol: Radiologic exam of the abdomen. Views: Frontal supine view of the abdomen. 1 View. COMPARISON: CT abdomen pelvis w con* [id number] 04/14/2022 2:44 PM FINDINGS: Lungs: Moderate left pleural effusion with left lower lobe atelectasis is partially visualized, findings are stable compared with the CT scan dated 04/14/2022. Single calcified granuloma in the liver. Multiple calcified granulomas in the spleen. Gastrointestinal tract: No evidence for bowel obstruction or perforation. Intraperitoneal space: No free intraperitoneal air. Organs: No organomegaly. Bones/joints: Bones are diffusely osteopenic. Degenerative changes in the spine, sacroiliac joints, and hips. XR/XR KUB portable [id number] IMPRESSION: 1. No evidence for bowel obstruction or perforation. 2. Moderate left pleural effusion with left lower lobe atelectasis is partially visualized, findings are stable compared with the CT scan dated 04/14/2022. 3. Incidental/nonacute findings are listed in the report.
--- NOTE | 2022-04-15 19:42 | P.PN_ITS ---
Subjective Subjective: Patient seen and examined earlier today. 2 L of fluid was taken off during the thoracentesis. He felt clinically better after about a liter being removed. Studies have been ordered on fluid and are pending. He had 2 episodes of vomiting overnight both after taking in water because he felt thirsty. He had been doing okay today until this afternoon when he started to have episodes of vomiting again. He has required multiple doses of antiemetics. This occurred after attempting to advance diet. Had had stool output. Multiple family/friends in room. Spoke in front of them all with patients permission. Vitals/I&O/Wt Last Vital Signs Temp 98.0 F 04/15/22 04:00 Pulse 98 04/15/22 11:46 Resp 16 04/15/22 11:46 BP 117/77 04/15/22 11:46 Pulse Ox 97 04/15/22 11:46 04/15/22 04/15/22 04/15/22 06:59 14:59 22:59 Intake Total 120 / 120 1050 / 1050 Output Total 0 / 225 Balance 120 / -105 1050 / 1050 Weight last 48 hrs Weight 61.689 kg Physical Exam Narrative: Constitutional: Awake and alert HEENT: Tolerating small sips Respiratory: No tachypnea or retractions Cardiovascular: Regular Abdomen: Soft, less full, loose skin left side of abdomen, dressing intact and clean Extremities: Pulses equal x 4 Skin: Port-A-Cath accessed in the left upper chest Neuro: Speech clear, face symmetric, smiles more today with company and some relief Psych: Normal affect Data : 04/15/22 04:52 04/15/22 04:52 Micro: Microbiology 04/14/22 20:58 Blood Culture - Preliminary Blood SPECIMEN COLLECTED A&P Assessment and plan (1) Vomiting: Intractable prior to arrival to hospital, received antiemetics, fluids in oncology clinic with improvement Recurrent intractable symptoms this afternoon Secondary to bowel obstruction, malignancy Status: Acute (2) Bowel obstruction: With dialted esophagus, stomach, small bowel and large bowel Declined NGT placement at admission Recurrent intractable GI symptoms today Status: Acute Qualifiers: Intestinal obstruction type: other intestinal obstruction Intestinal obstruction extent: partial Qualified Code(s): K56.690 - Other partial intestinal obstruction (3) Ascites: Increasing ascites and associated bowel edema Prior paracentesis here in 2019 did not reveal evidence of malignancy PET scan findings from [facility] of this year showed diffuse bowel uptake likely inflammatory Found scanned records from [facility] where they report Rare atypical cells, highly suspicious for adenocarcinoma from peritoneal fluid back in 12/2020 Now s/p paracentesis with 2L drained brown fluid Status: Acute Qualifiers: Ascites type: other type Qualified Code(s): R18.8 - Other ascites (4) Pleural effusion, left: Increasing in size with enhancement suggestive or pleural implants Last thoracentesis was in December 2021 and did not show definitive findings of malignant effusion PET scan imaging January did not show FDG uptake in the mediastinal lymph nodes Respiratory status stable presently Status: Chronic (5) On antineoplastic chemotherapy: Last dose of Taxol on 03/31 Status: Acute (6) Secondary malignant neoplasm of retroperitoneum and peritoneum: Suspected to be appendiceal related but primary not found Progressive nodular peritoneal enhancement consistent with carcinomatosis Progressive mesenteric edema On 3rd line chemotherapy agent per recommendations from [facility] Has not yet started marinol, has applied for a THC card Status: Acute (7) Pulmonary embolism: Chronic, specific location not known Status: Chronic Qualifiers: Chronicity: chronic (8) Chronic anticoagulation: Xarelto, secondary to history of PE Status: Chronic (9) Diabetes: Chronically on Farxiga and metformin 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 Status: Chronic Qualifiers: Diabetes mellitus type: type 2 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: without wood boat builder supervisor use Diabetes mellitus complication status: with hyperglycemia Qualified Code(s): E11.65 - Type 2 diabetes mellitus with hyperglycemia (10) GERD (gastroesophageal reflux disease): On PPI Status: Acute Plan Persistent weight loss Right-sided pulmonary nodules equivocal on PET scanning Hypokalemia KUB now Add additional adjunctive antiemetics therapy and monitor response NGT may not be avoidable NPO for bowel rest Appreciate surgery input into care; patient and family aware of possibility for peritoneal drain placement if recurrent ascites to help with comfort Tentative plan was to resume xarelto but given recurrent symptoms will consider lovenox instead while here Monitor blood sugars, on insulin as needed Fluid rate decreased earlier today given intake; for now monitor and adjust rate accordingly Monitor electrolytes and replace as needed Continue PPI Add H2B Continue to hold meds from home as ordered Ciprodex to right ear SCDs for DVT prophylaxis Supportive care otherwise Anticipate discharge home with outpatient follow-up to oncology at this time but ultimately depends on clinical course Discussion regarding goals of care Attestations Medical Necessity Statement*: Requiring ongoing inpatient care for management of intractable vomiting secondary to obstruction from malignancy as described above Coding Level of Care Code Acute Supervisor Pastry for Chg Fwd Diagnoses Vomiting R11.10 Bowel obstruction K56.690 Intestinal obstruction type: other intestinal obstruction Intestinal obstruction extent: partial Ascites R18.8 Ascites type: other type Pleural effusion, left J90 On antineoplastic chemotherapy Z79.899 Secondary malignant neoplasm of retroperitoneum and peritoneum C78.6 Pulmonary embolism I26.99 Chronicity: chronic Chronic anticoagulation Z79.01 Diabetes E11.65 Diabetes mellitus type: type 2 Diabetes mellitus mcfp insulin use: without mcfp use Diabetes mellitus complication status: with hyperglycemia GERD (gastroesophageal reflux disease) K21.9
--- NOTE | 2022-04-15 20:00 | US_ITS ---
WS: [id number] ULTRASOUND-GUIDED PARACENTESIS CLINICAL INFORMATION: ascites, known malignancy, diagnostic and therapeutic COMPARISON: None. Procedure Informed consent: The risks, benefits, and alternatives of the procedure were discussed with the antonino ent. Verbal and written consent was obtained. Timeout: A timeout was performed to confirm the correct patient, procedure, and site. Preparation: A suitable skin site was identified. The patient was prepped and draped in usual sterile fashion. Lidocaine 1% was used for local anesthesia. Catheter: 4 Malay One-step Yueh catheter. Side: LEFT Lower quadrant. Fluid Volume: 2000 ml Color: Brown DISPOSITION: 50 cc sent for requested diagnostic tests. Complications: None. US/US paracentesis abd w [id number] IMPRESSION: Uncomplicated ultrasound-guided paracentesis. Removal of 2000 cc ascites
[2022-04-15] MEDS: morphine 4 mg/mL SDV 1 mL IVP (20:10)
[2022-04-15] MEDS: ondansetron 2 mg/ML SDV 2 mL 8 MG IVP (20:20)
[2022-04-15] MEDS: diphenhydrAMINE 50 mg/mL SDV 1mL 25 MG IVP (20:21)
[2022-04-15] MEDS: famotidine 20 mg/2 mL INJ IVP (20:21)
[2022-04-15] MEDS: sodium chlor 0.45% +KCl 20 mEq 20 MEQ/1,000 ML BAG 50 MEQ IV (21:36)
[2022-04-15] MEDS: LORazepam 2 mg/mL INJ 1 mL 1 MG IVP (23:10)
[2022-04-15] MEDS: metoclopramide 5 mg/mL SDV 2 mL 10 MG IVP (23:58)
[2022-04-16] VITALS (36 sets, daily range): BP systolic 65–102; BP diastolic 43–73; PULSE 77–146; RESP 21–77; TEMP 36.3; O2SAT 86–100
[2022-04-16] MEDS: scopolamine 1.5 Patch 1 PATCH TRANSDERMA
[2022-04-16 00:16] LABS: NT Pro B Type Natriuretic Pept 597 pg/mL (0-125)
[2022-04-16 00:52] LABS: Glucose Point of Care 203 mg/dL (70-110)
--- NOTE | 2022-04-16 01:17 | XRR_ITS ---
PROCEDURE INFORMATION: Exam: XR Chest Exam date and time: 04/16/2022 1:24 AM Age: 72 years old Clinical indication: Shortness of breath; Additional info: Resp distress TECHNIQUE: Imaging protocol: Radiologic exam of the chest. Views: 1 view. COMPARISON: CR XR chest 1V portable [id number] 01/22/2022 8:07 AM FINDINGS: Lungs: There are unchanged lung volumes. Unchanged medium-sized left pleural effusion is seen with left basilar opacification. Unchanged left perihilar interstitial prominence. New right upper lobe 1.7 x 1.5 cm nodular opacity is seen on the current exam. Minimal adjacent interstitial opacities are seen. Chest CT may be performed for complete assessment. Pleural spaces: There is no right pleural effusion. No pneumothorax. Heart/Mediastinum: The heart size is normal. The mediastinal contour is normal. The trachea is in the midline. There is a left subclavian Port-A-Cath is seen without change. Bones/joints: No acute abnormalities. Mild bilateral shoulder degenerative changes are seen. XR/XR chest 1V portable [id number] IMPRESSION: Unchanged medium-sized left pleural effusion with left basilar opacification. Unchanged left perihilar interstitial prominence. New right upper lobe 1.7 x 1.5 cm nodular opacity seen on the current exam. Minimal adjacent interstitial opacities. Chest CT may be performed for complete assessment.
--- NOTE | 2022-04-16 01:29 | ECG_ITS ---
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 Measurements Intervals [place] Rate: 140 P: 50 SD: 122 QRS: 47 QRSD: 90 T: 34 QT: 314 QTc: 480 Interpretive Statements SINUS TACHYCARDIA, POSSIBLE ATRIAL FLUTTER MODERATE ST DEPRESSION [0.05+ mV ST DEPRESSION] Compared to ECG 04/13/2015 02:00:02 ST (T wave) deviation now present Sinus rhythm no longer present Electronically Signed On 04-16-2022 17:10:10 CDT by Linda Paul M.D. [id number]
[2022-04-16 01:47] LABS: ABG PCO2 54.5 mmHg (35-45); Arterial Blood Gas Hematocrit 44.7 % (42-52); Base Excess ABG -19.3 mmol/L (-2.0-2.0); Blood Gas Allen Test Pos; Blood Gas Sample Site Radial, right; Blood Gas Sample Type Arterial; HCO3 ABG 12.7 mmol/L (22-26); Oxygen Device NRB; PO2 ABG 90.5 mmHg (80.0-100.0)
[2022-04-16 01:48] LABS: ABG PH Result 6.98 (7.35-7.45)
[2022-04-16 01:56] LABS: Basophils % 0.5 %; Eosinophils % 0.2 %; Hematocrit 44.3 % (42.0-52.0); Hemoglobin 13.9 g/dL (11.7-16.6); Lymphocytes # 0.7 10^3/uL (0.8-4.8); Lymphocytes % 10.4 %; Mean Corpuscular HGB Conc 31.4 g/dL (30.0-36.0); Mean Corpuscular Hemoglobin 28.9 pg (28.0-34.0); Mean Corpuscular Volume 92.1 fl (80-94); Mean Platelet Volume 9.4 fL (7.4-10.4); Monocytes # 0.2 10^3/uL (0.2-0.9); Neutrophils # 5.49 10^3/uL (1.8-7.7); Neutrophils % 85.1 %; Nucleated Red Blood Cells % 0 %; Platelet Count 664 10^3/cmm (130-400); Red Blood Count 4.81 10^6/uL (4.1-5.3); Red Cell Distribution Width 17.3 % (12.1-15.1); White Blood Count 6.4 10^3/uL (4.0-10.0)
[2022-04-16 02:03] LABS: Ketone (Acetest) Serum Positive (Negative)
[2022-04-16 02:12] LABS: Lactate (Lactic Acid level) 3.1 mmol/L (0.5-2.2)
[2022-04-16 02:15] LABS: Glucose Point of Care 249 mg/dL (70-110)
--- NOTE | 2022-04-16 02:16 | P.EN_ITS ---
Event Note Event Note: Rapid response was called at around 1:30 AM this morning due to acute respiratory distress. His oxygen requirements had quickly climbed from being on room air to desaturation down to 79 to 83% on room air. Additionally he had developed tachypnea, intercostal retractions, significant audible crepitus and rhonchi, was lethargic and unable to respond to any commands. Previously in the evening he had been alert awake oriented. He had earlier received Ativan at 6:45 PM. He had been vomiting through the evening and there was concern that he may have possibly aspirated. At the time of my assessment blood pressure was 98/70, heart rate 123/min regular, sinus tachycardia on EKG, saturating 79% on 4 L/min nasal cannula. He was placed on oxygen mask at 15 L/min 100% FiO2 following which saturation improved to 94%. ABG was taken which showed pH 6.9/CO2 54.5/PO2 90.5 on 15 L/100%. Patient was placed on BiPAP at bedside, stat labs including CBC, CMP, lactate, Pro-Pierre, BNP were taken. Stat chest x-ray per my read showed stable large left- sided pleural effusion and new perihilar infiltrates left worse than right. Official radiology read is still pending. He was given Solu-Medrol 125 mg IV, Lasix 40 mg IV, IV fluids were discontinued and patient transferred to ICU in critical condition. Patient's and daughter are at bedside during the events. Confirm his CODE STATUS to be full code.
[2022-04-16 02:22] LABS: NT Pro B Type Natriuretic Pept 1021 pg/mL (0-125); Procalcitonin 0.19 ng/mL (0-0.5)
[2022-04-16 02:33] LABS: Anion Gap 30.9 (5-19); Blood Urea Nitrogen 33 mg/dL (8-23); Calcium 8.9 mg/dL (8.5-10.5); Carbon Dioxide 13 mmol/L (22-29); Chloride 95 mmol/L (98-107); Glucose 281 mg/dL (65-115); Magnesium 1.7 mg/dL (1.7-2.3); Osmolality Calculated 297 mOsm/kg (285-295); Phosphorus 5.6 mg/dL (2.5-4.5); Potassium 3.9 mmol/L (3.5-5.1); Sodium 135 mmol/L (136-145)
[2022-04-16] MEDS: piperacillin-tazobactam 3.375 GM in sodium chloride 0.9% (plus) 50 ML IV (02:39)
[2022-04-16] MEDS: albumin 12.5 GM/250 ML VIAL IV (02:41)
--- NOTE | 2022-04-16 02:53 | PC.NURSE ---
Rapid response note Pt had been having episodes of vomiting about 2 times an hour despite administration of numerous antiemetics. Zofran was given an ineffective. Around 2209 pt recieved second dose of ativan. Encouraged to keep head of bed elevated as well. Shortly after patient who has been at bedside paged me to the room concerned about his breathing. With my assessment i could audibly hear pt gurgling phlegm which was a change from initial assessment. Boosted the patient in bed an encouraged coughing. Auscultated pt lungs and determined the patient also had crackles. Vitals at this time were HR 123 BP 112/75 O2 85%. Charge nurse notified and O2 was applied while i phoned Dr. Moore. I notified phys of my concerns of possible fluid overload and aspiration and increase O2 requirement of 4L from a baseline of zero. Phys ordered for fluids to be DC, BNP, and well as chest xray. Notified phys of resulted BNP and need for code status order at 0115. Oscar stated to me she had put in more orders and would be up to asses the patient and speak with the family. At this time xray had not yet been up to get images of pt chest and they were paged overhead after many attempts to call/locate them. Oscar came to the floor as xray arrived and she looked at the images at bedside. At this time pt was working much harder to breath and phys ordered EKG and telemetry because patient had become more tachycardic. Vitals were BP 98/70 HR138 temp 97.4axillary Resp 25. While i was attempting to execute those orders phys called a rapid response at the bedside. Labs taken, respiratory to floor with bipap, see MAR for meds given - It was determined that pt needed to be moved to ICU Rm 7. Pt family was made aware of situation and plan, and belongings were gathered and they were escorted to ICU waiting room by printer operator staff. Escorted pt to ICU with unit charge nurse, and respiratory. Report given to Dia at bedside.
[2022-04-16] MEDS: dexmedeTOMIDine 0.9 % NaCL 400 MCG/100 ML PREMIX IV (02:55)
[2022-04-16] MEDS: ondansetron 2 mg/ML SDV 2 mL 4 MG IVP (03:07)
[2022-04-16] MEDS: vancomycin 1,000 MG in sodium chloride 0.9% 250 ML 250 MG IV (03:22)
[2022-04-16] MEDS: sodium chloride 0.9% 500 ML IV ×4 (03:47→06:48)
[2022-04-16 04:06] LABS: Troponin T (5th) Once 14 ng/L (0-15)
[2022-04-16 04:27] LABS: ABG PCO2 31.5 mmHg (35-45); Arterial Blood Gas Hematocrit 40.7 % (42-52); Base Excess ABG -15.7 mmol/L (-2.0-2.0); Blood Gas Allen Test Pos; Blood Gas Operator Identificat JB; Blood Gas Sample Site Brachial, left; Blood Gas Sample Type Arterial; HCO3 ABG 11.5 mmol/L (22-26); Oxygen Device BIPAP
[2022-04-16 04:30] LABS: ABG PH Result 7.17 (7.35-7.45)
[2022-04-16 05:53] LABS: SARS Covid-2 Antigen Negative (Negative)
[2022-04-16] MEDS: levalbuterol 0.63 mg/3 mL Neb 2.5 MG INHALATION (06:38)
--- NOTE | 2022-04-16 07:25 | PC.NURSE ---
Received patient from Med Surg- pt labored breathing noted, crackels throughout. Placed BIPAP- started Precedex. Patient has emesis - placed NG, then to suction, 1200ml green gastric content. Hypotensive present, Levophed maxed at 20mcg, Cheetah hooked up. Patient is not fluid responsive. Dr mendiola- bolus still ordered. Gave total 1500ml . Vasopressin started. Family has been given frequent updates. Answered all questions. Emotional support given
[2022-04-16 07:28] LABS: ABG PCO2 39.7 mmHg (35-45); Arterial Blood Gas Hematocrit 39.3 % (42-52); Base Excess ABG -12.8 mmol/L (-2.0-2.0); Blood Gas Allen Test Pos; Blood Gas Operator Identificat GD; Blood Gas Sample Site Radial, right; Blood Gas Sample Type Arterial; HCO3 ABG 14.8 mmol/L (22-26); Oxygen Device BIPAP; PO2 ABG 68.7 mmHg (80.0-100.0)
[2022-04-16] MEDS: pantoprazole 40 mg SDV IVP (07:29)
[2022-04-16 07:31] LABS: ABG PH Result 7.18 (7.35-7.45)
[2022-04-16] MEDS: levalbuterol 0.63 mg/3 mL Neb INHALATION (07:36)
[2022-04-16 07:53] LABS: Glucose Point of Care 343 mg/dL (70-110)
[2022-04-16] MEDS: morphine 4 mg/mL SDV 1 mL 1 MG IVP (08:03)
--- NOTE | 2022-04-16 08:49 | PC.NURSE ---
DNR/DNI per verbal with Dr. Blount. Discussed in room with patient and family by Dr. Blount. Will place order.
[2022-04-16] MEDS: fentaNYL 50 mcg/mL INJ 2mL 25 MCG IVP (08:55)
[2022-04-16] MEDS: dexmedeTOMIDine 0.9 % NaCL 400 MCG/100 ML PREMIX 18.51 MCG IV ×3 (09:00→19:38)
--- NOTE | 2022-04-16 09:44 | P.PN_ITS ---
Subjective Subjective: Patient acutely decompensated overnight after persisitent vomiting depsite treatment. Raorid response for respiratory distress. Case discussed with Dr. Moore. Anion gap acidosis with pH as low as 6.98. Suspect bowel ischemia from malignancy-associated obstruction and possible aspiration from vomiting. DKA also in differential though blood sugars have ranged 90s-150s since admit until acute event last evening. No prior histoyr of DKA I am aware of. Cannot rule out an acute infectious cause with associated severe sepsis and septic shock under the circumstances but the primary issue is the advanced cancer. Thrombotic event also in differential with xarelto held for procedure. On hemodynamic monitoring earlier CVP was 14. Has received fluids. On 2 pressors, antibiotics added. NGT placed last night after further discussion with him and family. Bipap in use presently. Patient is uncomfortable, moaning. Blood pressures in the 60s-70s systolic. He had been full code through the night. Dr Hernandez spoke with this morning. We spoke and care is now transitioning to comfort care. Family are being contacted who are close enough to come and see him. I have spoken with , daughters, other friends and family updating on condition and prognosis, what to expect. Reviewed with nursing and adjusted orders. Vitals/I&O/Wt Last Vital Signs Temp 97.4 F L 04/16/22 03:58 Pulse 101 H 04/16/22 08:30 Resp 33 H 04/16/22 08:30 BP 70/48 04/16/22 08:30 Pulse Ox 93 04/16/22 08:30 04/15/22 04/16/22 04/16/22 22:59 06:59 14:59 Intake Total 2049 46.512 / 2096.512 2373.147 / 2373.147 Output Total 1500 / 1500 Balance 2049 -1453.488 / 125.725 3154.147 / 2373.147 Weight last 48 hrs Weight 61.689 kg Physical Exam Urinary Catheter Management: Z[place]ala: Cath Placed During This Visit: yes Reason for Continuing Indwelling Catheter: Accurate Measurement of Urinary Output in Critically Ill Patients Urinary Catheter Date of Insertion: 04/16/22 Urinary Catheter Time of Insertion: 02:10 Data : 04/16/22 01:49 04/16/22 01:49 Micro: Microbiology 04/16/22 04:16 Blood Culture - Preliminary Blood SPECIMEN COLLECTED 04/14/22 20:58 Blood Culture - Preliminary Blood NEGATIVE TO DATE A&P Assessment and plan (1) Shock: Unspecified. Indices on noninvasive monitoring not consistent with fluid responsive process. Lactate only mildly elevated. Immunocompromise from cancer/treatment can inhibit usual responses. In my opinion, shock is secondary process to final progression of his cancer/bowel obstruction versus acute thrombotic event. Patient not responding to current aggressive measures and lack of reserves limit ability to pull through event such as this. Escalation of acute treatment not expected to have a different outcome, and in fact expected to cause patient more discomfort. Status: Acute (2) High anion gap metabolic acidosis: Status: Acute (3) Acute respiratory distress: Status: Acute (4) Vomiting: Status: Acute (5) Bowel obstruction: Status: Acute Qualifiers: Intestinal obstruction type: other intestinal obstruction Intestinal obstruction extent: partial Qualified Code(s): K56.690 - Other partial intestinal obstruction (6) Ascites: Status: Acute Qualifiers: Ascites type: other type Qualified Code(s): R18.8 - Other ascites (7) Pleural effusion, left: Status: Chronic (8) On antineoplastic chemotherapy: Status: Acute (9) Secondary malignant neoplasm of retroperitoneum and peritoneum: Status: Acute (10) Pulmonary embolism: Status: Chronic Qualifiers: Chronicity: chronic (11) Chronic anticoagulation: Status: Chronic (12) Diabetes: Status: Chronic Qualifiers: Diabetes mellitus type: type 2 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 On comfort care. Do not expect to survive beyond today. Critical Care Time: The high probability of a clinically significant, sudden or life threatening deterioration of the patient's cardiopulmonary system(s) required my full and direct attention, intervention and personal management. The critical care time is as shown. This time is in addition to time spent performing any reported procedures but includes the following: [x] Data and vital sign review and interpretation [x] Discussion with other providers [x] Patient assessment, examination and intervention [x] Discussion with family [x] Documentation [x] Medication orders and management Critical Care Time (min): 45 Coding Level of Care Code Acute Director Mobile for Chg Fwd Diagnoses Vomiting R11.10 Bowel obstruction K56.690 Intestinal obstruction type: other intestinal obstruction Intestinal obstruction extent: partial Ascites R18.8 Ascites type: other type Pleural effusion, left J90 On antineoplastic chemotherapy Z79.899 Secondary malignant neoplasm of retroperitoneum and peritoneum C78.6 Pulmonary embolism I26.99 Chronicity: chronic Chronic anticoagulation Z79.01 Diabetes E11.65 Diabetes mellitus type: type 2 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
--- NOTE | 2022-04-16 11:04 | PC.CHAP ---
Pastoral Care Encounter/Spiritual Assessment Type of Contact [] Declined senior information security consultant visit [] Patient/Family/Request visit [] Outpatient visit [] Follow-up visit [] Physician referral [] Code/Alert [x] Routine visit [] Staff referral [] Actively dying [] Patient sleeping [x] Family support [] [] Out of room [] Palliative care [x] [] Receiving care in room [] Pre-surgical visit [] Trauma [] Long length of stay [x] ICU visit [] Other: Relational/Emotional Strength [] Patient feels connected with others/family/visitors/staff [] Distress [] Loneliness/isolation [] Abandonment Spirituality of Patient [x] Person of Delaney [] Attends Pentecostalism of their Delaney [] Believes in Prayer [] Reads Bible or Scientology materials [] There are Spiritual issues to be addressed In Flight Technician Interventions [x] Prayer [] Active listening [] Non-anxious presence [] Spiritual/emotional support [] Crisis/trauma care [] Spiritual counseling [] Bereavement support [] Provided bereavement packet [] Provided Bible/devotional materials [x] Provided toy/stuffed animal, coloring book to patient or family member .. prayer blanket [] Provided Communion [] Anointing/[place] [] Salvation [x] Completed spiritual assessment [] Other: Impact on Illness or Injury [] Angry [] Fearful [] Anxious [] Often cries [] Exhaustion [] Unable to work [] Unable to attend restorationism [] Unable to walk/stand [] Unable to read [] Unable to drive [] Unable to eat/drink [] Unable to sleep [] Unable to be with family [] Patient intubated [] Other: Summary lots of friends and family present... very very close family... Time spent with patient
[2022-04-16] MEDS: morphine 4 mg/mL SDV 1 mL 0.5 MG IVP (14:41)
--- NOTE | 2022-04-16 15:56 | PC.NURSE ---
1400 family request levophed and vaso to be turned off. Patient off Bipap to 2LNC. Family at bedside. Patient comfortable.
--- NOTE | 2022-04-17 01:47 | PC.NURSE ---
Kassandra from [facility] given pt hx and course of treatment. She will contact family and get back with us directily in the ICU.
--- NOTE | 2022-04-17 04:26 | PC.NURSE ---
Patient comfort care, family at bedside. Emotional support given. Patient reposition for comfort. Patient at 0045 . 2 nurses pronounce.
--- NOTE | 2022-04-17 07:27 | PC.NURSE ---
Patient comfort care status. Family at side. Emotional support given. Patient repostion for comfort. Patient at 0045.
--- NOTE | 2022-04-17 08:01 | PM.DDS ---
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 Hospital Diagnoses (1) Shock: Details from hospital stay: Secondary to acute on chronic bowel obstruction from malignancy versus an acute thrombotic event plus secondary septic shock related to downstream infectious processes (2) High anion gap metabolic acidosis: Details from hospital stay: From multiorgan failure (3) Acute respiratory distress: Details from hospital stay: Related to above and probable aspiration (4) Vomiting: Details from hospital stay: Secondary to progressive bowel obstruction from secondary malignant neoplasm of the retroperitoneum and peritoneum (5) Bowel obstruction: Details from hospital stay: Extensive separate areas of obstruction from esophagus to large bowel Qualifiers: Intestinal obstruction extent: partial Intestinal obstruction type: other intestinal obstruction Qualified Code(s): K56.690 - Other partial intestinal obstruction (6) Ascites: Details from hospital stay: Status post therapeutic and diagnostic paracentesis with 2 L of fluid removed Qualifiers: Ascites type: other type Qualified Code(s): R18.8 - Other ascites (7) Pleural effusion, left: Details from hospital stay: Chronic, had previously been drained though not during the stay (8) On antineoplastic chemotherapy: (9) Secondary malignant neoplasm of retroperitoneum and peritoneum: (10) Pulmonary embolism: Details from hospital stay: Present prior to admission Qualifiers: Chronicity: chronic (11) Chronic anticoagulation: Details from hospital stay: On prior to admission Permanent Problem Comments: xarelto (12) Diabetes: Qualifiers: Diabetes mellitus complication status: with hyperglycemia 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 Antony is a very pleasant 72-year-old gentleman who presented as a direct admit from Dr. Hernandez's office due to persistent and worsening vomiting and abdominal pain. CT imaging showed progression of cancer as well as progression of various bowel obstructions along with increasing ascites. He was admitted to see if we could get him any kind of relief. He had a good volume bowel movement after CT imaging was done and felt better upon arrival to the floor. Mr. Antony had a very uncomfortable experience the last time he had had of an NG tube, and preferred avoiding NG tube if it was possible. Given that he had had a good bowel movement he was started on clear liquids. Plans were made for a ultrasound-guided paracentesis the following morning for both diagnostic and therapeutic purposes. Though he had had effusions and ascites in the past no taps had ever yielded malignant fluids. This was performed the day after admission with 2 L removed. After about the first liter of removal, patient actually felt better. His abdomen was visibly less distended, softer and not as tender. Clear liquids were initiated after this. Small amounts were tolerable initially but by evening that day he started having nausea and vomiting that was not responding to medications. Multiple modalities of antiemetics and adjunctive therapy were attempted without relief. He eventually had an acute event in which he had increased episodes of vomiting and associated respiratory distress, probably from some aspiration. He became acutely and progressively more hypertensive and critically ill thereafter. He was transferred to the ICU. He did permit NG tube placement. After this was in place, BiPAP was initiated as were multiple pressors. He continued to decline and was in obvious pain. I suspect that he either developed areas of necrosis from lack of blood flow or perforation and subsequent peritonitis. Dr. Hernandez came and spoke with Mr. Antony his at length. They have known that treatment options had been exhausted. Mr. Antony was transitioned to comfort care. Multiple family and friends were notified. Later in the day after everyone and had a chance to see him pressor support and other life-sustaining modalities were stopped. He was continued on comfort medications only. His heart was strong and he did not until after the following midnight. His family was with him. Primary malignancy was never identified as I understand though had been presumed to be appendiceal for some time. Summary Date and Time of Date of : 04/17/22 Time of : 00:45 Additional Data Confirmation of as documented by pronouncing clinician: no pulse, no respirations, no heart sounds and pupils fixed and dilated Family: at bedside Additional persons at bedside: nursing staff Attending/PCP notified?: I am attending Was code activated?: No Autopsy requested?: No Advance directives?: Yes Hospice patient?: No Discharge Plan Discharge Patient Disposition: Condition: DS Attestations Time Spent in /Discharge Care*: less than 30 min Quality - AMI: AMI present?: No Quality - Stroke: CVA present?: No Symptom Onset Unknown: No Quality - VTE: VTE present?: No Deep Vein Thrombosis/Pulmonary Embolism Present on Admission: No Coding Level of Care Code 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 Shock R57.9 High anion gap metabolic acidosis E87.2 Acute respiratory distress R06.03 Vomiting R11.10 Bowel obstruction K56.690 Intestinal obstruction extent: partial Intestinal obstruction type: other intestinal obstruction Ascites R18.8 Ascites type: other type Pleural effusion, left J90 On antineoplastic chemotherapy Z79.899 Secondary malignant neoplasm of retroperitoneum and peritoneum C78.6 Pulmonary embolism I26.99 Chronicity: chronic Chronic anticoagulation Z79.01 Diabetes E11.65 Diabetes mellitus complication status: with hyperglycemia 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
== END 2022-04-17 00:45 | disposition expired | DRG 389 ==
LOC: MEDSURG 04-15 22:25 → ICU 04-16 01:59
PROVIDERS: Student in an Organized Health Care Education/Training Program; Admitting Provider Hospitalist; PCP Family Medicine; Visit Provider Hospitalist
DX: K56.690 Other partial intestinal obstruction (principal); C18.1 Malignant neoplasm of appendix; C78.6 Secondary malignant neoplasm of retroperitoneum and peritoneum; I27.82 Chronic pulmonary embolism; R18.8 Other ascites; J90 Pleural effusion, not elsewhere classified; E87.2 Acidosis; D84.821 Immunodeficiency due to drugs; R57.9 Shock, unspecified; Z79.899 Other long term (current) drug therapy; Z79.01 Long term (current) use of anticoagulants; E11.65 Type 2 diabetes mellitus with hyperglycemia; K21.9 Gastro-esophageal reflux disease without esophagitis; Z85.828 Personal history of other malignant neoplasm of skin; Q63.1 Lobulated, fused and horseshoe kidney; E78.5 Hyperlipidemia, unspecified; I10 Essential (primary) hypertension; Z87.891 Personal history of nicotine dependence; K22.89 Other specified disease of esophagus; E87.6 Hypokalemia; R91.8 Other nonspecific abnormal finding of lung field; T45.1X5A Adverse effect of antineoplastic and immunosuppressive drugs, initial encounter; Z51.5 Encounter for palliative care; R00.0 Tachycardia, unspecified; R06.03 Acute respiratory distress
CPT/HCPCS: 36415; 36416; 36600; 49083; 51702; 71045; 74018; 74177; 80048; 80053; 80503; 81001; 82009; 82042; 82803; 82945; 82962; 83605; 83615; 83735; 83880; 83986; 84100; 84145; 84157; 84315; 84484; 85025; 85610; 85730; 87040; 87070; 87075; 87205; 87426; 88108; 88305; 89050; 93005; 94640; 94660; 96365; 96366; 97110; C9113; J1100; J1200; J1940; J2060; J2270; J2405; J2543; J2765; J2930; J3010; J3370; J3480; J3490; J7030; J7040; J7050; J7614; P9041; Q9967